=== PATIENT | female | born 1950 | race Caucasian/White ===

== ENCOUNTER 2022-07-15 12:49 | Outpatient (CLI) | payer MEDICARE, OTHER, SELFPAY ==
--- NOTE | 2022-07-15 13:00 | CRLHL7_ITS ---
For Patients: As a result of the Century Cures Act, medical imaging exams and procedure reports are released immediately into your electronic medical record. You may view this report before your referring provider. If you have questions, please contact your health care provider. INDICATION: Multiple sclerosis TECHNIQUE: Noncontrast Sagittal T1, FLAIR, axial FSE T2, FLAIR, DWI images submitted. Compared to prior study from June 09, 2020. FINDINGS: Stable mild diffuse cerebral atrophy. The ventricles, sulci and gyri are of normal size, shape and contour for age and degree of atrophy. Midline structures are centrally located. No convincing evidence of suspicious intra- or extra-axial fluid collections. Stable [id number] scattered foci of increased T2 signal within the periventricular and subcortical white matter of both cerebral hemispheres. Stable mild infratentorial white matter change no regions of restricted diffusion. IMPRESSION: 1. Stable mild to moderate supratentorial and mild infratentorial white matter change compatible with chronic demyelinating plaques. There are greater than 20 lesions overall. 2. Stable mild diffuse cerebral atrophy and T1 hypointense lesion load. Dictated by Waylon Barbosa MD @ 07/16/2022 12:22:12 PM (Electronically Signed)
--- NOTE | 2022-07-15 13:45 | CRLHL7_ITS ---
For Patients: As a result of the Century Cures Act, medical imaging exams and procedure reports are released immediately into your electronic medical record. You may view this report before your referring provider. If you have questions, please contact your health care provider. INDICATION: Multiple sclerosis. TECHNIQUE: Noncontrast sagittal T1, T2, STIR and axial GRE sequences are provided. Compared to prior study from June 09, 2020 FINDINGS: The overall stature, alignment and intrinsic marrow signal of the cervical spine is within normal limits. There is better visualized tiny lesion within the ventral cervical cord at the C1-2 level and within the right lateral cervical cord at the C2-3 level. Stable region of signal abnormality within the thoracic cord at the T1-2 level. C2-3: Unremarkable. C3-4: Central canal and neural foramina patent. C4-5: Stable mild right foraminal narrowing with no central canal or left foraminal narrowing due to asymmetric uncovertebral joint and facet arthropathy. C5-6: Mild disc osteophyte complex results in no central canal narrowing. Stable moderate to severe bilateral foraminal narrowing due to uncovertebral joint and facet arthropathy. C6-7: Mild disc osteophyte complex results in stable no central canal narrowing. Mild bilateral foraminal narrowing due to uncovertebral joint and facet arthropathy. C7-T1: Unremarkable. IMPRESSION: 1. Essentially stable multi focal signal abnormality within the upper visualized cervical and thoracic cord compatible with multiple chronic demyelinating plaques. 2. Stable moderate to severe bilateral C5-6 foraminal narrowing. 3. Milder degenerative changes within the remainder of the cervical spine as outlined above. Dictated by Waylon Barbosa MD @ 07/16/2022 12:29:27 PM (Electronically Signed)
--- NOTE | 2022-07-15 14:30 | CRLHL7_ITS ---
For Patients: As a result of the Century Cures Act, medical imaging exams and procedure reports are released immediately into your electronic medical record. You may view this report before your referring provider. If you have questions, please contact your health care provider. INDICATION: Multiple sclerosis. TECHNIQUE: Noncontrast sagittal T1, T2, STIR and axial GRE sequences are provided. Compared to prior study from June 09, 2020. FINDINGS: Mild thoracic scoliosis. The overall stature, alignment and intrinsic marrow signal of the thoracic spine is within normal limits. Stable signal abnormality within the thoracic cord at the T1-2 level with subtle atrophic changes that are better characterized on the MRI of the thoracic spine than on the MRI of the cervical spine performed the same day. There are subtle lesions within the thoracic cord again seen at the T5,T7 and T12 levels. Multiple Schmorl`s nodes seen scattered throughout the thoracic spine. Stable mild scattered degenerative changes throughout thoracic spine. Better visualized 16 millimeter irregularity of the right lobe of the thyroid gland is of indeterminate etiology. IMPRESSION: 1. Stable multi focal signal abnormality within the thoracic cord compatible multiple chronic demyelinating plaques. Stable subtle cord atrophy at the T1-2 level. 2. Essentially stable scattered multilevel degenerative changes of the thoracic spine. 3. Irregularity within the right lobe of thyroid gland that is of indeterminate etiology. Further characterization with ultrasound may be beneficial if clinically warranted. Dictated by Waylon Barbosa MD @ 07/16/2022 12:48:48 PM (Electronically Signed)
== END 2022-07-15 12:50 | disposition home or self-care (01) ==
PROVIDERS: PCP Family Medicine
DX: G35 Multiple sclerosis (principal); G31.9 Degenerative disease of nervous system, unspecified; M50.222 Other cervical disc displacement at C5-C6 level
CPT/HCPCS: 70551; 72141; 72146

== ENCOUNTER 2023-07-17 12:40 | Outpatient (CLI) | payer MEDICARE, OTHER, SELFPAY ==
--- NOTE | 2023-07-17 13:00 | MR_ITS ---
Patient: ERIK MCKAY Facility:?[facility] RIS Patient ID:?[id number] Site Patient ID:?[id number]. Site :?[id number] Study:?MRI-Head WO MS-07/17/2023 2:11:50 PM Ordering Physician:PANCHITO Final Report: Indication: Follow up MS Technique: Noncontrast sagittal T1 weighted, axial FLAIR, axial T2 weighted, and axial diffusion weighted sequences are provided. Comparison: 07/15/2022 MRI Findings: Mild cerebral and cerebellar parenchymal volume loss. The midline structures are centrally located with no evidence of shift. Stable scattered foci of T2 prolongation in the periventricular, subcortical, and juxtacortical white matter of both cerebral hemispheres. There are no suspicious intra or extra-axial fluid collections. No region of restricted diffusion. Expected flow voids in the cavernous carotids and basilar artery. Partially empty sella. The optic chiasm and cerebellar tonsils are unremarkable. Impression: 1. Stable supratentorial white matter lesions compatible with chronic demyelinating plaques. No new lesions identified. No significant changes compared to the prior exam. 2. Mild T1 hypointense lesion burden, unchanged. 3. Similar mild cerebral and cerebellar parenchymal volume loss. Dictated by Dev Smith MD @ 07/18/2023 12:03:31 PM Signed by:?Dev Smith MD @07/18/2023 12:03:31 PM (Electronic Signature)
--- NOTE | 2023-07-17 13:45 | MR_ITS ---
Final Report Patient: ERIK MCKAY Facility:?[facility] Patient ID:?[id number] Site Patient ID:?[id number]. Site :?[id number] Study:?MRI Spine Cervical WO MS-07/17/2023 2:13:31 PM Ordering Physician:PANCHITO Final Report: Indication: Follow-up multiple sclerosis. Technique: Noncontrast sagittal T1, T2, STIR, proton density, and axial T2 spin echo and GRE sequences are provided. Comparison: MRI 07/15/2022 Findings: Stable cervical spine alignment. Degenerative grade 1 anterolisthesis at C3-4, C4-5, and C7-T1. The craniocervical junction is unremarkable. No prevertebral or paraspinal edema. No aggressive osseous lesions. Small T2 hyperintense lesion in the right hemicord at C2-3 level, and the ventral cord at C1 level and at the T1-2 level in the right hemicord. No new lesions identified. C1-2: No spinal canal stenosis C2-3: No significant spinal canal stenosis or neural foramen narrowing. C3-4: Grade 1 anterolisthesis. Small central disc protrusion. Mild uncovertebral joint hypertrophy and moderate facet arthrosis. Mild neural foramina narrowing bilaterally. No significant spinal canal stenosis. C4-5: Grade 1 anterolisthesis. Moderate facet arthropathy. Mild neural foramen narrowing bilaterally. Mild spinal canal narrowing. C5-6: Moderate interspace narrowing. Shallow disc osteophyte complex and ligamentum flavum buckling. Mild spinal canal stenosis. Uncovertebral joint hypertrophy and facet arthrosis results in moderate neural foramina narrowing bilaterally. C6-7: Disc osteophyte complex indents the thecal sac without significant spinal canal stenosis. No neural foramen narrowing. C7-T1: Grade 1 anterolisthesis. No significant spinal canal stenosis or neural foramen narrowing. Impression : 1. No acute osseous or ligamentous abnormality. Stable alignment. 2. Stable scattered foci of T2 prolongation in the spinal cord suggestive of chronic demyelinating plaques. No new lesions identified. No cord expansion or atrophy. 3. Stable cervical spondylosis, outlined above. Dictated by Dev Smith MD @ 07/18/2023 12:10:53 PM (Electronic Signature)
--- NOTE | 2023-07-17 14:30 | MR_ITS ---
Patient: ERIK MCKAY Facility:?[facility] RIS Patient ID:?[id number] Site Patient ID:?[id number]. Site :?1950 Study:?MRI-Spine Thoracic WO MS-07/17/2023 2:42:38 PM Ordering Physician:PANCHITO Final Report: Indication: Multiple sclerosis, follow-up imaging Technique: Noncontrast sagittal T1, T2, STIR, proton density and axial T2 sequences are provided. Comparison: 07/15/2022 MRI Findings: Similar mild exaggeration of thoracic kyphosis. Bone marrow edema and mild loss of T11 vertebral body height with linear T2 hyperintense signal compatible with recent/subacute superior endplate compression fracture. No retropulsed fragment. Chronic T12 superior endplate Schmorl`s node. Chronic L1 superior endplate Schmorl`s node and compression fracture. Stable mild disc degeneration at multiple levels. At T10-11, stable central disc protrusion that indents the ventral thecal sac and minimally flattens the ventral cord surface. No significant neural foramen narrowing. Facet arthropathy is most prominent at T9- 10. Stable subtle scattered T2 hyperintense lesions in the thoracic spinal cord, most prominent at the T1-2 level there is minimal cord atrophy. Additional lesions noted at T5 and T6 level, T7 level and T11-12 level best seen on sagittal proton density sequence. Impression: 1. Subacute mild T11 superior endplate compression fracture. No retropulsed fragments. 2. At T10-11, stable central disc herniation that minimally flattens the ventral cord surface and results in mild spinal canal stenosis. 3. Stable subtle scattered T2 hyperintense lesions in the thoracic spinal cord, most prominent at the T1-2 level where there is minimal cord atrophy, as well as at the T5-T7 levels and T11-12 level without cord atrophy. Findings are most consistent with chronic demyelinating plaques. Dictated by Dev Smith MD @ 07/18/2023 12:21:34 PM ----- ADDENDUM ----- Addendum: Results Communication by Fax: The results were conveyed by fax to Dr. Mayuri Cote on 07/18/23 at 1234 hours, with confirmation of fax receipt. Dictated by Dev Smith MD @ Jul 18 2023 12:47PM Signed by:?Dev Smith MD @07/18/2023 12:21:34 PM (Electronic Signature)
== END 2023-07-17 12:41 | disposition home or self-care (01) ==
LOC: MRI 12:42
PROVIDERS: PCP Family Medicine; Visit Provider Psychiatry & Neurology Neurology
DX: G35 Multiple sclerosis (principal); M47.892 Other spondylosis, cervical region; S22.089A Unspecified fracture of T11-T12 vertebra, initial encounter for closed fracture; M51.24 Other intervertebral disc displacement, thoracic region; Z87.39 Personal history of other diseases of the musculoskeletal system and connective tissue
CPT/HCPCS: 70551; 72141; 72146

== ENCOUNTER 2023-10-26 14:45 | Outpatient (RCR) | payer MEDICARE, OTHER, SELFPAY | END 2024-02-23 23:59 | disposition home or self-care (01) | PROVIDERS: PCP Family Medicine; Visit Provider Family Medicine | DX: M80.08XA Age-related osteoporosis with current pathological fracture, vertebra(e), initial encounter for fracture (principal); M54.50 Low back pain, unspecified; G89.29 Other chronic pain; Z51.89 Encounter for other specified aftercare | CPT/HCPCS: 97110; 97162 ==

== ENCOUNTER 2024-02-09 02:25 | Emergency (ER) | payer MEDICARE, OTHER, SELFPAY ==
[2024-02-09 02:31] VITALS: BP 157/99; PULSE 99; RESP 20; TEMP 36.7; O2SAT 99; BMI 31.2
--- NOTE | 2024-02-09 02:34 | ED.GENADULT ---
HPI - General Adult General Chief complaint: Arrhythmia/Palpitations Stated complaint: Elevated heartrate Time Seen by Provider: 02/09/24 02:34 History of Present Illness HPI narrative: Patient is a 73-year-old woman who is doing a double colonoscopy prep and tonight she started feeling flushed and like her blood pressure was high. Her blood pressure is in fact slightly high. She feels like her face is flushed but she has no chest pain no palpitations no nausea no vomiting no fevers no chills. Patient was unable to complete the full double prep for her colonoscopy which is in 3-1/2 hours. Patient is feeling better now that she is here. EKG upon arrival shows normal sinus rhythm no acute ST or T-wave changes. Related Data Allergies Allergy/AdvReac Type Severity Reaction Status Date / Time sulfamethoxazole Allergy Intermediate Hives Verified 02/09/24 02:39 [From ] trimethoprim [From ] Allergy Intermediate Hives Verified 02/09/24 02:39 amoxicillin Allergy Mild Erythema Verified 02/09/24 02:39 Sulfa (Sulfonamide Allergy Mild Hives Verified 02/09/24 02:39 Antibiotics) trazodone Allergy Mild Hives Verified 02/09/24 02:39 Review of Systems Status of ROS: Reports: 10 or more systems reviewed and unremarkable except as noted in History and below [facility] Medical History (Updated 02/09/24 @ 03:14 by Abdulaziz Trinidad MD) Vitamin D deficiency ?E55.9 - Vitamin D deficiency, unspecified (ICD-10) Menopause ?Z78.0 - Asymptomatic menopausal state (ICD-10) Anemia ?D64.9 - Anemia, unspecified (ICD-10) Multiple sclerosis ?G35 - Multiple sclerosis (ICD-10) Lumbar foraminal stenosis ?M48.061 - Spinal stenosis, lumbar region without neurogenic claudication (ICD-10) DDD (degenerative disc disease) Osteoporosis ?M81.0 - Age-related osteoporosis without current pathological fracture (ICD-10) History of inguinal hernia ?Z87.19 - Personal history of other diseases of the digestive system (ICD-10) Nephrolithiasis ?N20.0 - Calculus of kidney (ICD-10) Low back pain ?M54.50 - Low back pain, unspecified (ICD-10) Dyshidrosis ?L30.1 - Dyshidrosis [pompholyx] (ICD-10) Depressive disorder ?F32.A - Depression, unspecified (ICD-10) Surgical History (Updated 02/09/24 @ 02:46 by Juan Luna RN) History of hysterectomy ?Z90.710 - Acquired absence of both cervix and uterus (ICD-10) History of cholecystectomy ?Z90.49 - Acquired absence of other specified parts of digestive tract (ICD-10) History of colonoscopy ?Z98.890 - Other specified postprocedural states (ICD-10) Social History Smoking Status: Former smoker Second hand tobacco smoke exposure: No How often do you have a drink containing alcohol: never AUDIT-C Alcohol total score: 0 Non-prescribed substance use: denies use Exam Narrative: Exam Narrative: EXAM GENERAL: Patient appears comfortable and well. EYES: No scleral icterus. LYMPH: No supraclavicular or cervical lymphadenopathy. SKIN: Visible skin seen during exam normal or with benign process only. EXT: No dependent lower extremity pedal edema. HEART: Regular rate and rhythm with no murmurs, rubs, or gallops. LUNGS: Clear to auscultation bilaterally with no crackles or wheezes. ABD: Soft, non tender, non distended. PSYCH: Good eye contact, speech is not pressured. Const: Vital Signs, click to edit/add: Vital Signs - 24 hr 02/09/24 02:31 Temperature 98.0 F Pulse Rate [Right Pulse Oximeter] 99 Respiratory Rate 20 Blood Pressure [Ri ght Upper Arm] 157/99 H Pulse Oximetry 99 Oxygen Delivery Me thod Room Air Course Course ED Course: Patient is a 73-year-old woman who presents with flushing during her colonoscopy prep. She has resolution of symptoms. This time will send off CBC basic metabolic panel. She declines IV fluids. She is still going to try to finish her prep and have her colonoscopy. Vital Signs Vital signs: Initial Vital Signs Temperature 98.0 F 02/09/24 02:31 Temperature Source Temporal Artery Scan 02/09/24 02:31 Pulse Rate 99 02/09/24 02:31 Pulse Rhythm Regular 02/09/24 02:31 Pulse Strength 3+ Normal 02/09/24 02:31 Respiratory Rate 20 02/09/24 02:31 Respiratory Effort Normal, Spontaneous, Non-Labored 02/09/24 02:31 Respiratory Depth Normal 02/09/24 02:31 Respiratory Pattern Normal 02/09/24 02:31 Blood Pressure 157/99 H 02/09/24 02:31 Blood Pressure Mean 118 H 02/09/24 02:31 Blood Pressure Position Sitting 02/09/24 02:31 Pulse Oximetry 99 02/09/24 02:31 Oxygen Delivery Method Room Air 02/09/24 02:31 Vital Signs Temperature 98.0 F 02/09/24 02:31 Pulse Rate 99 02/09/24 02:31 Respiratory Rate 20 02/09/24 02:31 Blood Pressure 157/99 H 02/09/24 02:31 Pulse Oximetry 99 02/09/24 02:31 Oxygen Delivery Method Room Air 02/09/24 02:31 Temperature 98.0 F 02/09/24 02:31 Pulse Rate 99 02/09/24 02:31 Respiratory Rate 20 02/09/24 02:31 Blood Pressure 157/99 H 02/09/24 02:31 Pulse Oximetry 99 02/09/24 02:31 Oxygen Delivery Method Room Air 02/09/24 02:31 Medical Decision Making MDM Narrative Medical decision making narrative: Patient is a 73-year-old woman who is completing a double colon prep and just does not feel like herself. I did do a basic metabolic panel and CBC which were both reasonable. I offered reassurance. I do think she can complete her prep is our colonoscopy in the next few hours. Would not recommend any further changes again she has reasonable vital signs and normal exam. Lab Data Labs: Lab Results 02/09/24 Range/Units 02:45 WBC 5.00 (4.50-11.00) K/uL RBC 4.04 (4.00-5.20) m/uL Hgb 13.0 (12.0-16.0) gm/dL Hct 37.5 (33.0-51.0) % MCV 93 (80-100) fL MCH 32 (26-34) pg MCHC 35 (32-36) gm/dL RDW Coeff of Jennifer 12.1 (11.5-15.5) % Plt Count 312 (140-440) K/uL Neut % (Auto) 48.2 (42.0-72.0) % Lymph % (Auto) 32.4 (20-44) % Vermilion % (Auto) 16.6 H (0.0-11.0) % Eos % (Auto) 1.8 (0.0-7.0) % Baso % (Auto) 0.8 (0.0-3.0) % Neut # (Auto) 2.41 (1.7-7.0) K/uL Lymph # (Auto) 1.62 (0.90-2.90) K/uL Vermilion # (Auto) 0.80 (0.00-0.90) K/UL Eos # (Auto) 0.09 (0.00-0.50) K/uL Baso # (Auto) 0.04 (0.00-0.30) K/uL Abs Immat Gran (auto) 0.01 (0.00-0.30) K/uL Imm/Tot Granulo (auto) 0.2 % Sodium 134 L (135-149) mmol/L Potassium 3.8 (3.6-5.1) mmol/L Chloride 97 (96-114) mmol/L Carbon Dioxide 27 (20-32) mmol/L Anion Gap 10 (7-15) mEq/L BUN 9 (7-30) mg/dL Creatinine 0.5 (0.5-1.5) mg/dL Estimated Creat Clear 40.21 Estimated GFR 98 ml/min Glucose 108 (60-115) mg/dL Calcium 9.0 (8.4-10.6) mg/dL Discharge Plan Discharge Clinical Impression: Facial flushing Patient Disposition: Home, Self-Care Condition: Stable Additional Instructions: Continue current medication Follow-up with your doctor as needed. Activity Level: No Restrictions Discharge Diet: Regular Follow Up/Referrals: Jeannette Bernabe MD [Primary Care Provider] - Stand Alone Forms: [employer] Info Instructions
[2024-02-09 02:51] LABS: Basophils Absolute Auto 0.04 K/uL (0.00-0.30); Basophils Percent Auto 0.8 % (0.0-3.0); Eosinophils Absolute Auto 0.09 K/uL (0.00-0.50); Eosinophils Percent Auto 1.8 % (0.0-7.0); Hematocrit 37.5 % (33.0-51.0); Immature Granulocytes Abs Auto 0.01 K/uL (0.00-0.30); Immature Granulocytes Pct Auto 0.2 %; Lymphocytes Absolute Auto 1.62 K/uL (0.90-2.90); Lymphocytes Percent Auto 32.4 % (20-44); Mean Corpuscular HGB Conc 35 gm/dL (32-36); Mean Corpuscular Hemoglobin 32 pg (26-34); Mean Corpuscular Volume 93 fL (80-100); Monocytes Percent Auto 16.6 % (0.0-11.0); Neutrophils Absolute Auto 2.41 K/uL (1.7-7.0); Neutrophils Percent Auto 48.2 % (42.0-72.0); Platelet Count* 312 K/uL (140-440); RDW Coefficient of Variation % 12.1 % (11.5-15.5); Red Blood Count 4.04 m/uL (4.00-5.20)
--- OUTSIDE RECORDS SUMMARY | 2024-02-09 03:02 | XMS_ITS | Clinical Summary ---
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 One side of her face turned very red. She went to the ED. It was undetermined if it was caused by the amoxicillin. Gabapentin Sedation 05/11/2012 Sulfamethoxazole-Trimethop rim Hives High 01/06/2016 Sulfa (Sulfonamide Antibiotics) Hives 05/26/2023 Trazodone Hives 03/05/2007 Medications Medication Sig Dispensed Refills Start Date End Date Status omega-3 fatty acids-vitamin E (FISH OIL) 1,000 mg cap Take by mouth. 0 03/27/2013 Active multivitamin (MVI) tablet Take 1 tablet by mouth once daily. 0 03/27/2013 Active Cranberry Extract 250 mg cap Take 500 mg by mouth two times daily. 0 05/31/2016 Active Coenzyme Q10 (CO Q-10) 10 mg cap Take 1 capsule by mouth once daily. 0 05/31/2016 Active Ca carb-Ca gluc-Mg ox-Mg gluco (CALCIUM MAGNESIUM) 500 mg calcium -250 mg tab Take by mouth once daily. 0 05/31/2016 Active b complex vitamins (VITAMIN B COMPLEX) capsule Take 1 capsule by mouth once daily. 0 10/13/2016 Active collagen, bovine, 100 % powd Apply topically to affected area(s). Put's in beverage -1 scoop daily 0 11/21/2016 Active medication order composer Takes Probiotic 12 billion capsule 1 AM and 1 PM 0 11/21/2016 Active polyethylene glycoL (MIRALAX) 17 gram/dose powder Take 17 g by mouth at bedtime. 0 11/24/2017 Active miscellaneous medical supply miscIndications:E ssential hypertension As directed 1 Each. Large blood pressure arm cuff, automatic. Diagnosis hypertension 1 Each 06/07/2018 Active nortriptyline (PAMELOR) 10 mg capsuleIndication s:MS (multiple sclerosis) (HC) Takes 50 mg a day-- 5 tabs at bedtime 360 capsule 3 09/11/2018 Active ascorbic acid, vitamin C, (VITAMIN C) 1,000 mg tablet Take 1 tablet by mouth once daily. 0 03/05/2020 Active medication order composer Just Healthy Blood Pressure Support - Magnesium 170 mg, L-Arginine 400 mg, [place] leaf extract 150 mg, Garlic 50 mg, Grapeseed Extract 50 mg- Take 2 tabs daily 0 06/18/2021 Active vitamin K2 100 mcg cap Take 1 Capsule by mouth once daily. 0 08/26/2021 Active cholecalciferol (VITAMIN D3) 1,000 unit capsule Take 5 Capsules (5,000 units) by mouth once daily. 03/31/2022 Active vitamin e 200 unit capsule Take 1 Capsule (200 units) by mouth once daily. 30 Capsule 08/23/2022 Active tretinoin 0.05 % 0.05 % creamIndications: Facial rash Apply topically to affected area(s) at bedtime. 45 g 3 06/27/2023 Active ketoconazole 2% topical (NIZORAL) creamIndications: Tinea versicolor Apply topically to affected area(s) two times daily. 60 g 1 08/03/2023 Active nystatin powder (MYCOSTATIN) powderIndications :Tinea pedis, unspecified laterality Apply 1 Strip topically to affected area(s) three times daily. 60 g 1 09/05/2023 Active polyethylene glycol-electrolyt e (GOLYTELY) 236-22.74-6.74 -5.86 gram suspensionIndicat ions:History of colonic polyps Drink 6 liters the day before colonoscopy and 2 liters 6 hours before colonoscopy appointment 8000 mL 01/29/2024 Active losartan (COZAAR) 50 mg tabletIndications :HTN (hypertension) Take 50 mg (1 tablet) in the AM, and 25 mg (1/2 tablet) in evening. 01/30/2024 Active estradioL (Estrace) 0.01% (0.1 mg/g) vaginal creamIndications: Recurrent UTI Insert 1 g into the vagina every Monday, Monday and Monday. 42.5 g 5 01/31/2024 Active estradioL (Estrace) 0.01% (0.1 mg/g) vaginal cream Insert 1 g into the vagina every Monday, Monday and Monday. 42.5 g 1 07/24/2023 4 Discontinu ed(Reorder (E-cancel not sent)) losartan (COZAAR) 50 mg tabletIndications :HTN (hypertension) Take 25 mg (1/2 tablet) in morning, 50 mg (1 tablet) in evening. 135 Tablet 3 12/01/2023 4 Discontinu ed(Reorder (E-cancel not sent)) estradioL (Estrace) 0.01% (0.1 mg/g) vaginal creamIndications: Recurrent UTI Insert 1 g into the vagina every Monday, Monday and Monday. 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 Radha Johnson RN, [facility] MS (multiple sclerosis) 02/02/2013 History of anemia 05/10/2012 Elevated BP 05/05/2011 Personal history of colonic polyps 07/08/2010 Overview (12/25/2013): Colonoscopy 06/2010 polyp repeat in 5 years Colonoscopy 12/2013 int hemorrhoids repeat in 5 years Menopause 05/03/2010 Vitamin D deficiency 11/10/2008 Other specified urticaria 03/05/2007 Dyshidrosis 03/05/2007 Obesity, unspecified 03/05/2007 Resolved Problems Problem Noted Date Diagnosed Date Resolved Date Major depressive disorder, s lupe episode, mild 09/11/2018 06/18/2021 SI (sacroiliac) joint inflammation 06/07/2018 06/26/2022 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 09/04/2007 Encounters Date Type Department Care Team Description 02/09/2024 Nurse Triage [facility] [place] [address] [place] [address] Jeannette Bernabe MD High Blood Pressure 02/09/2024 Nurse Triage [facility] [address] [place] [address] Jeannette Bernabe MD Concerns 01/30/2024 1:00 PM CDT Preop Visit [facility] [place] [address] [place] [address] [address] Jeannette Bernabe MD Lab; Preoperative Exam (02/09/24) 01/30/2024 Travel 12/15/2023 11:30 AM CDT Orders Only [facility] [address] [place] [address] Lab, [place] Lab 12/15/2023 10:40 AM CDT Nurse/Clinic Staff Only [facility] [address] [place] [address] Blood Pressure (128/76-manual reading, HR 78) 12/15/2023 Travel 12/01/2023 3:20 PM CDT Nurse/Clinic Staff Only [facility] [place] [address] [place] [address] Blood Pressure 12/01/2023 Telephone [facility] [address] [place] [address] [address] Daxa Zaragoza PA Blood Pressure (178/90) 12/01/2023 Travel 11/24/2023 8:00 AM CDT Orders Only [facility] [address] [place] [address] Lab, [place] [facility] 11/24/2023 Telephone [facility] [address] [place] [address] Jeannette Bernabe MD Lab 11/23/2023 Telephone [facility] [address] [place] [address] Jayson Mazariegos MD Screening 11/23/2023 Telephone [facility] [address] [place] [address] Jeannette Bernabe MD Procedure (Colonoscopy) from Last 3 Months Immunizations Name Administration Dates Next Due COVID-19 vaccine (Druidly NTHuixiaoer 30mcg/0.3mL) MD ORBERTV 03/31/2021,08/20/2020,07/30/2020 Influenza Virus, Unspecified 04/15/1996 Influenza, IIV3 (Age >=3 years) 04/16/2004 Pneumococcal Poly,23-Valent (Pneumovax) 05/14/20 13 Td (Age >=7 Years) 09/16/2002 Tdap 08/26/2021,09/14/2011 Family History Medical History Relation Name Comments Diabetes Brother 1 Diabetes Brother 2 Hypertension Brother 3 Cancer Brother 4 pancreatic- dec eased Other Brother 5 alzheimer's Cancer Father prostate, skin Heart Disease Father CHF Cancer Mother lung Diabetes Mother Cancer-breast Other cousins Cancer-breast Paternal Aunt x2 Relation Name Status Comments Brother 1 Brother 2 Brother 3 Brother 4 Brother 5 Father Mother Other cousins Alive Paternal Aunt Social History Tobacco Use Types Packs/Day Years Used Date Smoking Tobacco: Former Cigarettes 0.5 30 0 05/15/1966 - 05/15/1996 Smokeless Tobacco: Never Tobacco Cessation:Counseling Given: Yes Alcohol Use Standard Drinks/Week Comments Yes 0 (1 standard drink = 0.6 oz pur e alcohol) rarely ever PHQ-2 Answer Date Recorded PHQ-2 TOTAL SCORE 0 06/27/2023 Social Connections Answer Date Recorded Frequency of Communication with Friends and Fami ly 0 01/30/2024 Financial Resource Strain Answer Date R ecorded Difficulty of Paying Living Expenses 3 01/30/2024 Difficulty of Paying Living Expenses Not on file 01/30/2024 Food Insecurity Answer Date Recorded Worried About Running Out of Food in the Last Ye ar 1 01/30/2024 Transportation Needs Answer Date Record ed Lack of Transportation (Medical) 1 01/30/2024 Housing Stability Answer Date Recorded Unable to Pay for Housing in the Last Year 1 01/30/2024 Sex and Gender Information Value Date Recorded Sex Assigned at Not on file Gender Identity Not on file Sexual Orientation Not on file Obstetrics History Para Term AB IAB SAB Ectopic Multiple Livin g Live Births 4 3 3 1 1 3 Date Outcome GA Total Labor Labor/2nd/3rd Weight Sex Type Anes PTL Carrie A1 A5 Name Clin IAB Term Term Term Last Filed Vital Signs Vital Sign Reading Time Taken Comments Blood Pressure 135/80 01/30/2024 12:57 PM CDT Pulse 82 01/30/2024 12:57 PM CDT Temperature 36.7 ??C (98.1 ??F) 10/05/2021 9:43 AM CD T Respiratory Rate 16 12/01/2023 4:08 PM CDT Oxygen Saturation 100% 01/30/2024 12:57 PM CDT Inhaled Oxygen Concentration - - Weight 79.7 kg (175 lb 9.6 oz) 01/30/2024 12:57 PM CDT Height 159.4 cm (5' 2.75) 06/27/2023 9:51 AM CS T Body Mass Index 31.35 06/27/2023 9:51 AM [employer]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 Plan of Treatment Upcoming Encounters Date Type Department Care Team (Late st Contact Info) Description 02/09/2024 6:30 AM CDT Office Visit [facility] [address] [place] [address] Jayson Mazariegos MD [address] [place] [address] Health Maintenance Due Date Last Done Comments Zoster (shingles) series for age 50+ (1 of 2) 1998 Pneumococcal series for age 65+ (2 of 2 - PCV) 05/14/2014 05/14/2013 RSV vaccine for adults or (1 - 1-dose 75+ series) 2023 COVID-19 vaccine series ( season) 2024 03/31/2021, 08/20/2020, 07/30/2020 Influenza for age 65+ 01/14/2024 04/16/2004, 996 Colonoscopy through age 75 02/08/202402/07, 02/07/2019, 12/25/2013, Additional history exists BMI (ht and wt on same day) for age 18+ 06/27/2024 06/27/2023, 06/24/2022, 03/25/2022, Additional history exists Medicare Wellness for age 65+ 06/27/2024, 06/24/2022, 06/18/2021, Additional history exists Depression screening for age 12+ 06/29/2024 06/29/2023, 06/27/2023, 06/24/2022, Additional history exists Lipids for age 45-75 06/27/2028 06/27/2023, 06/24/2022, 06/18/2021, Additional history exists Tetanus booster 08/27/2031 08/26/2021, 05/06/2011, 09/16/2002 Hepatitis C screening for ag e 18-79 Completed 05/31/2016 Tdap Completed 08/26/2021, 09/14/2011 DEXA/DXA scan for age 65+ Completed 08/11/2022, 03/2017 Goals Goal Patient Goal Type Associated Problems Recent Progress Patient-Stated? Author BLOOD PRESSURE - Maintains BP less than 140/90 Blood Pressure No Bhavani Bradley, ROSIE Medical Devices Implanted Type Area Family Medicine Chair Device Identifier Shelf Expiration Date Model / Serial / Lot Stent Uret [id number] Silhouette Xtraflo - [id number] Implanted:Qty: 1 on 09/12/2010 at [facility] Right: [employer] 05/24/2013 [id number] / / [id number] Stent Uret [id number] Silhouette Xtraflo - [id number] Implanted:Qty: 1 on 09/20/2010 at [facility] Right: [employer] [id number] / / [id number] Procedures Procedure Name Priority Date/Time Associated Diagnosis Comments URINALYSIS MACROSCOPIC - [facility] ONLY POC DIP (QUEST) Routine 01/30/2024 2:38 PM CDT Recurrent UTI URINE CULTURE Routine 12/15/2023 10:15 AM CDT Recurrent UTI UA W/ SEDIMENT EXAM REFLEXED PER CRITERIA Routine 12/15/2023 10:15 AM CDT Recurrent UTI BASIC METABOLIC PANEL Routine 12/15/2023 1:19 AM CDT HTN (hypertension) URINALYSIS MICROSCOPIC Routine 11/24/2023 8:00 AM CDT Recurrent UTI URINE CULTURE Routine 11/24/2023 8:00 AM CDT Recurrent UTI UA W/ SEDIMENT EXAM REFLEXED PER CRITERIA Routine 11/24/2023 8:00 AM CDT Recurrent UTI LIPID PANEL W REFLEX MEASURED LDL Routine 06/27/2023 8:45 AM 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 Lipid screening XR DXA BONE DENSITY 2 SITES AXIAL Routine 08/11/2022 11:24 AM CDT Osteopenia, unspecified location Other specified disorders of bone density and structure, multiple sites COLONOSCOPY 02/07/2019 1:03 PM CDT ANTI HCV Routine 05/31/2016 10:01 AM 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 Need for hepatitis C screening test from Last 3 Months or Most Recently Relevant to Health Maintenance Results * (ABNORMAL) POCT Urinalysis Dipstick Only (01/30/2024 2:38 PM CDT) PH 7.0 5.0 - 8.0 [facility] SPECIFIC GRAVITY 1.010 1.001 - 1.035 [facility] GLUCOSE NEGATIVE NEGATIVE [facility] BILIRUBIN NEGATIVE NEGATIVE [facility] KETONES NEGATIVE NEGATIVE [facility] OCCULT BLOOD NEGATIVE NEGATIVE [facility] PROTEIN NEGATIVE NEGATIVE [facility] NITRITE NEGATIVE NEGATIVE [facility] LEUKOCYTE ESTERASE TRACE(A) NEGATIVE [facility] Urine URINE SPECIMEN / Unknown 01/30/2024 2:38 PM CDT 01/30/2024 2:39 PM CDT Jeannette Bernabe MD URINE Performing Organization Address City/[facility] [address]/ZIP Co de Phone Number [facility] [address] [place] [address], [facility] [address] [place] [address] * URINE CULTURE (12/15/2023 10:15 AM CDT) Only the most recent of2 resultswithin the time period is included. CULTURE <10,000 CFU/mL multiple organisms 12/16/2023 4:08 PM CDT [facility] Urine URINE SPECIMEN / Unknown Non-Blood / Unknown 12/15/2023 10:15 AM CDT 12/15/2023 10:39 AM CDT Jeannette Bernabe MD MICROBIOLOGY Performing Organization Address City/[facility] [address]/ZIP Co de Phone Number [facility] [address] [place] [phone], * UA W/ SEDIMENT EXAM REFLEXED PER CRITERIA (12/15/2023 10:15 AM CDT) Only the most recent of2 resultswithin the time period is included. COLOR Yellow Yellow Color 12/15/2023 10:46 AM CDT [facility] CLARITY Clear Clear Clarity 12/15/2023 10:46 AM CDT [facility] SPECIFIC GRAVITY,URINE 1.010 1.010, 1.015, 1.020, 1.025 12/15/2023 10:46 AM CDT [facility] PH,URINE 7.0 6.0, 7.0, 8.0, 5.5, 6.5, 7.5, 8.5 12/15/2023 10:46 AM CDT [facility] UROBILINOGEN, QUALITATIVE Normal Normal EU/dl 12/15/2023 10:46 AM CDT [facility] PROTEIN, URINE Negative Negative mg/dL 12/15/2023 10:46 AM CDT [facility] GLUCOSE, URINE Negative Negative mg/dL 12/15/2023 10:46 AM CDT [facility] KETONES,URINE Negative Negative mg/dL 12/15/2023 10:46 AM CDT [facility] BILIRUBIN,URI NE Negative Negative 12/15/2023 10:46 AM CDT [facility] OCCULT BLOOD,URINE Negative Negative 12/15/2023 10:46 AM CDT [facility] NITRITE Negative Negative 12/15/2023 10:46 AM CDT [facility] LEUKOCYTE ESTERASE Negative Negative 12/15/2023 10:46 AM CDT [facility] Urine URINE SPECIMEN / Unknown Non-Blood / Unknown 12/15/2023 10:15 AM CDT 12/15/2023 10:39 AM CDT Jeannette Bernabe MD URINE [facility] [address] [place] [address], * (ABNORMAL) BASIC METABOLIC PANEL (12/15/2023 1:19 AM CDT) SODIUM 132(L) 136 - 145 mmol/L 12/15/2023 6:24 PM CDT [facility] POTASSIUM 4.9 3.5 - 5.1 mmol/L 12/15/2023 6:24 PM CDT [facility] CHLORIDE 96(L) 98 - 107 mmol/L 12/15/2023 6:24 PM CDT [facility] CO2,TOTAL 26 22 - 29 mmol/L 12/15/2023 6:24 PM CDT [facility] ANION GAP 10 5 - 18 12/15/2023 6:24 PM CDT [facility] GLUCOSE 99 70 - 99 mg/dL 12/15/2023 6:24 PM CDT [facility] CALCIUM 9.9 8.8 - 10.2 mg/dL 12/15/2023 6:24 PM CDT [facility] BUN 15 8 - 23 mg/dL 12/15/2023 6:24 PM CDT [facility] CREATININE 0.66 0.50 - 0.90 mg/dL 12/15/2023 6:24 PM CDT [facility] BUN/CREAT RATIO 23(H) 10 - 20 6:24 PM CDT [facility] eGFR >90 >90 mL/min/1.7 3m2 12/15/2023 6:24 PM CDT [facility] Comment:As of 2021, eG FR is calculated by the CKD-EPI creatinine equation without race adjustment. ??eGFR can be influenced by muscle mass, exercise, and diet. ??The reported eGFR is an estimation only and is only applicable if the renal function is stable. Blood BLOOD SPECIMEN / Unknown Butterfly / Unknown 12/15/2023 1:19 AM CDT 12/15/2023 11:20 AM CDT Daxa BARR CHEMISTRY [facility] [address] [place] [address], * (ABNORMAL) URINALYSIS MICROSCOPIC (11/24/2023 8:00 AM CDT) RBC 0-2 0-2, None Seen /HPF 11/24/2023 8:40 AM CDT [facility] WBC >100(A) 0-2, 3-5, None Seen /HPF 11/24/2023 8:40 AM CDT [facility] BACTERIA Few None Seen, Rare, Few Bacteria/H PF 11/24/2023 8:40 AM CDT [facility] EPITHELIAL CELLS Few None Seen, Few Epi/HPF 11/24/2023 8:40 AM CDT [facility] Urine URINE SPECIMEN / Unknown Non-Blood / Unknown 11/24/2023 8:00 AM CDT 11/24/2023 8:34 AM CDT Jeannette Bernabe MD URINE [facility] [address] [place] [address], * (ABNORMAL) LIPID PANEL W REFLEX MEASURED LDL (06/27/2023 8:45 AM 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) CHOLESTEROL,TOTAL 217(H) 100 - 199 mg/dL 06/27/2023 8:46 PM 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 [facility] Comment: Cholesterol, Total Reference Ranges Desirable <200 mg/dL Borderline 200-239 mg/dL High >=240 mg/dL TRIGLYCERIDES 37 <150 mg/dL 06/27/2023 8:46 PM 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 [facility] HDL CHOLESTEROL 90 >40 mg/dL 8:46 PM 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 [facility] NON-HDL CHOLESTEROL 127 <145 mg/dl 06/27/2023 8:46 PM 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 [facility] CHOL/HDL RATIO 2.41 <4.50 06/27/2023 8:46 PM 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 [facility] LDL CHOLESTEROL 120 <=130 mg/dL 06/27/2023 8:46 PM 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 [facility] VLDL CHOLESTEROL 7 <=30 mg/dL 06/27/2023 8:46 PM 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 [facility] PROVIDER ORDERED STATUS RANDOM 06/27/2023 8:46 PM 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 [facility] Blood BLOOD SPECIMEN / Unknown Butterfly / Unknown 06/27/2023 8:45 AM 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 06/27/2023 8:47 AM 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 Jeannette Bernabe MD CHEMISTRY [facility] [address] [place] [id number], * (ABNORMAL) XR DXA BONE DENSITY 2 SITES AXIAL (08/11/2022 11:24 AM CDT) Anatomical Region Laterality Modality Spine, HIPS, HIPL, HIPR Other Impressions 08/15/2022 1:45 PM CDT Osteoporosis. RECOMMENDATIONS: The National Osteoporosis Foundation recommends pharmacologic treatment for patients with T-scores of -2.5 or less, patients with prior history of fragility fractures, or patients with 10-year probability of greater than 3% at hips or greater than 20% of suffering major osteoporotic fractures. Recommend continued optimization of calcium and vitamin D intake through dietary means and/or supplementation and regular exercise. Consider pharmacologic therapy for osteoporosis. Follow-up bone density reading in 2 years if therapy initiated to assess therapeutic efficacy. Chitra Cruz PA-C [facility] 08/15/2022 Narrative 08/15/2022 1:45 PM CDT For Patients: Results are automatically released to your [facility] ([facility]) account once available, in compliance with federal regulations. This means that you may see your results before your provider has had a chance to review them. Please allow 2-3 business days for your provider to comment on the results. XR DXA Bone Mineral Density (BMD) EXAM LOCATION: [address] [address] PATIENT NAME: Lelia Vizcarra DATE OF : 1950 EXAM DATE: 08/11/2022 REQUESTING PROVIDER: Lillie Zavala MD GENDER AT : female HEIGHT: 5' 3 (06/24/2022) WEIGHT: ??165 lb 6.4 oz (08/11/2022) MENOPAUSAL STATUS: Postmenopausal RACE/ETHNICITY: White RISK FACTORS: Family History of Hip Fracture (parental), Smoking (prior), Steroid Medication (non-topical) and White Race CURRENT MEDICATION FOR BONE LOSS: NONE INDICATION: Osteopenia, unspecified location; Other specified disorders of the bone density and structure, multiple sites COMPARISON DATE(S): 2016 (only for the hips) DXA scans are compared to prior studies for a patient only when the two (or more) studies were performed on the same scanner. It is not possible to compare data generated on one scanner to data from another because there are not standards in DXA equipment. This applies even if the two scanners are made by the same cloth cutting machine operator. PROCEDURE: Dual-energy x-ray absorptiometry performed with routine technique. Reporting is completed in the form of a T-score. The T-score represents the standard deviation from peak bone mass based on young healthy adult. A Z-score is used for diagnosis in premenopausal women, and for men under the age of 50. FINDINGS: RESULT LUMBAR SPINE L1 - L4 BMD: 1.124 g/cm2 T-Score: - 0.6 Z-Score: + 0.8 Change from prior: ??None RESULTS FEMUR Left femoral neck BMD: 0.653 g/cm2 T-Score: - 2.8 Z-Score: - 1.1 Change from prior in 2017: ??Decrease 10.2%. Right femoral neck BMD: 0.694 g/cm2 T-Score: - 2.5 Z-Score: - 0.8 Change from prior in 2017: ??Decrease 11.3%. Left hip BMD: 0.623 g/cm2 T-Score: - 3.0 Z-Score: - 1.6 Change from prior in 2017: ??Decrease 16.0%. Right hip BMD: 0.642 g/cm2 T-Score: - 2.9 Z-Score: - 1.4 Change from prior in 2017: ??Decrease 18.6%. WHO criteria: Normal: T-score at or above -1 SD Osteopenia: T-score between -1.1 and -2.4 SD Osteoporosis: T-score at or below -2.5 SD Lillie Zavala MD DEXA * COLONOSCOPY (02/07/2019 1:03 PM CDT) 02/07/2019 1:03 PM CDT Narrative Transcriptions Jayson Mazariegos MD - 02/07/2019 2:56 PM CDT Patient Name: Lelia Vizcarra Procedure Date: 02/07/2019 Gender: Female Date of : 1950 Admit Type: Outpatient Procedure: Colonoscopy Proceduralist: Jayson Mazariegos MD , Mabel Sheth (Nurse) Indications/Pre-Op Diagnosis: Surveillance: Personal history ofadenomatous polyps on last colonoscopy 5 years ago, Last colonoscopy: December 2013 Medications: Fentanyl 100 micrograms IV, Midazolam 3 mgIV, The level of sedation administered wasmoderate Procedure Description: The patient had risks, benefits and alternatives explained to andgave informed consent. The patient had a stable cardiopulmonary status and judged an adequate candidate for conscious sedation. The Colon [id number] was passed through the anus and advancedto the cecum, identified by appendiceal orifice and ileocecal valve. The colonoscopy was performed without difficulty. The patient toleratedthe procedure well. The quality of the bowel preparation was excellent.The ileocecal valve, appendiceal orifice, and rectum were photographed. Complications: No immediate complications. Estimated Blood Loss & Specimen: Estimated blood loss: none. Specimen collected - None Findings: The perianal and digital rectal examinations were normal. The colon (entire examined portion) was moderately redundant. The exam was otherwise without abnormality on direct and retroflexion views. Impressions/Post-Op Diagnosis: - Redundant colon. - The examination was otherwise normal on direct and retroflexionviews. - No specimens collected. Recommendation: - Patient has a contact number available for emergencies. The signsand symptoms of potential delayed complications were discussed with the patient. Return to normal activities tomorrow. Written discharge instructions were provided to the patient. - Resume previous diet. - Continue present medications. - Repeat colonoscopy in 5 years for surveillance with an adultscope. - For future colonoscopy the patient will require an extended preparation, Peg 8L. If there are any questions, please contact the dice person. Moderate Sedation: Moderate (conscious) sedation was administered by the endoscopy nurse and supervised by the endoscopist. The following parameters were monitored: oxygen saturation, heart rate, respiratory rate, blood pressure, adequacy of pulmonary ventilation and reponse to care. Please refer to the patien'ts medical record flowsheets and nursing notes for moderate sedation details. Total physician intraservice time was 24 minutes. Jayson Mazariegos MD 02/07/2019 2:56:26 PM This report has been signed electronically. Note Initiated On: 02/07/2019 1:03 PM Procedure Code(s): --- Professional --- 13260, Colonoscopy, flexible; diagnostic, including collection of specimen(s) bybrushing or washing, when performed (separateprocedure) Diagnosis Code(s): --- Professional --- Z86.010, Personal history of colonicpolyps Q43.8, Other specified congenitalmalformations of intestine CPT copyright 2018 [employer]. All rights reserved. The codes documented in this report are preliminary and upon hand spring repairer reviewmay be revised to meet current compliance requirements. 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 Jeannette Bernabe MD [facility] [address] [place] [address], from Last 3 Months or Most Recently Relevant to Health Maintenance Care Teams Bunk House Worker Relationship Specialty Start Date End Date Jeannette Bernabe MD [address] [place] [address] PCP - General Family Practice 03/28/11
--- OUTSIDE RECORDS SUMMARY | 2024-02-09 03:02 | XMS_ITS | Clinical Summary ---
Author Organization [facility] Address [address] [place] [address] Care Team Providers Care Aviation Maintenance Technician Name Role Phone Mayuri Cote MD Unavailable Lilly Harris PA-C Unavailable Jeannette Bernabe MD Primary Care Provider [phone] Allergies Active Allergy Reactions Criticality Noted Date Comments Amoxicillin 05/24/2019 Gabapentin 07/16/2014 Sulfa (Sulfonamide Antibiotics) Hives 05/17 Trazodone 07/16/2014 Medications Medication Sig Dispensed Refills Start Date End Date Status ubidecarenone (COQ-10 ORAL) Take by mouth. Active cranberry fruit extract (CRANBERRY ORAL) Take by mouth. Active Fish Oil 340-1,000 mg oral capsule Take 1 capsule (1,000 mg) by mouth once daily. Active losartan (COZAAR) 25 mg oral tablet Take 1 tablet (25 mg) by mouth once daily. Active multivitamin (CERTAVITE) 18-400 mg-mcg oral tablet Take 1 tablet by mouth once daily. Active Lactobac no.41/Bifidobact no.7 (PROBIOTIC-10 ORAL) Take by mouth. Active ascorbic acid, vitamin C, 250 mg oral tablet Take 1 tablet (250 mg) by mouth once daily. Active cholecalciferol, vitamin D3, 25 mcg, 1000 unit, 25 mcg (1,000 unit) oral tablet Take 4 tablets (100 mcg) by mouth once daily. Active nortriptyline (PAMELOR) 10 mg oral capsule TAKE SEVEN CAPSULES BY MOUTH EVERY DAY AT BEDTIME ### 630 capsule 3 02/10/2023 Active Active Problems Problem Noted Date Diagnosed Date Vitamin D deficiency, unspecified 07/16/2014 Immunizations Name Administration Dates Next Due Pfizer 12+ Yrs Monovalent CO VID Vaccine (purple cap) 03/31/2021,08/20/2020,07/30/2020 Pneumococcal PPSV23 05/14/2013 Td 09/16/2002 Tdap 08/26/2021,09/14/2011 Family History Medical History Relation Comments Alzheimer's Disease Other Diabetes Other Heart Disease Other High Blood Pressure Other Relation Status Comments Other Social History Tobacco Use Types Packs/Day Years Used Date Smoking Tobacco: Former Smokeless Tobacco: Never Alcohol Use Standard Drinks/Week Comments Yes 0 (1 standard drink = 0.6 oz pur e alcohol) Sex and Gender Information Value Date Recorded Sex Assigned at Not on file Gender Identity Not on file Sexual Orientation Not on file Last Filed Vital Signs Vital Sign Reading Time Taken Comments Blood Pressure 160/96 08/18/2023 10:27 AM CDT Pulse 78 08/18/2023 10:27 AM CDT Temperature - - Respiratory Rate - - Oxygen Saturation - - Inhaled Oxygen Concentration - - Weight 78 kg (172 lb) 08/18/2023 10:27 AM CDT Height 160 cm (5' 3) 08/18/2023 10:27 AM CDT Body Mass Index 30.47 08/18/2023 10:27 AM CDT Plan of Treatment Health Maintenance Due Date Last Done Comments Colonoscopy 1948 Lipid Screening 1948 Depression Assessment (PHQ-2) 1949 Yearly Review of HCD 1998 Zoster Vaccine (1 of 2) 1998 Pneumococcal 65+ (2 of 2 - PCV) 05/14/2014 3 RSV Vaccines (1 - 1-dose 75+ series) 2023 COVID-19 Vaccine ( - 2023-2 5 season) 2024 03/31/2021, 08/20/2020, 07/30/2020 Influenza Vaccine (#1) 2024 Medicare Wellness Visit 06/27/2024 06/27/19 24, 06/24/2022, 06/18/2021, Additional history exists Osteoporosis Screening 08/11/2024 3, 08/11/2022, 11/22/2016 Mammogram Screening 06/27/2025 06/27/2023, 06/27/2023, 06/24/2022, Additional history exists Adult Tetanus Booster 08/27/2031 08/26/2021 , 09/14/2011, 09/16/2002 Hepatitis C Screening Completed 05/31/2016 Care Teams Aviation Maintenance Technician Relationship Specialty Start Date End Date Jeannette Bernabe MD [address] [place] [address] PCP - General 06/24/21 Mayuri Cote MD Physician Neurology 06/23/21 Lilly Harris PA-C Physician Income Tax Administrator Neurology 06/23/21
--- OUTSIDE RECORDS SUMMARY | 2024-02-09 03:02 | XMS_ITS | Referral Summary ---
Author Organization [facility] Address [address] [place] [address] Care Team Providers Care Maintenance Trainer Name Role Phone Mayuri Cote MD Unavailable Lilly Harris PA-C Unavailable Jeannette Bernabe MD Primary Care Provider [phone] Allergies Active Allergy Reactions Criticality Noted Date [...] Pneumococcal PPSV23 05/14/2013 Td 09/16/2002 Tdap 08/26/2021,09/14/2011 Social History Tobacco Use Types Packs/Day Years [...] 08/18/2023 10:27 AM CDT Plan of Treatment Not on file Care Teams Maintenance Trainer Relationship Specialty Start Date End Date Jeannette Bernabe MD [address] [place] [address] PCP - General 06/24/21 Mayuri Cote MD Physician Neurology 06/23/21 Lilly Harris PA-C Physician Weigh Machine Operator Neurology 06/23/21
--- OUTSIDE RECORDS SUMMARY | 2024-02-09 03:02 | XMS_ITS | Data Portability ---
Author Organization [facility], [facility] Address [address] [place] [address] Care Team Providers Care Plastic Straightening Roll Operator Name Role Phone SHAAN ORTIZ Primary Care Provider Assessment No assessment recorded. Plan of Treatment Reminders Order Date Submit Date Provider Last Modified By Organization Details Last Modified Time Details Appointments None recorded. Lab urinalysis , dipstick 2022 023 [facility], [address], [place], [address], 3 14:29:47 culture, urine - needs UCx in 1-2 weeks (at [facility]) 2022 023 [facility], [address], [place], [address], 3 16:20:39 urinalysis , dipstick 2022 023 [id number] [facility], [address], [place], [address], 3 17:45:15 culture, urine 2022 023 [facility], [address], [place], [address], 3 11:26:42 Referral None recorded. Procedures None recorded. Surgeries None recorded. Imaging None recorded. Medication Orders fosfomycin tromethami ne 3 gram oral packet 2022 023 [id number], [address] [address], [place], [address], 15:02:40 Patient TargetsNo targets recorded. Patient InstructionsNo instructions recorded. Reason for Referral None Reported. Results Created Date Observation Date Name Description Value Unit Range Abnormal Flag Note LastModifiedBy Organization Detail LastModifiedTime 12/13/1912/12/2022 urina lysis , dipst ick Color-Status Yellow Not Available [facility] [address], [place], [address], 12/12/2022 14:28:29 12/13/1912/12/2022 urina lysis , dipst ick Clarity-Stat us Clear Not Available [facility] [address], [place], [address], 12/12/2022 14:28:29 12/13/19 23 12/12/2022 urina lysis , dipst ick pH-Status 7.0 Not Available [facility] [address], [place], [address], 12/12/2022 14:28:29 12/13/19 23 12/12/2022 urina lysis , dipst ick Nitrates-Sta tus negati ve Not Available [facility] [address], [place], [address], 12/12/2022 14:28:29 12/13/19 23 12/12/2022 urina lysis , dipst ick Blood-Status Negati ve Not Available [facility] [address], [place], [address], 12/12/2022 14:28:29 12/13/19 23 12/12/2022 urina lysis , dipst ick Leuko-Status Negati ve Not Available [facility] [address], [place], [address], 12/12/2022 14:28:29 01/05/2001/04/2023 URINE CULTU RE final report MICROB IOLOGY RESULT S SOURC E Void KNOWN ALLER ELISEO see list TREAT MENT none MEDIA PLATE D AT: Media plate d on 2022 @ 5:22 PM COLON Y COUNT < 10,00 0 cfu/m l RESUL T No Furth er Shaina p This lab resul t is being provi ded to you and your provi viry at the same time in compl iance with the Cent ry Cures Act. Your provi viry may not have had time to revie w and make recom menda tions based on the resul t. Plekhai e allow up to one week for provi viry revie w. Not Available [facility] [address], [place], [address], 01/07/2023 11:26:42 01/05/2001/04/2023 urina lysis , dipst ick Color-Status Yellow Not Available [facility] [address], [place], [address], 01/04/2023 17:44:34 01/05/2001/04/2023 urina lysis , dipst ick Clarity-Stat us Clear Not Available [facility] [address], [place], [address], 01/04/2023 17:44:34 01/05/2001/04/2023 urina lysis , dipst ick pH-Status 6.5 Not Available [facility] [address], [place], [address], 01/04/2023 17:44:34 01/05/2001/04/2023 urina lysis , dipst ick Nitrates-Sta tus negati ve Not Available [facility] [address], [place], [address], 01/04/2023 17:44:34 01/05/2001/04/2023 urina lysis , dipst ick Blood-Status Negati ve Not Available [facility] [address], [place], [address], 01/04/2023 17:44:34 01/05/2001/04/2023 urina lysis , dipst ick Leuko-Status Negati ve Not Available [facility] [address], [place], [address], 01/04/2023 17:44:34 Result Notes None recorded. Procedures Surgical History Date Name Laterality Status Provider Name and Address Organization Details Recorded Time 01/05/20 Bladder Scan completed Harshil Kilpatrick MD [address] [place] [address],[address] [place] [address], [address], [facility] 01/04/2023 16:59:08 12/13/19 Bladder Scan completed Harshil Kilpatrick MD [address] [place] [address],[address], [address], [facility] 12/12/2022 14:26:00 Cholecystectomy completed Harshil Kilpatrick MD [address] [place] [address],[address], [address] [place] [address], [facility] 12/12/2022 14:28:36 Total Hysterectomy completed Harshil Kilpatrick MD [address] [place] [address],[address], [address], [facility] 12/12/2022 14:28:47 Imaging Results None recorded. Procedure Notes None recorded. Medical Equipment None Reported. Allergies Allergen ID Allergen Name Allergen Category Reaction Reaction Severity Criticality Documentation Date Start Date Code Code System Note Provider Name and Address Organization Details Recorded Time [id number] trazodone medicatio n Not available Not available Not available 12/12/2022 21077 RxNorm Harshil Kilpatrick MD [address] [place] [address],[address] [place] [address], [address] , [facility] 14:26:05 767124 gabapenti n medicatio n Not available Not available Not available 12/12/2022 36896 RxNorm Harshil Kilpatrick MD [address] [place] [address],[address], [place], [address], [facility] 3 14:26:09 [id number] Substance with sulfonami de structure and antibacte rial mechanism of action (substanc e) medicatio n Not available Not available Not available 12/12/2022 33883 8003 SNOMED Harshil Kilpatrick MD [address] [facility],[address] [place] [address], [address], [facility] 3 14:26:16 730776 amoxicill in medicatio n Not available Not available Not available 12/12/2022 723 RxNorm Harshil Kilpatrick MD [address] [place] [address],[facility] [address] [place] [address], [address], [facility] 3 14:26:21 Medications Name Sig Start Date Stop Date Status Note LastModified by Organization Details LastModified Time losartan 50 mg tablet Take 1 Tablet (50 mg) by mouth once daily.* active Not Available Not Available No t Available prednisone 10 mg tablet take 3 tablets by mouth once daily with a meal for 2 days, then 2 tablets daily for 2 days, then 1 tablet daily for 2 days.* active Not Available Not Available No t Available cefuroxime axetil 250 mg tablet Take 1 Tablet (250 mg) by mouth two times daily for 7 days* 12/12 completed Not Available Not Available Not Available azithromyci n 250 mg tablet TAKE BY MOUTH DIRECTED UNTIL GONE 12/12 completed Not Available Not Available Not Available fosfomycin tromethamin e 3 gram oral packet recommend Fosfomyci n 3 gm every other day for 7 doses (14 days) 2022 active Not Available Not Available Not Avai lable terbinafine HCl 250 mg tablet TAKE ONE TABLET BY MOUTH ONE TIME DAILY 12/12 completed Not Available Not Available Not Available cephalexin 500 mg capsule TAKE ONE CAPSULE BY MOUTH THREE TIMES DAILY* active Not Available Not Available No t Available Cipro 500 mg tablet Take 1 tablet every 12 hours by oral route for 10 days. 02/10 completed Not Available Not Available Not Available losartan 25 mg tablet TAKE ONE TABLET BY MOUTH ONE TIME DAILY 07/31 /2023 completed Not Available Not Available Not Available hydrocortis one 2.5 % topical cream Apply topically to affected area(s) 2 times daily. 12/12 completed Not Available Not Available Not Available furosemide 20 mg tablet Take 1 Tablet (20 mg) by mouth once daily if needed for leg swelling. * active Not Available Not Available No t Available methylpredn isolone 4 mg tablets in a dose pack TAKE BY MOUTH INSTRUCTE D PER PACKAGING (ON BACK OF FOIL POUCH). TAKE DAY'S DOSE WITH BREAKFAST 12/12 completed Not Available Not Available Not Available Estrace 0.01% (0.1 mg/gram) vaginal cream Insert 1 g 3 times a week by vaginal route. 2023 active Not Available Not Available Not Avai lable cyclobenzap rine 5 mg tablet TAKE ONE TABLET BY MOUTH ONE TIME DAILY AT BEDTIME NEEDED FOR MUSCLE SPASM* active Not Available Not Available No t Available nitrofurant oin monohydrate /macrocryst als 100 mg capsule TAKE ONE CAPSULE BY MOUTH TWICE DAILY* 01/04 completed Not Available Not Available Not Available nortriptyli ne active Not Available Not Available Not Available olopatadine 0.2 % eye drops INSTILL ONE DROP INTO EACH EYE ONCE DAILY 12/12 completed Not Available Not Available Not Available Vitals Date Recorded Body height Body mass index (BMI) Body weight Provider Name and Address Organization Details Last Updated DateTime 12/12/2022 160.02 cm 29.2 kg/m2 85042.74 g Harshil Kilpatrick MD [address] [place] [address], [address], [facility] 12/12/2022 14:25:41 Date Recorded Body height Body mass index (BMI) Body weight Provider Name and Address Organization Details Last Updated DateTime 01/04/2023 160.02 cm 29.2 kg/m2 33299.74 g Harshil Kilpatrick MD [address] [place] [address], [address], [facility] 01/04/2023 16:58:06 Social History Question Answer Notes LastModified by Organizat ion Details LastModified Time Tobacco Smoking Status Former Smoker Harshil Kilpatrick MD [address] [place] [address],[address], [address], [facility] 12/12/2022 14:28:22 What Is Your Level Of Alcohol Consumption? Occasional Information not available 12/12/2022 How Many Times Per Week Do You Consume Alcohol? Less Than 1 Time Per Week Information not available 12/12/2022 What Is Your Level Of Caffeine Consumption? Moderate Information not available 12/12/2022 When Did You Quit Smoking? 14+yearssingloria dumont Information not available 12/12/2022 What Was The Date Of Your Most Recent Tobacco Screening? 01/04/2023 Information not available 01/04/2023 Sex: Unknown Functional Status None recorded. Mental Status None recorded. Family History Relationship Description Onset Age of this Age Resolved Age Notes LastModified by Organization Details LastModified Time Brother Family history of diabetes mellitus Not available 2022 14:27:36 Brother Family history of malignant neoplasm pancre as Not available 12/12/2022 14:28:02 Mother Family history of diabetes mellitus Not available 2022 14:27:36 Mother Family history of malignant neoplasm lung Not available 2022 14:28:02 Father Family history of cardiac disorder Not available 2022 14:27:40 Father Family history of malignant neoplasm prosta te Not available 12/12/2022 14:28:02 Medical History Condition Response GERD/Acid Reflux Y High Blood Pressure Y Depression Y Gynecological HistoryNo gynecological history recorded. Obstetrics History GPAL:G 0 P 0 0 0 0 Immunizations Vaccine Type Date Status Provider Name and Address Organization Details Recorded Time COVID-19, mRNA, LNP-S, PF, 30 mcg/0.3 mL dose 07/30/2020 completed Harshil Kilpatrick MD [address] [place] [address],[address], [address], [facility] 12/12/2022 14:25:49 COVID-19, mRNA, LNP-S, PF, 30 mcg/0.3 mL dose 08/20/2020 completed Harshil Kilpatrick MD [address] [place] [address],[address], [address], [facility] 12/12/2022 14:25:49 COVID-19, mRNA, LNP-S, PF, 30 mcg/0.3 mL dose 03/31/2021 completed Harshil Kilpatrick MD [address] [place] [address],[address], [place], [address], [facility] 12/12/2022 14:25:49 pneumococcal polysaccharide PPV23 05/14/2013 completed Harshil Kilpatrick MD [address] [place] [address],[address], [address], [facility] 12/12/2022 14:25:49 Tdap 08/26/2021 completed Harshil Kilpatrick MD [address] [place] [address],[address] [place] [address], [address], [facility] 12/12/2022 14:25:49 Tdap 09/14/2011 completed Harshil Kilpatrick MD [address] [place] [address],[address], [address], [facility] 12/12/2022 14:25:49 Td (adult), 2 Lf tetanus toxoid, preservative free, adsorbed 09/16/2002 completed Harshil Kilpatrick MD [address] [place] [address],[address], [address], [facility] 12/12/2022 14:25:49 Past Encounters Encounter ID Performer Location Encounter Start Date Encounter Closed Date Diagnosis/Indication Diagnosis SNOMED-CT Code Diagnosis ICD10 Code [id number] MD REGGIE [facility] [address] [place] [id number] 12/12/2022 14:08:07 12/16/2022 16:52:30 Recurrent urinary tract infection 659127969 N39.0 Incomplete emptying of urinary bladder 830397010 R39.14 [id number] MD REGGIE [facility] [address] [place] [id number] 01/04/2023 16:09:04 01/13/2023 09:36:18 Recurrent urinary tract infection 535087037 N39.0 Incomplete emptying of urinary bladder 264631619 R39.14 Health Concerns Section Related Observation LastModified by Organization Detai ls LastModified Time None Recorded Concern Status LastModified by Organization Details LastModified Time None Recorded Advance Directives Directive None Recorded Payers Encounter Date Sequence Insurance Name Policy Number Policy Poe Covered Member ID Poe Member ID Guarantor Name 12/12/2022 1 [place] [employer] Lelia Vizcarra [id number] Lelia Vizcarra 12/12/2022 2 [employer] - FOR LIFE (MEDICARE SUPPLEMENT) Lelia iVzcarra [id number] Lelia Vizcarra 01/04/2023 1 [place] [employer] Lelia Vizcarra [id number] Lelia Vizcarra 01/04/2023 2 [employer] - FOR LIFE (MEDICARE SUPPLEMENT) Lelia Vizcarra [id number] Lelia Vizcarra Notes Date Note Type Note Provider Name and Address Organization Details Recorded Time 12/12/2022 text/html HPI Notes: 72 yo female with history of MS and kidney stones (60% Calcium phosphate, 30% CaOx monohydrate, and 10% CaOx dihydrate) - reports trouble with urinary frequency for several months. She has had 2 UTIs (E.coli) over the past 3 months. She developed gross hematuria in May 2017. UCx was negative, but she was treated with abx. Cystoscopy (07/03/17) was normal. H/O recurrent UTIs - on Vitamin C and Cranberry extract 500 mg BID. 04/06/20 - She presents for follow-up on urination. She reports 3 UTIs over the past 3-4 months (E.coli and Group B Strep). She denies any hematuria. She voids every 2 hours during the day and 2-3x/night. She has urgency - rare episode of incontinence. She denies hesitancy or dysuria. UCx (09/09/22) - group B Strep UCx (09/23/22) - group B Strep UCx (12/06/22) - E.coli (R - Amp, Unasyn, Keflex, and Ceftriaxone) 12/12/22 - She presents for follow-up on UTIs and bladder emptying. She currently completing a 5 day course of Macrobid. She states her symptoms have resolved - denies dysuria or urgency. She voids every 2-3 hours during the day ad 2-3x/night. She notes slower stream and sensation of incomplete bladder emptying. - PVR = 359 mL - UA - no blood - no LE CT scan (06/09/17) - mild Bilateral dilation of renal pelvis - no stones or hydronephrosis. Renal U/S (02/19/20) - Right - mild chronic hydronephrosis - PVR = 176 mL Harshil Kilpatrick MD [address] [facility],[address], [place], [address], [facility] 12/12/2022 18:29:34 01/04/2023 text/html HPI Notes: 72 yo female with history of MS and kidney stones (60% Calcium phosphate, 30% CaOx monohydrate, and 10% CaOx dihydrate) - reports trouble with urinary frequency for several months. She has had 2 UTIs (E.coli) over the past 3 months. She developed gross hematuria in May 2017. UCx was negative, but she was treated with abx. Cystoscopy (07/03/17) was normal. H/O recurrent UTIs - on Vitamin C and Cranberry extract 500 mg BID. 04/06/20 - She presents for follow-up on urination. She reports 3 UTIs over the past 3-4 months (E.coli and Group B Strep). She denies any hematuria. She voids every 2 hours during the day and 2-3x/night. She has urgency - rare episode of incontinence. She denies hesitancy or dysuria. UCx (09/09/22) - group B Strep UCx (09/23/22) - group B Strep UCx (12/06/22) - E.coli (R - Amp, Unasyn, Keflex, and Ceftriaxone) 12/12/22 - She presents for follow-up on UTIs and bladder emptying. She currently completing a 5 day course of Macrobid. She states her symptoms have resolved - denies dysuria or urgency. She voids every 2-3 hours during the day ad 2-3x/night. She notes slower stream and sensation of incomplete bladder emptying. 01/04/23 - She presents for follow-up on UTIs and bladder emptying. She voids every 2-3 hours during the day and 2-3x/night. She reports occasional urgency with rare leakage - no dysuria. - PVR = 510mL (unable to void) - UA - no blood - no LE CT scan (06/09/17) - mild Bilateral dilation of renal pelvis - no stones or hydronephrosis. Renal U/S (02/19/20) - Right - mild chronic hydronephrosis - PVR = 176 mL Harshil Kilpatrick MD [address] [facility],[address] [address], [place], [address], [place] [facility] 01/08/2023 18:11:58 OBGyn Episode No OBEpisode recorded.
[2024-02-09 03:05] LABS: Chloride* 97 mmol/L (96-114); Potassium* 3.8 mmol/L (3.6-5.1); Sodium* 134 mmol/L (135-149)
[2024-02-09 03:06] LABS: Slide Review Reflex No
[2024-02-09 03:08] LABS: Anion Gap 10 mEq/L (7-15); Blood Urea Nitrogen* 9 mg/dL (7-30); Carbon Dioxide* 27 mmol/L (20-32); Creatinine* 0.5 mg/dL (0.5-1.5); Est. Creatinine Clearance* 40.21; Estimated Glomerular Filt Rate 98 ml/min
[2024-02-09 03:09] LABS: Glucose* 108 mg/dL (60-115)
[2024-02-09 03:20] VITALS: BP 135/74; PULSE 84; RESP 20; TEMP 36.7; O2SAT 99
[2024-02-09 03:26] VITALS: BP 135/74; PULSE 84; RESP 20; TEMP 36.7
== END 2024-02-09 03:26 | disposition home or self-care (01) ==
PROVIDERS: Emergency Provider Internal Medicine; PCP Family Medicine
DX: R23.2 Flushing (principal); R03.0 Elevated blood-pressure reading, without diagnosis of hypertension; Z12.11 Encounter for screening for malignant neoplasm of colon; Z86.010 Personal history of colon polyps; D12.5 Benign neoplasm of sigmoid colon; G35 Multiple sclerosis
CPT/HCPCS: 00811; 36415; 45385; 80048; 85025; 93005; 99100; 99283; 99284; J2704

== ENCOUNTER 2024-02-09 06:53 | Outpatient (CLI) | payer MEDICARE, OTHER, SELFPAY ==
--- OUTSIDE RECORDS SUMMARY | 2024-02-09 06:55 | XMS_ITS | Clinical Summary ---
Author Organization [employer] [facility] Address [place], [place] [address] Care Team Providers Care Psychology Technician Name Role Phone Jeannette Bernabe MD Primary [...] - Magnesium 170 mg, L-Arginine 400 mg, [place] leaf extract 150 mg, Garlic 50 mg, [...] document scanned on 03/27/13. Radha Johnson RN, [facility] MS (multiple sclerosis) 02/02/2013 [...] Department Care Team Description 02/09/2024 Nurse Triage [facility] [place] [address] [place] [address] [address] Jeannette Bernabe MD High Blood Pressure 02/09/2024 Nurse Triage [facility] [address] [place] [address] Jeannette Bernabe MD Concerns 01/30/2024 1:00 PM CDT Preop Visit [facility] [place] [address] [place] [address] [address] Jeannette Bernabe MD Lab; Preoperative Exam (02/09/24) 01/30/2024 Travel 12/15/2023 11:30 AM CDT Orders Only [facility] [address] [place] [address] Lab, [place] Lab 12/15/2023 10:40 AM CDT Nurse/Clinic Staff Only [facility] [address] [place] [address] Blood Pressure (128/76-manual reading, HR 78) 12/15/2023 Travel 12/01/2023 3:20 PM CDT Nurse/Clinic Staff Only [facility] [place] [address] [place] [address] Blood Pressure 12/01/2023 Telephone [facility] [address] [place] [address] Daxa Zaragoza PA Blood Pressure (178/90) 12/01/2023 Travel 11/24/2023 8:00 AM CDT Orders Only [facility] [address] [place] [address] Lab, [place] [facility] 11/24/2023 Telephone [facility] [address] [place] [address] Jenanette Bernabe MD Lab 11/23/2023 Telephone [facility] [address] [place] [address] Jayson Mazariegos MD Screening 11/23/2023 Telephone [facility] [address] [place] [address] Jeannette Bernabe MD Procedure (Colonoscopy) from Last 3 Months Immunizations Name Administration Dates Next Due COVID-19 vaccine ([employer] 30mcg/0.3mL) MD ROBERTV 03/31/2021,08/20/2020,07/30/2020 Influenza Virus, Unspecified 04/15/1996 Influenza, IIV3 [...] Body Mass Index 31.35 06/27/2023 9:51 AM AUTOMATED TELLER MANAGER Plan of Treatment Health Maintenance Due Date [...] Additional history exists Tetanus booster 08/27/2031 08/26/2021, 05/0 06/2011, 09/16/2002 Hepatitis C screening for ag e 18-79 Completed 05/31/2016 Tdap Completed 08/26/2021, 09/14/2011 DEXA/DXA scan for age 65+ Completed 08/11/2022, 03/2017 Goals Goal Patient Goal Type Associated Problems Recent Progress Patient-Stated? Author BLOOD PRESSURE - Maintains BP less than 140/90 Blood Pressure No Bhavani Bradley LPN Medical Devices Implanted Type Area Centrifugal Station Operator Device Identifier Shelf Expiration Date Model / Serial / Lot Stent Uret [id number] Silhouette Xtraflo - [id number] Implanted:Qty: 1 on 09/12/2010 at [facility] Right: [employer] 05/24/2013 [id number] / / [id number] Stent Uret [id number] Silhouette Xtraflo - [id number] Implanted:Qty: 1 on 09/20/2010 at [facility] Right: [employer] [id number] / / [id number] Procedures Procedure Name Priority Date/Time Associated Diagnosis [...] REFLEX MEASURED LDL Routine 06/27/2023 8:45 AM AUTOMATED TELLER MANAGER Lipid screening XR DXA BONE DENSITY 2 SITES AXIAL Routine 08/11/2022 11:24 AM CDT Osteopenia, unspecified location Other specified disorders of bone density and structure, multiple sites COLONOSCOPY 02/07/2019 1:03 PM CDT ANTI HCV Routine 05/31/2016 10:01 AM AUTOMATED TELLER MANAGER Need for hepatitis C screening test from Last 3 Months or Most Recently Relevant to Health Maintenance Results * (ABNORMAL) POCT Urinalysis Dipstick Only (01/30/2024 2:38 PM CDT) PH 7.0 5.0 - 8.0 [facility] SPECIFIC GRAVITY 1.010 1.001 - 1.035 [facility] GLUCOSE NEGATIVE NEGATIVE [facility] BILIRUBIN NEGATIVE NEGATIVE [facility] KETONES NEGATIVE NEGATIVE [facility] OCCULT BLOOD NEGATIVE NEGATIVE [facility] PROTEIN NEGATIVE NEGATIVE [facility] NITRITE NEGATIVE NEGATIVE [facility] LEUKOCYTE ESTERASE TRACE(A) NEGATIVE [facility] Urine URINE SPECIMEN / Unknown 01/30/2024 2:38 PM CDT 01/30/2024 2:39 PM CDT Jeannette Bernabe MD URINE [facility] [address] [place] [address], [facility] [address] [place] [address] * URINE CULTURE (12/15/2023 10:15 AM CDT) Only the most recent of2 resultswithin the time period is included. CULTURE <10,000 CFU/mL multiple organisms 12/16/2023 4:08 PM CDT [facility] Urine URINE SPECIMEN / Unknown Non-Blood / Unknown 12/15/2023 10:15 AM CDT 12/15/2023 10:39 AM CDT Jeannette Bernabe MD MICROBIOLOGY Performing Organization Address [facility] Co de Phone Number [facility] [address] [place] [address], [place] * UA W/ SEDIMENT EXAM REFLEXED PER CRITERIA (12/15/2023 10:15 AM CDT) Only the most recent of2 resultswithin the time period is included. COLOR Yellow Yellow Color 12/15/2023 10:46 AM CDT [facility] CLARITY Clear Clear Clarity 12/15/2023 10:46 AM CDT [facility] SPECIFIC GRAVITY,URINE 1.010 1.010, 1.015, 1.020, 1.025 12/15/2023 10:46 AM CDT [facility] PH,URINE 7.0 6.0, 7.0, 8.0, 5.5, 6.5, 7.5, 8.5 12/15/2023 10:46 AM CDT [facility] UROBILINOGEN, QUALITATIVE Normal Normal EU/dl 12/15/2023 10:46 AM CDT [facility] PROTEIN, URINE Negative Negative mg/dL 12/15/2023 10:46 AM CDT [facility] GLUCOSE, URINE Negative Negative mg/dL 12/15/2023 10:46 AM CDT [facility] KETONES,URINE Negative Negative mg/dL 12/15/2023 10:46 AM CDT [facility] BILIRUBIN,URI NE Negative Negative 12/15/2023 10:46 AM CDT [facility] OCCULT BLOOD,URINE Negative Negative 12/15/2023 10:46 AM CDT [facility] NITRITE Negative Negative 12/15/2023 10:46 AM CDT [facility] LEUKOCYTE ESTERASE Negative Negative 12/15/2023 10:46 AM CDT [facility] Urine URINE SPECIMEN / Unknown Non-Blood / Unknown 12/15/2023 10:15 AM CDT 12/15/2023 10:39 AM CDT Jeannette Bernabe MD URINE [facility] [address] [place] [address], * (ABNORMAL) BASIC METABOLIC PANEL (12/15/2023 1:19 AM CDT) SODIUM 132(L) 136 - 145 mmol/L 12/15/2023 6:24 PM CDT [facility] POTASSIUM 4.9 3.5 - 5.1 mmol/L 12/15/2023 6:24 PM CDT [facility] CHLORIDE 96(L) 98 - 107 mmol/L 12/15/2023 6:24 PM CDT [facility] CO2,TOTAL 26 22 - 29 mmol/L 12/15/2023 6:24 PM CDT [facility] ANION GAP 10 5 - 18 12/15/2023 6:24 PM CDT [facility] GLUCOSE 99 70 - 99 mg/dL 12/15/2023 6:24 PM T [facility] CALCIUM 9.9 8.8 - 10.2 mg/dL 12/15/2023 6:24 PM CDT [facility] BUN 15 8 - 23 mg/dL 12/15/2023 6:24 PM T [facility] CREATININE 0.66 0.50 - 0.90 mg/dL 12/15/2023 6:24 PM CDT [facility] BUN/CREAT RATIO 23(H) 10 - 20 6:24 PM CDT [facility] eGFR >90 >90 mL/min/1.7 3m2 12/15/2023 6:24 PM CDT [facility] Comment:As of 2021, eG FR is calculated by the CKD-EPI creatinine equation without race adjustment. ??eGFR can be influenced by muscle mass, exercise, and diet. ??The reported eGFR is an estimation only and is only applicable if the renal function is stable. Blood BLOOD SPECIMEN / Unknown Butterfly / Unknown 12/15/2023 1:19 AM CDT 12/15/2023 11:20 AM CDT Daxa BARR CHEMISTRY Performing Organization Address [facility]/ZIP Co de Phone Number [facility] [address] [place] [id number], * (ABNORMAL) URINALYSIS MICROSCOPIC (11/24/2023 8:00 AM CDT) RBC 0-2 0-2, None Seen /HPF 11/24/2023 8:40 AM CDT [facility] WBC >100(A) 0-2, 3-5, None Seen /HPF 11/24/2023 8:40 AM CDT [facility] BACTERIA Few None Seen, Rare, Few Bacteria/H PF 11/24/2023 8:40 AM CDT [facility] EPITHELIAL CELLS Few None Seen, Few Epi/HPF 11/24/2023 8:40 AM CDT [facility] Urine URINE SPECIMEN / Unknown Non-Blood / Unknown 11/24/2023 8:00 AM CDT 11/24/2023 8:34 AM CDT Jeannette Bernabe MD URINE [facility] [address] [place] [address], [place] [phone] * (ABNORMAL) LIPID PANEL W REFLEX MEASURED LDL (06/27/2023 8:45 AM AUTOMATED TELLER MANAGER) CHOLESTEROL,TOTAL 217(H) 100 - 199 mg/dL 06/27/2023 8:46 PM AUTOMATED TELLER MANAGER [facility] Comment: Cholesterol, Total Reference Ranges Desirable <200 mg/dL Borderline 200-239 mg/dL High >=240 mg/dL TRIGLYCERIDES 37 <150 mg/dL 06/27/2023 8:46 PM AUTOMATED TELLER MANAGER [facility] HDL CHOLESTEROL 90 >40 mg/dL 8:46 PM AUTOMATED TELLER MANAGER [facility] NON-HDL CHOLESTEROL 127 <145 mg/dl 06/27/2023 8:46 PM AUTOMATED TELLER MANAGER [facility] CHOL/HDL RATIO 2.41 <4.50 06/27/2023 8:46 PM AUTOMATED TELLER MANAGER [facility] LDL CHOLESTEROL 120 <=130 mg/dL 06/27/2023 8:46 PM AUTOMATED TELLER MANAGER [facility] VLDL CHOLESTEROL 7 <=30 mg/dL 06/27/2023 8:46 PM AUTOMATED TELLER MANAGER [facility] PROVIDER ORDERED STATUS RANDOM 06/27/2023 8:46 PM AUTOMATED TELLER MANAGER [facility] Blood BLOOD SPECIMEN / Unknown Butterfly / Unknown 06/27/2023 8:45 AM AUTOMATED TELLER MANAGER 06/27/2023 8:47 AM AUTOMATED TELLER MANAGER Jeannette Bernabe MD CHEMISTRY [facility] [address] [place] [address], [place] * (ABNORMAL) XR DXA BONE DENSITY 2 [...] to assess therapeutic efficacy. Chitra Cruz PA-C [facility] 08/15/2022 Narrative 08/15/2022 1:45 PM CDT For Patients: Results are automatically released to your [facility] account once available, in compliance with federal regulations. This means that you may see your results before your provider has had a chance to review them. Please allow 2-3 business days for your provider to comment on the results. XR DXA Bone Mineral Density (BMD) EXAM LOCATION: [address] [address] PATIENT NAME: Lelia Vizcarra DATE OF : [...] two scanners are made by the same public relations sales marketing. PROCEDURE: Dual-energy x-ray absorptiometry performed with routine [...] candidate for conscious sedation. The Colon CF-H180AL [id number] was passed through the anus and advancedto [...] there are any questions, please contact the electronic tester. Moderate Sedation: Moderate (conscious) sedation was administered by the endoscopy nurse and supervised by the endoscopist. The following parameters were monitored: oxygen saturation, heart rate, respiratory rate, blood pressure, adequacy of pulmonary ventilation and reponse to care. Please [facility] flow[facility]ets and nursing notes for moderate sedation details. Total physician intraservice time was 24 minutes. Jayson Mazariegos MD 02/07/2019 2:56:26 PM This report has been signed electronically. Note Initiated On: 02/07/2019 1:03 PM Procedure Code(s): --- Professional --- 69276, Colonoscopy, flexible; diagnostic, including collection of specimen(s) bybrushing or washing, when performed (separateprocedure) Diagnosis Code(s): --- Professional --- Z86.010, Personal history of colonicpolyps Q43.8, Other specified congenitalmalformations of intestine CPT copyright 2018 [employer]. All rights reserved. The codes documented in this report are preliminary and upon dot compliance specialist reviewmay be revised to meet current compliance requirements. Scope In: 2:29:13 PM Scope Withdrawal Time 0 hours 7 minutes 53 seconds Scope Out: 2:50:16 PM Jayson Mazariegos MD PROCEDURE ORD * ANTI HCV (05/31/2016 10:01 AM AUTOMATED TELLER MANAGER) HEPATITIS C ANTIBODY Non-Reacti ve Non-Reacti ve 05/31/2016 5:32 PM AUTOMATED TELLER MANAGER [facility] Blood BLOOD SPECIMEN / Unknown Venipuncture / Unknown 05/31/2016 10:01 AM AUTOMATED TELLER MANAGER 05/31/2016 10:01 AM AUTOMATED TELLER MANAGER Narrative [facility] - 05/31/2016 5:32 PM AUTOMATED TELLER MANAGER Antibodies to HCV not detected; does not exclude the possibility of exposure to HCV. Jeannette Bernabe MD SEND OUTS [facility] [address] [place] [address], from Last 3 Months or Most Recently Relevant to Health Maintenance Care Teams Psychology Technician Relationship Specialty Start Date End Date Jeannette Bernabe MD [address] [place] [address] PCP - General Family Practice 03/28/11
--- OUTSIDE RECORDS SUMMARY | 2024-02-09 06:55 | XMS_ITS | Clinical Summary ---
Author Organization [facility] Address [address] [place] [address] Care Team Providers Care Protection Engineer Name Role Phone Mayuri Cote MD Unavailable Lilly Harris PA-C Unavailable Jeannette Bernabe MD Primary Care Provider Allergies Active Allergy Reactions Criticality Noted Date [...] Hepatitis C Screening Completed 05/31/2016 Care Teams Protection Engineer Relationship Specialty Start Date End Date Jeannette Bernabe MD [address] [place] [address] [address] PCP - General 06/24/21 Mayuri Cote MD Physician Neurology 06/23/21 Lilly Harris PA-C Physician Global Project Manager Neurology 06/23/21
--- OUTSIDE RECORDS SUMMARY | 2024-02-09 06:55 | XMS_ITS | Referral Summary ---
Author Organization [facility] Address [address] [place] [address] Care Team Providers Care Mowing Machine Operator Name Role Phone Mayuri Cote MD Unavailable [...] of Treatment Not on file Care Teams Mowing Machine Operator Relationship Specialty Start Date End Date Jeannette Bernabe MD [address] [place] [address] PCP - General 06/24/21 Mayuri Cote MD Physician Neurology 06/23/21 Lilly Harris PA-C Physician Insurance Verify Rep Neurology 06/23/21
--- NOTE | 2024-02-09 08:12 | W.ANESCHARGE ---
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
--- NOTE | 2024-02-09 08:28 | W.ANESCHARGE ---
Anesthesia Charges Start Date/Time Anesthesia Start Date: 02/09/24 Anesthesia Start Time: 07:36 Stop Date/Time Anesthesia Stop Date: 02/09/24 Anesthesia Stop Time: 08:08 Summary Extremes of Age - Over 70 or under 1: MDA
== END 2024-02-09 06:54 | disposition home or self-care (01) ==
PROVIDERS: PCP Family Medicine; Visit Provider Internal Medicine Gastroenterology
DX: Z12.11 Encounter for screening for malignant neoplasm of colon (principal); Z86.010 Personal history of colon polyps; D12.5 Benign neoplasm of sigmoid colon
CPT/HCPCS: 00811; 45385; 99100; J2704

== ENCOUNTER 2024-06-17 12:34 | Outpatient (CLI) | payer MEDICARE, OTHER, SELFPAY ==
--- NOTE | 2024-06-17 13:00 | CRLHL7_ITS ---
For Patients: As a result of the Century Cures Act, medical imaging exams and procedure reports are released immediately into your electronic medical record. You may view this report before your referring provider. If you have questions, please contact your health care provider. INDICATION: Multiple sclerosis, surveillance. TECHNIQUE: Multisequence multiplanar MRI of the brain without the use of intravenous contrast. COMPARISON: MRI brain dated 06/09/2020. FINDINGS: No interval change in scattered foci T2 prolongation within the periventricular and subcortical matter. Unchanged additional juxtacortical signal abnormality within the right superior frontal gyrus and left perirolandic fissure. Stable small focus of encephalomalacia along the left lateral ventricle margin. No evidence of acute ischemia. Similar mild T1 hypointense lesion load and mild diffuse cerebral volume loss. The ventricles are unchanged in size. Flow voids of the larger intracranial arteries are preserved. Bone marrow signal intensity of the calvarium is within normal limits. The orbits are unremarkable. Mild scattered mucosal thickening is noted within the ethmoid and left maxillary sinuses. IMPRESSION: 1. No interval change since 06/09/2020. 2. Scattered signal abnormality within the supratentorial white matter consistent with chronic demyelinating plaques. 3. No new T2 hyperintense lesion. 4. Similar mild T1 hypointense lesion load and mild diffuse cerebral volume loss. 5. Stable small focus of encephalomalacia in the left frontal centrum semiovale. Dictated by Jose Banda MD @ 06/17/2024 3:57:47 PM (Electronically Signed)
--- NOTE | 2024-06-17 13:45 | CRLHL7_ITS ---
For Patients: As a result of the Century Cures Act, medical imaging exams and procedure reports are released immediately into your electronic medical record. You may view this report before your referring provider. If you have questions, please contact your health care provider. Indication: Multiple sclerosis, surveillance. Technique: Multisequence multiplanar MRI of the cervical spine without the use of intravenous contrast. Comparison: MRI cervical spine dated 07/17/2023. Findings: Stable multifocal short-segment intramedullary signal abnormality within the cervical spinal cord, for reference in the ventral cord at C1-C2 (series 5, image 8) and right hemicord at C2-C3 (series 8, image 8). No new intramedullary T2 hyperintense lesion. Similar grade 1 anterolisthesis at C3-C4, C4-C5, and C7-T1. Vertebral body heights are maintained. No T1 hypointense infiltrative lesion is identified. The prevertebral soft tissues are unremarkable. C2-C3: No significant spinal canal or neural foraminal stenosis. C3-C4: Symmetric disc bulge. Moderate facet joint arthrosis. No significant spinal canal or neural foraminal stenosis. C4-C5: Symmetric disc bulge. Moderate facet joint arthrosis. No significant spinal canal stenosis or left neural foraminal narrowing. Similar mild right neural foraminal narrowing. C5-C6: Small posterior disc osteophyte complex resulting in similar mild spinal canal stenosis. Similar moderate bilateral neural foraminal narrowing associated with uncovertebral and facet joint arthrosis. C6-C7: Small posterior disc osteophyte complex without significant spinal canal stenosis. Mild facet joint arthrosis. No significant neural foraminal narrowing. C7-T1: Symmetric disc bulge. Mild facet joint arthrosis. No significant spinal canal or neural foraminal stenosis. Impression: 1. No interval change in few scattered foci of short-segment intramedullary signal abnormality consistent with chronic demyelinating plaques. 2. No new intramedullary T2 hyperintense lesion. 3. Similar moderate degenerative changes most pronounced for mild spinal canal stenosis and moderate bilateral neural foraminal narrowing at C5-C6. Dictated by Jose Banda MD @ 06/17/2024 4:03:48 PM (Electronically Signed)
--- NOTE | 2024-06-17 14:30 | CRLHL7_ITS ---
For Patients: As a result of the Century Cures Act, medical imaging exams and procedure reports are released immediately into your electronic medical record. You may view this report before your referring provider. If you have questions, please contact your health care provider. Indication: Multiple sclerosis, surveillance. Technique: Multisequence multiplanar MRI of the thoracic spine without the use of intravenous contrast. Comparison: MRI thoracic spine dated 07/17/2023. Findings: No interval change in scattered foci of short-segment T2 prolongation within the thoracic spinal cord, for example in the right hemicord at T1-2 T2 (series 7, image 6), central cord at T3-T4 (series 7, image 18), and left hemicord at T9-10 (series 8, image 18). Minimal cord atrophy at T1-T2 is better appreciated on prior exam. Similar accentuation of the thoracic kyphosis. Chronic depression of the T11 superior endplate with resolution of the edema noted on prior exam. No T1 hypointense infiltrative lesion. Similar multilevel disc desiccation and height loss. A small central disc protrusion at T10-11 indents the ventral thecal sac there is no high-grade spinal canal or neural foraminal stenosis. Impression: 1. No interval change in multiple foci of short-segment intramedullary signal abnormality consistent with chronic demyelinating plaques. 2. No new intramedullary T2 hyperintense lesion. 3. Mild associated spinal cord atrophy at T1-T2 is better appreciated on prior CT. 4. Similar accentuation of the thoracic kyphosis with redemonstrated small central disc protrusion at T10-T11. 5. No significant spinal canal or neural foraminal stenosis. Dictated by Jose Banda MD @ 06/17/2024 4:10:50 PM (Electronically Signed)
== END 2024-06-17 12:35 | disposition home or self-care (01) ==
LOC: MRI 12:36
PROVIDERS: PCP Family Medicine; Visit Provider Psychiatry & Neurology Neurology
DX: G35 Multiple sclerosis (principal); G93.9 Disorder of brain, unspecified; M51.24 Other intervertebral disc displacement, thoracic region; M50.222 Other cervical disc displacement at C5-C6 level; Z82.0 Family history of epilepsy and other diseases of the nervous system; Z03.89 Encounter for observation for other suspected diseases and conditions ruled out
CPT/HCPCS: 70551; 72141; 72146

== ENCOUNTER 2024-07-29 13:59 | Emergency (ER) | payer MEDICARE, OTHER, SELFPAY ==
--- OUTSIDE RECORDS SUMMARY | 2024-07-29 14:01 | XMS_ITS | Continuity of Care Document ---
Author Organization [facility] AND[facility] melend[facility] Address [address] [place] [address] Assessment Encounter Date Assessment Date Assessment LastModified by Organization Details LastModified Time 07/24/2024 07/24/2024 ASSESSMENT: Patient is a good candidate for conservative care and the prognosis is for a favorable outcome that achieves the patients' goals. We discussed etiology, activity modifications, home care, and other treatment options. Initially, it is recommended that the patient receive in-office treatment 1 times per week for 8 weeks at which time a re-evaluation will be performed to determine an appropriate change in plan. Initially, treatment will focus on joint manipulation to restore range of motion and reduce pain. We will slowly progress to therapeutic exercises and activities to improve function, strength, and stability may also be used as warranted. If the patient is not responding as expected, more invasive procedures will be discussed along with a referral. All considerations above were discussed with the patient and questions answered to satisfaction. If the patient should have any additional questions, or should the condition evolve or worsen, the patient should not hesitate to contact our office. [email or web address] Not available 07/24/2024 17:24:59 Plan of Treatment Reminders Order Date Submit Date Provider Last Modified By Organization Details Last Modified Time Details Appointments None record ed. Lab None record ed. Referral None record ed. Procedures None record ed. Surgeries None record ed. Imaging None record ed. Medication Orders None record ed. Patient TargetsNo targets recorded. Patient InstructionsNo instructions recorded. Reason for Referral None Reported. Problems Name Problem SNOMED Code Status Onset Date Resolution Date Notes Provider Name and Address Organization Details Recorded Time Neck pain 27722807 Active 2024 Arsalan Dc, TANGELA [address], [place], [address] , [facility] 5 10:41:22 Cervical segmental dysfunction 929111487 Active 2024 Arsalan Dc, TANGELA [address], [place], [address], [facility] 5 10:41:27 Thoracic segmental dysfunction 063171673 Active 2023 Arsalan Dc DC [address], [place], [address], [facility] 4 17:53:01 Low back pain 159512086 Active 2023 Arsalan Dc DC [address], [place], [address], [facility] 4 17:53:01 Lumbar segmental dysfunction 533461755 Active 2023 Arsalan Dc DC [address], [place] [place], [address], [facility] 4 17:53:01 Somatic dysfunction of sacral spine 170707972 Active 2023 Arsalan Dc, TANGELA [address], [place], [address], [facility] 4 17:53:01 Somatic dysfunction of pelvic region 614264797 Active 2023 Arsalan Dc DC [address], [place], [address], [facility] 4 16:00:35 Problem Notes None recorded. Procedures Surgical History Date Name Laterality Status Provider Name and Address Organization Details Recorded Time 5 66703: Spinal manipulation , 3 to 4 regions completed Chintan Kohler DC [address], [place], [address], [facility] 07/24/2024 17:24:59 5 24104: Spinal manipulation , 3 to 4 regions completed Chintan Kohler DC [address], [place], [address], [facility] 07/22/2024 18:24:19 5 28108: Spinal manipulation , 3 to 4 regions completed Roni Anderson DC [address], [place], [address], [facility] 07/19/2024 13:59:35 5 69677: Spinal manipulation , 3 to 4 regions completed Chintan Kohler DC [address], [place], [address], [facility] 07/12/2024 19:11:44 5 41237: Spinal manipulation , 3 to 4 regions completed Arsalan Dc DC [address], [place], [address], [facility] 07/16/2024 10:41:16 5 82482: Spinal manipulation , 3 to 4 regions completed Arsalan Dc DC [address], [place], [address], [facility] 06/13/2024 16:09:29 5 41996: Spinal manipulation , 3 to 4 regions completed Arsalan Dc DC [address], [place], [address], [facility] 05/30/2024 15:48:40 5 16973: Spinal manipulation , 3 to 4 regions completed Arsalan Dc DC [address], [place], [address], [facility] 05/16/2024 16:14:08 4 41404: Spinal manipulation , 3 to 4 regions completed Arsalan Dc DC [address], [place], [address], [facility] 05/14/2024 11:46:50 4 12652: Spinal manipulation , 3 to 4 regions completed Arsalan Dc DC [address], [place], [address], [facility] 04/25/2024 16:00:07 59366: Spinal manipulation , 3 to 4 regions completed Arsalan Dc DC [address], [place], [address], [facility] 04/18/2024 17:53:33 Imaging Results None recorded. Procedure Notes None recorded. Medical Equipment None Reported. Medications Name Sig Start Date Stop Date Status Note LastModified by Organization Details LastModified Time prednisone 10 mg tablet take 3 tablets by mouth once daily with a meal for 2 days, then 2 tablets daily for 2 days, then 1 tablet daily for 2 days.* active Not Available Not Available No t Available cephalexin 500 mg capsule TAKE ONE CAPSULE BY MOUTH TWICE DAILY FOR 7 DAYS* active Not Available Not Available No t Available nystatin 100,000 unit/gram topical powder Apply 1 Strip topically to affected area(s) three times daily.* active Not Available Not Available No t Available estradiol 0.01% (0.1 mg/gram) vaginal cream Insert 1 gram into the vagina every Monday, Monday and Monday.* active Not Available Not Available No t Available cyclobenzapr ine 5 mg tablet TAKE ONE TABLET BY MOUTH ONE TIME DAILY AT BEDTIME NEEDED FOR MUSCLE SPASM* active Not Available Not Available No t Available GaviLyte-G 236 gram-22.74 gram-6.74 gram-5.86 gram oral solution Drink 6 liters the day before colonoscopy and 2 liters 6 hours before colonoscopy appointment * active Not Available Not Available No t Available Vitals None Recorded Social History None recorded. Functional Status None recorded. Mental Status None recorded. Family History Nothing Reported. Medical History No medical history recorded. Gynecological HistoryNo gynecological history recorded. Obstetrics History GPAL:G 0 P 0 0 0 0 Past Encounters Encounter ID Performer Location Encounter Start Date Encounter Closed Date Diagnosis/Indication Diagnosis SNOMED-CT Code Diagnosis ICD10 Code Diagnosis Note [id number] Arsalan Dc DC [facility] [address] [place] [address] 07/11/2024 11:19:31 07/17/2024 13:30:34 Thoracic segmental dysfunction 501238637 M99.02 Neck pain 69864648 M54.2 Cervical s egmental dysfunction 769037131 M99.01 Lumbar seg mental dysfunction 959600742 M99.03 [id number] Chintan Kohler DC [facility] [address] [place] [address] 07/12/2024 12:30:51 07/16/2024 09:51:49 Somatic dysfunction of sacral spine 123446649 M99.04 Thoracic s egmental dysfunction 638325845 M99.02 Somatic dy sfunction of pelvic region 279565067 M99.05 Low back pain 260025729 M54.50 [id number] Roni Anderson DC [facility] [address] [place] [address] 07/19/2024 12:23:03 07/19/2024 15:12:15 Somatic dysfunction of sacral spine 651740018 M99.04 Thoracic s egmental dysfunction 489114008 M99.02 Somatic dy sfunction of pelvic region 844558300 M99.05 Low back pain 367008131 M54.50 [id number] Chintan Kohler DC [facility] [address] [place] [address] 07/22/2024 11:54:25 07/23/2024 18:33:07 Somatic dysfunction of sacral spine 352796658 M99.04 Thoracic s egmental dysfunction 218434043 M99.02 Somatic dy sfunction of pelvic region 259962274 M99.05 Low back pain 222222217 M54.50 [id number] Chintan Kohler DC [facility] [address] [place] [address] 07/24/2024 12:24:44 07/24/2024 17:36:13 Somatic dysfunction of sacral spine 301893368 M99.04 Thoracic s egmental dysfunction 496834758 M99.02 Somatic dy sfunction of pelvic region 755530743 M99.05 Low back pain 273299835 M54.50 Health Concerns Section Related Observation LastModified by Organization Detai ls LastModified Time None Recorded Concern Status LastModified by Organization Details LastModified Time None Recorded Payers Encounter Date Sequence Insurance Name Policy Number Policy Poe Covered Member ID Poe Member ID Guarantor Name 07/24/2024 1 [place] [employer] [facility] Lelia Motley Zackery [id number] Lelia Zackery Notes Date Note Type Note Provider Name and Address Organization Details Recorded Time 07/24/2024 text/html HPI - Lumbar SpineReported bypatient.Location: left; With radiation to knee Quality:aching Severity:not changing Timing:morning Aggravating Factors:standing Alleviating Factors:ice Scot Sherif Kohler DC [address] [facility] [address], [place], [address], [facility] 07/24/2024 17:25:42 OBGyn Episode No OBEpisode recorded.
--- OUTSIDE RECORDS SUMMARY | 2024-07-29 14:01 | XMS_ITS | Continuity of Care Document ---
Author Organization [facility] Address [address] [place] [address] Phone Care Team Providers Care Speedometer Inspector Name Role Phone Jennifer PERAZA, PhD, Dwayne Unavailable Unavai lable Allergies, Adverse Reactions, Alerts Substance Reaction Status Criticality No Known Allergies Active No Inform ation Medications Medication Instructions Dosage Effective Dates (start - stop) Status Comments NORTRIPTYLINE HCL (unknown strength) Not Available - Active Procedures Procedure Date Office/Outpatient Visit,Est, Mod 2016 Office/Outpatient Visit,New, [facility] 2016 Advance Directives Directive Yes / No Effective Date File Name No Information Encounters Encounter Description Practice Location Reason(s) For Visit Diagnoses Date Provider Providers Copied on Encounter Office/Outpat ient Visit,Est, Mod [facility], [address], [place], [place], [id number], [place] tel:[phone] [facility] Back pain Jennifer Rice. [facility], [address], [place], [address], [place]. tel:[phone] Referring Provider: Jeannette Bernabe , [address], [place], [address]. tel:[phone] Office/Outpat ient Visit,New, [facility], [address], [place], [place], [id number], [place] tel:[phone] [facility] Spondylolisthes is, lumbar regionSpinal stenosis, lumbar regionWeakness 7 Jennifer Rice. [facility], [address], [place], [address], [place]. [phone] Referring Provider: Jeannette Bernabe , [facility] [address], [place], [address]. tel:[phone] [facility], [address], [place], [id number], [place] tel:[phone] [facility] Low back pain Mar-0 7-201 7 Jennifer Rice. [facility], [address], [place], [address], [place]. [phone] Family History Family Member Type Diagnosis Age At Onset No Information Payers Payer name Insurance type Covered libertarian ID Jose Luis awad(s) Medicare [id number] [facility] [id number] Social History Type Description Quantity Date Captured Comments Sex Female Smoking Status No Information Vital Signs Date / Time: Height Weight BMI Pulse Rate Blood Pressure Temperature Respiratory Rate Body Surface Area Head Circumference Head Circ. Percentile Wt./Brian. Percentile BMI percentile Pulse Ox Inhaled Ox 1:26 PM 63.75 in 83.370 kg (183.80 lbs) 31.7 9 kg/m eter (2) 72 /min 128/68 mm[Hg] Chief Complaint And Reason For Visit No Information Reason For Referral Reason For Referral No Information History Of Present Illness Encounter Date Complaint History Of Prese nt Illness No Information Functional Status Date Functional Assessmen t No Information Instructions Date Instruction Additional Infor abimael Weight Management Education Rela josee to Overweight Weight management: I nstructed to return to General Practitioner timeframe: 1 Month. Related to Overweight Assessments Type Assessment Date assessment Back pain Patient Care Teams Name Effective Dates (start - stop) Status Members No Information
--- OUTSIDE RECORDS SUMMARY | 2024-07-29 14:01 | XMS_ITS | Clinical Summary ---
Author Organization [facility] Address [address] [place] [address] Care Team Providers Care Business Development Coordinator Name Role Phone Mayuri Cote MD Unavailable Lilly Harris PA-C Unavailable Jeannette Bernabe MD Primary Care Provide r Allergies Active Allergy Reactions Criticality Noted Date Comments Amoxicillin 05/24/2019 Gabapentin 07/16/2014 Sulfa (Sulfonamide Antibiotics) Hives 05/17 Trazodone 07/16/2014 Medications ubidecarenone (COQ-10 ORAL) Take by mouth. Active cranberry fruit extract (CRANBERRY ORAL) Take by mouth. Active Fish Oil 340-1,000 mg oral capsule Take 1 capsule (1,000 mg) by mouth once daily. Active losartan (COZAAR) 25 mg oral tablet Take 1 tablet (25 mg) by mouth once daily. Active multivitamin (CERTAVITE) 18-400 mg-mcg oral tablet Take 1 tablet by mouth once daily. Active Lactobac no.41/Bifidobac t no.7 (PROBIOTIC-10 ORAL) Take by mouth. Active ascorbic acid, vitamin C, 250 mg oral tablet Take 1 tablet (250 mg) by mouth once daily. Active cholecalciferol , vitamin D3, 25 mcg, 1000 unit, 25 mcg (1,000 unit) oral tablet Take 4 tablets (100 mcg) by mouth once daily. Active nortriptyline (PAMELOR) 10 mg oral capsule TAKE SEVEN CAPSULES BY MOUTH EVERY DAY AT BEDTIME 630 capsule 1 03/26/2024 Active Active Problems Problem Noted Date Diagnosed Date Vitamin D deficiency, unspecified 07/16/2014 Encounters Date Type Department Care Team Description 06/18/2024 Order-Scan [facility] Neurology [address] [address] Mayuri Cote MD from Last 3 Months Immunizations Name Administration Dates Next Due Pfizer 12+ Yrs Monovalent CO VID Vaccine (purple cap) 03/31/2021,08/20/2020,07/30/2020 Pneumococcal PPSV23 05/14/2013 Td adult absorbed PF (2 Lf) 09/16/2002 Tdap 08/26/2021,09/14/2011 Family History Medical History Relation Comments Alzheimer's Disease Other Diabetes Other Heart Disease Other High Blood Pressure Other Relation Status Comments Other Social History Tobacco Use Types Packs/Day Years Used Date Smoking Tobacco: Former Smokeless Tobacco: Never Alcohol Use Standard Drinks/Week Comments Yes 0 (1 standard drink = 0.6 oz pur e alcohol) Comments Unknown Sex and Gender Information Value Date Recorded Sex Assigned at Not on file Legal Sex Female 7:13 PM CDT Gender Identity Not on file Sexual Orientation [...] Zoster Vaccine (1 of 2) 1998 Pneumococcal 50+ Years (2 of 2 - PCV) 05/14/2014 05/14/2013 RSV Vaccines (1 - 1-dose 75+ series) 2023 COVID-19 Vaccine (4 - 2023-2 5 season) 2024 03/31/2021, 08/20/2020, 07/30/2020 Influenza Vaccine (#1) 2024 Medicare Wellness Visit 06/27/2024 06/27/19 24, 06/24/2022, 06/18/2021, Additional history exists Osteoporosis Screening 08/11/2024 08/11/2022, 2016 Adult Tetanus Booster 08/27/2031 08/26/2021 , 09/14/2011, 09/16/2002 Hepatitis C Screening Completed 05/31/2016 Procedures Procedure Name Priority Date/Time Associated Diagnosis Comments MRI SPINE THORACIC W/O&W CON Routine 06/17/2024 8:33 AM ORACLE DRM CONSULTANT MRI SPINE CERVICAL W/O&W CON Routine 06/17/2024 8:32 AM ORACLE DRM CONSULTANT MRI BRAIN W/O&W CON Routine 06/17/2024 8:31 AM ORACLE DRM CONSULTANT from Last 3 Months Results * MRI SPINE THORACIC W/O&W CON (06/17/2024 8:33 AM ORACLE DRM CONSULTANT) Anatomical Region Laterality Modality Spine Other us Mayuri Cote MD MRI ORDERABLE Final Result * MRI SPINE CERVICAL W/O&W CON (06/17/2024 8:32 AM ORACLE DRM CONSULTANT) Anatomical Region Laterality Modality Spine Other us Mayuri Cote MD MRI ORDERABLE Final Result * MRI BRAIN W/O&W CON (06/17/2024 8:31 AM ORACLE DRM CONSULTANT) Anatomical Region Laterality Modality Head Other us Mayuri Cote MD MRI ORDERABLE Final Result from Last 3 Months Insurance MEDICARE PART A & B [facility] [place] [id number] [place] [address] Care Teams Business Development Coordinator Relationship Specialty Start Date End Date Jeannette Bernabe MD [address] [place] [address] PCP - General 06/24/21 Mayuri Cote MD Physician Neurology 06/23/21 Lilly Harris PA-C Physician Ream Cutter Neurology 06/23/21
--- OUTSIDE RECORDS SUMMARY | 2024-07-29 14:01 | XMS_ITS | Referral Summary ---
Author Organization [facility] Address [address] [place] [address] Care Team Providers Care Gang Vibrator Operator Name Role Phone Mayuri Cote MD Unavailable Lilly Harris PA-C Unavailable Jeannette Bernabe MD Primary Care Provide r Encounters Date Type Department Care Team Description 06/18/2024 Order-Scan [facility] [address] [id number] Mayuri oCte MD from Last 3 Months Allergies Active Allergy Reactions Criticality Noted Date [...] absorbed PF (2 Lf) 09/16/2002 Tdap 08/26/2021,09/14/2011 Social History Tobacco Use [...] CDT Plan of Treatment Not on file Procedures Procedure Name Priority Date/Time Associated Diagnosis Comments MRI SPINE THORACIC W/O&W CON Routine 06/17/2024 8:33 AM PATIENT FINANCIAL SPECIALIST MRI SPINE CERVICAL W/O&W CON Routine 06/17/2024 8:32 AM PATIENT FINANCIAL SPECIALIST MRI BRAIN W/O&W CON Routine 06/17/2024 8:31 AM PATIENT FINANCIAL SPECIALIST from Last 3 Months Results * MRI SPINE THORACIC W/O&W CON (06/17/2024 8:33 AM PATIENT FINANCIAL SPECIALIST) Anatomical Region Laterality Modality Spine Other us Mayuri Cote MD MRI ORDERABLE Final Result * MRI SPINE CERVICAL W/O&W CON (06/17/2024 8:32 AM PATIENT FINANCIAL SPECIALIST) Anatomical Region Laterality Modality Spine Other us Mayuri Cote MD MRI ORDERABLE Final Result * MRI BRAIN W/O&W CON (06/17/2024 8:31 AM PATIENT FINANCIAL SPECIALIST) Anatomical Region Laterality Modality Head Other Mayuri Cote MD MRI ORDERABLE Final Result from Last 3 Months Insurance MEDICARE PART A & B [facility] [address] Care Teams Gang Vibrator Operator Relationship Specialty Start Date End Date Je[place] [address] PCP - General 06/24/21 Mayuri Cote MD Physician Neurology 06/23/21 Lilly Hraris PA-C Physician Caustic Preparer Neurology 06/23/21
--- OUTSIDE RECORDS SUMMARY | 2024-07-29 14:02 | XMS_ITS | Continuity of Care Document ---
Author Organization [facility] CenterANDRE valencia [facility] Address [address] [place] [address] Assessment Encounter Date Assessment Date Assessment LastModified by Organization Details LastModified Time 07/22/2024 07/22/2024 ASSESSMENT: Patient is a good candidate for [...] to contact our office. [email or web address] Not available 07/22/2024 18:24:19 Plan of Treatment Reminders Order Date Submit [...] Address Organization Details Recorded Time Neck pain 40708558 Active 2024 Arsalan Dc, TANGELA [address] [facility], [place], [address] , [facility] 5 10:41:22 Cervical segmental dysfunction 013498830 Active 2024 Arsalan Dc, TANGELA [address] [facility], [place], [address], [facility] 5 10:41:27 Thoracic segmental dysfunction 005312085 Active 2023 Arsalan Dc DC [address] [facility], [place], [address], [facility] 4 17:53:01 Low back pain 902028302 Active 2023 Arsalan Dc DC [address] [facility], [place], [address], [facility] 4 17:53:01 Lumbar segmental dysfunction 260788045 Active 2023 Arsalan Dc DC [address] [facility], [facility] [facility] [place], [address], [facility] 4 17:53:01 Somatic dysfunction of sacral spine 564746649 Active 2023 Arsalan Dc, TANGELA [address] [facility], [place], [address], [facility] 4 17:53:01 Somatic dysfunction of pelvic region 133171524 Active 2023 Arsalan Dc DC [address] [facility], [place], [address], [facility] 4 16:00:35 Problem Notes None recorded. Procedures Surgical History Date Name Laterality Status Provider Name and Address Organization Details Recorded Time 5 22346: Spinal manipulation , 3 to 4 regions completed Chintan Kohler DC [address] [facility], [place], [address], [facility] 07/24/2024 17:24:59 5 [address]4555: Spinal manipulation , 3 to 4 regions completed Chintan Kohler DC [address] [facility], [place], [address], [facility] - [facility] 07/22/2024 18:24:19 5 02312: Spinal manipulation , 3 to 4 regions completed Roni Anderson DC [address] [facility], [place], [address], [facility] - [facility] 07/19/2024 13:59:35 5 58703: Spinal manipulation , 3 to 4 regions completed Chintan Kohler DC [address] [facility], [place], [address], [facility] - [facility] 07/12/2024 19:11:44 5 93322: Spinal manipulation , 3 to 4 regions completed Arsalan Dc DC [address] [facility], [place], [address], [facility] - [facility] 07/16/2024 10:41:16 5 78487: Spinal manipulation , 3 to 4 regions completed Arsalan Dc DC [address] [facility], [place], [address], [facility] - [facility] 06/13/2024 16:09:29 5 20265: Spinal manipulation , 3 to 4 regions completed Arsalan Dc DC [address] [facility], [place], [address], [facility] 05/30/2024 15:48:40 5 99835: Spinal manipulation , 3 to 4 regions completed Arsalan Dc DC [address] [facility], [place], [address], [facility] 05/16/2024 16:14:08 4 05776: Spinal manipulation , 3 to 4 regions completed Arsalan Dc DC [address] [facility], [place], [address], [facility] 05/14/2024 11:46:50 4 06527: Spinal manipulation , 3 to 4 regions completed Arsalan Dc DC [address] [facility], [place], [address], [facility] 04/25/2024 16:00:07 92186: Spinal manipulation , 3 to 4 regions completed Arsalan Dc DC [address] [facility], [place], [address], [facility] 04/18/2024 17:53:33 Imaging Results None recorded. Procedure [...] SNOMED-CT Code Diagnosis ICD10 Code Diagnosis Note [id number] Arsalan Dc DC [facility] [address] [facility] [place] [address] 07/11/2024 11:19:31 07/17/2024 13:30:34 Thoracic segmental dysfunction 599576248 M99.02 Neck pain 10447336 M54.2 Cervical s egmental dysfunction 272733871 M99.01 Lumbar seg mental dysfunction 554884467 M99.03 [id number] Chintan Kohler DC [facility] [address] [place] [address] 07/12/2024 12:30:51 07/16/2024 09:51:49 Somatic dysfunction of sacral spine 440761608 M99.04 Thoracic s egmental dysfunction 139238946 M99.02 Somatic dy sfunction of pelvic region 958356693 M99.05 Low back pain 425640496 M54.50 332140 Roni Anderson DC [facility] [address] [place] [address] 07/19/2024 12:23:03 07/19/2024 15:12:15 Somatic dysfunction of sacral spine 086048637 M99.04 Thoracic s egmental dysfunction 902153630 M99.02 Somatic dy sfunction of pelvic region 997853130 M99.05 Low back pain 660396328 M54.50 [id number] Chintan Kohler DC [facility] & [address] [place] [address] 07/22/2024 11:54:25 07/23/2024 18:33:07 Somatic dysfunction of sacral spine 829355164 M99.04 Thoracic s egmental dysfunction 329451449 M99.02 Somatic dy sfunction of pelvic region 238673273 M99.05 Low back pain 672406028 M54.50 Health Concerns Section Related Observation LastModified by Organization Detai ls LastModified Time None Recorded Concern Status LastModified by Organization Details LastModified Time None Recorded Payers Encounter Date Sequence Insurance Name Policy Number Policy Poe Covered Member ID Poe Member ID Guarantor Name 07/22/2024 1 [place] [email or web address] Lelia Vizcarra [id number] 5 Lelia Vizcarra Notes Date Note Type Note Provider Name and Address Organization Details Recorded Time 07/22/2024 text/html HPI - Lumbar SpineReported bypatient.Location: left; With radiation to knee Quality:aching Severity:not changing Timing:morning Aggravating Factors:standing Alleviating Factors:ice Scot Sherif Kohler DC [address] [facility], [place], [address], [facility] 07/22/2024 18:25:09 OBGyn Episode No OBEpisode recorded.
--- OUTSIDE RECORDS SUMMARY | 2024-07-29 14:02 | XMS_ITS | Continuity of Care Document ---
Author Organization [facility] Address [address] [facility] [address] [place] [address] Assessment No assessment recorded. Plan of Treatment [...] Address Organization Details Recorded Time Neck pain 85068523 Active 2024 Arsalan Dc DC [address] [facility], [place], [address], [place] [facility] 5 10:41:22 Cervical segmental dysfunction 388718519 Active 2024 Arsalan Dc DC [address] [facility], [place], [address], [place] [facility] 5 10:41:27 Thoracic segmental dysfunction 085248844 Active 2023 Arsalan Dc DC [address] [facility], [place], [address], [place] [facility] 4 17:53:01 Low back pain 477576991 Active 2023 Arsalan Dc DC [address] [facility], [place], [address], [place] [facility] 4 17:53:01 Lumbar segmental dysfunction 762749558 Active 2023 Arsalan Dc DC [address] [facility], [place], [address], [place] [facility] 4 17:53:01 Somatic dysfunction of sacral spine 478988821 Active 2023 Arsalan Dc DC [address] [facility], [place], [address], [place] [facility] 4 17:53:01 Somatic dysfunction of pelvic region 780093084 Active 2023 Arsalan Dc, TANGELA [address] [facility], [place], [address], [facility] 4 16:00:35 Problem Notes None recorded. Procedures Surgical History Date Name Laterality Status Provider Name and Address Organization Details Recorded Time 5 54434: Spinal manipulation , 3 to 4 regions completed Chintan Kohler DC [address] [facility], [place], [address], [facility] 07/24/2024 17:24:59 5 61932: Spinal manipulation , 3 to 4 regions completed Chintan Kohler DC [address] [facility], [place], [address], [facility] 07/22/2024 18:24:19 5 19753: Spinal manipulation , 3 to 4 regions completed Roni Anderson DC [address] [facility], [place], [address], [facility] 07/19/2024 13:59:35 5 95733: Spinal manipulation , 3 to 4 regions completed Chintan Kohler DC [address] [facility], [place], [address], [facility] 07/12/2024 19:11:44 5 02409: Spinal manipulation , 3 to 4 regions completed Arsalan Dc DC [address] [facility], [place], [address], [facility] 07/16/2024 10:41:16 5 85803: Spinal manipulation , 3 to 4 regions completed Arsalan Dc DC [address] [facility], [place], [address], [facility], [facility] 06/13/2024 16:09:29 5 91470: Spinal manipulation , 3 to 4 regions completed Arsalan Dc DC [address] [facility], [place], [address], [facility], [facility] 05/30/2024 15:48:40 5 30760: Spinal manipulation , 3 to 4 regions completed Arsalan Dc DC [address] [facility], [place], [address], [facility], [facility] 05/16/2024 16:14:08 4 88440: Spinal manipulation , 3 to 4 regions completed Arsalan Dc DC [address] [facility], [place], [address], [facility], [facility] 05/14/2024 11:46:50 4 37032: Spinal manipulation , 3 to 4 regions completed Arsalan Dc DC [address] [facility], [place], [address], [facility], [facility] 04/25/2024 16:00:07 4 30688: Spinal manipulation , 3 to 4 regions completed Arsalan Dc DC [address] [facility], [place], [address], [facility], [facility] 04/18/2024 17:53:33 Imaging Results None recorded. Procedure [...] SNOMED-CT Code Diagnosis ICD10 Code Diagnosis Note [id number] Arsalan Dc DC [facility] & [address] [place] [address] 06/12/2024 11:45:13 06/12/2024 16:06:22 Somatic dysfunction of sacral spine 328821516 M99.04 Thoracic s egmental dysfunction 025381536 M99.02 Somatic dy sfunction of pelvic region 297362452 M99.05 Low back pain 675298040 M54.50 [id number] Arsalan Dc DC [facility] & [address] [place] [address] 07/11/2024 11:19:31 07/17/2024 13:30:34 Thoracic segmental dysfunction 964907187 M99.02 Neck pain 34753578 M54.2 Cervical s egmental dysfunction 864680450 M99.01 Lumbar seg mental dysfunction 557365938 M99.03 Health Concerns Section Related Observation LastModified by Organization Detai ls LastModified Time None Recorded Concern Status LastModified by Organization Details LastModified Time None Recorded Payers Encounter Date Sequence Insurance Name Policy Number Policy Poe Covered Member ID Poe Member ID Guarantor Name 07/11/2024 1 [place] [employer] Vizcarra [id number] 5 Lelia Vizcarra Notes Date Note Type Note Provider Name and Address Organization Details Recorded Time 07/11/2024 text/html HPI - Cervical SpineReported bypatient.Location: left Quality:aching Severity:moderate Duration:2 weeks Timing:gradual Alleviating Factors:ice Aggravating Factors:sitting Associated Symptoms:no numbness/tingling Araslan Dc DC [address] [facility], [place], [address], [facility], [facility] 07/16/2024 10:42:38 07/12/2024 text/html HPI - Lumbar SpineReported bypatient.Location: left; With radiation to knee Quality:aching Severity:not changing Timing:morning Aggravating Factors:standing Alleviating Factors:ice Chintan Kohler DC [address] [facility], [place], [address], [facility], [facility] 07/12/2024 19:12:07 OBGyn Episode No OBEpisode recorded.
--- OUTSIDE RECORDS SUMMARY | 2024-07-29 14:02 | XMS_ITS | Encounter Summary ---
Author Organization [facility] Address [address] [place] [address] Care Team Providers Care Paving Rammer Name Role Phone Mayuri Cote MD Unavailable [phone] Lilly Harris PA-C Unavailable Jaennette Bernabe MD Primary Care Provide r Reason for Referral * (Routine) - Open Specialty Diagnoses / Procedures Referred By Contac t Referred To Contact Procedures MRI SPINE THORACIC W/O&W CON Mayuri Cote MD [address] [place] [address] Phone: tel: fax: Referral ID Status Reason Start Date Expiration Date Visits Re quested Visits Authorized [id number] Open 06/18/2024 1 1 TECHNICIAN * (Routine) - Open Specialty Diagnoses / Procedures Referred By Contac t Referred To Contact Procedures MRI SPINE CERVICAL W/O&W CON Mayuri Cote MD [address] [place] [address] Phone: tel: fax: Referral ID Status Reason Start Date Expiration Date Visits Re quested Visits Authorized [id number] Open 06/18/2024 1 1 TECHNICIAN * (Routine) - Open Specialty Diagnoses / Procedures Referred By Contac t Referred To Contact Procedures MRI BRAIN W/O&W CON Mayuri Cote MD [address] [place] [address] Phone: tel: fax: Referral ID Status Reason Start Date Expiration Date Visits Re quested Visits Authorized [id number] Open 06/18/2024 1 1 TECHNICIAN Encounter Details Date Type Department Care Team (Late st Contact Info) Description 06/18/2024 Order-Scan [facility] [address] [address] Mayuri Cote MD [address] [place] [address] Social History Tobacco Use Types Packs/Day Years Used Date Smoking Tobacco: Former Smokeless Tobacco: Never Alcohol Use Standard Drinks/Week Comments Yes 0 (1 standard drink = 0.6 oz pur e alcohol) Comments Unknown Sex and Gender Information Value Date Recorded Sex Assigned at Not on file Legal Sex Female 7:13 PM CDT Gender Identity Not on file Sexual Orientation Not on file documented as of this encounter Plan of Treatment Not on file documented as of this encounter Procedures Procedure Name Priority Date/Time Associated Diagnosis Comments MRI SPINE THORACIC W/O&W CON Routine 06/17/2024 8:33 AM FILL TECHNICIAN MRI SPINE CERVICAL W/O&W CON Routine 06/17/2024 8:32 AM FILL TECHNICIAN MRI BRAIN W/O&W CON Routine 06/17/2024 8:31 AM FILL TECHNICIAN documented in this encounter Results * MRI SPINE THORACIC W/O&W CON (06/17/2024 8:33 AM FILL TECHNICIAN) Anatomical Region Laterality Modality Spine Other us Mayuri Cote MD MRI ORDERABLE Final Result * MRI SPINE CERVICAL W/O&W CON (06/17/2024 8:32 AM FILL TECHNICIAN) Anatomical Region Laterality Modality Spine Other us Mayuri Cote MD MRI ORDERABLE Final Result * MRI BRAIN W/O&W CON (06/17/2024 8:31 AM FILL TECHNICIAN) Anatomical Region Laterality Modality Head Other us Mayuri Cote MD MRI ORDERABLE Final Result documented in this encounter Visit Diagnoses Not on filedocumented in this encounter Care Teams Paving Rammer Relationship Specialty Start Date End Date Jeannette Bernabe MD [address] [place] [address] PCP - General 06/24/21 Mayuri Cote MD Physician Neurology 06/23/21 Lilly Harris PA-C Physician Awning [employer]anger Helper Neurology 06/23/21 documented as of this encounter
--- OUTSIDE RECORDS SUMMARY | 2024-07-29 14:02 | XMS_ITS | Data Portability ---
Author Organization [facility], [facility] Address [address] [place] [address] Care Team Providers Care Prototype Model Maker Name Role Phone SHAAN ORTIZ Primary Care Provider Assessment No assessment recorded. Plan of Treatment Reminders Order Date Submit Date Provider Last Modified By Organization Details Last Modified Time Details Appointments None recorded. Lab culture, urine - needs UCx in 1-2 weeks (at [facility]) [facility] [address] [facility], [place], [address], 3 16:20:39 urinalysis , dipstick 2022 023 [email or web address] 0 [facility], [address], [place], [address], 3 17:45:15 culture, urine 2022 023 [facility], [address] [facility], [place], [address], 3 11:26:42 urinalysis , dipstick 2022 023 [facility], [address], [place], [address], 3 14:29:47 Referral None recorded. Procedures None recorded. Surgeries None recorded. Imaging None recorded. Medication Orders fosfomycin tromethami ne 3 gram oral packet 2022 023 [id number], [address] [address], [place], [address], 15:02:40 Patient TargetsNo targets recorded. Patient InstructionsNo instructions recorded. Reason for Referral None Reported. Results Created Date Observation Date Name Description Value Unit Range Abnormal Flag Note LastModifiedBy Organization Detail LastModifiedTime 12/13/1912/12/2022 urina lysis , dipst ick Color-Status Yellow Not Available [facility] [address], [place], [address], 12/12/2022 14:28:29 12/13/1912/12/2022 urina lysis , dipst ick Clarity-Stat us Clear Not Available [facility] [address], [place], [address], 12/12/2022 14:28:29 12/13/19 23 12/12/2022 urina lysis , dipst ick pH-Status 7.0 Not Available [facility] [address], [place], [address], 12/12/2022 14:28:29 12/13/19 23 12/12/2022 urina lysis , dipst ick Nitrates-Sta tus negati ve Not Available [facility] [address], [place], [address], 12/12/2022 14:28:29 12/13/19 23 12/12/2022 urina lysis , dipst ick Blood-Status Negati ve Not Available [facility] [address], [place], [address], 12/12/2022 14:28:29 12/13/19 23 12/12/2022 urina lysis , dipst ick Leuko-Status Negati ve Not Available [facility] [address], [place], [address], 12/12/2022 14:28:29 01/05/2001/04/2023 URINE CULTU RE final [...] for provi viry revie w. Not Available [facility] [address], [place], [address], 01/07/2023 11:26:42 01/05/2001/04/2023 urina lysis , dipst ick Color-Status Yellow Not Available [facility] [address], [place], [address], 01/04/2023 17:44:34 01/05/2001/04/2023 urina lysis , dipst ick Clarity-Stat us Clear Not Available [facility] [address], [place], [address], 01/04/2023 17:44:34 01/05/2001/04/2023 urina lysis , dipst ick pH-Status 6.5 Not Available [facility] [address], [place], [address], 01/04/2023 17:44:34 01/05/2001/04/2023 urina lysis , dipst ick Nitrates-Sta tus negati ve Not Available [facility] [address], [place], [address], 01/04/2023 17:44:34 01/05/2001/04/2023 urina lysis , dipst ick Blood-Status Negati ve Not Available [facility] [address], [place], [address], 01/04/2023 17:44:34 01/05/2001/04/2023 urina lysis , dipst ick Leuko-Status Negati ve Not Available [facility] [address], [place], [address], 01/04/2023 17:44:34 Result Notes None recorded. Procedures Surgical History Date Name Laterality Status Provider Name and Address Organization Details Recorded Time 01/05/20 Bladder Scan completed Harshil Kilpatrick MD [address] [place] [address],[address], [address] [place] [address], [facility] 01/04/2023 16:59:08 12/13/19 Bladder Scan completed Harshil Kilpatrick MD [address] [place] [address],[address], [address] [place] [address], [facility] 12/12/2022 14:26:00 Cholecystectomy completed Harshil Kilpatrick MD [address] [place] [address],[address], [address] [place] [address], [facility] 12/12/2022 14:28:36 Total Hysterectomy completed Harshil Kilpatrick MD [address] [place] [address],[address], [address] [place] [address], [facility] 12/12/2022 14:28:47 Imaging Results None recorded. Procedure Notes None recorded. Medical Equipment None Reported. Allergies Allergen ID Allergen Name Allergen Category Reaction Reaction Severity Criticality Documentation Date Start Date Code Code System Note Provider Name and Address Organization Details Recorded Time 813981 trazodone medicatio n Not available Not available Not available 12/12/2022 71365 RxNorm Not Available Not Available Not Available 176138 gabapenti n medicatio n Not available Not available Not available 12/12/2022 10038 RxNorm Not Available Not Available Not Available 039103 Substance with sulfonami de structure and antibacte rial mechanism of action (substanc e) medicatio n Not available Not available Not available 12/12/2022 53630 8003 SNOMED Not Available Not Available Not Available 717507 amoxicill in medicatio n Not available Not available Not available 12/12/2022 723 RxNorm Not Available Not Available Not Available Medications Name Sig Start Date Stop Date [...] Updated DateTime 12/12/2022 160.02 cm 29.2 kg/m2 01627.74 g Harshil Kilpatrick MD [address] [place] [address] 12/12/2022 14:25:41 Date Recorded Body height Body mass index (BMI) Body weight Provider Name and Address Organization Details Last Updated DateTime 01/04/2023 160.02 cm 29.2 kg/m2 48254.74 g Harshil Kilpatrick MD [address] [place] [address] 01/04/2023 16:58:06 Social History Question Answer Notes LastModified by Organizat ion Details LastModified Time Tobacco Smoking Status Former Smoker Harshil Kilpatrick MD [address] [place] [address], [address], [facility] 12/12/2022 14:28:22 What Is Your Level Of Alcohol Consumption? Occasional Information not available 12/12/2022 How Many Times Per Week Do You Consume Alcohol? Less Than 1 Time Per Week Information not available 12/12/2022 What Is Your Level Of Caffeine Consumption? Moderate Information not available 12/12/2022 When Did You Quit Smoking? 16+yearscaty dumont Information not available 12/12/2022 What Was [...] 0 0 Immunizations Vaccine Type Date Status Note Provider Nam e and Address Organization Details Recorded Time COVID-19, mRNA, LNP-S, PF, 30 mcg/0.3 mL dose 1 completed Harshil Kilpatrick MD [address] [place] [address],[address], [address], [facility] 12/12/2022 14:25:49 COVID-19, mRNA, LNP-S, PF, 30 mcg/0.3 mL dose 1 completed Harshil Kilpatrick MD [address] [place] [address],[address], [address], [facility] 12/12/2022 14:25:49 COVID-19, mRNA, LNP-S, PF, 30 mcg/0.3 mL dose 1 completed Harshil Kilpatrick MD [address] [place] [address],[address], [address], [facility] 12/12/2022 14:25:49 pneumococcal polysaccharide PPV23 3 completed Harshil Kilpatrick MD [address] [place] [address],[address], [address], [facility] 12/12/2022 14:25:49 Tdap 2 completed Harshil Kilpatrick MD [address] [facility],[address], [place], [address], [facility] 12/12/2022 14:25:49 Tdap 2 completed Harshil Kilpatrick MD [address] [facility],[address], [place], [address], [facility] 12/12/2022 14:25:49 Td (adult), 2 Lf tetanus toxoid, preservative free, adsorbed 3 completed Harshil Kilpatrick MD [address] [facility],[address], [place], [address], [facility] 12/12/2022 14:25:49 Past Encounters Encounter ID Performer Location Encounter Start Date Encounter Closed Date Diagnosis/Indication Diagnosis SNOMED-CT Code Diagnosis ICD10 Code Diagnosis Note [id number] Harshil Kilpatrick MD [facility] [facility] [place] [address] 12/12/2022 14:08:07 12/16/2022 16:52:30 Recurrent urinary tract infection 981924107 N39.0 1. Recurrent UTIs- continue Vitamin C- continue Cranberry extract 500 mg daily- complete course of Macrobid- if symptoms return - treat with Fosfomycin 3 gm PO every other day (5 doses)(alt ernative - Cipro 500 mg BID x 7-10 days)- Follow-up in 1 month with UA and Bladder scan Incomplete emptying of urinary bladder 240572665 R39.14 2. Incomplete bladder emptying- due to MS (infection may also contribute )- recommend - double-voi ben- check Bladder scan at Follow-up [id number] MD REGGIE [facility] [address] [place] [address] 01/04/2023 16:09:04 01/13/2023 09:36:18 Recurrent urinary tract infection 246231982 N39.0 1. Recurrent UTIs- check UCx- continue Vitamin C- continue Cranberry extract 500 mg daily- Follow-up in 6 months with UA and Bladder scan Incomplete emptying of urinary bladder 005512321 R39.14 2. Incomplete bladder emptying- due to MS (infection may also contribute )- recommend - double-voi ding- check Bladder scan at Follow-up Health Concerns Section Related Observation LastModified by Organization Detai ls LastModified Time None Recorded Concern Status LastModified by Organization Details LastModified Time None Recorded Advance Directives Directive None Recorded Payers Encounter Date Sequence Insurance Name Policy Number Policy Poe Covered Member ID Poe Member ID Guarantor Name 12/12/2022 1 [place] [employer] Lelia Vizcarra [id number] Lelia Vizcarra 12/12/2022 2 [employer] - FOR LIFE (MEDICARE SUPPLEMENT) Lelia Vizcarra [id number] Lelia Vizcarra 01/04/2023 1 [place] [employer] Lelia Vizcarra [id number] Lelia Vizcarra 01/04/2023 2 [employer] - FOR LIFE (MEDICARE SUPPLEMENT) Lelia Vizcarra [id number] Lelia Vizcarra Notes Date Note Type Note Provider Name and Address Organization Details Recorded Time 12/12/2022 text/html 72 yo female wit h history of MS and kidney stones (60% [...] or dysuria. UCx (09/09/22) - group B StrepUCx (09/23/22) - group B StrepUCx (12/06/22) - E.coli (R - Amp, Unasyn, Keflex, and Ceftriaxone) 12/12/22 - She presents for follow-up on UTIs and bladder emptying. She currently completing a 5 day course of Macrobid. She states her symptoms have resolved - denies dysuria or urgency. She voids every 2-3 hours during the day ad 2-3x/night. She notes slower stream and sensation of incomplete bladder emptying.- PVR = 359 mL- UA - no blood - no LE CT scan (06/09/17) - mild Bilateral dilation of renal pelvis - no stones or hydronephrosis. Renal U/S (02/19/20) - Right - mild chronic hydronephrosis - PVR = 176 mL Harshil Kilpatrick MD [address] [facility],[address], [place], [address], [facility] 12/12/2022 18:29:34 01/04/2023 text/html 72 yo female wit h history of MS and kidney stones (60% [...] or dysuria. UCx (09/09/22) - group B StrepUCx (09/23/22) - group B StrepUCx (12/06/22) - E.coli (R - Amp, Unasyn, [...] occasional urgency with rare leakage - no dysuria.- PVR = 510mL (unable to void)- UA - no blood - no LE CT scan (06/09/17) - mild Bilateral dilation of renal pelvis - no stones or hydronephrosis. Renal U/S (02/19/20) - Right - mild chronic hydronephrosis - PVR = 176 mL Harshil Kilpatrick MD [address] [facility],[address], [place], [address], [facility] - [facility] 01/08/2023 18:11:58 OBGyn Episode No OBEpisode recorded.
--- OUTSIDE RECORDS SUMMARY | 2024-07-29 14:02 | XMS_ITS | Data Portability ---
Author Organization [place] [facility], [facility] - [facility] Address [address] [facility] [address] [place] [address] Assessment Encounter Date Assessment Date Assessment LastModified by Organization Details LastModified Time 07/12/2024 07/12/2024 ASSESSMENT: Patient is a good candidate for [...] should not hesitate to contact our office. Not available 07/12/2024 19:11:58 07/19/2024 07/19/2024 ASSESSMENT: Patient is a good candidate for [...] should not hesitate to contact our office. ecram Not available 07/19/2024 13:59:35 07/22/2024 07/22/2024 ASSESSMENT: Patient is a good [...] should not hesitate to contact our office. Not available 07/22/2024 18:24:19 07/24/2024 07/24/2024 ASSESSMENT: Patient is a good [...] should not hesitate to contact our office. Not available 07/24/2024 17:24:59 Plan of Treatment [...] Address Organization Details Recorded Time Neck pain 07955995 Active 2024 Arsalan Dc DC [address] [facility], [place], [address], [facility] 5 10:41:22 Cervical segmental dysfunction 588739054 Active 2024 Arsalan Dc DC [address] [facility], [place], [address], [facility] 5 10:41:27 Thoracic segmental dysfunction 321004206 Active 2023 Arsalan Dc DC [address] [facility], [place], [address], [facility] 4 17:53:01 Low back pain 153292313 Active 2023 Arsalan Dc DC [address] [facility], [place], [address], [facility] 4 17:53:01 Lumbar segmental dysfunction 404104059 Active 2023 Arsalan Dc DC [address] [facility], [place], [address], [facility] 4 17:53:01 Somatic dysfunction of sacral spine 675530585 Active 2023 Arsalan Dc DC [address] [facility], [place], [address], [facility] 4 17:53:01 Somatic dysfunction of pelvic region 468943010 Active 2023 Arsalan Dc DC [address] [facility], [place], [address], [facility] 4 16:00:35 Problem Notes None recorded. Procedures Surgical History Date Name Laterality Status Provider Name and Address Organization Details Recorded Time 5 40184: Spinal manipulation , 3 to 4 regions completed Chintan Kohler DC [address] [facility], [place], [address], [facility] 07/24/2024 17:24:59 5 43201: Spinal manipulation , 3 to 4 regions completed Chintan Kohler DC [address] [facility], [place], [address], [facility] 07/22/2024 18:24:19 5 52851: Spinal manipulation , 3 to 4 regions completed Roni Anderson DC [address] [facility] [facility], [place], [address], [facility] 07/19/2024 13:59:35 5 37632: Spinal manipulation , 3 to 4 regions completed Chintan Kohler DC [address] [facility], [place], [address], [facility] 07/12/2024 19:11:44 5 45733: Spinal manipulation , 3 to 4 regions completed Arsalan Dc DC [address] [facility] [facility], [place], [address], [facility] 07/16/2024 10:41:16 5 27406: Spinal manipulation , 3 to 4 regions completed Arsalan Dc DC [address] [place] [address], [place], [address], [facility] 06/13/2024 16:09:29 5 44804: Spinal manipulation , 3 to 4 regions completed Arsalan Dc DC [address] [facility] [facility], [place], [address], [facility] 05/30/2024 15:48:40 5 05476: Spinal manipulation , 3 to 4 regions completed Arsalan Dc DC [address] [facility], [place], [address], [facility] 05/16/2024 16:14:08 4 87873: Spinal manipulation , 3 to 4 regions completed Arsalan Dc DC [address] [facility] [facility], [place], [address], [facility] 05/14/2024 11:46:50 4 11096: Spinal manipulation , 3 to 4 regions completed Arsalan Dc DC [address] [facility], [place], [address], [facility] 04/25/2024 16:00:07 4 32949: Spinal manipulation , 3 to 4 regions completed Arsalan Dc DC [address] [facility] [facility], [place], [address], [facility] 04/18/2024 17:53:33 Imaging Results None recorded. Procedure [...] SNOMED-CT Code Diagnosis ICD10 Code Diagnosis Note [id number] Arsalan Dc DC [facility] & [address] [place] [address] 04/18/2024 15:15:57 04/18/2024 17:59:55 Lumbar segmental dysfunction 403309995 M99.03 Low back pain 057967059 M54.50 Somatic dy sfunction of sacral spine 313073490 M99.04 Thoracic s egmental dysfunction 159534778 M99.02 [id number] Arsalan Dc DC [facility] & [address] [place] [address] 04/25/2024 15:00:43 04/25/2024 16:13:59 Low back pain 039725385 M54.50 Thoracic s egmental dysfunction 091842052 M99.02 Somatic dy sfunction of sacral spine 591055179 M99.04 Somatic dy sfunction of pelvic region 994852958 M99.05 [id number] Arsalan Dc DC [facility] & [address] [place] [address] 05/09/2024 16:06:43 05/16/2024 18:12:30 Lumbar segmental dysfunction 155295510 M99.03 Low back pain 412611317 M54.50 Somatic dy sfunction of sacral spine 813879226 M99.04 Thoracic s egmental dysfunction 342802596 M99.02 [id number] Arsalan Dc DC [facility] & [address] [place] [address] 05/16/2024 15:03:18 05/16/2024 18:16:16 Low back pain 626615989 M54.50 Somatic dy sfunction of sacral spine 314109963 M99.04 Somatic dy sfunction of pelvic region 854131195 M99.05 Thoracic s egmental dysfunction 091897442 M99.02 [id number] Arsalan Dc DC [facility] [address] [place] [address] 05/30/2024 12:27:55 05/30/2024 15:51:48 Lumbar segmental dysfunction 555053049 M99.03 Thoracic s egmental dysfunction 210970264 M99.02 Low back pain 165649076 M54.50 Somatic dy sfunction of pelvic region 368714119 M99.05 [id number] Arsalan Dc DC [facility] [address] [place] [address] 06/12/2024 11:45:13 06/12/2024 16:06:22 Somatic dysfunction of sacral spine 673553388 M99.04 Thoracic s egmental dysfunction 192195817 M99.02 Somatic dy sfunction of pelvic region 760549881 M99.05 Low back pain 885511930 M54.50 [id number] Arsalan Dc DC [facility] [address] [place] [address] 07/11/2024 11:19:31 07/17/2024 13:30:34 Thoracic segmental dysfunction 492226318 M99.02 Neck pain 20470311 M54.2 Cervical s egmental dysfunction 913020744 M99.01 Lumbar seg mental dysfunction 934889584 M99.03 [id number] Chintan Kohler DC [facility] [address] [place] [address] 07/12/2024 12:30:51 07/16/2024 09:51:49 Somatic dysfunction of sacral spine 357022339 M99.04 Thoracic s egmental dysfunction 610586888 M99.02 Somatic dy sfunction of pelvic region 610778574 M99.05 Low back pain 893903955 M54.50 [id number] Roni Anderson DC [facility] [address] [place] [address] 07/19/2024 12:23:03 07/19/2024 15:12:15 Somatic dysfunction of sacral spine 550803210 M99.04 Thoracic s egmental dysfunction 955613818 M99.02 Somatic dy sfunction of pelvic region 475790142 M99.05 Low back pain 864506636 M54.50 [id number] Chintan Kohler DC [facility] [address] [place] [address] 07/22/2024 11:54:25 07/23/2024 18:33:07 Somatic dysfunction of sacral spine 869444231 M99.04 Thoracic s egmental dysfunction 986117361 M99.02 Somatic dy sfunction of pelvic region 863868375 M99.05 Low back pain 079758965 M54.50 [id number] Chintan Kohler DC [facility] [address] [facility] [place] [address] 07/24/2024 12:24:44 07/24/2024 17:36:13 Somatic dysfunction of sacral spine 340611473 M99.04 Thoracic s egmental dysfunction 600524143 M99.02 Somatic dy sfunction of pelvic region 046543160 M99.05 Low back pain 616936660 M54.50 Health Concerns Section Related Observation LastModified by Organization Detai ls LastModified Time None Recorded Concern Status LastModified by Organization Details LastModified Time None Recorded Advance Directives Directive None Recorded Payers Encounter Date Sequence Insurance Name Policy Number Policy Poe Covered Member ID Poe Member ID Guarantor Name 07/11/2024 1 [place] [employer] Lelia Vizcarra [id number] 5 Lelia Zackery 07/12/2024 1 [place] [employer] Lelia Motley Zackery [id number] 5 [place] 07/19/2024 1 [place] [employer] Lelia Motley [place] [id number] 5 Lelia [place] 07/22/2024 1 [place] [employer] Lelia Motley Zackery [id number] 5 Lelia [place] 07/24/2024 1 [place] [employer] Lelia Vizcarra [id number] 5 Lelia [place] Notes Date Note Type Note Provider Name and Address Organization Details Recorded Time 07/11/2024 text/html HPI - Cervical SpineReported bypatient.Location: left Quality:aching Severity:moderate Duration:2 weeks Timing:gradual Alleviating Factors:ice Aggravating Factors:sitting Associated Symptoms:no numbness/tingling Arsalan Dc, DC [address] [facility], [place], [address], [facility] 07/16/2024 10:42:38 07/12/2024 text/html HPI - Lumbar SpineReported bypatient.Location: left; With radiation to knee Quality:aching Severity:not changing Timing:morning Aggravating Factors:standing Alleviating Factors:jennifer Kohler, DC [address] [facility], [place], [address], [facility] 07/12/2024 19:12:07 07/19/2024 text/html HPI - Lumbar SpineReported bypatient.Location: left; With radiation to knee Quality:aching Severity:not changing Timing:morning Aggravating Factors:standing Alleviating Factors:ice Roni Anderson, DC [address] [facility], [place], [address], [facility] 07/19/2024 14:00:47 07/22/2024 text/html HPI - Lumbar SpineReported bypatient.Location: left; With radiation to knee Quality:aching Severity:not changing Timing:morning Aggravating Factors:standing Alleviating Factors:jennifer Kohler, DC [address] [facility] [facility], [place], [address], [facility] 07/22/2024 18:25:09 07/24/2024 text/html HPI - Lumbar SpineReported bypatient.Location: left; With radiation to knee Quality:aching Severity:not changing Timing:morning Aggravating Factors:standing Alleviating Factors:jennifer Kohler, DC [address] [facility], [place], [address], [facility] 07/24/2024 17:25:42 OBGyn Episode No OBEpisode recorded.
[2024-07-29 15:02] VITALS: BP 179/84; PULSE 91; RESP 16; TEMP 36.6; O2SAT 96; BMI 30.1
--- NOTE | 2024-07-29 15:12 | CRLHL7_ITS ---
For Patients: As a result of the Century Cures Act, medical imaging exams and procedure reports are released immediately into your electronic medical record. You may view this report before your referring provider. If you have questions, please contact your health care provider. INDICATION: Trauma. TECHNIQUE: Chest and right rib radiographs, 3 views. COMPARISON: None. FINDINGS: Cardiovascular/Mediastinum: Normal heart size. Unremarkable. Lungs: No focal consolidation. Linear bandlike opacification of the lungs bilaterally, likely subsegmental atelectasis and/or scarring. Airways: Trachea remains midline. Pleura: No pleural effusions or pneumothorax. Bones: Cortical discontinuity involving the lateral aspect of the right 9th rib. Upper abdomen: Unremarkable. IMPRESSION: Suspected nondisplaced fracture of the lateral aspect of the right 9th rib. No pleural effusions or pneumothorax. Dictated by Nikhil Wilson MD @ 07/29/2024 4:22:15 PM (Electronically Signed)
--- NOTE | 2024-07-29 18:05 | ED_ITS ---
HPI - General Adult General Date Seen: 07/29/24 Chief complaint: Rib Pain Stated complaint: Fell, hurt rt side, possible ribs Time Seen by Provider: 07/29/24 18:05 History of Present Illness HPI narrative: Lelia gandara is a 74-year-old female with history of osteoporosis, vitamin-D deficiency, lumbar foraminal stenosis, low back pain, I hear history of depression, history of inguinal hernia, history of for evaluation of rib pain after she fell. She does not take any blood thinners. She fell today around noon. She was cleaning and walking in her house and then turned too quickly and lost her balance. She just turned too fast and lost her balance and fell with her right lateral rib cage hitting the top corner of a wooden chest. She fell and landed with the right side of her ribs hitting the corner of would chest. She has pain in her right lateral ribs that hurts with movement but does not hurt with deep breathing. She does not have much pain as long as she holds still. She does not have any trouble breathing. She did not hit her head. No loss of consciousness. No headache. No neck pain. No upper extremity injury. No shoulder pain. No low back pain or midline thoracic pain. She did not injure her pelvis or hips. No injury to her lower extremities. Related Data Home Medications ?Medication ?Instructions ?Recorded ?Confirmed losartan 25 mg tablet (Cozaar) 25 mg PO BID 07/29/24 07/29/24 nortriptyline 10 mg capsule 60 mg PO QHS 07/29/24 07/29/24 Previous Rx's ?Medication ?Instructions ?Recorded hydrocodone 5 mg-acetaminophen 325 1 tab PO Q6H PRN pain #10 tabs 07/29/24 mg tablet Allergies Allergy/AdvReac Type Severity Reaction Status Date / Time sulfamethoxazole (From Allergy Intermediate Hives Verified 02/09/24 02:39 ) trimethoprim (From ) Allergy Intermediate Hives Verified 02/09/24 02:39 amoxicillin Allergy Mild Erythema Verified 02/09/24 02:39 Sulfa (Sulfonamide Allergy Mild Hives Verified 02/09/24 02:39 Antibiotics) trazodone Allergy Mild Hives Verified 02/09/24 02:39 [facility] Medical History (Updated 07/29/24 @ 18:26 by Javy Cotto MD) Vitamin D deficiency ?E55.9 - Vitamin D deficiency, unspecified (ICD-10) Menopause ?Z78.0 - Asymptomatic menopausal state (ICD-10) Anemia ?D64.9 - Anemia, unspecified (ICD-10) Multiple sclerosis ?G35 - Multiple sclerosis (ICD-10) Lumbar foraminal stenosis ?M48.061 - Spinal stenosis, lumbar region without neurogenic claudication (ICD-10) DDD (degenerative disc disease) Osteoporosis ?M81.0 - Age-related osteoporosis without current pathological fracture (ICD- 10) History of inguinal hernia ?Z87.19 - Personal history of other diseases of the digestive system (ICD-10) Nephrolithiasis ?N20.0 - Calculus of kidney (ICD-10) Low back pain ?M54.50 - Low back pain, unspecified (ICD-10) Dyshidrosis ?L30.1 - Dyshidrosis [pompholyx] (ICD-10) Depressive disorder ?F32.A - Depression, unspecified (ICD-10) Surgical History (Updated 02/09/24 @ 02:46 by Juan Luna RN) History of hysterectomy ?Z90.710 - Acquired absence of both cervix and uterus (ICD-10) History of cholecystectomy ?Z90.49 - Acquired absence of other specified parts of digestive tract (ICD- 10) History of colonoscopy ?Z98.890 - Other specified postprocedural states (ICD-10) Social History Smoking Status: Former smoker Second hand tobacco smoke exposure: No How often do you have a drink containing alcohol: never AUDIT-C Alcohol total score: 0 Non-prescribed substance use: denies use Exam Narrative: Exam Narrative: Constitutional: Appears well-developed and well-nourished. Alert. Conversant. Non toxic. HENT: Head: Atraumatic. Nose: Nose normal. Mouth/Throat: Oral mucosa is clear and moist. no trismus. Eyes: Conjunctivae normal. EOM normal. Pupils equal, round, and reactive to light. No scleral icterus. Neck: Normal range of motion. Neck supple. No tracheal deviation present. Cardiovascular: Normal rate, regular rhythm. No gallop. No friction rub. No murmur heard. Symmetric radial artery pulses Pulmonary/Chest: Effort normal. No stridor. No respiratory distress. No wheezes. No rales. No rhonchi . Right posterolateral rib cage tenderness. No crepitus. No bruising Abdominal: Soft. Bowel sounds normal. No distension. No mass. No tenderness. No rebound. No guarding. No CVA tenderness. No right upper quadrant tenderness Musculoskeletal: No midline C, T, L-spine tenderness Pelvis and right hip were nontender RUE: Normal range of motion. No tenderness. No deformity LUE: Normal range of motion. No tenderness. No deformity RLE: Normal range of motion. No edema. No tenderness. No deformity LLE: Normal range of motion. No edema. No tenderness. No deformity Lymph: No cervical adenopathy. Neurological: Alert and oriented to person, place, and time. Normal strength. CN II-VII intact. No sensory deficit. GCS eye subscore is 4. GCS verbal subscore is 5. GCS motor subscore is 6. Normal coordination Skin: Skin is warm and dry. No rash noted. No pallor. Normal capillary refill. Psychiatric: Normal mood. Normal affect. Const: Vital Signs, click to edit/add: Vital Signs - 24 hr 07/29/24 15:02 Temperature 97.8 F Pulse Rate [Pulse Oximeter] 91 Respiratory Rate 16 Blood Pressure [Ri ght Upper Arm] 179/84 H Pulse Oximetry 96 Oxygen Delivery Me thod Room Air Course Vital Signs Vital signs: Initial Vital Signs Temperature 97.8 F 07/29/24 15:02 Temperature Source Temporal Artery Scan 07/29/24 15:02 Pulse Rate 91 07/29/24 15:02 Pulse Rhythm Regular 07/29/24 15:02 Respiratory Rate 16 07/29/24 15:02 Blood Pressure 179/84 H 07/29/24 15:02 Blood Pressure Mean 115 H 07/29/24 15:02 Blood Pressure Position Sitting 07/29/24 15:02 Pulse Oximetry 96 07/29/24 15:02 Oxygen Delivery Method Room Air 07/29/24 15:02 Vital Signs Temperature 97.8 F 07/29/24 15:02 Pulse Rate 91 07/29/24 15:02 Respiratory Rate 16 07/29/24 15:02 Blood Pressure 179/84 H 07/29/24 15:02 Pulse Oximetry 96 07/29/24 15:02 Oxygen Delivery Method Room Air 07/29/24 15:02 Temperature 97.8 F 07/29/24 15:02 Pulse Rate 91 07/29/24 15:02 Respiratory Rate 16 07/29/24 15:02 Blood Pressure 179/84 H 07/29/24 15:02 Pulse Oximetry 96 07/29/24 15:02 Oxygen Delivery Method Room Air 07/29/24 15:02 Medical Decision Making MDM Narrative Medical decision making narrative: This patient presents for evaluation after a injury to the chest. He she has a fall leading to right posterolateral rib pain. The patient has good breath sounds in all graves and no hypoxia or tachycardia. There is no no large hematoma or contusion or chest wall crepitus or flail segment.. No deformity. Chest x-ray shows a subtle nondisplaced right posterolateral 9 rib fracture. No pneumothorax, hemothorax, or pulmonary contusion. Discussed sensitivity of plain films for fracture. She does not have any abdominal pain or tenderness, flank pain, hematuria or other symptoms to suggest intra-abdominal or retroperitoneal injury such as hepatic laceration, renal injury. At this point I do not think she needs CT imaging. She did not hit her head or injure her neck or into her low back in the fall. With reasonable clinical certainty, I believe the patient is safe for discharge and can be safely managed as an outpatient. The patient was given return precautions and follow up instructions, they state understanding of these and ability to comply. Pain control with Tylenol 1st and Slater as needed. Discussed opiate precautions with the patient. She indicates that s she plans to try to minimize medication use because she just does not like taking pills.. Consul deep breathing to avoid atelectasis and subsequent pneumonia instructed to follow up as an outpatient. Discharge Plan Discharge Clinical Impression: Fracture of rib Patient Disposition: Home, Self-Care Condition: Stable Instructions: Rib Fracture (ED) Additional Instructions: As we discussed, your x-ray shows that you have a broken rib on the right side. Fortunately, we do not see any sign of punctured lung or internal bleeding from your broken rib It will take several weeks for your broken rib to he will be while it is healing, be careful to avoid dangerous activities or activities that worsen your pain. Light activity is okay be sure to take deep breath 40 5 times per day to help keep your lungs inflated and prevent developing pneumonia To manage her pain start with Tylenol, take 2 extra-strength Tylenol every 6 hours as needed. If you have pain not controlled by Tylenol, use the prescription pain killer-Slater. Be careful because Slater can cause dizziness, drowsiness, constipation, and can be addictive. If you have worsening pain, trouble breathing, more pain in the he in your back, bloody urine, abdominal pain, or any problems, please come back to the emergency room right away Prescriptions: New hydrocodone-acetaminophen 5-325 mg tablet 1 tab PO Q6H PRN (Reason: pain) Qty: 10 0RF No Action nortriptyline 10 mg capsule 60 mg PO QHS losartan [Cozaar] 25 mg tablet 25 mg PO BID Rx Instructions: Takes 50mg in AM and 25mg in PM Follow Up/Referrals: Jeannette Bernabe MD [Primary Care Provider] - Stand Alone Forms: [employer] Info Instructions
--- OUTSIDE RECORDS SUMMARY | 2024-07-29 18:39 | XMS_ITS | Referral Summary ---
Author Organization [facility] Address [address] [place] [address] Care Team Providers Care Insurance Adjustor Name Role Phone Mayuri Cote MD Unavailable Lilly Harris PA-C Unavailable Jeannette Bernabe MD Primary Care Provide r Encounters Date Type Department Care Team Description 06/18/2024 Order-Scan [facility] of Neurology [address] [phone] Mayuri Cote MD from Last 3 Months Allergies Active [...] THORACIC W/O&W CON Routine 06/17/2024 8:33 AM LEAD MINER BLASTING MRI SPINE CERVICAL W/O&W CON Routine 06/17/2024 8:32 AM LEAD MINER BLASTING MRI BRAIN W/O&W CON Routine 06/17/2024 8:31 AM LEAD MINER BLASTING from Last 3 Months Results * MRI SPINE THORACIC W/O&W CON (06/17/2024 8:33 AM LEAD MINER BLASTING) Anatomical Region Laterality Modality Spine Other us Mayuri Cote MD MRI ORDERABLE Final Result * MRI SPINE CERVICAL W/O&W CON (06/17/2024 8:32 AM LEAD MINER BLASTING) Anatomical Region Laterality Modality Spine Other us Mayuri Cote MD MRI ORDERABLE Final Result * MRI BRAIN W/O&W CON (06/17/2024 8:31 AM LEAD MINER BLASTING) Anatomical Region Laterality Modality Head Other Mayuri Cote MD MRI ORDERABLE Final Result from Last 3 Months Insurance MEDICARE PART A & B [facility] [place] [address] Care Teams Insurance Adjustor Relationship Specialty Start Date End Date [place] [address] PCP - General 06/24/21 Mayuri Cote MD Physician Neurology 06/23/21 Lilly Harris PA-C Physician Team Leader/Research Psychologist Neurology 06/23/21
--- OUTSIDE RECORDS SUMMARY | 2024-07-29 18:40 | XMS_ITS | Continuity of Care Document ---
Author Organization [facility] ANDRE melendrez [facility] Address [address] [place] [address] Assessment Encounter Date Assessment Date Assessment LastModified by Organization Details LastModified Time 07/19/2024 07/19/2024 ASSESSMENT: Patient is a good [...] our office. ecram Not available 07/19/2024 13:59:35 Plan of Treatment Reminders Order Date Submit [...] Address Organization Details Recorded Time Neck pain 62623375 Active 2024 Arsalan Dc, TANGELA [address], [place], [address] , [facility] 5 10:41:22 Cervical segmental dysfunction 085432762 Active 2024 Arsalan Dc, TANGELA [address], [facility] [place], [address], [facility] - [facility] 5 10:41:27 Thoracic segmental dysfunction 895248497 Active 2023 Arsalan Dc DC [address], [facility] [place], [address], [facility] - [facility] 4 17:53:01 Low back pain 064644772 Active 2023 Arsalan Dc DC [address], [facility] [place], [address], [facility] 4 17:53:01 Lumbar segmental dysfunction 584613530 Active 2023 Arsalan Dc DC [address], [facility] [place], [address], [facility] 4 17:53:01 Somatic dysfunction of sacral spine 630914154 Active 2023 Arsalan Dc, TANGELA [address], [facility] [place], [address], [facility] 4 17:53:01 Somatic dysfunction of pelvic region 589966746 Active 2023 Arsalan Dc DC [address], [facility] [place], [address], [facility] 4 16:00:35 Problem Notes None recorded. Procedures Surgical History Date Name Laterality Status Provider Name and Address Organization Details Recorded Time 5 37584: Spinal manipulation , 3 to 4 regions completed Chintan Kohler DC [address], [place], [address], [facility] 07/24/2024 17:24:59 5 [address]: Spinal manipulation , 3 to 4 regions completed Chintan Kohler DC [address], [place], [address], [facility] - [facility] 07/22/2024 18:24:19 5 59979: Spinal manipulation , 3 to 4 regions completed Roni Anderson DC [address], [place], [address], [facility] - [facility] 07/19/2024 13:59:35 5 20247: Spinal manipulation , 3 to 4 regions completed Chintan Kohler DC [address], [place], [address], [facility] 07/12/2024 19:11:44 5 29276: Spinal manipulation , 3 to 4 regions completed Arsalan Dc DC [address], [place], [address], [facility] 07/16/2024 10:41:16 5 41184: Spinal manipulation , 3 to 4 regions completed Arsalan Dc DC [address], [place], [address], [facility] 06/13/2024 16:09:29 5 79834: Spinal manipulation , 3 to 4 regions completed Arsalan Dc DC [address], [place], [address], [facility] 05/30/2024 15:48:40 5 43834: Spinal manipulation , 3 to 4 regions completed Arsalan Dc DC [address], [place], [address], [facility] 05/16/2024 16:14:08 4 37590: Spinal manipulation , 3 to 4 regions completed Arsalan Dc DC [address], [place], [address], [facility] 05/14/2024 11:46:50 4 94414: Spinal manipulation , 3 to 4 regions completed Arslaan Dc DC [address], [place], [address], [facility] 04/25/2024 16:00:07 71495: Spinal manipulation , 3 to 4 regions completed Arsalan Dc DC [address], [place], [address], [facility] 04/18/2024 17:53:33 Imaging Results None [...] SNOMED-CT Code Diagnosis ICD10 Code Diagnosis Note [id number] Arsalan Dc DC [facility] [address] [place] [address] 07/11/2024 11:19:31 07/17/2024 13:30:34 Thoracic segmental dysfunction 074380327 M99.02 Neck pain 82071806 M54.2 Cervical s egmental dysfunction 684265830 M99.01 Lumbar seg mental dysfunction 737571315 M99.03 [id number] Chintan Sherif Kohler DC [facility] [address] [place] [address] 07/12/2024 12:30:51 07/16/2024 09:51:49 Somatic dysfunction of sacral spine 848610556 M99.04 Thoracic s egmental dysfunction 992627757 M99.02 Somatic dy sfunction of pelvic region 839615118 M99.05 Low back pain 348013787 M54.50 [id number] Roni Anderson DC [facility] [address] [place] [address] 07/19/2024 12:23:03 07/19/2024 15:12:15 Somatic dysfunction of sacral spine 305224139 M99.04 Thoracic s egmental dysfunction 845956850 M99.02 Somatic dy sfunction of pelvic region 243022565 M99.05 Low back pain 731979763 M54.50 Health Concerns Section Related Observation LastModified by Organization Detai ls LastModified Time None Recorded Concern Status LastModified by Organization Details LastModified Time None Recorded Payers Encounter Date Sequence Insurance Name Policy Number Policy Poe Covered Member ID Poe Member ID Guarantor Name 07/19/2024 1 [place]ARE [place]: [employer] Lelia Vizcarra [id number] Lelia Vizcarra Notes Date Note Type Note Provider Name and Address Organization Details Recorded Time 07/19/2024 text/html HPI - Lumbar SpineReported bypatient.Location: left; With radiation to knee Quality:aching Severity:not changing Timing:morning Aggravating Factors:standing Alleviating Factors:ice Roni Anderson DC [address], [place], [address], [facility] 07/19/2024 14:00:47 OBGyn Episode No OBEpisode recorded.
--- OUTSIDE RECORDS SUMMARY | 2024-07-29 18:40 | XMS_ITS | Clinical Summary ---
Author Organization [facility] Address [address] [place] [address] Care Team Providers Care Records Management Specialist Name Role Phone Mayuri Cote MD Unavailable [...] Type Department Care Team Description 06/18/2024 Order-Scan [facility] of Neurology [address] [phone] Mayuri Cote MD from Last 3 Months [...] THORACIC W/O&W CON Routine 06/17/2024 8:33 AM SAFETY TEACHER MRI SPINE CERVICAL W/O&W CON Routine 06/17/2024 8:32 AM SAFETY TEACHER MRI BRAIN W/O&W CON Routine 06/17/2024 8:31 AM SAFETY TEACHER from Last 3 Months Results * MRI SPINE THORACIC W/O&W CON (06/17/2024 8:33 AM SAFETY TEACHER) Anatomical Region Laterality Modality Spine Other us Mayuri Cote MD MRI ORDERABLE Final Result * MRI SPINE CERVICAL W/O&W CON (06/17/2024 8:32 AM SAFETY TEACHER) Anatomical Region Laterality Modality Spine Other us Mayuri Cote MD MRI ORDERABLE Final Result * MRI BRAIN W/O&W CON (06/17/2024 8:31 AM SAFETY TEACHER) Anatomical Region Laterality Modality Head Other us Mayuri Cote MD MRI ORDERABLE Final Result from Last 3 Months Insurance MEDICARE PART A & B [employer] [facility] [place] [address] [facility] [place] [address] Care Teams Records Management Specialist Relationship Specialty Start Date End Date Jeannette Bernabe MD [address] [place] [address] PCP - General 06/24/21 Mayuri Cote MD Physician Neurology 06/23/21 Lilly Harris PA-C Physician Complaint Evaluation Officer Neurology 06/23/21
--- OUTSIDE RECORDS SUMMARY | 2024-07-29 18:41 | XMS_ITS | Continuity of Care Document ---
Author Organization [facility] Address [address] [place] [address] Phone Care Team Providers Care Pencil Inspector Name Role Phone Jennifer PERAZA, PhD, Dwayne Unavailable Unavai lable Allergies, Adverse Reactions, Alerts Substance Reaction Status Criticality No Known Allergies Active No Inform ation Medications Medication Instructions Dosage Effective Dates (start - stop) Status Comments NORTRIPTYLINE HCL (unknown strength) Not Available - Active Procedures Procedure Date Office/Outpatient Visit,Est, Mod 2016 Office/Outpatient Visit,[facility], [facility] 2016 Advance Directives Directive Yes / No Effective Date File Name No Information Encounters Encounter Description Practice Location Reason(s) For Visit Diagnoses Date Provider Providers Copied on Encounter Office/Outpat ient Visit,Est, Mod [facility], [address], [place], [place], [id number], [place] tel:[phone] [facility] Back pain Jennifer Rice. [facility] [place], [address], [place], [address], [place]. tel:[phone] Referring Provider: Jeannette Bernabe , [address], [place], [address]. tel:[phone] Office/Outpat ient Visit,[facility], [facility], [address], [place], [place], [id number], [place] tel:[phone] [facility] Spondylolisthes is, lumbar regionSpinal stenosis, lumbar regionWeakness 7 Jennifer Rice. [facility], [address], [place], [address], [place]. [phone] Referring Provider: Jeannette Bernabe , [facility] [address], [place], [address]. tel:[phone] [facility], [address], [place], [id number], [place] tel:[phone] [facility] Low back pain Mar-0 7-201 7 Jennifer Rice. [facility], [address], [place], [address], [place]. [phone] Family History Family Member Type Diagnosis Age At Onset No Information Payers Payer name Insurance type Covered republican ID Jose Luis awad(s) Medicare [id number] [facility] [id number] Social History Type Description Quantity Date Captured [...]
--- OUTSIDE RECORDS SUMMARY | 2024-07-29 18:41 | XMS_ITS | Encounter Summary ---
Author Organization [facility] Address [address] [place] [address] Care Team Providers Care Facilities Maintenance Assistant Name Role Phone Mayuri Cote MD Unavailable [phone] Lilyl Harris PA-C Unavailable Jeannette Bernabe MD Primary Care Provide r Reason for Referral * (Routine) - Open Specialty Diagnoses / Procedures Referred By Contac t Referred To Contact Procedures MRI SPINE THORACIC W/O&W CON Mayuri Cote MD [address] [place] [address] Phone: tel: fax: Referral ID Status Reason Start Date Expiration Date Visits Re quested Visits Authorized [id number] Open 06/18/2024 1 1 LER TIER * (Routine) - Open Specialty Diagnoses / Procedures Referred By Contac t Referred To Contact Procedures MRI SPINE CERVICAL W/O&W CON Mayuri Cote MD [address] [place] [address] Phone: tel: fax: Referral ID Status Reason Start Date Expiration Date Visits Re quested Visits Authorized [id number] Open 06/18/2024 1 1 LER TIER * (Routine) - Open Specialty Diagnoses / Procedures Referred By Contac t Referred To Contact Procedures MRI BRAIN W/O&W CON Mayuri Cote MD [address] [place] [address] Phone: tel: fax: Referral ID Status Reason Start Date Expiration Date Visits Re quested Visits Authorized [id number] Open 06/18/2024 1 1 LER TIER Encounter Details Date Type Department Care Team (Late st Contact Info) Description 06/18/2024 Order-Scan [facility] of Neurology [address] [phone] Mayuri Cote MD [address] [place] [address] Social History Tobacco Use Types Packs/Day [...] THORACIC W/O&W CON Routine 06/17/2024 8:33 AM HEDDLER TIER MRI SPINE CERVICAL W/O&W CON Routine 06/17/2024 8:32 AM HEDDLER TIER MRI BRAIN W/O&W CON Routine 06/17/2024 8:31 AM HEDDLER TIER documented in this encounter Results * MRI SPINE THORACIC W/O&W CON (06/17/2024 8:33 AM HEDDLER TIER) Anatomical Region Laterality Modality Spine Other us Mayuri Cote MD MRI ORDERABLE Final Result * MRI SPINE CERVICAL W/O&W CON (06/17/2024 8:32 AM HEDDLER TIER) Anatomical Region Laterality Modality Spine Other us Mayuri Cote MD MRI ORDERABLE Final Result * MRI BRAIN W/O&W CON (06/17/2024 8:31 AM HEDDLER TIER) Anatomical Region Laterality Modality Head Other us Mayuri Cote MD MRI ORDERABLE Final Result documented in this encounter Visit Diagnoses Not on filedocumented in this encounter Care Teams Facilities Maintenance Assistant Relationship Specialty Start Date End Date Jeannette Bernabe MD [address] [place] [address] PCP - General 06/24/21 Mayuri Cote MD Physician Neurology 06/23/21 Lilly Harris PA-C Physician Patient Portal Representative Neurology 06/23/21 documented as of this encounter
--- OUTSIDE RECORDS SUMMARY | 2024-07-29 18:41 | XMS_ITS | Continuity of Care Document ---
Author Organization [facility] Address [address] [facility] [address] [place] [address] Assessment Encounter Date Assessment Date Assessment LastModified [...] to contact our office. [email or web address] Not available 07/12/2024 19:11:58 Plan of Treatment Reminders Order Date Submit [...] Address Organization Details Recorded Time Neck pain 55565928 Active 2024 Arsalan Dc, TANGELA [address] [facility], [place], [address] , [facility] 5 10:41:22 Cervical segmental dysfunction 688928877 Active 2024 Arsalan Dc, TANGELA [address] [facility] [address], [place], [address], [facility] 5 10:41:27 Thoracic segmental dysfunction 838962230 Active 2023 Arsalan Dc DC [address] [facility] [address], [place], [address], [facility] 4 17:53:01 Low back pain 388763847 Active 2023 Arsalan Dc DC [address] [facility] [address], [place], [address], [facility] 4 17:53:01 Lumbar segmental dysfunction 004439879 Active 2023 Arsalan Dc DC [address] [facility] [address], [place], [address], [facility] 4 17:53:01 Somatic dysfunction of sacral spine 645827572 Active 2023 Arsalan Dc, TANGELA [address] [facility] [address], [place], [address], [facility] 4 17:53:01 Somatic dysfunction of pelvic region 696429579 Active 2023 Arsalan Dc DC [address] [facility] [address], [place], [address], [facility] 4 16:00:35 Problem Notes None recorded. Procedures Surgical History Date Name Laterality Status Provider Name and Address Organization Details Recorded Time 5 33077: Spinal manipulation , 3 to 4 regions completed Chintan Kohler DC [address] [facility] [address], [place], [address], [facility] 07/24/2024 17:24:59 5 [address]134: Spinal manipulation , 3 to 4 regions completed Chintan Kohler DC [address] [facility] [address], [place], [address], [facility] 07/22/2024 18:24:19 5 40564: Spinal manipulation , 3 to 4 regions completed Roni Anderson DC [address] [facility] [address], [place], [address], [facility] 07/19/2024 13:59:35 5 97500: Spinal manipulation , 3 to 4 regions completed Chintan Kohler DC [address] [facility] [address], [place], [address], [facility] 07/12/2024 19:11:44 5 39845: Spinal manipulation , 3 to 4 regions completed Arsalan Dc DC [address] [facility] [address], [place], [address], [facility] 07/16/2024 10:41:16 5 86822: Spinal manipulation , 3 to 4 regions completed Arsalan Dc DC [address] [facility] [address], [place], [address], [facility] 06/13/2024 16:09:29 5 62586: Spinal manipulation , 3 to 4 regions completed Arsalan Dc DC [address] [facility] [address], [place], [address], [facility] 05/30/2024 15:48:40 5 51704: Spinal manipulation , 3 to 4 regions completed Arsalan Dc DC [address] [facility] [address], [place], [address], [facility] 05/16/2024 16:14:08 4 43946: Spinal manipulation , 3 to 4 regions completed Arsalan Dc DC [address] [facility] [address], [place], [address], [facility] 05/14/2024 11:46:50 4 65844: Spinal manipulation , 3 to 4 regions completed Arsalan Dc DC [address] [facility] [address], [place], [address], [facility] 04/25/2024 16:00:07 32004: Spinal manipulation , 3 to 4 regions completed Arsalan Dc DC [address] [facility] [address], [place], [address], [facility] 04/18/2024 17:53:33 Imaging Results None recorded. Procedure [...] SNOMED-CT Code Diagnosis ICD10 Code Diagnosis Note [id number] Arsalan Dc DC [facility] [address] [facility] [address] [place] [address] 06/12/2024 11:45:13 06/12/2024 16:06:22 Somatic dysfunction of sacral spine 300744383 M99.04 Thoracic s egmental dysfunction 886848012 M99.02 Somatic dy sfunction of pelvic region 140307777 M99.05 Low back pain 762424466 M54.50 [id number] Arsalan Dc DC [facility] [address] [place] [address] 07/11/2024 11:19:31 07/17/2024 13:30:34 Thoracic segmental dysfunction 277029310 M99.02 Neck pain 51890570 M54.2 Cervical s egmental dysfunction 770223593 M99.01 Lumbar seg mental dysfunction 390377925 M99.[id number] [facility] [place] [address] [facility] [address] [place] [address] 07/12/2024 12:30:51 07/16/2024 09:51:49 Somatic dysfunction of sacral spine 678651742 M99.04 Thoracic s egmental dysfunction 634473428 M99.02 Somatic dy sfunction of pelvic region 214187747 M99.05 Low back pain 330372203 M54.50 Health Concerns Section Related Observation LastModified by Organization Detai ls LastModified Time None Recorded Concern Status LastModified by Organization Details LastModified Time None Recorded Payers Encounter Date Sequence Insurance Name Policy Number Policy Poe Covered Member ID Poe Member ID Guarantor Name 07/12/2024 1 [place] [employer] Lelia Vizcarra [id number] Lelia Vizcarra Notes Date Note Type Note Provider Name and Address Organization Details Recorded Time 07/12/2024 text/html HPI - Lumbar SpineReported bypatient.Location: left; With radiation to knee Quality:aching Severity:not changing Timing:morning Aggravating Factors:standing Alleviating Factors:ice Scot Sherif Kohler DC [address] [place] [address], [place], [address], [facility] 07/12/2024 19:12:07 OBGyn Episode No OBEpisode recorded.
== END 2024-07-29 18:40 | disposition home or self-care (01) ==
LOC: ED 18:37
PROVIDERS: Emergency Provider Emergency Medicine; PCP Family Medicine
DX: S22.31XA Fracture of one rib, right side, initial encounter for closed fracture (principal); W19.XXXA Unspecified fall, initial encounter
CPT/HCPCS: 71101; 99283

== ENCOUNTER 2024-08-25 10:00 | Outpatient (CLI) | payer MEDICARE, OTHER, SELFPAY | END 2024-08-25 10:01 | disposition home or self-care (01) | LOC: AMB 08-26 15:47 | PROVIDERS: PCP Family Medicine; Visit Provider Family Medicine | DX: R55 Syncope and collapse (principal) | CPT/HCPCS: A0425; A0427 ==

== ENCOUNTER 2024-08-25 10:41 | Observation (INO) | payer MEDICARE, OTHER, SELFPAY ==
[2024-08-25] VITALS (30 sets, daily range): BP systolic 126–174; BP diastolic 59–126; PULSE 70–111; RESP 5–38; TEMP 36.5–37; O2SAT 87–97; BMI 30.1; BMI 31.0
--- OUTSIDE RECORDS SUMMARY | 2024-08-25 10:44 | XMS_ITS | Referral Summary ---
Author Organization [facility] Address [address] [place] [address] Care Team Providers Care Turner And Former Automatic Name Role Phone Mayuri Cote MD Unavailable Lilly Harris PA-C Unavailable Jeannette Bernabe MD Primary Care Provide r Encounters Date Type Department Care Team Description 06/18/2024 Order-Scan [facility] [address] [phone] Mayuri Cote MD from Last 3 Months [...] THORACIC W/O&W CON Routine 06/17/2024 8:33 AM OFFICE SUPPORT SPECIALIST MRI SPINE CERVICAL W/O&W CON Routine 06/17/2024 8:32 AM OFFICE SUPPORT SPECIALIST MRI BRAIN W/O&W CON Routine 06/17/2024 8:31 AM OFFICE SUPPORT SPECIALIST from Last 3 Months Results * MRI SPINE THORACIC W/O&W CON (06/17/2024 8:33 AM OFFICE SUPPORT SPECIALIST) Anatomical Region Laterality Modality Spine Other us Mayuri Cote MD MRI ORDERABLE Final Result * MRI SPINE CERVICAL W/O&W CON (06/17/2024 8:32 AM OFFICE SUPPORT SPECIALIST) Anatomical Region Laterality Modality Spine Other us Mayuri Cote MD MRI ORDERABLE Final Result * MRI BRAIN W/O&W CON (06/17/2024 8:31 AM OFFICE SUPPORT SPECIALIST) Anatomical Region Laterality Modality Head Other Mayuri Cote MD MRI ORDERABLE Final Result from Last 3 Months Insurance MEDICARE PART A & B [facility] [place] [address] Care Teams Turner And Former Automatic Relationship Specialty Start Date End Date Je[place] [address] PCP - General 06/24/21 Mayuri Cote MD Physician Neurology 06/23/21 Lilly Harrsi PA-C Physician [employer] Phot[employer] Neurology 06/23/21
--- OUTSIDE RECORDS SUMMARY | 2024-08-25 10:44 | XMS_ITS | Data Portability ---
Author Organization [facility], [facility] Address [address] [place] [address] Care Team Providers Care Washateria Attendant Name Role Phone SHAAN ORTIZ Primary Care Provider [phone] Assessment No assessment recorded. Plan of Treatment Reminders Order Date Submit Date Provider Last Modified By Organization Details Last Modified Time Details Appointments None recorded. Lab culture, urine - needs UCx in 1-2 weeks (at [facility]) 2022 023 [facility] [address], [place], [address], 3 16:20:39 urinalysis , dipstick 2022 023 [email or web address] [id number] [facility], [address], [place], [address], 3 17:45:15 culture, urine 2022 023 [facility], [address], [place], [address], 3 11:26:42 urinalysis , dipstick 2022 023 [facility], [address], [place], [address], 3 14:29:47 Referral None recorded. Procedures None recorded. Surgeries None recorded. Imaging None recorded. Medication Orders fosfomycin tromethami ne 3 gram oral packet 2022 023 [id number], [address] [address], [place], [address], 15:02:40 Patient TargetsNo targets recorded. Patient InstructionsNo instructions recorded. Reason for Referral None Reported. Results Created Date Observation Date Name Description Value Unit Range Abnormal Flag Note LastModifiedBy Organization Detail LastModifiedTime 12/13/1912/12/2022 urina lysis , dipst ick Color-Status Yellow Not Available [facility] [address], [place], [address], 12/12/2022 14:28:29 12/13/1912/12/2022 urina lysis , dipst ick Clarity-Stat us Clear Not Available [facility] [address], [place], [address], 12/12/2022 14:28:29 12/13/19 23 12/12/2022 urina lysis , dipst ick pH-Status 7.0 Not Available [facility] [address], [place], [address], 12/12/2022 14:28:29 12/13/19 23 12/12/2022 urina lysis , dipst ick Nitrates-Sta tus negati ve Not Available [facility] [address], [place], [address], 12/12/2022 14:28:29 12/13/19 23 12/12/2022 urina lysis , dipst ick Blood-Status Negati ve Not Available [facility] [address], [place], [address], 12/12/2022 14:28:29 12/13/19 23 12/12/2022 urina lysis , dipst ick Leuko-Status Negati ve Not Available [facility] [address], [place], [address], 12/12/2022 14:28:29 01/05/2001/04/2023 URINE CULTU RE final [...] for provi viry revie w. Not Available [facility] [address], [place], [address], 01/07/2023 11:26:42 01/05/2001/04/2023 urina lysis , dipst ick Color-Status Yellow Not Available [facility] [address], [place], [address], 01/04/2023 17:44:34 01/05/2001/04/2023 urina lysis , dipst ick Clarity-Stat us Clear Not Available [facility] [address], [place], [address], 01/04/2023 17:44:34 01/05/2001/04/2023 urina lysis , dipst ick pH-Status 6.5 Not Available [facility] [address], [place], [address], 01/04/2023 17:44:34 01/05/2001/04/2023 urina lysis , dipst ick Nitrates-Sta tus negati ve Not Available [facility] [address], [place], [address], 01/04/2023 17:44:34 01/05/2001/04/2023 urina lysis , dipst ick Blood-Status Negati ve Not Available [facility] [address], [place], [address], 01/04/2023 17:44:34 01/05/2001/04/2023 urina lysis , dipst ick Leuko-Status Negati ve Not Available [facility] [address], [place], [address], 01/04/2023 17:44:34 Result Notes None recorded. Procedures Surgical History Date Name Laterality Status Provider Name and Address Organization Details Recorded Time 01/05/20 Bladder Scan completed Harshil Kilpatrick MD [address] [place] [address],[address], [address] [place] [address], [facility] 01/04/2023 16:59:08 12/13/19 Bladder Scan completed Harshil Kilpatrick MD [address] [place] [address],[address], [address] [place] [address], [facility] 12/12/2022 14:26:00 Cholecystectomy completed Harshil Kilpatrick MD [address] [place] [address],[address], [address] [place] [address], [facility] 12/12/2022 14:28:36 Total Hysterectomy completed Harhsil Kilpatrick MD [address] [place] [address],[address], [address] [place] [address], [facility] 12/12/2022 14:28:47 Imaging Results None recorded. Procedure Notes None recorded. Medical Equipment None Reported. Allergies Allergen ID Allergen Name Allergen Category Reaction Reaction Severity Criticality Documentation Date Start Date Code Code System Note Provider Name and Address Organization Details Recorded Time 935812 trazodone medicatio n Not available Not available Not available 12/12/2022 24360 RxNorm Not Available Not Available Not Available 370966 gabapenti n medicatio n Not available Not available Not available 12/12/2022 16783 RxNorm Not Available Not Available Not Available 512493 Substance with sulfonami de structure and antibacte rial mechanism of action (substanc e) medicatio n Not available Not available Not available 12/12/2022 28422 8003 SNOMED Not Available Not Available Not Available 558937 amoxicill in medicatio n Not available Not [...] Updated DateTime 12/12/2022 160.02 cm 29.2 kg/m2 62501.74 g Harshil Kilpatrick MD [address] [place] [address] 12/12/2022 14:25:41 Date Recorded Body height Body mass index (BMI) Body weight Provider Name and Address Organization Details Last Updated DateTime 01/04/2023 160.02 cm 29.2 kg/m2 68039.74 g Harshil Kilpatrick MD [address] [place] [address] 01/04/2023 16:58:06 Social History Question Answer Notes LastModified by Organizat ion Details LastModified Time Tobacco Smoking Status Former Smoker Harshil Kilpatrick MD [address] [place] [address], [address], [facility] 12/12/2022 14:28:22 What Is Your Level [...] mL dose 1 completed Harshil Kilpatrick MD [address] [place] [address],[address], [address], [facility] 12/12/2022 14:25:49 COVID-19, mRNA, LNP-S, PF, 30 mcg/0.3 mL dose 1 completed Harshil Kilpatrick MD [address] [place] [address],[address], [address], [facility] 12/12/2022 14:25:49 COVID-19, mRNA, LNP-S, PF, 30 mcg/0.3 mL dose 1 completed Harshil Kilpatrick MD [address] [place] [address],[address], [address], [facility] 12/12/2022 14:25:49 pneumococcal polysaccharide PPV23 3 completed Harshil Kilpatrick MD [address] [place] [address],[address], [address], [facility] 12/12/2022 14:25:49 Tdap 2 completed Harshil Kilpatrick MD [address] [facility] [address], [place], [address], [facility] 12/12/2022 14:25:49 Tdap 2 completed Harshil Kilpatrick MD [address] [facility] [address], [place], [address], [facility] 12/12/2022 14:25:49 Td (adult), 2 Lf tetanus toxoid, preservative free, adsorbed 3 completed Harshil Kilpatrick MD [address] [facility] [address], [place], [address], [facility] 12/12/2022 14:25:49 Past Encounters Encounter ID Performer Location Encounter Start Date Encounter Closed Date Diagnosis/Indication Diagnosis SNOMED-CT Code Diagnosis ICD10 Code Diagnosis Note [id number] Harshil Kilpatrick MD _[place] [facility] [place] [address] 12/12/2022 14:08:07 12/16/2022 16:52:30 Recurrent urinary tract infection 149884537 N39.0 1. Recurrent UTIs- continue Vitamin C- continue Cranberry extract 500 mg daily- complete course of Macrobid- if symptoms return - treat with Fosfomycin 3 gm PO every other day (5 doses)(alt ernative - Cipro 500 mg BID x 7-10 days)- Follow-up in 1 month with UA and Bladder scan Incomplete emptying of urinary bladder 791628675 R39.14 2. Incomplete bladder emptying- due to MS (infection may also contribute )- recommend - double-voi ben- check Bladder scan at Follow-up [id number] MD REGGIE Jordan_Linn [address] [place] [address] 01/04/2023 16:09:04 01/13/2023 09:36:18 Recurrent urinary tract infection 816909886 N39.0 1. Recurrent UTIs- check UCx- continue Vitamin C- continue Cranberry extract 500 mg daily- Follow-up in 6 months with UA and Bladder scan Incomplete emptying of urinary bladder 431646451 R39.14 2. Incomplete bladder emptying- due to [...] ID Guarantor Name 12/12/2022 1 [place]: [employer] Lelia Vizcarra [id number] Lelia Vizcarra 12/12/2022 2 WPS - FOR LIFE (MEDICARE SUPPLEMENT) Lelia Vizcarra [id number] Lelia Vizcarra 01/04/2023 1 [place]: [employer] Lelia Vizcarra [id number] Lelia Vizcarra 01/04/2023 2 WPS - FOR LIFE (MEDICARE SUPPLEMENT) Lelia Vizcarra [id number] Lelia Vizcarra Notes Date Note Type Note [...] = 176 mL Harshil Kilpatrick MD [address] [facility] [address], [place], [address], [facility] 12/12/2022 18:29:34 01/04/2023 text/html 72 yo [...] = 176 mL Harshil Kilpatrick MD [address] [facility] [address], [place], [address], [facility] 01/08/2023 18:11:58 OBGyn Episode No OBEpisode recorded.
--- OUTSIDE RECORDS SUMMARY | 2024-08-25 10:44 | XMS_ITS | Continuity of Care Document ---
Author Organization [place] - [facility] Address [address] [facility] [address] [place] [address] Assessment Encounter Date Assessment Date Assessment LastModified by Organization Details LastModified Time 08/14/2024 08/14/2024 ASSESSMENT: Patient is a good candidate for [...] should not hesitate to contact our office. ASSESSMENT: Patient is a good candidate for [...] to contact our office. [email or web address] Not available 08/15/2024 10:50:32 Plan of Treatment Reminders Order Date Submit [...] Address Organization Details Recorded Time Neck pain 36018340 Active 2024 Arsalan Dc DC [address] [facility], [place], [address], [facility] 5 10:41:22 Cervical segmental dysfunction 022019574 Active 2024 Arsalan Dc DC [address] [facility], [place], [address], [facility] 5 10:41:27 Lesion of lumbar spine 963888497 Active 2024 Chintan Kohler, [place] [address] [facility], [place], [address], [facility] 5 10:36:57 Thoracic segmental dysfunction 734292282 Active 2023 Arsalan Dc DC [address] [facility], [place], [address], [facility] 4 17:53:01 Low back pain 380596290 Active 2023 Arsalan Dc DC [address] [facility], [place], [address], [facility] 4 17:53:01 Lumbar segmental dysfunction 403866483 Active 2023 Arsalan Dc DC [address] [facility], [place], [address], [facility] 4 17:53:01 Somatic dysfunction of sacral spine 135742344 Active 2023 Arsalan Dc, TANGELA [address] [facility], [facility] [place], [address], [facility] 4 17:53:01 Somatic dysfunction of pelvic region 965680221 Active 2023 Arsalan Dc, TANGELA [address] [facility], [place], [address], [facility] 4 16:00:35 Problem Notes None recorded. Procedures Surgical History Date Name Laterality Status Provider Name and Address Organization Details Recorded Time 5 11281: Spinal manipulation , 3 to 4 regions completed Chintan Kohler DC [address] [facility], [place], [address], [facility] 08/15/2024 10:50:31 5 49996: Spinal manipulation , 3 to 4 regions completed Chintan Kohler DC [address] [facility], [place], [address], [facility] 08/08/2024 10:36:05 5 61939: Spinal manipulation , 3 to 4 regions completed Chintan Kohler DC [address] [facility], [place], [address], [facility] 07/24/2024 17:24:59 5 79855: Spinal manipulation , 3 to 4 regions completed Chintan Kohler DC [address] [facility], [place], [address], [facility] 07/22/2024 18:24:19 5 91289: Spinal manipulation , 3 to 4 regions completed Roni Anderson DC [address] [facility], [place], [address], [facility] 07/19/2024 13:59:35 5 89829: Spinal manipulation , 3 to 4 regions completed Chintan Kohler DC [address] [facility], [place], [address], [facility] 07/12/2024 19:11:44 5 71108: Spinal manipulation , 3 to 4 regions completed Arsalan Dc DC [address] [facility], [place], [address], [facility] 07/16/2024 10:41:16 5 56136: Spinal manipulation , 3 to 4 regions completed Arsalan Dc DC [address] [facility], [place], [address], [facility] 06/13/2024 16:09:29 5 59389: Spinal manipulation , 3 to 4 regions completed Arsalan Dc DC [address] [facility], [place], [address], [facility] 05/30/2024 15:48:40 5 87449: Spinal manipulation , 3 to 4 regions completed Arsalan Dc DC [address] [facility], [place], [address], [facility] 05/16/2024 16:14:08 4 43483: Spinal manipulation , 3 to 4 regions completed Arsalan Dc DC [address] [facility], [place], [address], [facility] 05/14/2024 11:46:50 4 61702: Spinal manipulation , 3 to 4 regions completed Arsalan Dc DC [address] [facility], [place], [address], [facility] 04/25/2024 16:00:07 4 78155: Spinal manipulation , 3 to 4 regions completed Arsalan Dc DC [address] [facility], [place], [address], [facility] 04/18/2024 17:53:33 Imaging Results None recorded. Procedure [...] SNOMED-CT Code Diagnosis ICD10 Code Diagnosis Note [id number] Roni Anderson DC [facility] [address] [place] [address] 07/19/2024 12:23:03 07/19/2024 15:12:15 Somatic dysfunction of sacral spine 474273964 M99.04 Thoracic s egmental dysfunction 667531898 M99.02 Somatic dy sfunction of pelvic region 039038345 M99.05 Low back pain 490017868 M54.50 [id number] Chintan Kohler DC [facility] & [address] [place] [address] 07/22/2024 11:54:25 07/23/2024 18:33:07 Somatic dysfunction of sacral spine 019490821 M99.04 Thoracic s egmental dysfunction 416616551 M99.02 Somatic dy sfunction of pelvic region 841509722 M99.05 Low back pain 252093336 M54.50 [id number] Chintan Gorman TANGELA Kohler [facility] [address] [facility] [place] [address] 07/24/2024 12:24:44 07/24/2024 17:36:13 Somatic dysfunction of sacral spine 270467860 M99.04 Thoracic s egmental dysfunction 844591366 M99.02 Somatic dy sfunction of pelvic region 870853753 M99.05 Low back pain 739205308 M54.50 [id number] Chintan BridgesTANGELA flores [facility] [place] [address] [facility] [place] [address] 08/07/2024 12:42:42 08/08/2024 10:53:14 Thoracic segmental dysfunction 730032921 M99.02 Somatic dy sfunction of pelvic region 362559283 M99.05 Low back pain 320405667 M54.50 Lesion of lumbar spine 114629898 M99.01 Neck pain 97622263 M54.2 Lumbar seg mental dysfunction 835879936 M99.03 Cervical s egmental dysfunction 072086823 M99.01 Health Concerns Section Related Observation LastModified by Organization Detai ls LastModified Time None Recorded Concern Status LastModified by Organization Details LastModified Time None Recorded Payers Encounter Date Sequence Insurance Name Policy Number Policy Poe Covered Member ID Poe Member ID Guarantor Name 08/14/2024 1 [place]: [id number] Lelia Vizcarra [id number] 5 Lelia Vizcarra Notes Date Note Type Note Provider Name and Address Organization Details Recorded Time 08/14/2024 text/html HPI - Cervical SpineReported bypatient.Location: left Quality:aching Severity:moderate Duration:2 weeks Timing:gradual Alleviating Factors:ice Aggravating Factors:sitting Associated Symptoms:no numbness/tinglingHP I - Lumbar SpineReported bypatient.Location: left; With radiation to knee Quality:aching Severity:not changing Timing:morning Aggravating Factors:standing Alleviating Factors:ice Chintan Kohler DC [address] [facility], [place], [address], [facility] 08/15/2024 10:50:58 OBGyn Episode No OBEpisode recorded.
--- OUTSIDE RECORDS SUMMARY | 2024-08-25 10:45 | XMS_ITS | Data Portability ---
Author Organization [place] - [facility], [facility] - [facility] Address [address] [facility] [address] [place] [address] Assessment Encounter Date Assessment Date Assessment LastModified [...] contact our office. Not available 07/24/2024 17:24:59 08/07/2024 08/07/2024 ASSESSMENT: Patient is a good candidate for [...] hesitate to contact our office. Not available 08/08/2024 10:36:55 08/14/2024 08/14/2024 ASSESSMENT: Patient is a good [...] hesitate to contact our office. Not available 08/15/2024 10:50:32 Plan of Treatment [...] Address Organization Details Recorded Time Neck pain 60749493 Active 2024 Arsalan cD DC [address] [facility], [facility] [place], [address], [facility] 10:41:22 Cervical segmental dysfunction 109166582 Active 2024 Arsalan Dc DC [address] [facility], [facility] [place], [address], [facility] - [facility] 5 10:41:27 Lesion of lumbar spine 277800127 Active 2024 Chintan Kohler, [place] [address] [facility], [facility] [place], [address], [place] [facility] 5 10:36:57 Thoracic segmental dysfunction 765893096 Active 2023 Arsalan Dc DC [address] [facility], [facility] [place], [address], [facility] - [facility], [facility] 4 17:53:01 Low back pain 024396534 Active 2023 Arsalan Dc DC [address] [facility], [facility] [place], [address], [facility] - [facility] 4 17:53:01 Lumbar segmental dysfunction 273438395 Active 2023 Arsalan Dc DC [address] [facility], [facility] [place], [address], [facility] 4 17:53:01 Somatic dysfunction of sacral spine 931341525 Active 2023 Arsalan Dc, TANGELA [address] [facility], [place], [address], [facility] 4 17:53:01 Somatic dysfunction of pelvic region 115398876 Active 2023 Arsalan Dc, TANGELA [address] [facility], [place], [address], [facility] 4 16:00:35 Problem Notes None recorded. Procedures Surgical History Date Name Laterality Status Provider Name and Address Organization Details Recorded Time 5 85819: Spinal manipulation , 3 to 4 regions completed Chintan Kohler [place] [address] [facility], [place], [address], [facility] 08/15/2024 10:50:31 5 23141: Spinal manipulation , 3 to 4 regions completed Chintan Kohler [place] [address] [facility], [place], [address], [facility] 08/08/2024 10:36:05 5 33187: Spinal manipulation , 3 to 4 regions completed Chintan Kohler [place] [address] [facility], [place], [address], [facility] 07/24/2024 17:24:59 5 31220: Spinal manipulation , 3 to 4 regions completed Chintan Kohler [place] [address] [facility], [place], [address], [facility] 07/22/2024 18:24:19 5 69382: Spinal manipulation , 3 to 4 regions completed Roni Anderson DC [address] [facility], [place], [address], [facility] 07/19/2024 13:59:35 5 38893: Spinal manipulation , 3 to 4 regions completed Chintan Kohler [place] [address] [facility], [place], [address], [facility] - [facility] 07/12/2024 19:11:44 5 46227: Spinal manipulation , 3 to 4 regions completed Arsalan Dc DC [address] [facility], [place], [address], [facility] - [facility] 07/16/2024 10:41:16 5 22539: Spinal manipulation , 3 to 4 regions completed Arsalan Dc DC [address] [facility], [place], [address], [facility] - [facility] 06/13/2024 16:09:29 5 25254: Spinal manipulation , 3 to 4 regions completed Arsalan Dc DC [address] [facility], [place], [address], [facility] 05/30/2024 15:48:40 5 78735: Spinal manipulation , 3 to 4 regions completed Arsalan Dc DC [address] [facility], [place], [address], [facility] - [facility] 05/16/2024 16:14:08 4 81907: Spinal manipulation , 3 to 4 regions completed Arsalan Dc DC [address] [facility], [place], [address], [facility] - [facility] 05/14/2024 11:46:50 4 50170: Spinal manipulation , 3 to 4 regions completed Arsalan Dc DC [address] [facility], [place], [address], [facility] - [facility] 04/25/2024 16:00:07 4 07371: Spinal manipulation , 3 to 4 regions completed Arsalan Dc DC [address] [facility], [place], [address], [facility] 04/18/2024 17:53:33 Imaging Results None recorded. [...] SNOMED-CT Code Diagnosis ICD10 Code Diagnosis Note [id number] Arsalan Dc DC [facility] & [address] [place] [address] 04/18/2024 15:15:57 04/18/2024 17:59:55 Lumbar segmental dysfunction 909389377 M99.03 Low back pain 725792419 M54.50 Somatic dy sfunction of sacral spine 903112079 M99.04 Thoracic s egmental dysfunction 629382619 M99.02 [id number] Arsalan Dc DC [facility] & [address] [place] [address] 04/25/2024 15:00:43 04/25/2024 16:13:59 Low back pain 558152142 M54.50 Thoracic s egmental dysfunction 959977193 M99.02 Somatic dy sfunction of sacral spine 688545153 M99.04 Somatic dy sfunction of pelvic region 023015364 M99.05 [id number] Arsalan Dc DC [facility] & [address] [place] [address] 05/09/2024 16:06:43 05/16/2024 18:12:30 Lumbar segmental dysfunction 997799699 M99.03 Low back pain 586868531 M54.50 Somatic dy sfunction of sacral spine 304237404 M99.04 Thoracic s egmental dysfunction 056296080 M99.02 [id number] Arsalan Dc DC [facility] & [address] [place] [address] 05/16/2024 15:03:18 05/16/2024 18:16:16 Low back pain 095940689 M54.50 Somatic dy sfunction of sacral spine 504943868 M99.04 Somatic dy sfunction of pelvic region 688779757 M99.05 Thoracic s egmental dysfunction 856779017 M99.02 [id number] Arsalan Dc DC [facility] & [address] [place] [address] 05/30/2024 12:27:55 05/30/2024 15:51:48 Lumbar segmental dysfunction 943734734 M99.03 Thoracic s egmental dysfunction 845494024 M99.02 Low back pain 413889971 M54.50 Somatic dy sfunction of pelvic region 215520792 M99.05 [id number] Arsalan Dc DC [facility] [address] [place] [address] 06/12/2024 11:45:13 06/12/2024 16:06:22 Somatic dysfunction of sacral spine 411216131 M99.04 Thoracic s egmental dysfunction 152790196 M99.02 Somatic dy sfunction of pelvic region 656268675 M99.05 Low back pain 701676206 M54.50 [id number] Arsalan Dc DC [facility] [address] [place] [address] 07/11/2024 11:19:31 07/17/2024 13:30:34 Thoracic segmental dysfunction 195230837 M99.02 Neck pain 90319684 M54.2 Cervical s egmental dysfunction 829205786 M99.01 Lumbar seg mental dysfunction 841947288 M99.03 [id number] Chintan Kohler DC [facility] & [address] [facility] [place] [address] 07/12/2024 12:30:51 07/16/2024 09:51:49 Somatic dysfunction of sacral spine 619912347 M99.04 Thoracic s egmental dysfunction 575313685 M99.02 Somatic dy sfunction of pelvic region 267659622 M99.05 Low back pain 558238677 M54.50 [id number] Roni Anderson DC [facility] & [address] [place] [address] 07/19/2024 12:23:03 07/19/2024 15:12:15 Somatic dysfunction of sacral spine 052261223 M99.04 Thoracic s egmental dysfunction 983498419 M99.02 Somatic dy sfunction of pelvic region 561979363 M99.05 Low back pain 029635844 M54.50 [id number] Chintan Kohler DC [facility] & [address] [facility] [place] [address] 07/22/2024 11:54:25 07/23/2024 18:33:07 Somatic dysfunction of sacral spine 046523717 M99.04 Thoracic s egmental dysfunction 932133481 M99.02 Somatic dy sfunction of pelvic region 144496561 M99.05 Low back pain 461937620 M54.50 [id number] Chintan Kohler DC [facility] & [address] [place] [address] 07/24/2024 12:24:44 07/24/2024 17:36:13 Somatic dysfunction of sacral spine 698973577 M99.04 Thoracic s egmental dysfunction 342850929 M99.02 Somatic dy sfunction of pelvic region 515068606 M99.05 Low back pain 574038016 M54.50 [id number] Chintan Sherif Kohler DC [facility] [place] [address] [facility] [place] [address] 08/07/2024 12:42:42 08/08/2024 10:53:14 Thoracic segmental dysfunction 211917535 M99.02 Somatic dy sfunction of pelvic region 408326990 M99.05 Low back pain 332756280 M54.50 Lesion of lumbar spine 132850345 M99.01 Neck pain 78515676 M54.2 Lumbar seg mental dysfunction 117377118 M99.03 Cervical s egmental dysfunction 547025538 M99.01 [id number] Chintan Sherif Kohler DC [facility] [address] [facility] [place] [address] 08/15/2024 10:21:59 08/15/2024 11:55:34 Thoracic segmental dysfunction 577851069 M99.02 Somatic dy sfunction of pelvic region 756964483 M99.05 Low back pain 642023412 M54.50 Lesion of lumbar spine 527009180 M99.01 Neck pain 00783122 M54.2 Lumbar seg mental dysfunction 547875340 M99.03 Cervical s egmental dysfunction 056611685 M99.01 Health Concerns Section Related Observation LastModified by Organization Detai ls LastModified Time None Recorded Concern Status LastModified by Organization Details LastModified Time None Recorded Advance Directives Directive None Recorded Payers Encounter Date Sequence Insurance Name Policy Number Policy Poe Covered Member ID Poe Member ID Guarantor Name 07/19/2024 1 [place]: [employer] Lelia Vizcarra [id number] 5 Leliadonna Vizcarra 07/22/2024 1 [place] [employer] Lelia Vizcarra [id number] 5 Lelia Zackery 07/24/2024 1 [place] [employer] Lelia Vizcarra [id number] 5 Lelia Zackery 08/07/2024 1 [place] [employer] Lelia Vizcarra [id number] 5 Lelia Vizcarra 08/14/2024 1 [place] [facility] Lelia Vizcarra [id number] 5 Lelia Vizcarra Notes Date Note Type Note Provider Name and Address Organization Details Recorded Time 07/19/2024 text/html HPI - Lumbar SpineReported bypatient.Location: left; With radiation to knee Quality:aching Severity:not changing Timing:morning Aggravating Factors:standing Alleviating Factors:ice Roni Anderson, [place] [address] [facility], [place], [address], [facility] 07/19/2024 14:00:47 07/22/2024 text/html HPI - Lumbar SpineReported bypatient.Location: left; With radiation to knee Quality:aching Severity:not changing Timing:morning Aggravating Factors:standing Alleviating Factors:jennifer Kohler, TANGELA [address] [facility], [place], [address], [facility] 07/22/2024 18:25:09 07/24/2024 text/html HPI - Lumbar SpineReported bypatient.Location: left; With radiation to knee Quality:aching Severity:not changing Timing:morning Aggravating Factors:standing Alleviating Factors:jennifer Kohler, TANGELA [address] [facility], [place], [address], [facility] 07/24/2024 17:25:42 08/07/2024 text/html HPI - Cervical SpineReported bypatient.Location: left Quality:aching Severity:moderate Duration:2 weeks Timing:gradual Alleviating Factors:ice Aggravating Factors:sitting Associated Symptoms:no numbness/tinglingHP I - Lumbar SpineReported bypatient.Location: left; With radiation to knee Quality:aching Severity:not changing Timing:morning Aggravating Factors:standing Alleviating Factors:jennifer Kohler, [place] [address] [facility], [place], [address], [facility] 08/08/2024 10:37:37 08/14/2024 text/html HPI - Cervical SpineReported bypatient.Location: left Quality:aching Severity:moderate Duration:2 weeks Timing:gradual Alleviating Factors:ice Aggravating Factors:sitting Associated Symptoms:no numbness/tinglingHP I - Lumbar SpineReported bypatient.Location: left; With radiation to knee Quality:aching Severity:not changing Timing:morning Aggravating Factors:standing Alleviating Factors:ice Chintan Kohler DC [address] [facility], [place], [address], [facility] 08/15/2024 10:50:58 OBGyn Episode No OBEpisode recorded.
--- OUTSIDE RECORDS SUMMARY | 2024-08-25 10:45 | XMS_ITS | Clinical Summary ---
Author Organization [facility] Address [address] [place] [address] Care Team Providers Care Senior Administrative Support Name Role Phone Mayuri Cote MD Unavailable [...] Type Department Care Team Description 06/18/2024 Order-Scan [facility] [address] [address] Mayuri Cote MD from Last 3 Months [...] 2023-2 5 season) 2024 03/31/2021, 08/20/2020, 07/30/2020 Medicare Wellness Visit 06/27/2024 06/27/19 24, 06/24/2022, 06/18/2021, Additional history exists Osteoporosis Screening 08/11/2024 08/11/2022, 2016 Influenza Vaccine (Season Ended) 2025 Adult Tetanus Booster 08/27/2031 08/26/2021 , 09/14/2011, 09/16/2002 Hepatitis C Screening Completed 05/31/2016 Procedures Procedure Name Priority Date/Time Associated Diagnosis Comments MRI SPINE THORACIC W/O&W CON Routine 06/17/2024 8:33 AM MANAGER AGRICULTURAL MRI SPINE CERVICAL W/O&W CON Routine 06/17/2024 8:32 AM MANAGER AGRICULTURAL MRI BRAIN W/O&W CON Routine 06/17/2024 8:31 AM MANAGER AGRICULTURAL from Last 3 Months Results * MRI SPINE THORACIC W/O&W CON (06/17/2024 8:33 AM MANAGER AGRICULTURAL) Anatomical Region Laterality Modality Spine Other us Mayuri Cote MD MRI ORDERABLE Final Result * MRI SPINE CERVICAL W/O&W CON (06/17/2024 8:32 AM MANAGER AGRICULTURAL) Anatomical Region Laterality Modality Spine Other us Mayuri Cote MD MRI ORDERABLE Final Result * MRI BRAIN W/O&W CON (06/17/2024 8:31 AM MANAGER AGRICULTURAL) Anatomical Region Laterality Modality Head Other us Mayuri Cote MD MRI ORDERABLE Final Result from Last 3 Months Insurance MEDICARE PART A & B ATT [place] [id number] [facility] [place] [address] Care Teams Senior Administrative Support Relationship Specialty Start Date End Date Jeannette Bernabe MD [address] [place] [address] PCP - General 06/24/21 Mayuri Cote MD Physician Neurology 06/23/21 Lilly Harris PA-C Physician Gaming Department Head Neurology 06/23/21
--- OUTSIDE RECORDS SUMMARY | 2024-08-25 10:45 | XMS_ITS | Clinical Summary ---
Author Organization [facility] Address [address] [place] [address] Care Team Providers Care Tire Changer Name Role Phone Jeannette Bernabe MD Primary [...] Antibiotics) Hives 05/26/2023 Trazodone Hives 03/05/2007 Medications omega-3 fatty acids-vitamin E (FISH OIL) 1,000 mg cap Take by mouth. 0 3 Active multivitamin (MVI) tablet Take 1 tablet by mouth once daily. 0 3 Active Cranberry Extract 250 mg cap Take 500 mg by mouth two times daily. 0 7 Active Coenzyme Q10 (CO Q-10) 10 mg cap Take 1 capsule by mouth once daily. 0 7 Active Ca carb-Ca gluc-Mg ox-Mg gluco (CALCIUM MAGNESIUM) 500 mg calcium -250 mg tab Take by mouth once daily. 0 7 Active b complex vitamins (VITAMIN B COMPLEX) capsule Take 1 capsule by mouth once daily. 0 7 Active collagen, bovine, 100 % powd Apply topically to affected area(s). Put's in beverage -1 scoop daily 0 7 Active medication order composer Takes Probiotic 12 billion capsule 1 AM and 1 PM 0 7 Active polyethylene glycoL (MIRALAX) 17 gram/dose powder Take 17 g by mouth at bedtime. 0 8 Active miscellaneous medical supply miscIndications: Essential hypertension As directed 1 Each. Large blood pressure arm cuff, automatic. Diagnosis hypertension 1 Each 9 Active ascorbic acid, vitamin C, (VITAMIN C) 1,000 mg tablet Take 1 tablet by mouth once daily. 0 0 Active medication order composer Just Healthy Blood Pressure Support - Magnesium 170 mg, L-Arginine 400 mg, Cameron leaf extract 150 mg, Garlic 50 mg, Grapeseed Extract 50 mg- Take 2 tabs daily 0 2 Active vitamin K2 100 mcg cap Take 1 Capsule by mouth once daily. 0 2 Active cholecalciferol (VITAMIN D3) 1,000 unit capsule Take 5 Capsules (5,000 units) by mouth once daily. 2 Active vitamin e 200 unit capsule Take 1 Capsule (200 units) by mouth once daily. 30 Capsule 3 Active tretinoin 0.05 % 0.05 % creamIndications :Facial rash Apply topically to affected area(s) at bedtime. 45 g 3 4 Active ketoconazole 2% topical (NIZORAL) creamIndications :Tinea versicolor Apply topically to affected area(s) two times daily. 60 g 1 4 Active nystatin powder (MYCOSTATIN) powderIndication s:Tinea pedis, unspecified laterality Apply 1 Strip topically to affected area(s) three times daily. 60 g 1 4 Active nortriptyline (PAMELOR) 10 mg capsuleIndicatio ns:MS (multiple sclerosis) (HC) Take 1 Capsule (10 mg) by mouth at bedtime. Takes 60 mg a day-- 6 tabs at bedtime 5 Active losartan (COZAAR) 25 mg tabletIndication s:HTN (hypertension) Take 2 tablets in the AM and 1 tablet in the PM 270 Tablet 3 5 Active estradioL (Estrace) 0.01% (0.1 mg/g) vaginal creamIndications :Recurrent UTI Insert 1 g into the vagina every Monday and Monday. 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 Radha Johnson RN, [facility] Refill Nurse MS (multiple sclerosis) 02/02/2013 [...] Encounters Date Type Department Care Team Description 08/22/2024 Telephone [facility] [address] [place] [address] Jeannette Bernabe MD Questions (result ) 08/15/2024 Telephone [facility] [address] [place] [facility] [place] [address] Jeannette Bernabe MD Questions (Lab results, thyroid ultrasound, and bone scan) 08/14/2024 11:30 AM CDT Ancillary Procedure [facility] [address] [place] [address] 08/14/2024 10:30 AM CDT Ancillary Procedure [facility] [address] 08/14/2024 10:15 AM CDT Orders Only [facility] [place] [address] [place] [address] [facility], [place] [facility] 08/14/2024 Travel 08/13/2024 Telephone [facility] [address] Jeannette Bernabe MD Questions (Lab order for Vitamin D 3 and check cholesterol. ) 07/29/2024 Orders Only [facility] Scanner 1 scan: (1-Ord) [place], XR RIBS RT MIN 3V W CXR1V, 07/29/2024 07/15/2024 12:15 PM MEDICAL FILE CLERK Ancillary Procedure [facility] [address] 07/15/2024 11:10 AM MEDICAL FILE CLERK Office Visit [facility] [address] [place] [address] Josh Cisneros MD Back Pain (No injury /Lower back pain that comes and goes /Mainly right side) 07/15/2024 Travel 06/28/2024 9:40 AM MEDICAL FILE CLERK Ancillary Procedure [facility] [address] 06/28/2024 8:25 AM MEDICAL FILE CLERK Office Visit [facility] [place] [address] Jeannette Bernabe MD Medicare ANNUAL (subsequent) Visit (74 yo Female/Labs/Bump on back of neck, getting smaller) 06/28/2024 Travel 06/19/2024 Orders Only [facility] [address] [place] [address] Mayuri Cote MD 1 scan: (1-Ord) [facility], HEAD/BRAIN WO CON, 06/17/2024 06/18/2024 Orders Only [facility] [address] [place] [address] Mayuri Cote MD 2 scans: (2-Ord) [facility], MR CERVICAL SPINE W/O CON, 06/17/2024 06/17/2024 Orders Only [facility] Scanner 1 scan: (1-Ord) [facility], MR HEAD/BRAIN WO CON, 06/17/2024 05/28/2024 2:50 PM MEDICAL FILE CLERK Office Visit [facility] [address] [place] [address] Linn Salas MD Cough (2-3 weeks); Urinary Problem (Urgency, cloudy urine) 05/28/2024 Telephone [facility] [address] [place] [address] Linn Salas MD Results 05/28/2024 Travel from Last 3 Months Immunizations Immunization Administration Dates Next Due COVID-19 vaccine ([employer] 30mcg/0.3mL) PFMDV 03/31/2021,08/20/2020,07/30/2020 Influenza Virus, Unspecified 04/15/1996 Influenza, IIV3 [...] Answer Date Recorded PHQ-2 TOTAL SCORE 0 06/28/2024 Social Connections Answer Date Recorded Do you often feel lonely or isolated from those around you? 0 01/30/2024 Financial Resource Strain Answer Date R ecorded Difficulty of Paying Living Expenses 3 01/30/2024 Difficulty of Paying Living Expenses Not on file 01/30/2024 Food Insecurity Answer Date Recorded Do you worry your food will run out before you are able to buy more? 1 01/30/2024 Transportation Needs Answer Date Record ed Does lack of transportation keep you from medica l appointments? 1 01/30/2024 Does lack of transportation keep you from work, meetings or getting things that you need? 1 01/30/2024 Housing Stability Answer Date Recorded What is your housing situation today? 1 01/30/2024 Utilities Answer Date Recorded Do you have trouble paying f or utilities (for example, heat, electricity, water, phone)? 1 01/30/2024 Comments No Sex and Gender Information Value Date Recorded Sex Assigned at Not on file Legal Sex Female 5:23 AM MEDICAL FILE CLERK Gender Identity Not on file Sexual Orientation Not on file Obstetrics History Para Term AB IAB SAB Ectopic Multiple Livin g Live Births 4 3 3 1 1 3 Date Outcome GA Total Labor Labor/2nd/3rd Weight Sex Type Anes PTL Carrie A1 A5 Name Clin IAB Term Term Term Last Filed Vital Signs Vital Sign Reading Time Taken Comments Blood Pressure 150/89 07/15/2024 11:15 AM MEDICAL FILE CLERK Pulse 104 07/15/2024 11:15 AM MEDICAL FILE CLERK Temperature 36.7 C (98.1 F) 10/05/2021 9:43 AM CDT Respiratory Rate 16 12/01/2023 4:08 PM CDT Oxygen Saturation 99% 07/15/2024 11:14 AM MEDICAL FILE CLERK Inhaled Oxygen Concentration - - Weight 78 kg (172 lb) 06/28/2024 7:58 AM MEDICAL FILE CLERK Height 160 cm (5' 3) 06/28/2024 7:58 AM MEDICAL FILE CLERK Body Mass Index 30.47 06/28/2024 7:58 AM MEDICAL FILE CLERK Plan of Treatment Upcoming Encounters Date Type Department Care Team (Late st Contact Info) Description 09/13/2024 8:15 AM CDT Orders Only [facility] [address] [facility] [address] [facility] [place] [facility] Maintenance Due Date Last Done Comments Zoster (shingles) series for age 50+ (1 of 2) 1998 Pneumococcal series for age 50+ (2 of 2 - PCV) 05/14/2014 05/14/2013 RSV vaccine for adults or (1 - 1-dose 75+ series) 2023 COVID-19 vaccine series ( - season) 2024 03/31/2021, 08/20/2020, 07/30/2020 Influenza Vaccine (Season Ended) 2025 04/16/20, 04/15/1996 BMI (ht and wt on same day) for age 18+ 06/28/2025 06/28/2024, 06/27/2023, 06/24/2022, Additional history exists Depression screening for age 12+ 06/28/2025 06/28/2024, 06/29/2023, 06/27/2023, Additional history exists Medicare Wellness for age 65+ 06/29/2025, 06/27/2023, 06/24/2022, Additional history exists Tetanus booster 08/27/2031 08/26/2021, 0506/2011, 09/16/2002 Hepatitis C screening for ag e 18-79 Completed 05/31/2016 Tdap Completed 08/26/2021, 09/14/2011 DEXA/DXA scan for age 65+ Completed 2024, 08/11/2022, 11/22/2016 Goals Goal Patient Goal Type Associated Problems Recent Progress Patient-Stated? Author BLOOD PRESSURE - Maintains BP less than 140/90 Blood Pressure No Bhavani Bradley LPN Medical Devices Implanted Type Area Screen Printing Machine Operator Helper Device Identifier Shelf Expiration Date Model / Serial / Lot Stent Uret [id number] Silhouette Xtraflo - [id number] Implanted:Qty: 1 on 09/12/2010 at [facility] Right: [employer] 05/24/2013 [id number] / / [id number] Stent Uret [id number] Silhouette Xtraflo - [id number] Implanted:Qty: 1 on 09/20/2010 at [facility] Right: [employer] [id number]# / / [id number] Procedures Procedure Name Priority Date/Time Associated Diagnosis Comments XR DXA BONE DENSITY 2 SITES AXIAL Routine 08/14/2024 10:52 AM CDT Osteoporosis, unspecified osteoporosis type, unspecified pathological fracture presence US THYROID/PARATHYROID Routine 10:35 AM CDT Thyroid nodule URINALYSIS MICROSCOPIC Add On 10:24 AM CDT Recurrent UTI IODINE, UR RANDOM Routine 08/14/2024 10: 24 AM CDT Thyroid nodule SCAN-RADIOLOGY REPORT 07/29/2024 12:00 AM CDT XR SPINE LUMBAR 3 VIEWS Routine 07/15/2024 12:18 PM MEDICAL FILE CLERK Acute midline low back pain without sciatica XR MAMMO ANIRUDH BILAT SCREEN Routine 06/28/2024 9:54 AM MEDICAL FILE CLERK Visit for screening mammogram CBC WITH AUTO DIFFERENTIAL Routine 06/28/2024 8:56 AM MEDICAL FILE CLERK HTN (hypertension) TSH WITH REFLEX Routine 06/28/2024 8:56 AM MEDICAL FILE CLERK Thyroid nodule COMP METABOLIC PANEL Routine 06/28/2024 8:56 AM MEDICAL FILE CLERK HTN (hypertension) URINE CULTURE Routine 06/28/2024 7:00 AM MEDICAL FILE CLERK Recurrent UTI UA W/ SEDIMENT EXAM REFLEXED PER CRITERIA Routine 06/28/2024 7:00 AM MEDICAL FILE CLERK Recurrent UTI SCAN-MRI INTERPRETATION 06/17/2024 12:00 AM MEDICAL FILE CLERK MR HEAD BRAIN WO Routine 06/17/2024 12:0 0 AM MEDICAL FILE CLERK Multiple sclerosis (HC) MR SPINE THORACIC WO Routine 06/17/2024 12:00 AM MEDICAL FILE CLERK Multiple sclerosis (HC) MR SPINE CERVICAL WO Routine 06/17/2024 12:00 AM MEDICAL FILE CLERK Multiple sclerosis (HC) URINALYSIS MICROSCOPIC Routine 3:41 PM MEDICAL FILE CLERK Cloudy urine Bladder irritation URINE CULTURE Routine 05/28/2024 3:41 PM MEDICAL FILE CLERK Cloudy urine Bladder irritation URINALYSIS [facility] ONLY POC DIP ([facility]) Routine 05/28/2024 3:41 PM MEDICAL FILE CLERK Cloudy urine Bladder irritation ANTI HCV Routine 05/31/2016 10:01 AM MEDICAL FILE CLERK Need for hepatitis C screening test from Last 3 Months or Most Recently Relevant to Health Maintenance Results * (ABNORMAL) XR DXA BONE DENSITY 2 SITES AXIAL (08/14/2024 10:52 AM CDT) Anatomical Region Laterality Modality Spine, HIPS, HIPL, HIPR Other Impressions 08/16/2024 4:23 PM CDT Osteoporosis. RECOMMENDATIONS: The National Osteoporosis [...] to assess therapeutic efficacy. Chitra Cruz PA-C [facility] 08/16/2024 Narrative 08/16/2024 4:23 PM CDT For Patients: Results are automatically released to your [facility] ([employer]) account once available, in compliance with federal regulations. This means that you may see your results before your provider has had a chance to review them. Please allow 2-3 business days for your provider to comment on the results. XR DXA Bone Mineral Density (BMD) EXAM LOCATION: [facility] [address] [facility] [address] PATIENT NAME: Lelia Vizcarra DATE OF : 1950 EXAM DATE: 08/14/2024 REQUESTING PROVIDER: Jeannette Bernabe MD GENDER AT : female HEIGHT: 5' 3 (06/28/2024) WEIGHT: 172 lb (06/28/2024) MENOPAUSAL STATUS: Postmenopausal RACE/ETHNICITY: White RISK FACTORS: Family History of Hip Fracture (parental), Smoking (prior), Steroid Medication (non-topical), and White Race CURRENT MEDICATION FOR BONE LOSS: NONE INDICATION: Follow-up of existing osteoporosis COMPARISON DATE(S): 2022 DXA scans are compared to prior studies for a patient only when the two (or more) studies were performed on the same scanner. It is not possible to compare data generated on one scanner to data from another because there are not standards in DXA equipment. This applies even if the two scanners are made by the same aviation all source intelligence. PROCEDURE: Dual-energy x-ray absorptiometry performed with routine technique. Reporting is completed in the form of a T-score. The T-score represents the standard deviation from peak bone mass based on young healthy adult. A Z-score is used for diagnosis in premenopausal women, and for men under the age of 50. FINDINGS: RESULT LUMBAR SPINE L1 - L4 BMD: 1.103 g/cm2 T-Score: - 0.7 Z-Score: + 0.6 Change from prior in 2022: Decrease 1.9%. RESULTS FEMUR Left femoral neck BMD: 0.668 g/cm2 T-Score: - 2.7 Z-Score: - 1.0 Change from prior in 2022: Increase 2.3%. Right femoral neck BMD: 0.671 g/cm2 T-Score: - 2.6 Z-Score: - 0.9 Change from prior in 2022: Decrease 3.3%. Left hip BMD: 0.631 g/cm2 T-Score: - 3.0 Z-Score: - 1.5 Change from prior in 2022: Increase 1.3%. Right hip BMD: 0.643 g/cm2 T-Score: - 2.9 Z-Score: - 1.4 Change from prior in 2022: Increase 0.2%. WHO criteria: Normal: T-score at or above -1 SD Osteopenia: T-score between -1.1 and -2.4 SD Osteoporosis: T-score at or below -2.5 SD us Jeannette Bernabe MD DEXA Final Result * US THYROID/PARATHYROID (08/14/2024 10:35 AM CDT) Anatomical Region Laterality Modality THYROID Ultrasound 08/14/2024 3:22 PM CDT Impressions 08/14/2024 3:22 PM CDT Stable bilateral thyroid nodules. Dictated by Dev Thomas MD @ 08/14/2024 3:22:04 PM (Electronically Signed) Narrative 08/14/2024 3:22 PM CDT For Patients: As a result of the Cures Act, medical imaging exams and procedure reports are released immediately into your electronic medical record. You may view this report before your referring provider. If you have questions, please contact your health care provider. INDICATION: Thyroid nodules COMPARISON: none TECHNIQUE: Morrison scale and color Doppler images were acquired of the thyroid gland. FINDINGS: Isthmus measures 1.8 millimeters. Stable spongiform nodule left thyroid lobe measures 2.3 x 1.9 x 0.9 cm, previously measuring 2.4 x 0.9 x 0.8 cm. Mostly solid nodule right thyroid lobe is unchanged and measures 1.6 x 1.3 x 1.2 cm, previously measuring 1.7 x 1.7 x 1.5 cm. Solid and cystic nodule right thyroid lobe measures 1.4 x 1.3 x 1.1 cm, previously measuring 1.5 x 1.5 x 1.2 cm. The right lobe measures 4.2 x 1.7 x 1.6 cm and the left lobe measures 3.9 x 1.4 x 1.3 cm in size. The color Doppler images demonstrate normal vascularity. There is no evidence of cervical lymphadenopathy or parathyroid mass. Procedure Note Dev Thomas MD - 08/14/2024 For Patients: As a result of the Cures Act, medical imagingexams and procedure reports are released immediately into your electronicmedical record. You may view this report before your referring provider.If you have questions, please contact your health care provider. INDICATION: Thyroid nodules COMPARISON: none TECHNIQUE: Morrison scale and color Doppler images were acquired of the thyroid gland. FINDINGS: Isthmus measures 1.8 millimeters. Stable spongiform nodule left thyroidlobe measures 2.3 x 1.9 x 0.9 cm, previously measuring 2.4 x 0.9 x 0.8 cm.Mostly solid nodule right thyroid lobe is unchanged and measures 1.6 x 1.3x 1.2 cm, previously measuring 1.7 x 1.7 x 1.5 cm. Solid and cystic noduleright thyroid lobe measures 1.4 x 1.3 x 1.1 cm, previously measuring 1.5 x1.5 x 1.2 cm. The right lobe measures 4.2 x 1.7 x 1.6 cm and the left lobemeasures 3.9 x 1.4 x 1.3 cm in size. The color Doppler images demonstratenormal vascularity. There is no evidence of cervical lymphadenopathy orparathyroid mass. IMPRESSION: Stable bilateral thyroid nodules. Dictated by Dev Thomas MD @ 08/14/2024 3:22:04 PM (Electronically Signed) us Jeannette Bernabe MD US Final Result * IODINE, UR RANDOM (08/14/2024 10:24 AM CDT) [facility] Iodine, Urine 384.1 28.0 - 544.0 ug/L 08/21/2024 1:09 PM CDT [facility] ([facility]) Comment:Limit of quantitatio n = 20 Urine URINE SPECIMEN / Unknown Non-Blood / Unknown 08/14/2024 10:24 AM CDT 08/14/2024 10:24 AM CDT Narrative [facility] ([facility]) - 08/21/2024 1:09 PM CDT Test(s) [id number], Urine was developed and its performance characteristics determined by [facility]. It has not been cleared or approved by the Food and Drug Administration. Performed at: [address] [id number] Manager Water: Hailey Perdomo MD, Phone: [phone] us Jeannette Bernabe MD URINE Final Result [facility] ([facility]) [address] [place] [address], * URINALYSIS MICROSCOPIC (08/14/2024 10:24 AM CDT) Only the most recent of2 resultswithin the time period is included. [facility] RBC 0-2 0-2, None Seen /HPF 08/14/2024 3:36 PM CDT [facility] WBC 0-2 0-2, 3-5, None Seen /HPF 08/14/2024 3:36 PM CDT [facility] BACTERIA None Seen None Seen, Rare, Few Bacteria/ HPF 08/14/2024 3:36 PM CDT [facility] EPITHELIAL CELLS None Seen None Seen, Few Epi/HPF 08/14/2024 3:36 PM CDT [facility] HYALINE CASTS 0-2 0-2, 3-5 /LPF 08/14/2024 3:36 PM CDT [facility] Urine URINE SPECIMEN / Unknown Non-Blood / Unknown 08/14/2024 10:24 AM CDT 08/14/2024 10:24 AM CDT us Jeannette Bernabe MD URINE Final Result [facility] [address] [place] [address], [place] * SCAN-RADIOLOGY REPORT (07/29/2024 12:00 AM CDT) Anatomical Region Laterality Modality Other us Scanner OTHER Final Result * XR SPINE LUMBAR 3 VIEWS (07/15/2024 12:18 PM MEDICAL FILE CLERK) Anatomical Region Laterality Modality LUMBAR SPINE Computed Radiogr aphy 07/15/2024 2:35 PM MEDICAL FILE CLERK Impressions 07/15/2024 2:35 PM MEDICAL FILE CLERK Levo scoliotic deformity with severe degenerative disc disease on the right at L2-3 and L3-4. Less prominent degenerative disc disease on the left at L4-5. Chronic wedging L3. L1 appears similar to more recent MRI dated 10/13/2022. No acute fracture. Degenerative facet arthropathy lower lumbar spine with grade 1 degenerative spondylolisthesis of L4 on L5. Dictated by Dev Thomas MD @ 07/15/2024 2:35:40 PM (Electronically Signed) Narrative 07/15/2024 2:35 PM MEDICAL FILE CLERK For Patients: As a result of the Cures Act, medical imaging exams and procedure reports are released immediately into your electronic medical record. You may view this report before your referring provider. If you have questions, please contact your health care provider. INDICATION: Acute midline low back pain without sciatica TECHNIQUE: 3-view lumbar spine. COMPARISON: 04/23/2009, 10/13/2022 FINDINGS: Leftward curvature lumbar spine with disc space narrowing and spurring on the right at L2-3 and L3-4. Grade 1 degenerative spondylolisthesis of L4 on L5. Vascular calcifications. Chronic deformity of the L3 superior endplate. Mild loss of the vertebral body height at L1 noted. Procedure Note Dev Thomas MD - 07/15/2024 For Patients: As a result of the Cures Act, medical imagingexams and procedure reports are released immediately into your electronicmedical record. You may view this report before your referring provider.If you have questions, please contact your health care provider. INDICATION: Acute midline low back pain without sciatica TECHNIQUE: 3-view lumbar spine. COMPARISON: 04/23/2009, 10/13/2022 FINDINGS: Leftward curvature lumbar spine with disc space narrowing and spurring onthe right at L2-3 and L3-4. Grade 1 degenerative spondylolisthesis of L4on L5. Vascular calcifications. Chronic deformity of the L3 superiorendplate. Mild loss of the vertebral body height at L1 noted. IMPRESSION: Levo scoliotic deformity with severe degenerative disc disease on theright at L2-3 and L3-4. Less prominent degenerative disc disease on theleft at L4-5. Chronic wedging L3. L1 appears similar to more recent MRI dated10/13/2022. No acute fracture. Degenerative facet arthropathy lower lumbar spine with grade 1degenerative spondylolisthesis of L4 on L5. Dictated by Dev Thomas MD @ 07/15/2024 2:35:40 PM (Electronically Signed) us Josh Cisneros MD GENERAL IMAGING Final Resu lt * XR MAMMO ANIRUDH BILAT SCREEN (06/28/2024 9:54 AM MEDICAL FILE CLERK) Anatomical Region Laterality Modality BREASTS, Breast Left, Breast Right Bilateral Mammography Impressions 06/28/2024 1:43 PM MEDICAL FILE CLERK There is no radiographic evidence for malignancy. Recommend annual mammograms. MAMMOGRAM ASSESSMENT: ACR 1 Negative PATIENTS: You will also receive a letter with your examination results in an easy to read format. If you have questions about your results, please contact your referring provider. Narrative 06/28/2024 1:43 PM MEDICAL FILE CLERK For Patients: As a result of the Century Cures Act, medical imaging exams and procedure reports are released immediately into your electronic medical record. You may view this report before your referring provider. If you have questions, please contact your health care provider. XR MAMMO ANIRUDH BILAT SCREEN [[id number]] CLINICAL HISTORY: This is an asymptomatic 74 y.o. patient. INDICATION FOR EXAM: Mammogram Screening. TECHNIQUE: CC & MLO views were obtained. This study was evaluated with the assistance of Computer-Aided Detection. Breast Tomosynthesis was used in interpretation. COMPARISON FILM: Yes 06/27/23 [facility] 06/24/22 [facility] FINDINGS: There are scattered areas of fibroglandular density. There are no dominant masses, suspicious micro calcifications or areas of architectural distortion. Jeannette Bernabe MD MAMMO Final Result * TSH WITH REFLEX (06/28/2024 8:56 AM MEDICAL FILE CLERK) TSH W/REFLEX TO FT4 2.08 0.40 - 4.50 mIU/L [facility] Blood BLOOD SPECIMEN / Unknown 06/28/2024 8:56 AM MEDICAL FILE CLERK 06/28/2024 8:57 AM MEDICAL FILE CLERK Jeannette Bernabe MD CHEMISTRY Final Result [facility] [address] [place] [address], [place] [phone] [facility] [address] [place] [address] * (ABNORMAL) CBC AND DIFFERENTIAL (06/28/2024 8:56 AM MEDICAL FILE CLERK) [facility] WHITE BLOOD CELL COUNT 6.3 3.8 - 10.8 Thousand/u L [facility] RED BLOOD CELL COUNT 4.39 3.80 - 5.10 Million/uL [facility] HEMOGLOBIN 14.2 11.7 - 15.5 g/dL [facility] HEMATOCRIT 41.9 35.0 - 45.0 % [facility] MCV 95.4 80.0 - 100.0 fL [facility] [facility] MCH 32.3 27.0 - 33.0 pg [facility] MCHC 33.9 32.0 - 36.0 g/dL [facility] Comment: For adults, a slight decrease in the calculated MCHC value (in the range of 30 to 32 g/dL) is most likely not clinically significant; however, it should be interpreted with caution in correlation with other red cell parameters and the patient's clinical condition. RDW 11.7 11.0 - 15.0 % [facility] PLATELET COUNT 401(H) 140 - 400 Thousand/u L [facility] MPV 10.5 7.5 - 12.5 fL [facility] ABSOLUTE NEUTROPHILS 3,919 1,500 - 7,800 cells/uL [facility] ABSOLUTE LYMPHOCYTES 1,449 850 - 3,900 cells/uL [facility] ABSOLUTE MONOCYTES 687 200 - 950 cells/uL [facility] ABSOLUTE EOSINOPHILS 164 15 - 500 cells/uL [facility] ABSOLUTE BASOPHILS 82 0 - 200 cells/uL [facility] NEUTROPHILS 62.2 % [facility] LYMPHOCYTES 23.0 % [facility] MONOCYTES 10.9 % [facility] EOSINOPHILS 2.6 % [facility] BASOPHILS 1.3 % [facility] Blood BLOOD SPECIMEN / Unknown 06/28/2024 8:56 AM MEDICAL FILE CLERK 06/28/2024 8:57 AM MEDICAL FILE CLERK us Jeannette Bernabe MD HEMATOLOGY Final Result [facility] [address] [place] [address], [facility] [address] [place] [address] * (ABNORMAL) COMP METABOLIC PANEL (06/28/2024 8:56 AM MEDICAL FILE CLERK) Pathologist [facility] GLUCOSE 99 65 - 99 mg/dL [facility] Comment: Fasting reference interval UREA NITROGEN (BUN) 15 7 - 25 mg/dL [facility] CREATININE 0.66 0.60 - 1.00 mg/dL [facility] EGFR 91 > OR = 60 mL/min/1. 73m2 [facility] BUN/CREATININE RATIO SEE NOTE: 6 - 22 (calc) [facility] Comment: Not Reported: BUN and Creatinine are within reference range. SODIUM 133(L) 135 - 146 mmol/L [facility] POTASSIUM 4.6 3.5 - 5.3 mmol/L [facility] CHLORIDE 96(L) 98 - 110 mmol/L [facility] CARBON DIOXIDE 29 20 - 32 mmol/L [facility] CALCIUM 9.8 8.6 - 10.4 mg/dL [facility] PROTEIN, TOTAL 7.5 6.1 - 8.1 g/dL [facility] ALBUMIN 4.5 3.6 - 5.1 g/dL [facility] GLOBULIN 3.0 1.9 - 3.7 g/dL (calc) [facility] ALBUMIN/GLOBULIN RATIO 1.5 1.0 - 2.5 (calc) [facility] BILIRUBIN, TOTAL 0.5 0.2 - 1.2 mg/dL [facility] ALKALINE PHOSPHATASE 105 37 - 153 U/L [facility] AST 20 10 - 35 U/L [facility] ALT 15 6 - 29 U/L [facility] Blood BLOOD SPECIMEN / Unknown 06/28/2024 8:56 AM MEDICAL FILE CLERK 06/28/2024 8:57 AM MEDICAL FILE CLERK Jeannette Bernabe MD CHEMISTRY Final Result Performing Organization Address [facility]/ZIP Co de Phone Number [facility] [address] [place] [address], [facility] [address] [place] [address] * URINE CULTURE (06/28/2024 7:00 AM MEDICAL FILE CLERK) Only the most recent of2 resultswithin the time period is included. CULTURE <10,000 CFU/mL multiple organisms 06/29/2024 3:05 PM MEDICAL FILE CLERK [facility] Urine URINE SPECIMEN / Unknown Non-Blood / Unknown 06/28/2024 7:00 AM MEDICAL FILE CLERK 06/28/2024 7:50 AM MEDICAL FILE CLERK Jeannette Bernabe MD MICROBIOLOGY Final Result Performing Organization Address [facility]/ZIP Co de Phone Number [facility] [address] [address], [place] * UA W/ SEDIMENT EXAM REFLEXED PER CRITERIA (06/28/2024 7:00 AM MEDICAL FILE CLERK) COLOR Yellow Yellow Color 06/28/2024 1:12 PM MEDICAL FILE CLERK [facility]AL [facility] CLARITY Clear Clear Clarity 06/28/2024 1:12 PM MEDICAL FILE CLERK [facility] SPECIFIC GRAVITY,URINE 1.010 1.010, 1.015, 1.020, 1.025 06/28/2024 1:12 PM MEDICAL FILE CLERK [facility] PH,URINE 6.5 6.0, 7.0, 8.0, 5.5, 6.5, 7.5, 8.5 06/28/2024 1:12 PM MEDICAL FILE CLERK [facility] TRA LABORATORY UROBILINOGEN, QUALITATIVE Normal Normal EU/dl 06/28/2024 1:12 PM MEDICAL FILE CLERK [facility] PROTEIN, URINE Negative Negative mg/dL 06/28/2024 1:12 PM MEDICAL FILE CLERK [facility] GLUCOSE, URINE Negative Negative mg/dL 06/28/2024 1:12 PM MEDICAL FILE CLERK [facility] KETONES,URINE Negative Negative mg/dL 06/28/2024 1:12 PM MEDICAL FILE CLERK [facility] BILIRUBIN,URI NE Negative Negative 06/28/2024 1:12 PM MEDICAL FILE CLERK [facility] OCCULT BLOOD,URINE Negative Negative 06/28/2024 1:12 PM MEDICAL FILE CLERK [facility] NITRITE Negative Negative 06/28/2024 1:12 PM MEDICAL FILE CLERK [facility] LEUKOCYTE ESTERASE Negative Negative 06/28/2024 1:12 PM MEDICAL FILE CLERK [facility] Urine URINE SPECIMEN / Unknown Non-Blood / Unknown 06/28/2024 7:00 AM MEDICAL FILE CLERK 06/28/2024 7:50 AM MEDICAL FILE CLERK us Jeannette Bernabe MD URINE Final Result [facility] [address] [place] [address], * SCAN-MRI INTERPRETATION (06/17/2024 12:00 AM MEDICAL FILE CLERK) Anatomical Region Laterality Modality Other us Scanner OTHER Final Result * MR SPINE THORACIC WO (06/17/2024 12:00 AM MEDICAL FILE CLERK) Anatomical Region Laterality Modality Spine, THORACIC SPINE Magnetic R esonance us Mayuri Cote MD MR Final Result * MR SPINE CERVICAL WO (06/17/2024 12:00 AM MEDICAL FILE CLERK) Anatomical Region Laterality Modality Spine, CERVICAL SPINE Magnetic R esonance us Mayuri Cote MD MR Final Result * MR HEAD BRAIN WO (06/17/2024 12:00 AM MEDICAL FILE CLERK) Anatomical Region Laterality Modality BRAIN, HEAD Magnetic Resonan ce Mayuri Cote MD MR Final Result * POCT Urinalysis Dipstick Only (05/28/2024 3:41 PM MEDICAL FILE CLERK) Pathologist [facility] PH 7.0 5.0 - 8.0 [facility] SPECIFIC GRAVITY 1.010 1.001 - 1.035 [facility] GLUCOSE NEGATIVE NEGATIVE [facility] BILIRUBIN NEGATIVE NEGATIVE [facility] KETONES NEGATIVE NEGATIVE [facility] OCCULT BLOOD NEGATIVE NEGATIVE [facility] PROTEIN NEGATIVE NEGATIVE [facility] NITRITE NEGATIVE NEGATIVE [facility] LEUKOCYTE ESTERASE NEGATIVE NEGATIVE [facility] Urine URINE SPECIMEN / Unknown 05/28/2024 3:41 PM MEDICAL FILE CLERK 05/28/2024 3:42 PM MEDICAL FILE CLERK us Linn Salas MD URINE Final Resul t [facility] [address] [place] [address], [place] [phone] [facility] [address] [place] [address] * ANTI HCV (05/31/2016 10:01 AM MEDICAL FILE CLERK) Pathologist [facility] HEPATITIS C ANTIBODY Non-Reacti ve Non-Reacti ve 05/31/2016 5:32 PM MEDICAL FILE CLERK [facility] Blood BLOOD SPECIMEN / Unknown Venipuncture / Unknown 05/31/2016 10:01 AM MEDICAL FILE CLERK 05/31/2016 10:01 AM MEDICAL FILE CLERK Narrative [facility] - 05/31/2016 5:32 PM MEDICAL FILE CLERK Antibodies to HCV not detected; does not exclude the possibility of exposure to HCV. us Jeannette Bernabe MD SEND OUTS Final Result [facility] [address] [place] [address], from Last 3 Months or Most Recently Relevant to Health Maintenance Insurance MEDICARE PB ONLY [facility] [address] MEDICARE PART B HB ONLY Care Teams T[employer] Ch[employer] Relationship Specialty Start Date End Date Jeannette Bernabe MD [address] [place] [address] PCP - General Family Practice 03/28/11
--- OUTSIDE RECORDS SUMMARY | 2024-08-25 10:45 | XMS_ITS | Continuity of Care Document ---
Author Organization [facility] ANDRE melendrez [facility] Address [address] [place] [address] Assessment Encounter Date Assessment Date Assessment LastModified [...] Address Organization Details Recorded Time Neck pain 70346957 Active 2024 Arsalan Dc, TANGELA [address], [place], [address] , [place] [facility] 5 10:41:22 Cervical segmental dysfunction 936319634 Active 2024 Arsalan Dc, TANGELA [address], [place], [address], [place] [facility] 5 10:41:27 Lesion of lumbar spine 756033624 Active 2024 Chintan Gorman TANGELA Kohler [address], [place], [address], [place] [facility] 5 10:36:57 Thoracic segmental dysfunction 274378943 Active 2023 Arsalan Dc DC [address], [place], [address], [facility] 4 17:53:01 Low back pain 270458965 Active 2023 Arsalan Dc DC [address], [place], [address], [facility] - [facility] 4 17:53:01 Lumbar segmental dysfunction 367918411 Active 2023 Arsalan Dc DC [address], [place], [address], [place] [facility] 4 17:53:01 Somatic dysfunction of sacral spine 922500647 Active 2023 Arsalan Dc DC [address], [place], [address], [facility] - [facility] 4 17:53:01 Somatic dysfunction of pelvic region 833625669 Active 2023 Arsalan Dc DC [address], [place], [address], [facility] - [facility] 4 16:00:35 Problem Notes None recorded. Procedures Surgical History Date Name Laterality Status Provider Name and Address Organization Details Recorded Time 5 10667: Spinal manipulation , 3 to 4 regions completed Chintan Gorman Jose F, TANGELA [address], [place], [address], [facility] - [facility] 08/15/2024 10:50:31 5 22502: Spinal manipulation , 3 to 4 regions completed Chintan Kohler DC [address], [place], [address], [facility] - [facility] 08/08/2024 10:36:05 5 83211: Spinal manipulation , 3 to 4 regions completed Chintan Kohler DC [address], [place], [address], [facility] 07/24/2024 17:24:59 5 05905: Spinal manipulation , 3 to 4 regions completed Chintan Kohler DC [address], [place], [address], [facility] 07/22/2024 18:24:19 5 81674: Spinal manipulation , 3 to 4 regions completed Roni Anderson DC [address], [place], [address], [facility] 07/19/2024 13:59:35 5 69553: Spinal manipulation , 3 to 4 regions completed Chintan Kohler DC [address], [place], [address], [facility] 07/12/2024 19:11:44 5 74489: Spinal manipulation , 3 to 4 regions completed Arsalan Dc DC [address], [place], [address], [facility] 07/16/2024 10:41:16 5 75603: Spinal manipulation , 3 to 4 regions completed Arsaaln Dc DC [address], [place], [address], [facility] 06/13/2024 16:09:29 5 09612: Spinal manipulation , 3 to 4 regions completed Arsalan Dc DC [address], [place], [address], [facility] 05/30/2024 15:48:40 5 86398: Spinal manipulation , 3 to 4 regions completed Arsalan Dc DC [address], [place], [address], [facility] 05/16/2024 16:14:08 4 98734: Spinal manipulation , 3 to 4 regions completed Arsalan Dc DC [address], [place], [address], [facility] 05/14/2024 11:46:50 4 86410: Spinal manipulation , 3 to 4 regions completed Arsalan Dc DC [address], [place], [address], [facility] 04/25/2024 16:00:07 4 74099: Spinal manipulation , 3 to 4 regions completed Arsalan Dc DC [address], [place], [address], [facility] 04/18/2024 17:53:33 Imaging Results None recorded. [...] SNOMED-CT Code Diagnosis ICD10 Code Diagnosis Note [id number] Arsalan Dc DC [facility] [address] [place] [address] 07/11/2024 11:19:31 07/17/2024 13:30:34 Thoracic segmental dysfunction 085245069 M99.02 Neck pain 52586928 M54.2 Cervical s egmental dysfunction 768451447 M99.01 Lumbar seg mental dysfunction 261790591 M99.03 [id number] Chintan Kohler DC [facility] [address] [place] [address] 07/12/2024 12:30:51 07/16/2024 09:51:49 Somatic dysfunction of sacral spine 214529812 M99.04 Thoracic s egmental dysfunction 107640826 M99.02 Somatic dy sfunction of pelvic region 698765137 M99.05 Low back pain 222176259 M54.50 [id number] Roni Anderson DC [facility] [address] [place] [address] 07/19/2024 12:23:03 07/19/2024 15:12:15 Somatic dysfunction of sacral spine 561968890 M99.04 Thoracic s egmental dysfunction 506700061 M99.02 Somatic dy sfunction of pelvic region 719064011 M99.05 Low back pain 088019240 M54.50 Health Concerns Section Related Observation LastModified by Organization Detai ls LastModified Time None Recorded Concern Status LastModified by Organization Details LastModified Time None Recorded Payers Encounter Date Sequence Insurance Name Policy Number Policy Poe Covered Member ID Poe Member ID Guarantor Name 07/19/2024 1 [place] [employer] Lelia Motley Zackery [id number] 5 Lelia Vizcarra Notes Date Note Type Note Provider Name and Address Organization Details Recorded Time 07/19/2024 text/html HPI - Lumbar SpineReported bypatient.Location: left; With radiation to knee Quality:aching Severity:not changing Timing:morning Aggravating Factors:standing Alleviating Factors:ice Roni Anderson DC [address], [place], [address], [facility] 07/19/2024 14:00:47 OBGyn Episode No OBEpisode recorded.
--- OUTSIDE RECORDS SUMMARY | 2024-08-25 10:45 | XMS_ITS | Continuity of Care Document ---
Author Organization [email or web address] CenterANDRE valencia [facility] Address [address] [place] [address] Assessment Encounter Date Assessment Date Assessment LastModified [...] Address Organization Details Recorded Time Neck pain 18620098 Active 2024 Arsalan Dc, TANGELA [address], [place], [address] , [facility] 5 10:41:22 Cervical segmental dysfunction 044509433 Active 2024 Arsalan Dc DC [address] [facility] [address], [place], [address], [facility] 5 10:41:27 Lesion of lumbar spine 149437436 Active 2024 Chintan Gorman TANGELA Kohler [address] [facility] [address], [facility] [place] [place], [address], [facility] 5 10:36:57 Thoracic segmental dysfunction 030507177 Active 2023 Arsalan Dc DC [address] [facility], [place], [address], [facility] 4 17:53:01 Low back pain 347491368 Active 2023 Arsalan Dc DC [address] [place] [address], [place], [address], [facility] 4 17:53:01 Lumbar segmental dysfunction 040326311 Active 2023 Arsalan Dc DC [address] [facility], [facility], [address], [facility] 4 17:53:01 Somatic dysfunction of sacral spine 182423149 Active 2023 Arsalan Dc DC [address] [place] [address], [place], [address], [facility] 4 17:53:01 Somatic dysfunction of pelvic region 619542640 Active 2023 Arsalan Dc DC [address] [facility] [address], [place], [address], [facility] 4 16:00:35 Problem Notes None recorded. Procedures Surgical History Date Name Laterality Status Provider Name and Address Organization Details Recorded Time 5 45166: Spinal manipulation , 3 to 4 regions completed Chintan BridgesTANGELA flores [address] [facility], [place], [address], [place] [facility] 08/15/2024 10:50:31 5 88325: Spinal manipulation , 3 to 4 regions completed Chintan Kohler DC [address], [place], [address], [facility] 08/08/2024 10:36:05 5 99056: Spinal manipulation , 3 to 4 regions completed Chintan Kohler DC [address] [facility], [place], [address], [facility] 07/24/2024 17:24:59 5 56099: Spinal manipulation , 3 to 4 regions completed Chintan Kohler DC [address] [facility], [place], [address], [facility] 07/22/2024 18:24:19 5 86631: Spinal manipulation , 3 to 4 regions completed Roni Anderson DC [address] [facility] [address], [place], [address], [facility] 07/19/2024 13:59:35 5 79894: Spinal manipulation , 3 to 4 regions completed Chintan Kohler DC [address] [facility] [address], [place], [address], [facility] 07/12/2024 19:11:44 5 35229: Spinal manipulation , 3 to 4 regions completed Arsalan Dc DC [address] [facility] [address], [place], [address], [facility] 07/16/2024 10:41:16 5 91849: Spinal manipulation , 3 to 4 regions completed Arsalan Dc DC [address] [facility], [place], [address], [facility] 06/13/2024 16:09:29 5 38972: Spinal manipulation , 3 to 4 regions completed Arsalan Dc DC [address] [facility], [place], [address], [facility] 05/30/2024 15:48:40 5 34796: Spinal manipulation , 3 to 4 regions completed Arsalan Dc DC [address] [facility], [place], [address], [facility] 05/16/2024 16:14:08 4 92541: Spinal manipulation , 3 to 4 regions completed Arsalan Dc DC [address] [facility], [place], [address], [facility] 05/14/2024 11:46:50 4 17726: Spinal manipulation , 3 to 4 regions completed Arsalan Dc DC [address] [facility], [place], [address], [facility] 04/25/2024 16:00:07 4 48505: Spinal manipulation , 3 to 4 regions completed Arsalan Dc DC [address] [facility], [place], [address], [facility] 04/18/2024 17:53:33 Imaging Results None recorded. Procedure [...] SNOMED-CT Code Diagnosis ICD10 Code Diagnosis Note [id number] Arsalan Dc DC [facility] [address] [place] [address] 07/11/2024 11:19:31 07/17/2024 13:30:34 Thoracic segmental dysfunction 619060215 M99.02 Neck pain 79392951 M54.2 Cervical s egmental dysfunction 471832494 M99.01 Lumbar seg mental dysfunction 098913180 M99.03 [id number] Chintan Kohler DC [facility] [address] [place] [address] 07/12/2024 12:30:51 07/16/2024 09:51:49 Somatic dysfunction of sacral spine 072289359 M99.04 Thoracic s egmental dysfunction 091447194 M99.02 Somatic dy sfunction of pelvic region 905799924 M99.05 Low back pain 321329627 M54.50 [id number] Roni Anderson DC [facility] [address] [place] [address] 07/19/2024 12:23:03 07/19/2024 15:12:15 Somatic dysfunction of sacral spine 079109966 M99.04 Thoracic s egmental dysfunction 256121641 M99.02 Somatic dy sfunction of pelvic region 988762467 M99.05 Low back pain 586010699 M54.50 [id number] Chintan Kohler DC [facility] [address] [place] [address] 07/22/2024 11:54:25 07/23/2024 18:33:07 Somatic dysfunction of sacral spine 672503988 M99.04 Thoracic s egmental dysfunction 421982760 M99.02 Somatic dy sfunction of pelvic region 383829179 M99.05 Low back pain 658975955 M54.50 Health Concerns Section Related Observation LastModified by Organization Detai ls LastModified Time None Recorded Concern Status LastModified by Organization Details LastModified Time None Recorded Payers Encounter Date Sequence Insurance Name Policy Number Policy Poe Covered Member ID Poe Member ID Guarantor Name 07/22/2024 1 [place] [employer] Lelia Vizcarra [id number] 5 Lelia Vizcarra Notes Date Note Type Note Provider Name and Address Organization Details Recorded Time 07/22/2024 text/html HPI - Lumbar SpineReported bypatient.Location: left; With radiation to knee Quality:aching Severity:not changing Timing:morning Aggravating Factors:standing Alleviating Factors:ice Scot Sherif Kohler DC [address] [facility], [place], [address], [facility] 07/22/2024 18:25:09 OBGyn Episode No OBEpisode recorded.
--- OUTSIDE RECORDS SUMMARY | 2024-08-25 10:45 | XMS_ITS | Continuity of Care Document ---
Author Organization [facility] ANDRE melendrez [facility] Address [address] [place] [address] Assessment Encounter Date Assessment Date Assessment LastModified [...] Address Organization Details Recorded Time Neck pain 65886175 Active 2024 Arsalan Dc, TANGELA [address], [place], [address] , [facility] Formerly [facility], [facility] 5 10:41:22 Cervical segmental dysfunction 003808732 Active 2024 Arsalan Dc DC [address], [place], [address], [facility] [place] [facility], [facility] 5 10:41:27 Lesion of lumbar spine 673499034 Active 2024 Chintan Gorman TANGELA Kohler [address], [facility] [place] [place], [address], [facility] [place] [facility], [facility] 5 10:36:57 Thoracic segmental dysfunction 558434627 Active 2023 Arsalan Dc DC [address], [place], [address], [facility] [place] [facility], [facility] 4 17:53:01 Low back pain 641935073 Active 2023 Arsalan Dc DC [address] [place] [address], [place], [address], [facility] [place] [facility], [facility] 4 17:53:01 Lumbar segmental dysfunction 674786989 Active 2023 Arsalan Dc DC [address], [facility] [place], [address], [facility] [place] [facility], [facility] 4 17:53:01 Somatic dysfunction of sacral spine 401345018 Active 2023 Arsalan Dc DC [address] [place] [address], [place], [address], [facility] 4 17:53:01 Somatic dysfunction of pelvic region 183645247 Active 2023 Arsalan Dc DC [address], [place], [address], [facility] 4 16:00:35 Problem Notes None recorded. Procedures Surgical History Date Name Laterality Status Provider Name and Address Organization Details Recorded Time 5 73275: Spinal manipulation , 3 to 4 regions completed Chintan BridgesTANGELA flores [address], [place], [address], [place] [facility], [facility] 08/15/2024 10:50:31 5 83303: Spinal manipulation , 3 to 4 regions completed Chintan Kohler DC [address], [place], [address], [facility] [place] [facility], [facility] 08/08/2024 10:36:05 5 23588: Spinal manipulation , 3 to 4 regions completed Chintan Kohler DC [address], [place], [address], [facility] [place] [facility], [facility] 07/24/2024 17:24:59 5 99672: Spinal manipulation , 3 to 4 regions completed Chintan Kohler DC [address], [place], [address], [facility] [place] [facility], [facility] 07/22/2024 18:24:19 5 94153: Spinal manipulation , 3 to 4 regions completed Roni Anderson DC [address], [place], [address], [facility] [place] [facility], [facility] 07/19/2024 13:59:35 5 63107: Spinal manipulation , 3 to 4 regions completed Chintan Kohler DC [address], [place], [address], [facility] 07/12/2024 19:11:44 5 29289: Spinal manipulation , 3 to 4 regions completed Arsalan Dc DC [address], [place], [address], [facility] 07/16/2024 10:41:16 5 96232: Spinal manipulation , 3 to 4 regions completed Arsalan Dc DC [address], [place], [address], [facility] 06/13/2024 16:09:29 5 89099: Spinal manipulation , 3 to 4 regions completed Arsalan Dc DC [address], [place], [address], [facility] 05/30/2024 15:48:40 5 33425: Spinal manipulation , 3 to 4 regions completed Arsalan Dc DC [address], [place], [address], [facility] 05/16/2024 16:14:08 4 93224: Spinal manipulation , 3 to 4 regions completed Arsalan Dc DC [address], [place], [address], [facility] 05/14/2024 11:46:50 4 80529: Spinal manipulation , 3 to 4 regions completed Arsalan Dc DC [address], [place], [address], [facility] 04/25/2024 16:00:07 4 58164: Spinal manipulation , 3 to 4 regions completed Arsalan Dc DC [address], [place], [address], [facility] 04/18/2024 17:53:33 Imaging Results None recorded. Procedure [...] SNOMED-CT Code Diagnosis ICD10 Code Diagnosis Note [id number] Arsalan Dc DC [facility] & [address] [place] [address] 07/11/2024 11:19:31 07/17/2024 13:30:34 Thoracic segmental dysfunction 086892470 M99.02 Neck pain 74851034 M54.2 Cervical s egmental dysfunction 204209037 M99.01 Lumbar seg mental dysfunction 108124364 M99.03 [id number] Chintan Kohler DC [facility] & [address] [place] [address] 07/12/2024 12:30:51 07/16/2024 09:51:49 Somatic dysfunction of sacral spine 697652707 M99.04 Thoracic s egmental dysfunction 976971979 M99.02 Somatic dy sfunction of pelvic region 794295769 M99.05 Low back pain 804219936 M54.50 [id number] Roni Anderson DC [facility] & [address] [place] [address] 07/19/2024 12:23:03 07/19/2024 15:12:15 Somatic dysfunction of sacral spine 507065991 M99.04 Thoracic s egmental dysfunction 047044542 M99.02 Somatic dy sfunction of pelvic region 816513122 M99.05 Low back pain 633419437 M54.50 [id number] Chintan Kohler DC [facility] & [address] [place] [address] 07/22/2024 11:54:25 07/23/2024 18:33:07 Somatic dysfunction of sacral spine 705803338 M99.04 Thoracic s egmental dysfunction 956158722 M99.02 Somatic dy sfunction of pelvic region 657191700 M99.05 Low back pain 301410137 M54.50 [id number] Chintan Kohler DC [facility] [address] [place] [address] 07/24/2024 12:24:44 07/24/2024 17:36:13 Somatic dysfunction of sacral spine 888223191 M99.04 Thoracic s egmental dysfunction 191149050 M99.02 Somatic dy sfunction of pelvic region 565040689 M99.05 Low back pain 396042347 M54.50 Health Concerns Section Related Observation LastModified by Organization Detai ls LastModified Time None Recorded Concern Status LastModified by Organization Details LastModified Time None Recorded Payers Encounter Date Sequence Insurance Name Policy Number Policy Poe Covered Member ID Poe Member ID Guarantor Name 07/24/2024 1 [place] [employer] Lelia Vizcarra [id number] 5 Lelia Vizcarra Notes Date Note Type Note Provider Name and Address Organization Details Recorded Time 07/24/2024 text/html HPI - Lumbar SpineReported bypatient.Location: left; With radiation to knee Quality:aching Severity:not changing Timing:morning Aggravating Factors:standing Alleviating Factors:ice Chintan Kohler DC [address], [place], [address], [place] [facility] [facility], [facility] 07/24/2024 17:25:42 OBGyn Episode No OBEpisode recorded.
--- OUTSIDE RECORDS SUMMARY | 2024-08-25 10:46 | XMS_ITS | Continuity of Care Document ---
Author Organization [place] ANDRE Moise [facility] Address [address] [facility] [address] [place] [address] Assessment Encounter Date Assessment Date Assessment LastModified by Organization Details LastModified Time 08/07/2024 08/07/2024 ASSESSMENT: Patient is a good [...] to contact our office. [email or web address] Not available 08/08/2024 10:36:55 Plan of Treatment Reminders Order Date Submit [...] Address Organization Details Recorded Time Neck pain 17987198 Active 2024 Arsalan Dc DC [address] [facility], [place], [address], [facility] 5 10:41:22 Cervical segmental dysfunction 169514351 Active 2024 Arsalan Dc DC [address] [facility], [place], [address], [facility] 5 10:41:27 Lesion of lumbar spine 629111855 Active 2024 Chintan Kohler, [place] [address] [facility], [place], [address], [facility] 5 10:36:57 Thoracic segmental dysfunction 056668150 Active 2023 Arsalan Dc DC [address] [facility], [place], [address], [facility] 4 17:53:01 Low back pain 586159046 Active 2023 Arsalan Dc DC [address] [facility], [place], [address], [facility] 4 17:53:01 Lumbar segmental dysfunction 930425673 Active 2023 Arsalan Dc DC [address] [facility], [place], [address], [facility] 4 17:53:01 Somatic dysfunction of sacral spine 098344134 Active 2023 Arsalan Dc, TANGELA [address] [facility], [place], [address], [facility] 4 17:53:01 Somatic dysfunction of pelvic region 544878197 Active 2023 Arsalan Dc, TANGELA [address] [facility], [place], [address], [facility] 4 16:00:35 Problem Notes None recorded. Procedures Surgical History Date Name Laterality Status Provider Name and Address Organization Details Recorded Time 5 61496: Spinal manipulation , 3 to 4 regions completed Chintan Kohler DC [address] [facility], [place], [address], [facility] 08/15/2024 10:50:31 5 38101: Spinal manipulation , 3 to 4 regions completed Chintan Kholer DC [address] [facility], [place], [address], [facility] 08/08/2024 10:36:05 5 84649: Spinal manipulation , 3 to 4 regions completed Chintan Kohler DC [address] [facility], [place], [address], [facility] 07/24/2024 17:24:59 5 05015: Spinal manipulation , 3 to 4 regions completed Chintan Kohler DC [address] [facility], [place], [address], [facility] 07/22/2024 18:24:19 5 29498: Spinal manipulation , 3 to 4 regions completed Roni Anderson DC [address] [facility], [place], [address], [facility] 07/19/2024 13:59:35 5 35413: Spinal manipulation , 3 to 4 regions completed Chintan Kohler DC [address] [facility], [place], [address], [facility] 07/12/2024 19:11:44 5 92634: Spinal manipulation , 3 to 4 regions completed Arsalan Dc DC [address] [facility], [place], [address], [facility] 07/16/2024 10:41:16 5 80853: Spinal manipulation , 3 to 4 regions completed Arsalan Dc DC [address] [facility], [place], [address], [facility] 06/13/2024 16:09:29 5 15122: Spinal manipulation , 3 to 4 regions completed Arsalan Dc DC [address] [facility], [place], [address], [facility] 05/30/2024 15:48:40 5 72183: Spinal manipulation , 3 to 4 regions completed Arsalan Dc DC [address] [facility], [place], [address], [facility] 05/16/2024 16:14:08 4 52719: Spinal manipulation , 3 to 4 regions completed Arsalan Dc DC [address] [facility], [place], [address], [facility] 05/14/2024 11:46:50 4 30818: Spinal manipulation , 3 to 4 regions completed Arsalan Dc DC [address] [facility], [place], [address], [facility] 04/25/2024 16:00:07 4 07443: Spinal manipulation , 3 to 4 regions completed Arsalan Dc DC [address] [facility], [place], [address], [facility] 04/18/2024 17:53:33 Imaging Results None [...] SNOMED-CT Code Diagnosis ICD10 Code Diagnosis Note [id number] Arsalan Dc DC [facility] [address] [place] [address] 07/11/2024 11:19:31 07/17/2024 13:30:34 Thoracic segmental dysfunction 182825887 M99.02 Neck pain 92353570 M54.2 Cervical s egmental dysfunction 279575641 M99.01 Lumbar seg mental dysfunction 486126846 M99.03 [id number] Chintan Kohler DC [facility] & [address] [place] [address] 07/12/2024 12:30:51 07/16/2024 09:51:49 Somatic dysfunction of sacral spine 186587071 M99.04 Thoracic s egmental dysfunction 394204185 M99.02 Somatic dy sfunction of pelvic region 726308719 M99.05 Low back pain 893881586 M54.50 [id number] Roni Anderson DC [facility] [address] [facility] [place] [address] 07/19/2024 12:23:03 07/19/2024 15:12:15 Somatic dysfunction of sacral spine 175821496 M99.04 Thoracic s egmental dysfunction 807653204 M99.02 Somatic dy sfunction of pelvic region 801702414 M99.05 Low back pain 583818103 M54.50 [id number] Chintan Kohler DC [facility] & [address] [place] [address] 07/22/2024 11:54:25 07/23/2024 18:33:07 Somatic dysfunction of sacral spine 064750672 M99.04 Thoracic s egmental dysfunction 762663665 M99.02 Somatic dy sfunction of pelvic region 302283115 M99.05 Low back pain 829705558 M54.50 [id number] Chintan Kohler DC [facility] & [address] [facility] [place] [address] 07/24/2024 12:24:44 07/24/2024 17:36:13 Somatic dysfunction of sacral spine 907629937 M99.04 Thoracic s egmental dysfunction 389163074 M99.02 Somatic dy sfunction of pelvic region 024475406 M99.05 Low back pain 997167193 M54.50 [id number] Chintan Kohler DC [facility] & [address] [place] [address] 08/07/2024 12:42:42 08/08/2024 10:53:14 Thoracic segmental dysfunction 515489195 M99.02 Somatic dy sfunction of pelvic region 186508472 M99.05 Low back pain 580940803 M54.50 Lesion of lumbar spine 703275369 M99.01 Neck pain 26865896 M54.2 Lumbar seg mental dysfunction 257347540 M99.03 Cervical s egmental dysfunction 484524391 M99.01 Health Concerns Section Related Observation LastModified by Organization Detai ls LastModified Time None Recorded Concern Status LastModified by Organization Details LastModified Time None Recorded Payers Encounter Date Sequence Insurance Name Policy Number Policy Poe Covered Member ID Poe Member ID Guarantor Name 08/07/2024 1 [place]: [employer] Lelia Vizcarra [id number] 5 Lelia Vizcarra Notes Date Note Type Note Provider Name and Address Organization Details Recorded Time 08/07/2024 text/html HPI - Cervical SpineReported bypatient.Location: left Quality:aching Severity:moderate Duration:2 weeks Timing:gradual Alleviating Factors:ice Aggravating Factors:sitting Associated Symptoms:no numbness/tinglingHP I - Lumbar SpineReported bypatient.Location: left; With radiation to knee Quality:aching Severity:not changing Timing:morning Aggravating Factors:standing Alleviating Factors:ice Chintan Kohler DC [address] [facility], [place], [address], [facility] - [facility] 08/08/2024 10:37:37 OBGyn Episode No OBEpisode recorded.
--- OUTSIDE RECORDS SUMMARY | 2024-08-25 10:46 | XMS_ITS | Continuity of Care Document ---
Author Organization [facility] Address [address] [facility] [address] [place] [address] Assessment No assessment recorded. Plan of Treatment [...] Address Organization Details Recorded Time Neck pain 92563396 Active 2024 Arsalan Dc DC [address] [facility], [place], [address], [place] [facility] 5 10:41:22 Cervical segmental dysfunction 348745034 Active 2024 Arsalan Dc DC [address] [facility], [place], [address], [place] [facility] 5 10:41:27 Lesion of lumbar spine 782248146 Active 2024 Chintan Smithbert [place], [place] [address] [facility], [place], [address], [place] [facility] 5 10:36:57 Thoracic segmental dysfunction 658606292 Active 2023 Arsalan Dc DC [address] [facility], [place], [address], [place] [facility] 4 17:53:01 Low back pain 149851020 Active 2023 Arsalan Dc DC [address] [facility], [place], [address], [place] [facility] 4 17:53:01 Lumbar segmental dysfunction 388688634 Active 2023 Arsalan Dc, TANGELA [address] [facility], [place], [address], [place] [facility] 4 17:53:01 Somatic dysfunction of sacral spine 850102854 Active 2023 Arsalan Dc, TANGELA [address] [facility], [place], [address], [place] [facility] 4 17:53:01 Somatic dysfunction of pelvic region 652877253 Active 2023 Arsalan Dc, TANGELA [address] [facility], [place], [address], [place] [facility] 4 16:00:35 Problem Notes None recorded. Procedures Surgical History Date Name Laterality Status Provider Name and Address Organization Details Recorded Time 5 46227: Spinal manipulation , 3 to 4 regions completed Chintan Kohler DC [address] [facility], [place], [address], [facility] 08/15/2024 10:50:31 5 25498: Spinal manipulation , 3 to 4 regions completed Chintan Kohler [place] [address] [facility], [place], [address], [place] [facility] 08/08/2024 10:36:05 5 14624: Spinal manipulation , 3 to 4 regions completed Chintan Kohler [place] [address] [facility], [place], [address], [place] [facility] 07/24/2024 17:24:59 5 98317: Spinal manipulation , 3 to 4 regions completed Chintan Kohler [place] [address] [facility], [place], [address], [place] [facility] 07/22/2024 18:24:19 5 66754: Spinal manipulation , 3 to 4 regions completed Roni Anderson, TANGELA [address] [facility], [place], [address], [facility] 07/19/2024 13:59:35 5 87951: Spinal manipulation , 3 to 4 regions completed Chintan Kohler, TANGELA [address] [facility], [place], [address], [facility] 07/12/2024 19:11:44 5 35560: Spinal manipulation , 3 to 4 regions completed Arsalan Dc, TANGELA [address] [facility], [place], [address], [facility] 07/16/2024 10:41:16 5 19211: Spinal manipulation , 3 to 4 regions completed Arsalan Dc DC [address] [facility], [place], [address], [facility] 06/13/2024 16:09:29 5 19305: Spinal manipulation , 3 to 4 regions completed Arsalan Dc DC [address] [facility], [place], [address], [facility] 05/30/2024 15:48:40 5 34812: Spinal manipulation , 3 to 4 regions completed Arsalan Dc DC [address] [facility], [place], [address], [facility] 05/16/2024 16:14:08 4 79288: Spinal manipulation , 3 to 4 regions completed Arsalan Dc DC [address] [facility], [place], [address], [facility] 05/14/2024 11:46:50 4 69088: Spinal manipulation , 3 to 4 regions completed Arsalan Dc DC [address] [facility], [place], [address], [facility] 04/25/2024 16:00:07 4 17230: Spinal manipulation , 3 to 4 regions completed Arsalan Dc DC [address] [facility], [place], [address], [facility] 04/18/2024 17:53:33 Imaging Results None recorded. Procedure [...] SNOMED-CT Code Diagnosis ICD10 Code Diagnosis Note [id number] Arsalan Dc DC [facility] [address] [place] [address],#[address] [facility] [place] [address] 06/12/2024 11:45:13 06/12/2024 16:06:22 Somatic dysfunction of sacral spine 430214369 M99.04 Thoracic s egmental dysfunction 923048543 M99.02 Somatic dy sfunction of pelvic region 182905800 M99.05 Low back pain 573777268 M54.50 [id number] Arsalan Dc DC [facility] [address] [facility]2 [place] [address] 07/11/2024 11:19:31 07/17/2024 13:30:34 Thoracic segmental dysfunction 745045178 M99.02 Neck pain 98245949 M54.2 Cervical s egmental dysfunction 223854202 M99.01 Lumbar seg mental dysfunction 178877312 M99.03 Health Concerns Section Related Observation LastModified by Organization Detai ls LastModified Time None Recorded Concern Status LastModified by Organization Details LastModified Time None Recorded Payers Encounter Date Sequence Insurance Name Policy Number Policy Poe Covered Member ID Poe Member ID Guarantor Name 07/11/2024 1 [place] [employer] Lelia Vizcarra [id number] 5 Lelia Vizcarra Notes Date Note Type Note Provider Name and Address Organization Details Recorded Time 07/11/2024 text/html HPI - Cervical SpineReported bypatient.Location: left Quality:aching Severity:moderate Duration:2 weeks Timing:gradual Alleviating Factors:ice Aggravating Factors:sitting Associated Symptoms:no numbness/tingling Arsalan Dc DC [address] [facility], [place], [address], [facility] 07/16/2024 10:42:38 07/12/2024 text/html HPI - Lumbar SpineReported bypatient.Location: left; With radiation to knee Quality:aching Severity:not changing Timing:morning Aggravating Factors:standing Alleviating Factors:ice Chintan Kohler DC [address] [facility], [place], [address], [facility] 07/12/2024 19:12:07 OBGyn Episode No OBEpisode recorded.
--- OUTSIDE RECORDS SUMMARY | 2024-08-25 10:46 | XMS_ITS | Continuity of Care Document ---
Author Organization [facility] [employer] Address [address] [place] [address] Assessment Encounter Date Assessment Date Assessment LastModified [...] Address Organization Details Recorded Time Neck pain 63584148 Active 2024 Arsalan Dc, TANGELA [address], [place], [address] , [facility] 5 10:41:22 Cervical segmental dysfunction 137996619 Active 2024 Arsalan Dc DC [address], [place], [address], [facility] [place] [facility] 5 10:41:27 Lesion of lumbar spine 428252227 Active 2024 Chintan Gorman TANGELA Kohler [address], [place], [address], [facility] [place] [facility] 5 10:36:57 Thoracic segmental dysfunction 785200715 Active 2023 Arsalan Dc DC [address], [place], [address], [facility] [place] - [facility] 4 17:53:01 Low back pain 162018812 Active 2023 Arsalan Dc DC [address] [place] [address], [place], [address], [facility] [place] [facility] 4 17:53:01 Lumbar segmental dysfunction 869315526 Active 2023 Arsalan Dc DC [address], [place], [address], [facility] [place] - [facility] 4 17:53:01 Somatic dysfunction of sacral spine 707003712 Active 2023 Arsalan Dc DC [address] [place] [address], [place], [address], [facility] 4 17:53:01 Somatic dysfunction of pelvic region 911094290 Active 2023 Arsalan Dc DC [address], [place], [address], [facility] 4 16:00:35 Problem Notes None recorded. Procedures Surgical History Date Name Laterality Status Provider Name and Address Organization Details Recorded Time 5 48714: Spinal manipulation , 3 to 4 regions completed Chintan BridgesTANGELA flores [address], [place], [address], [place] - [facility] 08/15/2024 10:50:31 5 87833: Spinal manipulation , 3 to 4 regions completed Chintan Kohler DC [address], [place], [address], [facility] [place] - [facility] 08/08/2024 10:36:05 5 80620: Spinal manipulation , 3 to 4 regions completed Chintan Kohler DC [address], [place], [address], [facility] [place] - [facility] 07/24/2024 17:24:59 5 90334: Spinal manipulation , 3 to 4 regions completed Chintan Kohler DC [address], [place], [address], [facility] [place] - [facility] 07/22/2024 18:24:19 5 88369: Spinal manipulation , 3 to 4 regions completed Roni Anderson DC [address], [place], [address], [facility] [place] - [facility] 07/19/2024 13:59:35 5 86317: Spinal manipulation , 3 to 4 regions completed Chintan Kohler DC [address], [place], [address], [facility] 07/12/2024 19:11:44 5 83547: Spinal manipulation , 3 to 4 regions completed Arsalan Dc DC [address], [place], [address], [facility] 07/16/2024 10:41:16 5 60295: Spinal manipulation , 3 to 4 regions completed Arsalan Dc DC [address], [place], [address], [facility] 06/13/2024 16:09:29 5 20764: Spinal manipulation , 3 to 4 regions completed Arsalan Dc DC [address], [place], [address], [facility] 05/30/2024 15:48:40 5 22348: Spinal manipulation , 3 to 4 regions completed Arsalan Dc DC [address], [place], [address], [facility] 05/16/2024 16:14:08 4 82046: Spinal manipulation , 3 to 4 regions completed Arsalan Dc DC [address], [place], [address], [facility] 05/14/2024 11:46:50 4 36403: Spinal manipulation , 3 to 4 regions completed Arsalan Dc DC [address], [place], [address], [facility] 04/25/2024 16:00:07 4 00879: Spinal manipulation , 3 to 4 regions completed Arsalan Dc DC [address], [place], [address], [facility] 04/18/2024 17:53:33 Imaging Results None recorded. Procedure [...] SNOMED-CT Code Diagnosis ICD10 Code Diagnosis Note [id number] Arsalan Dc DC [facility] & [address] [place] [address] 06/12/2024 11:45:13 06/12/2024 16:06:22 Somatic dysfunction of sacral spine 857577024 M99.04 Thoracic s egmental dysfunction 888159193 M99.02 Somatic dy sfunction of pelvic region 139618973 M99.05 Low back pain 649197103 M54.50 [id number] Arsalan Dc DC [facility] & [address] [place] [address] 07/11/2024 11:19:31 07/17/2024 13:30:34 Thoracic segmental dysfunction 893468964 M99.02 Neck pain 39671649 M54.2 Cervical s egmental dysfunction 806921472 M99.01 Lumbar seg mental dysfunction 678874027 M99.03 [id number] Chintan Kohler DC [facility] & [address] [place] [address] 07/12/2024 12:30:51 07/16/2024 09:51:49 Somatic dysfunction of sacral spine 640330970 M99.04 Thoracic s egmental dysfunction 027135600 M99.02 Somatic dy sfunction of pelvic region 723154092 M99.05 Low back pain 407971636 M54.50 Health Concerns Section Related Observation LastModified by Organization Detai ls LastModified Time None Recorded Concern Status LastModified by Organization Details LastModified Time None Recorded Payers Encounter Date Sequence Insurance Name Policy Number Policy Poe Covered Member ID Poe Member ID Guarantor Name 07/12/2024 1 [place]ARE [place]: [employer] Lelia Motley Zackery [id number] Lelia Vizcarra Notes Date Note Type Note Provider Name and Address Organization Details Recorded Time 07/12/2024 text/html HPI - Lumbar SpineReported bypatient.Location: left; With radiation to knee Quality:aching Severity:not changing Timing:morning Aggravating Factors:standing Alleviating Factors:ice Scot Sherif Kohler DC [address], [place], [address], [facility] 07/12/2024 19:12:07 OBGyn Episode No OBEpisode recorded.
--- NOTE | 2024-08-25 11:01 | ED_ITS ---
HPI - Syncope General Time Seen by Provider: 11:01 Date Seen: 08/25/24 Chief Complaint: Syncope/Fainted Stated Complaint: Syncope Time Seen by Provider: 08/25/24 11:00 Source: patient, EMS and RN notes reviewed Mode of arrival: EMS Limitations: no limitations History of Present Illness HPI narrative: This 74-year-old female was brought in by EMS [facility] where she had a syncopal episode. She was standing in seen when she started to feel extremely lightheaded, nausea with this. She felt like she needed to sit down or she might fall over, symptoms continued. The next thing she knows is that people were standing over her, telling her they had called 911. She had a witnessed syncopal event for about 20 seconds. She was seated, she did not fall, there were no injuries. She is not having pain anywhere, notice no chest pain, no palpitations, no sense of any irregular heart rhythm before this happen. She has not been sick with anything, no cough cold symptoms, no fevers or chills, no GI symptoms. She did lose her balance and break a rib about 3 weeks ago, this is improving, she is not had worsening symptoms, pain has been improving. O2 sats in triage were 88-93%. EMS did place an IV, give her 4 mg of Zofran for her nausea. She notes no sense of any incoordination of her arms or legs, no numbness tingling anywhere. No headache, no visual changes. She notes she just feels tired now. Related Data Home Medications ?Medication ?Instructions ?Recorded ?Confirmed losartan 25 mg tablet (Cozaar) 25 mg PO BID 07/29/24 08/25/24 nortriptyline 10 mg capsule 60 mg PO QHS 07/29/24 08/25/24 Previous Rx's ?Medication ?Instructions ?Recorded hydrocodone 5 mg-acetaminophen 325 1 tab PO Q6H PRN pain #10 tabs 07/29/24 mg tablet Allergies Allergy/AdvReac Type Severity Reaction Status Date / Time sulfamethoxazole (From Allergy Intermediate Hives Verified 08/25/24 10:52 ) trimethoprim (From ) Allergy Intermediate Hives Verified 08/25/24 10:52 amoxicillin Allergy Mild Erythema Verified 08/25/24 10:52 Sulfa (Sulfonamide Allergy Mild Hives Verified 08/25/24 10:52 Antibiotics) trazodone Allergy Mild Hives Verified 08/25/24 10:52 Review of Systems Status of ROS: Reports: 6 or more systems reviewed and unremarkable except as noted in History and below [facility] Medical History Vitamin D deficiency ?E55.9 - Vitamin D deficiency, unspecified (ICD-10) Menopause ?Z78.0 - Asymptomatic menopausal state (ICD-10) Anemia ?D64.9 - Anemia, unspecified (ICD-10) Multiple sclerosis ?G35 - Multiple sclerosis (ICD-10) Lumbar foraminal stenosis ?M48.061 - Spinal stenosis, lumbar region without neurogenic claudication (ICD-10) DDD (degenerative disc disease) Osteoporosis ?M81.0 - Age-related osteoporosis without current pathological fracture (ICD- 10) History of inguinal hernia ?Z87.19 - Personal history of other diseases of the digestive system (ICD-10) Nephrolithiasis ?N20.0 - Calculus of kidney (ICD-10) Low back pain ?M54.50 - Low back pain, unspecified (ICD-10) Dyshidrosis ?L30.1 - Dyshidrosis [pompholyx] (ICD-10) Depressive disorder ?F32.A - Depression, unspecified (ICD-10) Surgical History History of hysterectomy ?Z90.710 - Acquired absence of both cervix and uterus (ICD-10) History of cholecystectomy ?Z90.49 - Acquired absence of other specified parts of digestive tract (ICD- 10) History of colonoscopy ?Z98.890 - Other specified postprocedural states (ICD-10) Social History Smoking Status: Former smoker Do you use any of these nicotine containing products: None Second hand tobacco smoke exposure: No How often do you have a drink containing alcohol: monthly or less How many standard drinks containing alcohol do you have on a typical day: 1 or 2 How often do you have six or more drinks on one occasion: Never AUDIT-C Alcohol total score: 1 Non-prescribed substance use: denies use service: No Exam Const: Vital Signs, click to edit/add: Vital Signs - 24 hr 08/25/24 10:51 08/25/24 10:52 08/25/24 10:57 Temperature 98.6 F Pulse Rate 84 78 Pulse Rate [Pulse Oximeter] 82 Pulse Rate [orthos tatic lying] Pulse Rate [orthos tatic sitting] Pulse Rate [orthos tatic standing] Respiratory Rate 12 16 14 Blood Pressure 141/72 H Blood Pressure [Ri ght Upper Arm] 141/72 H Blood Pressure [or thostatic lying] Blood Pressure [or thostatic sitting] Blood Pressure [or thostatic standing ] Pulse Oximetry 87 L 91 95 Oxygen Delivery Me thod Room Air Room Air Room Air 08/25/24 11:00 08/25/24 11:00 08/25/24 11:02 Temperature Pulse Rate 82 75 Pulse Rate [Pulse Oximeter] Pulse Rate [orthos tatic lying] Pulse Rate [orthos tatic sitting] Pulse Rate [orthos tatic standing] Respiratory Rate 12 Blood Pressure 150/75 H Blood Pressure [Ri ght Upper Arm] Blood Pressure [or thostatic lying] Blood Pressure [or thostatic sitting] Blood Pressure [or thostatic standing ] Pulse Oximetry 91 90 90 Oxygen Delivery Me thod Room Air Room Air 08/25/24 11:03 08/25/24 11:30 08/25/24 11:32 Temperature Pulse Rate 84 83 88 Pulse Rate [Pulse Oximeter] Pulse Rate [orthos tatic lying] Pulse Rate [orthos tatic sitting] Pulse Rate [orthos tatic standing] Respiratory Rate 12 14 Blood Pressure 136/59 L Blood Pressure [Ri ght Upper Arm] Blood Pressure [or thostatic lying] Blood Pressure [or thostatic sitting] Blood Pressure [or thostatic standing ] Pulse Oximetry 92 93 93 Oxygen Delivery Me thod Room Air Room Air Room Air 08/25/24 11:45 08/25/24 11:45 08/25/24 11:45 Temperature Pulse Rate Pulse Rate [Pulse Oximeter] Pulse Rate [orthos tatic lying] Pulse Rate [orthos tatic sitting] Pulse Rate [orthos tatic standing] Respiratory Rate Blood Pressure 142/66 H 142/66 H 142/66 H Blood Pressure [Ri ght Upper Arm] Blood Pressure [or thostatic lying] Blood Pressure [or thostatic sitting] Blood Pressure [or thostatic standing ] Pulse Oximetry Oxygen Delivery Me thod Room Air Room Air Room Air 08/25/24 11:47 08/25/24 11:48 08/25/24 11:50 Temperature Pulse Rate Pulse Rate [Pulse Oximeter] Pulse Rate [orthos tatic lying] 88 Pulse Rate [orthos tatic sitting] 97 Pulse Rate [orthos tatic standing] 95 Respiratory Rate 9 L 14 Blood Pressure 160/82 H 153/82 H Blood Pressure [Ri ght Upper Arm] Blood Pressure [or thostatic lying] 142/66 H Blood Pressure [or thostatic sitting] 160/82 H Blood Pressure [or thostatic standing ] 153/82 H Pulse Oximetry Oxygen Delivery Me thod 08/25/24 12:00 08/25/24 12:02 08/25/24 12:30 Temperature Pulse Rate 89 91 96 Pulse Rate [Pulse Oximeter] Pulse Rate [orthos tatic lying] Pulse Rate [orthos tatic sitting] Pulse Rate [orthos tatic standing] Respiratory Rate 5 L 7 L 14 Blood Pressure 126/85 Blood Pressure [Ri ght Upper Arm] Blood Pressure [or thostatic lying] Blood Pressure [or thostatic sitting] Blood Pressure [or thostatic standing ] Pulse Oximetry 93 93 91 Oxygen Delivery Me thod 08/25/24 12:32 08/25/24 13:00 08/25/24 13:02 Temperature Pulse Rate 97 105 H 104 H Pulse Rate [Pulse Oximeter] Pulse Rate [orthos tatic lying] Pulse Rate [orthos tatic sitting] Pulse Rate [orthos tatic standing] Respiratory Rate 9 L 38 H 11 L Blood Pressure 145/73 H 150/78 H Blood Pressure [Ri ght Upper Arm] Blood Pressure [or thostatic lying] Blood Pressure [or thostatic sitting] Blood Pressure [or thostatic standing ] Pulse Oximetry 93 89 89 Oxygen Delivery Me thod This 74-year-old female is alert, interactive, no apparent distress. Pupils equal round reactive, sclera clear, extraocular muscles intact. Symmetrical facial function, speech is normal. Neck supple, no adenopathy, no jugular venous distension, no thyromegaly masses or nodules. Lungs are clear, good air entry, no wheezing crackles, no tachypnea, no accessory muscle use. CV regular rate and rhythm, no murmur, normal S1-S2, no S3-S4. Abdomen is soft, nontender, nondistended, no organomegaly, rebound or guarding. She has no lower extremity edema. Strength and sensation is normal and symmetrical throughout upper and lower extremities, no gross neuro deficit noted. Documenting provider has reviewed patient's vital signs: yes Course Course ED Course: Patient had a syncopal episode in [facility]. Will obtain lactate, D-dimer and full complement of labs. Does not seem like she is had any prodromal infectious etiology, nursing staff did collect triple viral swab on arrival. Will get portable chest x-ray, consider CT imaging if D-dimer is elevated. She will be on cardiac monitoring looking for arrhythmia, baseline EKG is reassuring. Doubtful that this is any ischemic cardiac disease as she has no symptoms but women can present atypically. Will look at a troponin. This certainly could have been vasovagal. Reevaluation(s) Time of Reevaluation #1: 12:45 Reevaluation #1: Patient is feeling fine at this time, states she feels better. We have seen no evidence of any arrhythmias. Initial labs are reassuring minus a pending CBC. We will be obtaining a follow-up troponin. This spell happened around 10:00 a.m. in [facility] per her report. Will get a follow-up troponin at 1:00 p.m.. She states her children reminded her that she will get spells where she will feel lightheaded, she thought it was just her blood pressure. She checked her blood pressure prior to [facility], systolic was 120s. She does note that she did eat and drink before [facility]. Patient was not noted to have any significant orthostatic changes with her blood pressure. Pulse did mildly go up 95 but she had good compensation of her blood pressure. Time of Reevaluation #2: 14:06 Reevaluation #2: Have reviewed with patient that her follow-up troponin is normal, she has not had a heart attack. We have seen no arrhythmia here but we cannot effectively completely rule that out. We did discuss thromboembolic disease, her D-dimer is well within age limit normal, we discussed strokes. With syncope and waking up to normal neurologic exam, this really effectively does not support any diagnosis of stroke. If she had LEGAL TECHNICIAN disease that affected her level of consciousness, would expect to see significant stroke. We discussed strokes that affect the reticular activating system are most definitely not missed as they are large in territory. Discussed discharge to home with ZIO patch versus observation. Patient does not feel comfortable discharging to home, states she lives alone and would be worrying at home. I did review that we may still not have a definite etiology or cause for symptoms even if she is observed overnight. It would be likely that she may still go home with a ZIO patch even if observed overnight. Have discussed with her that from my knowledge, she would be observation and not a full admission but ultimately this is at the h ospitalist's discretion. She would like to be observed overnight, reviewed with her that I will talk to the hospitalist. Consultations Consultation #1: Have called Dr. Farris the night hospitalist. She will call back as she is in the process of getting sign-out for the service. 2:22 p.m.: Dr. Farris kindly called back, have reviewed patient's symptoms, her request to be kept in the hospital overnight. Dr. Farris will assume care. Time: 14:08 Vital Signs Vital signs: Initial Vital Signs Pulse Rate 84 08/25/24 10:51 Respiratory Rate 12 08/25/24 10:51 Pulse Oximetry 87 L 08/25/24 10:51 Oxygen Delivery Method Room Air 08/25/24 10:51 Vital Signs Pulse Rate 84 08/25/24 10:51 Respiratory Rate 12 08/25/24 10:51 Pulse Oximetry 87 L 08/25/24 10:51 Oxygen Delivery Method Room Air 08/25/24 10:51 Temperature 98.6 F 08/25/24 10:52 Pulse Rate 104 H 08/25/24 13:02 Respiratory Rate 11 L 08/25/24 13:02 Blood Pressure 150/78 H 08/25/24 13:02 Pulse Oximetry 89 08/25/24 13:02 Oxygen Delivery Method Room Air 08/25/24 11:45 MDM - Syncope Lab Data Attestation: I reviewed the patient's lab results. Labs: Lab Results 08/25/24 08/25/24 08/25/24 Range/Units 10:55 11:25 12:56 WBC 6.13 (4.50-11.00) K/uL RBC 3.79 L (4.00-5.20) m/uL Hgb 12.3 (12.0-16.0) gm/dL Hct 36.9 (33.0-51.0) % MCV 97 (80-100) fL MCH 33 (26-34) pg MCHC 33 (32-36) gm/dL RDW Coeff of Jennifer 13.0 (11.5-15.5) % Plt Count 323 (140-440) K/uL Neut % (Auto) 71.5 (42.0-72.0) % Lymph % (Auto) 17.1 L (20-44) % [place] % (Auto) 9.6 (0.0-11.0) % Eos % (Auto) 1.0 (0.0-7.0) % Baso % (Auto) 0.8 (0.0-3.0) % Neut # (Auto) 4.38 (1.7-7.0) K/uL Lymph # (Auto) 1.00 (0.90-2.90) K/uL [place] # (Auto) 0.60 (0.00-0.90) K/UL Eos # (Auto) 0.06 (0.00-0.50) K/uL Baso # (Auto) 0.05 (0.00-0.30) K/uL Abs Immat Gran (auto) 0.00 (0.00-0.30) K/uL Imm/Tot Granulo (auto) 0.0 % D-Dimer Quant (PE/DVT) 0.73 H (0.00-0.50) ug/ml Sodium 133 L (135-149) mmol/L Potassium 3.9 (3.6-5.1) mmol/L Chloride 101 (96-114) mmol/L Carbon Dioxide 24 (20-32) mmol/L Anion Gap 8 (7-15) mEq/L BUN 17 (7-30) mg/dL Creatinine 0.6 (0.5-1.5) mg/dL Estimated Creat Clear 39.59 Estimated GFR 93 ml/min Glucose 151 H (60-115) mg/dL Lactate 1.2 (0.5-1.9) mmol/L Calcium 9.1 (8.4-10.6) mg/dL Magnesium 2.0 (1.5-2.6) mg/dL Total Bilirubin 0.5 (0.1-1.5) mg/dL AST 31 (12-35) U/L ALT 29 (4-35) U/L Alkaline Phosphatase 98 (40-150) U/L Troponin I < 0.01 < 0.01 (0.01-0.04) ng/mL C-Reactive Protein < 0.5 L (0.5-1.0) mg/dL NT-Pro-B Natriuret Pep 58 pg/mL Total Protein 7.3 (6.0-8.3) g/dL Albumin 4.2 (3.3-5.0) g/dL SARS-CoV-2 (PCR) Negative SARS-CoV-2 (Negative) Influenza Type A (PCR) Negative PCR FLU A (Negative) Influenza Type B (PCR) Negative PCR FLU B (Negative) RSV (PCR) Negative PCR RSV (Negative) POC Troponin I Cancelled Imaging Data Chest x-ray: Attestation: I have reviewed the pertinent imaging results. My impression: No acute cardiopulmonary change on my preliminary review of this portable chest x-ray. Radiologist's impression: Patient: ERIK MCKAY Facility:?[facility] Patient ID:?[id number] Site Patient ID:?[id number]. Site :?[id number] Study:?XRay-Chest Portable one view-08/25/2024 11:29:53 AM Ordering Physician:Camryn Freeman Final Report: INDICATION: Syncope TECHNIQUE: Chest radiograph 1 view COMPARISON: 07/29/2024 FINDINGS: The sensitivity and specificity of the exam are moderately limited by the patient`s body habitus. Mediastinum: The mediastinum is normal in appearance. The heart silhouette is normal in size and morphology. Lung: Small lung volumes are noted with mild bibasilar atelectasis. No sign of pleural effusion seen. No pneumothorax is identified. Bone and Soft tissue: Mild dextroscoliosis is noted without change. IMPRESSION: 1. Small lung volumes are noted with mild bibasilar atelectasis. Dictated by Yfn Smyth MD @ 08/25/2024 11:42:54 AM Dictated by: Yfn Smtyh MD @ 08/25/2024 11:42:55 (Electronic Signature) ECG Data Attestation: I personally reviewed and interpreted this ECG as follows: (Normal sinus rhythm, 81 beats per minute. Poor R-wave progression anterior precordial leads. No acute ST segment or T-wave changes noted.) ECG interpretation date: 08/25/24 ECG interpretation time: 11:15 Prior ECG tracings: available for review Discharge Plan Discharge Clinical Impression: Syncope Qualifiers: Syncope type: unspecified Qualified Code(s): R55 - Syncope and collapse Patient Disposition: Admitted As Observation Condition: Stable
--- NOTE | 2024-08-25 11:14 | CRLHL7_ITS ---
For Patients: As a result of the Cures Act, medical imaging exams and procedure reports are released immediately into your electronic medical record. You may view this report before your referring provider. If you have questions, please contact your health care provider. INDICATION: Syncope TECHNIQUE: Chest radiograph 1 view COMPARISON: 07/29/2024 FINDINGS: The sensitivity and specificity of the exam are moderately limited by the patient`s body habitus. Mediastinum: The mediastinum is normal in appearance. The heart silhouette is normal in size and morphology. Lung: Small lung volumes are noted with mild bibasilar atelectasis. No sign of pleural effusion seen. No pneumothorax is identified. Bone and Soft tissue: Mild dextroscoliosis is noted without change. IMPRESSION: 1. Small lung volumes are noted with mild bibasilar atelectasis. Dictated by Yfn Smyth MD @ 08/25/2024 11:42:54 AM Dictated by: Yfn Smyth MD @ 08/25/2024 11:42:55 (Electronically Signed)
--- OUTSIDE RECORDS SUMMARY | 2024-08-25 11:23 | XMS_ITS | Clinical Summary ---
Author Organization [facility] Address [address] [place] [address] Care Team Providers Care Director Physical Therapy Name Role Phone Mayuri Cote MD Unavailable [phone] Lilly Harris PA-C Unavailable Jeannette Bernabe MD [...] Department Care Team Description 06/18/2024 Order-Scan [facility] [address] [phone] Mayuri Cote MD from Last 3 Months [...] THORACIC W/O&W CON Routine 06/17/2024 8:33 AM PULP PLANT SUPERVISOR MRI SPINE CERVICAL W/O&W CON Routine 06/17/2024 8:32 AM PULP PLANT SUPERVISOR MRI BRAIN W/O&W CON Routine 06/17/2024 8:31 AM PULP PLANT SUPERVISOR from Last 3 Months Results * MRI SPINE THORACIC W/O&W CON (06/17/2024 8:33 AM PULP PLANT SUPERVISOR) Anatomical Region Laterality Modality Spine Other us Mayuri Cote MD MRI ORDERABLE Final Result * MRI SPINE CERVICAL W/O&W CON (06/17/2024 8:32 AM PULP PLANT SUPERVISOR) Anatomical Region Laterality Modality Spine Other us Mayuri Cote MD MRI ORDERABLE Final Result * MRI BRAIN W/O&W CON (06/17/2024 8:31 AM PULP PLANT SUPERVISOR) Anatomical Region Laterality Modality Head Other us Mayuri Cote MD MRI ORDERABLE Final Result from Last 3 Months Insurance MEDICARE PART A & B ATT CLAIMS [facility] [id number] [facility] [place] [address] Care Teams Director Physical Therapy Relationship Specialty Start Date End Date Jeannette Bernabe MD [address] [place] [address] PCP - General 06/24/21 Mayuri Cote MD Physician Neurology 06/23/21 Lilly Harris PA-C Physician Cement [employer]ber Neurology 06/23/21
--- OUTSIDE RECORDS SUMMARY | 2024-08-25 11:23 | XMS_ITS | Referral Summary ---
Author Organization [facility] Address [address] [place] [address] Care Team Providers Care Store Facility Technician Name Role Phone Mayuri Cote MD Unavailable [phone] Lilly Harris PA-C Unavailable Jeannette Bernabe MD Primary Care Provide r Encounters Date Type Department Care Team Description 06/18/2024 Order-Scan [facility] [address] [phone] Mayuri Cote MD from Last 3 Months [...] THORACIC W/O&W CON Routine 06/17/2024 8:33 AM LEATHER REPAIRER MRI SPINE CERVICAL W/O&W CON Routine 06/17/2024 8:32 AM LEATHER REPAIRER MRI BRAIN W/O&W CON Routine 06/17/2024 8:31 AM LEATHER REPAIRER from Last 3 Months Results * MRI SPINE THORACIC W/O&W CON (06/17/2024 8:33 AM LEATHER REPAIRER) Anatomical Region Laterality Modality Spine Other us Mayuri Cote MD MRI ORDERABLE Final Result * MRI SPINE CERVICAL W/O&W CON (06/17/2024 8:32 AM LEATHER REPAIRER) Anatomical Region Laterality Modality Spine Other us Mayuri Cote MD MRI ORDERABLE Final Result * MRI BRAIN W/O&W CON (06/17/2024 8:31 AM LEATHER REPAIRER) Anatomical Region Laterality Modality Head Other Mayuri Cote MD MRI ORDERABLE Final Result from Last 3 Months Insurance MEDICARE PART A & B [facility] [place] [address] Care Teams Store Facility Technician Relationship Specialty Start Date End Date [place] [address] PCP - General 06/24/21 Mayuri Cote MD Physician Neurology 06/23/21 Lilly Harris PA-C Physician Test Center Administrator Neurology 06/23/21
--- OUTSIDE RECORDS SUMMARY | 2024-08-25 11:24 | XMS_ITS | Clinical Summary ---
Author Organization [facility] Address [address] [place] [address] Care Team Providers Care Data Warehousing Specialist Name Role Phone Jeannette Bernabe MD Primary [...] - Magnesium 170 mg, L-Arginine 400 mg, [place] leaf extract 150 mg, Garlic 50 mg, [...] document scanned on 03/27/13. Radha Johnson RN, [facility] Refill Nurse MS (multiple sclerosis) 02/02/2013 History [...] Type Department Care Team Description 08/22/2024 Telephone [facility] [address] [place] [address] Jeannette Bernabe MD Questions (result ) 08/15/2024 Telephone [facility] [address] [place] [address] Jeannette Bernabe MD Questions (Lab results, thyroid ultrasound, and bone scan) 08/14/2024 11:30 AM CDT Ancillary Procedure [facility] [address] [place] [address] 08/14/2024 10:30 AM CDT Ancillary Procedure [facility] [address] 08/14/2024 10:15 AM CDT Orders Only [facility] [place] [address] [place], [place] [facility] 08/14/2024 Travel 08/13/2024 Telephone [facility] [address] Jeannette Bernabe MD Questions (Lab order for Vitamin D 3 and check cholesterol. ) 07/29/2024 Orders Only [facility] Scanner 1 scan: (1-Ord) [place], XR RIBS RT MIN 3V W CXR1V, 07/29/2024 07/15/2024 12:15 PM MICROFILM MOUNTER Ancillary Procedure [facility] [address] 07/15/2024 11:10 AM MICROFILM MOUNTER Office Visit [facility] [address] [place] [address] Josh Cisneros MD Back Pain (No injury /Lower back pain that comes and goes /Mainly right side) 07/15/2024 Travel 06/28/2024 9:40 AM MICROFILM MOUNTER Ancillary Procedure [facility] [address] 06/28/2024 8:25 AM MICROFILM MOUNTER Office Visit [facility] [place] [address] Jeannette Bernabe MD Medicare ANNUAL (subsequent) Visit (74 yo Female/Labs/Bump on back of neck, getting smaller) 06/28/2024 Travel 06/19/2024 Orders Only [facility] [address] [place] [address] Mayuri Cote MD 1 scan: (1-Ord) [facility], HEAD/BRAIN WO CON, 06/17/2024 06/18/2024 Orders Only [facility] [address] [place] [address] Mayuri Cote MD 2 scans: (2-Ord) [facility], MR CERVICAL SPINE W/O CON, 06/17/2024 06/17/2024 Orders Only [facility] Scanner 1 scan: (1-Ord) [facility], MR HEAD/BRAIN WO CON, 06/17/2024 05/28/2024 2:50 PM MICROFILM MOUNTER Office Visit [facility] [address] [place] [address] Linn Salas MD Cough (2-3 weeks); Urinary Problem (Urgency, cloudy urine) 05/28/2024 Telephone [facility] [address] [place] [address] Linn Salas MD Results 05/28/2024 Travel from Last 3 Months Immunizations Immunization Administration Dates Next Due COVID-19 vaccine ([employer] NTPSafe 30mcg/0.3mL) PFMDV 03/31/2021,08/20/2020,07/30/2020 Influenza Virus, Unspecified 04/15/1996 [...] on file Legal Sex Female 5:23 AM MICROFILM MOUNTER Gender Identity Not on file Sexual Orientation [...] Comments Blood Pressure 150/89 07/15/2024 11:15 AM MICROFILM MOUNTER Pulse 104 07/15/2024 11:15 AM MICROFILM MOUNTER Temperature 36.7 C (98.1 F) 10/05/2021 9:43 AM CDT Respiratory Rate 16 12/01/2023 4:08 PM CDT Oxygen Saturation 99% 07/15/2024 11:14 AM MICROFILM MOUNTER Inhaled Oxygen Concentration - - Weight 78 kg (172 lb) 06/28/2024 7:58 AM MICROFILM MOUNTER Height 160 cm (5' 3) 06/28/2024 7:58 AM MICROFILM MOUNTER Body Mass Index 30.47 06/28/2024 7:58 AM MICROFILM MOUNTER Plan of Treatment Upcoming Encounters Date Type Department Care Team (Late st Contact Info) Description 09/13/2024 8:15 AM CDT Orders Only [facility] [address] [facility] [address] [facility] [place] [facility] Maintenance Due Date Last [...] Bradley LPN Medical Devices Implanted Type Area Biofuels Technology Manager Device Identifier Shelf Expiration Date Model / Serial / Lot Stent Uret [id number] Silhouette Xtraflo - [id number] Implanted:Qty: 1 on 09/12/2010 at [facility] Right: [employer] 05/24/2013 [id number]# / / [id number] Stent Uret [id number] Silhouette Xtraflo - [id number] Implanted:Qty: 1 on 09/20/2010 at [facility] Right: [employer] [id number]# / / [id number] Procedures Procedure Name Priority Date/Time Associated Diagnosis [...] LUMBAR 3 VIEWS Routine 07/15/2024 12:18 PM MICROFILM MOUNTER Acute midline low back pain without sciatica XR MAMMO ANIRUDH BILAT SCREEN Routine 06/28/2024 9:54 AM MICROFILM MOUNTER Visit for screening mammogram CBC WITH AUTO DIFFERENTIAL Routine 06/28/2024 8:56 AM MICROFILM MOUNTER HTN (hypertension) TSH WITH REFLEX Routine 06/28/2024 8:56 AM MICROFILM MOUNTER Thyroid nodule COMP METABOLIC PANEL Routine 06/28/2024 8:56 AM MICROFILM MOUNTER HTN (hypertension) URINE CULTURE Routine 06/28/2024 7:00 AM MICROFILM MOUNTER Recurrent UTI UA W/ SEDIMENT EXAM REFLEXED PER CRITERIA Routine 06/28/2024 7:00 AM MICROFILM MOUNTER Recurrent UTI SCAN-MRI INTERPRETATION 06/17/2024 12:00 AM MICROFILM MOUNTER MR HEAD BRAIN WO Routine 06/17/2024 12:0 0 AM MICROFILM MOUNTER Multiple sclerosis (HC) MR SPINE THORACIC WO Routine 06/17/2024 12:00 AM MICROFILM MOUNTER Multiple sclerosis (HC) MR SPINE CERVICAL WO Routine 06/17/2024 12:00 AM MICROFILM MOUNTER Multiple sclerosis (HC) URINALYSIS MICROSCOPIC Routine 3:41 PM MICROFILM MOUNTER Cloudy urine Bladder irritation URINE CULTURE Routine 05/28/2024 3:41 PM MICROFILM MOUNTER Cloudy urine Bladder irritation URINALYSIS [facility] ONLY POC DIP ([facility]) Routine 05/28/2024 3:41 PM MICROFILM MOUNTER Cloudy urine Bladder irritation ANTI HCV Routine 05/31/2016 10:01 AM MICROFILM MOUNTER Need for hepatitis C screening test from [...] to assess therapeutic efficacy. Chitra Cruz PA-C [facility] 08/16/2024 Narrative 08/16/2024 4:23 PM CDT For Patients: Results are automatically released to your [facility] ([email or web address]) account once available, in compliance with federal regulations. This means that you may see your results before your provider has had a chance to review them. Please allow 2-3 business days for your provider to comment on the results. XR DXA Bone Mineral Density (BMD) EXAM LOCATION: [facility] [address] [facility] [address] PATIENT NAME: Lelia Vizcarra DATE OF : 1950 EXAM DATE: 08/14/2024 REQUESTING PROVIDER: Jeannette Bernbae MD GENDER AT : female HEIGHT: 5' [...] two scanners are made by the same furniture mover helper. PROCEDURE: Dual-energy x-ray absorptiometry performed with routine [...] IODINE, UR RANDOM (08/14/2024 10:24 AM CDT) [facility] Iodine, Urine 384.1 28.0 - 544.0 ug/L 08/21/2024 1:09 PM CDT [facility] ([facility]) Comment:Limit of quantitatio n = 20 Urine URINE SPECIMEN / Unknown Non-Blood / Unknown 08/14/2024 10:24 AM CDT 08/14/2024 10:24 AM CDT Narrative [facility] ([facility]) - 08/21/2024 1:09 PM CDT Test(s) [id number], Urine was developed and its performance characteristics determined by [facility]. It has not been cleared or approved by the Food and Drug Administration. Performed at: 01 - [address] [id number] Physician In Private Practice: Hailey Perdomo MD, Phone: [phone] us Jeannette Bernabe MD URINE Final Result [facility] ([facility]) [address] [place] [address], * URINALYSIS MICROSCOPIC (08/14/2024 10:24 AM CDT) Only the most recent of2 resultswithin the time period is included. [facility] RBC 0-2 0-2, None Seen /HPF 08/14/2024 3:36 PM CDT [facility] WBC 0-2 0-2, 3-5, None Seen /HPF 08/14/2024 3:36 PM CDT [facility] BACTERIA None Seen None Seen, Rare, Few Bacteria/ HPF 08/14/2024 3:36 PM CDT [facility] EPITHELIAL CELLS None Seen None Seen, Few Epi/HPF 08/14/2024 3:36 PM CDT [facility] HYALINE CASTS 0-2 0-2, 3-5 /LPF 08/14/2024 3:36 PM CDT [facility] Urine URINE SPECIMEN / Unknown Non-Blood / Unknown 08/14/2024 10:24 AM CDT 08/14/2024 10:24 AM CDT us Jeannette Bernabe MD URINE Final Result [facility] [address] [place] [address], [place] * SCAN-RADIOLOGY REPORT (07/29/2024 12:00 AM CDT) Anatomical Region Laterality Modality Other us Scanner OTHER Final Result * XR SPINE LUMBAR 3 VIEWS (07/15/2024 12:18 PM MICROFILM MOUNTER) Anatomical Region Laterality Modality LUMBAR SPINE Computed Radiogr aphy 07/15/2024 2:35 PM MICROFILM MOUNTER Impressions 07/15/2024 2:35 PM MICROFILM MOUNTER Levo scoliotic deformity with severe degenerative disc [...] PM (Electronically Signed) Narrative 07/15/2024 2:35 PM MICROFILM MOUNTER For Patients: As a result of the [...] MAMMO ANIRUDH BILAT SCREEN (06/28/2024 9:54 AM MICROFILM MOUNTER) Anatomical Region Laterality Modality BREASTS, Breast Left, Breast Right Bilateral Mammography Impressions 06/28/2024 1:43 PM MICROFILM MOUNTER There is no radiographic evidence for malignancy. Recommend annual mammograms. MAMMOGRAM ASSESSMENT: ACR 1 Negative PATIENTS: You will also receive a letter with your examination results in an easy to read format. If you have questions about your results, please contact your referring provider. Narrative 06/28/2024 1:43 PM MICROFILM MOUNTER For Patients: As a result of the Century Cures Act, medical imaging exams and procedure reports are released immediately into your electronic medical record. You may view this report before your referring provider. If you have questions, please contact your health care provider. XR MAMMO ANIRUDH BILAT SCREEN [[id number]] CLINICAL HISTORY: This is an asymptomatic 74 y.o. patient. INDICATION FOR EXAM: Mammogram Screening. TECHNIQUE: CC & MLO views were obtained. This study was evaluated with the assistance of Computer-Aided Detection. Breast Tomosynthesis was used in interpretation. COMPARISON FILM: Yes 06/27/23 [facility] 06/24/22 [email or web address] FINDINGS: There are scattered areas of fibroglandular density. There are no dominant masses, suspicious micro calcifications or areas of architectural distortion. Jeannette Bernabe MD MAMMO Final Result * TSH WITH REFLEX (06/28/2024 8:56 AM MICROFILM MOUNTER) TSH W/REFLEX TO FT4 2.08 0.40 - 4.50 mIU/L [facility] Blood BLOOD SPECIMEN / Unknown 06/28/2024 8:56 AM MICROFILM MOUNTER 06/28/2024 8:57 AM MICROFILM MOUNTER Jeannette Bernabe MD CHEMISTRY Final Result [facility] [address] [place] [address], [place] [phone] [facility] [address] [place] [address] * (ABNORMAL) CBC AND DIFFERENTIAL (06/28/2024 8:56 AM MICROFILM MOUNTER) [facility] WHITE BLOOD CELL COUNT 6.3 3.8 [...] BLOOD SPECIMEN / Unknown 06/28/2024 8:56 AM MICROFILM MOUNTER 06/28/2024 8:57 AM MICROFILM MOUNTER us Jeannette Bernabe MD HEMATOLOGY Final Result [employer] [facility] [address] [place] [address], [facility] [address] [place] [address] * (ABNORMAL) COMP METABOLIC PANEL (06/28/2024 8:56 AM MICROFILM MOUNTER) Pathologist [facility] GLUCOSE 99 65 - 99 mg/dL [facility] Comment: Fasting reference interval UREA [...] BLOOD SPECIMEN / Unknown 06/28/2024 8:56 AM MICROFILM MOUNTER 06/28/2024 8:57 AM MICROFILM MOUNTER Jeannette Bernabe MD CHEMISTRY Final Result Performing Organization Address [facility]/ZIP Co de Phone Number [facility] [address] [place] [address], [facility] [address] [place] [address] * URINE CULTURE (06/28/2024 7:00 AM MICROFILM MOUNTER) Only the most recent of2 resultswithin the time period is included. CULTURE <10,000 CFU/mL multiple organisms 06/29/2024 3:05 PM MICROFILM MOUNTER [facility] Urine URINE SPECIMEN / Unknown Non-Blood / Unknown 06/28/2024 7:00 AM MICROFILM MOUNTER 06/28/2024 7:50 AM MICROFILM MOUNTER Jeannette Bernabe MD MICROBIOLOGY Final Result Performing Organization Address [facility]/ZIP Co de Phone Number [facility] [address] [address], [place] * UA W/ SEDIMENT EXAM REFLEXED PER CRITERIA (06/28/2024 7:00 AM MICROFILM MOUNTER) COLOR Yellow Yellow Color 06/28/2024 1:12 PM MICROFILM MOUNTER [facility] CLARITY Clear Clear Clarity 06/28/2024 1:12 PM MICROFILM MOUNTER [facility] SPECIFIC GRAVITY,URINE 1.010 1.010, 1.015, 1.020, 1.025 06/28/2024 1:12 PM MICROFILM MOUNTER [facility] PH,URINE 6.5 6.0, 7.0, 8.0, 5.5, 6.5, 7.5, 8.5 06/28/2024 1:12 PM MICROFILM MOUNTER [facility] UROBILINOGEN, QUALITATIVE Normal Normal EU/dl 06/28/2024 1:12 PM MICROFILM MOUNTER [facility] PROTEIN, URINE Negative Negative mg/dL 06/28/2024 1:12 PM MICROFILM MOUNTER [facility] GLUCOSE, URINE Negative Negative mg/dL 06/28/2024 1:12 PM MICROFILM MOUNTER [facility] KETONES,URINE Negative Negative mg/dL 06/28/2024 1:12 PM MICROFILM MOUNTER [facility] BILIRUBIN,URI NE Negative Negative 06/28/2024 1:12 PM MICROFILM MOUNTER [facility] OCCULT BLOOD,URINE Negative Negative 06/28/2024 1:12 PM MICROFILM MOUNTER [facility] NITRITE Negative Negative 06/28/2024 1:12 PM MICROFILM MOUNTER [facility] LEUKOCYTE ESTERASE Negative Negative 06/28/2024 1:12 PM MICROFILM MOUNTER [facility] Urine URINE SPECIMEN / Unknown Non-Blood / Unknown 06/28/2024 7:00 AM MICROFILM MOUNTER 06/28/2024 7:50 AM MICROFILM MOUNTER us Jeannette Bernabe MD URINE Final Result [facility] [address] [place] [address], * SCAN-MRI INTERPRETATION (06/17/2024 12:00 AM MICROFILM MOUNTER) Anatomical Region Laterality Modality Other us Scanner OTHER Final Result * MR SPINE THORACIC WO (06/17/2024 12:00 AM MICROFILM MOUNTER) Anatomical Region Laterality Modality Spine, THORACIC SPINE Magnetic R esonance us Mayuri Cote MD MR Final Result * MR SPINE CERVICAL WO (06/17/2024 12:00 AM MICROFILM MOUNTER) Anatomical Region Laterality Modality Spine, CERVICAL SPINE Magnetic R esonance us Mayuri Cote MD MR Final Result * MR HEAD BRAIN WO (06/17/2024 12:00 AM MICROFILM MOUNTER) Anatomical Region Laterality Modality BRAIN, HEAD Magnetic Resonan ce Mayuri Cote MD MR Final Result * POCT Urinalysis Dipstick Only (05/28/2024 3:41 PM MICROFILM MOUNTER) Pathologist [facility] PH 7.0 5.0 - 8.0 [facility] SPECIFIC GRAVITY 1.010 1.001 - 1.035 [facility] GLUCOSE NEGATIVE NEGATIVE [facility] BILIRUBIN NEGATIVE NEGATIVE [facility] KETONES NEGATIVE NEGATIVE [facility] OCCULT BLOOD NEGATIVE NEGATIVE [facility] PROTEIN NEGATIVE NEGATIVE [facility] NITRITE NEGATIVE NEGATIVE [facility] LEUKOCYTE ESTERASE NEGATIVE NEGATIVE [facility] Urine URINE SPECIMEN / Unknown 05/28/2024 3:41 PM MICROFILM MOUNTER 05/28/2024 3:42 PM MICROFILM MOUNTER us Linn Salas MD URINE Final Resul t [facility] [address] [place] [address], [place] [phone] [facility] [address] [place] [address] * ANTI HCV (05/31/2016 10:01 AM MICROFILM MOUNTER) Pathologist [facility] HEPATITIS C ANTIBODY Non-Reacti ve Non-Reacti ve 05/31/2016 5:32 PM MICROFILM MOUNTER [facility] Blood BLOOD SPECIMEN / Unknown Venipuncture / Unknown 05/31/2016 10:01 AM MICROFILM MOUNTER 05/31/2016 10:01 AM MICROFILM MOUNTER Narrative [facility] - 05/31/2016 5:32 PM MICROFILM MOUNTER Antibodies to HCV not detected; does not exclude the possibility of exposure to HCV. us Jeannette Bernabe MD SEND OUTS Final Result [facility] [address] [place] [address], from Last 3 Months or Most Recently Relevant to Health Maintenance Insurance MEDICARE PB ONLY [facility] [address] MEDICARE PART B HB ONLY Care Teams Data Warehousing Specialist Relationship Specialty Start Date End Date Jeannette Bernabe MD [address] [place] [address] PCP - General Family Practice 03/28/11
[2024-08-25 11:37] LABS: Lactate* 1.2 mmol/L (0.5-1.9)
[2024-08-25 11:44] LABS: PCR FLU A Negative PCR FLU A (Negative); PCR FLU B Negative PCR FLU B (Negative); PCR RSV Negative PCR RSV (Negative); SARS PCR* Negative SARS-CoV-2 (Negative)
[2024-08-25 12:02] LABS: D Dimer Quantitative* 0.73 ug/ml (0.00-0.50)
[2024-08-25 12:09] LABS: Albumin* 4.2 g/dL (3.3-5.0); Chloride* 101 mmol/L (96-114); Sodium* 133 mmol/L (135-149)
[2024-08-25 12:10] LABS: Potassium* 3.9 mmol/L (3.6-5.1)
[2024-08-25 12:12] LABS: Alanine Aminotransferase* 29 U/L (4-35); Alkaline Phosphatase* 98 U/L (40-150); Anion Gap 8 mEq/L (7-15); Aspartate Amino Transferase* 31 U/L (12-35); Bilirubin Total* 0.5 mg/dL (0.1-1.5); Blood Urea Nitrogen* 17 mg/dL (7-30); Carbon Dioxide* 24 mmol/L (20-32); Creatinine* 0.6 mg/dL (0.5-1.5); Est. Creatinine Clearance* 39.59; Estimated Glomerular Filt Rate 93 ml/min; Total Protein* 7.3 g/dL (6.0-8.3)
[2024-08-25 12:13] LABS: Calcium* 9.1 mg/dL (8.4-10.6); Glucose* 151 mg/dL (60-115)
[2024-08-25 12:22] LABS: C Reactive Protein* < 0.5 mg/dL (0.5-1.0)
[2024-08-25 12:32] LABS: NT Pro B Type NatriureticPept* 58 pg/mL; Troponin I* < 0.01 ng/mL (0.01-0.04)
[2024-08-25 13:37] LABS: Basophils Absolute Auto 0.05 K/uL (0.00-0.30); Basophils Percent Auto 0.8 % (0.0-3.0); Eosinophils Absolute Auto 0.06 K/uL (0.00-0.50); Hematocrit* 36.9 % (33.0-51.0); Hemoglobin* 12.3 gm/dL (12.0-16.0); Lymphocytes Percent Auto 17.1 % (20-44); Mean Corpuscular HGB Conc 33 gm/dL (32-36); Mean Corpuscular Hemoglobin 33 pg (26-34); Mean Corpuscular Volume 97 fL (80-100); Monocytes Percent Auto 9.6 % (0.0-11.0); Neutrophils Absolute Auto 4.38 K/uL (1.7-7.0); Neutrophils Percent Auto 71.5 % (42.0-72.0); Platelet Count* 323 K/uL (140-440); Red Blood Count* 3.79 m/uL (4.00-5.20); White Blood Count* 6.13 K/uL (4.50-11.00)
[2024-08-25 13:38] LABS: Slide Review Reflex No
[2024-08-25 13:39] LABS: Troponin I* < 0.01 ng/mL (0.01-0.04)
--- NOTE | 2024-08-25 17:45 | P.IMHP_ITS ---
Assessment and Plan Assessment and plan (1) Syncope: Problem comment: - witnessed syncopal episode during pentecostalism while she was singing. She had not been to pentecostalism in in several weeks. She has had a history of presyncopal episodes in similar situations over the past 4 years. Blood glucose upon arrival of EMS was 190. Dry cough noted since arrival to the emergency department and persists even now on the floor, COVID/influenza/RSV swab is negative. I think this is likely vasovagal. She is not having any neurologic symptoms or findings. No seizure activity reported. No postictal symptoms after the event. I think seizure is unlikely. She has not had any cardiac symptoms and EKG is reassuring. D-dimer is age-appropriate, not elevated. Will admit for observation on telemetry overnight to help further rule out arrhythmia. She may benefit from Zio patch at discharge. Status: Acute Hospitalist- H&P: HPI History of Present Illness Time Seen by Provider: 17:45 Date Seen: 08/25/24 Chief complaint: Syncope Narrative: Lelia Vizcarra is a 74 year old female with a history of multiple sclerosis, lumbar foraminal stenosis, and osteoporosis had a syncopal episode at pentecostalism today. She was feeling very well this morning which is why she went to pentecostalism for the 1st time in several weeks. About 3 weeks ago she had a fall caused by being off balance at home and had a probable right 9th rib fracture. She says that it hurt for about 2 weeks, but then the pain got much better and so she felt well enough to go to pentecostalism today. During pentecostalism she was singing when she suddenly felt lightheaded so she sat down. Despite sitting down she continued to feel lightheaded and then the next thing she knew people were standing around her telling that the paramedics were on their way. She feels fine now. She denies any palpitations, confusion, abdominal pain or cramping, diarrhea, s hortness of breath or chest pain. The fall was witnessed by her friends at pentecostalism, and there was no report of seizure activity. Apparently she was unconscious for about 20 seconds. About 4 years ago she had symptoms of presyncope while standing in pentecostalism. She was sit down in the symptoms would resolve completely. She has never fainted before. She has had these episodes periodically since then, the last 1 before today was last summer. She has a dry cough which just started since she arrived at the emergency department. She has noticed a lot of improvement pain in her right low chest from where she had a rib fracture. She notices when she is laying in bed on her left side, however, a feeling of the rib flopping around while she is breathing as though the rib is not attached. She is also concerned that when the film producer took her blood glucose it was 190. She tells me that diabetes runs in her family and she was supposed to have a hemoglobin A1c drawn by her primary care provider in September, but is now worried that maybe that is an issue that needs to be looked at. She did have breakfast this morning which included toast, a banana, eggs and an avocado. We discussed that this was not a fasting glucose. I note from her [facility] records that her hemoglobin A1c was 5.5% on 06/27/2023. ER doc reported to me that Orthostatic vital signs done in the emergency department were unremarkable. Review of Systems Status of ROS: Reports: 10 or more systems reviewed and unremarkable except as noted in History and below [facility] Medical History (Updated 08/25/24 @ 21:31 by Carin Farris MD) Colon polyps ?K63.5 - Polyp of colon (ICD-10) Obesity ?E66.9 - Obesity, unspecified (ICD-10) Urticaria, unspecified ?L50.9 - Urticaria, unspecified (ICD-10) Vitamin D deficiency ?E55.9 - Vitamin D deficiency, unspecified (ICD-10) Menopause ?Z78.0 - Asymptomatic menopausal state (ICD-10) Anemia ?D64.9 - Anemia, unspecified (ICD-10) Multiple sclerosis ?G35 - Multiple sclerosis (ICD-10) Lumbar foraminal stenosis ?M48.061 - Spinal stenosis, lumbar region without neurogenic claudication (ICD-10) DDD (degenerative disc disease) Osteoporosis ?M81.0 - Age-related osteoporosis without current pathological fracture (ICD- 10) History of inguinal hernia ?Z87.19 - Personal history of other diseases of the digestive system (ICD-10) Nephrolithiasis ?N20.0 - Calculus of kidney (ICD-10) Low back pain ?M54.50 - Low back pain, unspecified (ICD-10) Dyshidrosis ?L30.1 - Dyshidrosis [pompholyx] (ICD-10) Depressive disorder ?F32.A - Depression, unspecified (ICD-10) Surgical History (Updated 08/25/24 @ 21:18 by Carin Farris MD) H/O right inguinal hernia repair (11/09/15) ?Z98.890 - Other specified postprocedural states (ICD-10) ?Z87.19 - Personal history of other diseases of the digestive system (ICD-10) H/O lymph node biopsy ?Z98.890 - Other specified postprocedural states (ICD-10) History of hysterectomy ?Z90.710 - Acquired absence of both cervix and uterus (ICD-10) History of cholecystectomy ?Z90.49 - Acquired absence of other specified parts of digestive tract (ICD- 10) History of colonoscopy ?Z98.890 - Other specified postprocedural states (ICD-10) Family History (Updated 08/25/24 @ 18:06 by Carin Farris MD) Father Osteoporosis Prostate cancer Mother Lung cancer Brother Alzheimers disease Brother Pancreatic cancer Social History (Updated 08/25/24 @ 18:10 by Carin Farris MD) Narrative: [facility], lives alone, , daughter lives in the area. Retired from [employer]. Quit smoking more than 30 years ago. EtOH glass of wine twice a month or less. No recreational drugs. FULL CODE. What is your current living situation?: I presently have a place to live Problems where you live: no known problems Problems where you live details: N/A In the past 12 months, utilities in danger of being shut off: no In past 12 months, lack of transportation kept you from medical appts, meetings, work, or getting things needed for daily living: no In the past 12 mos, have been you worried that your food would run out before you had money to buy more?: never true In the past 12 mos, the food you bought just didn't last and you didn't have money to buy more?: never true Highest level of school completed/degree received: GED or equivalent Smoking Status: Former smoker Do you use any of these nicotine containing products: None Second hand tobacco smoke exposure: No How often do you have a drink containing alcohol: 2-4 times a month Alcohol type: wine How many standard drinks containing alcohol do you have on a typical day: 1 or 2 How often do you have six or more drinks on one occasion: Less than monthly AUDIT-C Alcohol total score: 3 Non-prescribed substance use: denies use Caffeine: Yes How often does anyone, including family, friends and others, physically hurt you : never How often does anyone, including family, friends and others, insult or talk down to you: never How often does anyone, including family, friends and others, threaten you with harm: never How often does anyone, including family, friends and others, scream or curse at you: never service: No Meds Home Medications and Allergies Home Medications ?Medication ?Instructions ?Recorded ?Confirmed ?Type losartan 25 mg tablet (Cozaar) See Rx Instructions .Route .COMPLEX 07/29/24 08/25/24 History nortriptyline 10 mg capsule 60 mg PO QHS 07/29/24 08/25/24 History Allergies Allergy/AdvReac Type Severity Reaction Status Date / Time sulfamethoxazole (From Allergy Intermediate Hives Verified 08/25/24 10:52 ) trimethoprim (From ) Allergy Intermediate Hives Verified 08/25/24 10:52 amoxicillin Allergy Mild Erythema Verified 08/25/24 10:52 Sulfa (Sulfonamide Allergy Mild Hives Verified 08/25/24 10:52 Antibiotics) trazodone Allergy Mild Hives Verified 08/25/24 10:52 Exam Narrative: Exam Narrative: General: No acute distress. Awake alert oriented x3. Dry cough noted. HEENT: Normocephalic atraumatic, pupils equally round and reactive to light and accommodation. Oropharynx clear. Mucous membranes are moist. No cervical lymphadenopathy, thyromegaly or carotid bruits. No JVD. Cardiovascular: Regular rate and rhythm. No murmurs, gallops, or rubs. Chest: No increased work of breathing. Clear to auscultation bilaterally. No crackles or wheezes. No bruising noted over right chest. Nontender to palpation. No floating rib or bones per palpation. Abdomen: Bowel sounds present. Soft, nondistended, nontender. No hepatosplenomegaly or masses. Extremities: No edema, no cyanosis or clubbing. Skin: No jaundice, no pallor, no rashes. Neuro: There are no focal deficits. Cranial nerves 2-12 are intact. Extraocular movements are full. No nystagmus. No facial asymmetry. Tongue is midline. Peripheral vision and vision are grossly intact. Strength is 5/5 in all 4 extremities. Light touch sensation is intact in face body and extremities. Coordination is intact in upper and lower extremities. Const: Vital Signs, click to edit/add: Vital Signs - 24 hr 08/25/24 10:51 08/25/24 10:52 08/25/24 10:57 Temperature 98.6 F Pulse Rate 84 78 Pulse Rate [Pulse Oximeter] 82 Pulse Rate [orthos tatic lying] Pulse Rate [orthos tatic sitting] Pulse Rate [orthos tatic standing] Respiratory Rate 12 16 14 Blood Pressure 141/72 H Blood Pressure [Le ft Arm] Blood Pressure [Ri ght Upper Arm] 141/72 H Blood Pressure [or thostatic lying] Blood Pressure [or thostatic sitting] Blood Pressure [or thostatic standing ] Pulse Oximetry 87 L 91 95 Oxygen Delivery Wy thod Room Air Room Air Room Air 08/25/24 11:00 08/25/24 11:00 08/25/24 11:02 Temperature Pulse Rate 82 75 Pulse Rate [Pulse Oximeter] Pulse Rate [orthos tatic lying] Pulse Rate [orthos tatic sitting] Pulse Rate [orthos tatic standing] Respiratory Rate 12 Blood Pressure 150/75 H Blood Pressure [Le ft Arm] Blood Pressure [Ri ght Upper Arm] Blood Pressure [or thostatic lying] Blood Pressure [or thostatic sitting] Blood Pressure [or thostatic standing ] Pulse Oximetry 91 90 90 Oxygen Delivery Wy thod Room Air Room Air 08/25/24 11:03 08/25/24 11:30 08/25/24 11:32 Temperature Pulse Rate 84 83 88 Pulse Rate [Pulse Oximeter] Pulse Rate [orthos tatic lying] Pulse Rate [orthos tatic sitting] Pulse Rate [orthos tatic standing] Respiratory Rate 12 14 Blood Pressure 136/59 L Blood Pressure [Le ft Arm] Blood Pressure [Ri ght Upper Arm] Blood Pressure [or thostatic lying] Blood Pressure [or thostatic sitting] Blood Pressure [or thostatic standing ] Pulse Oximetry 92 93 93 Oxygen Delivery Wy thod Room Air Room Air Room Air 08/25/24 11:45 08/25/24 11:45 08/25/24 11:45 Temperature Pulse Rate Pulse Rate [Pulse Oximeter] Pulse Rate [orthos tatic lying] Pulse Rate [orthos tatic sitting] Pulse Rate [orthos tatic standing] Respiratory Rate Blood Pressure 142/66 H 142/66 H 142/66 H Blood Pressure [Le ft Arm] Blood Pressure [Ri ght Upper Arm] Blood Pressure [or thostatic lying] Blood Pressure [or thostatic sitting] Blood Pressure [or thostatic standing ] Pulse Oximetry Oxygen Delivery Wy thod Room Air Room Air Room Air 08/25/24 11:47 08/25/24 11:48 08/25/24 11:50 Temperature Pulse Rate Pulse Rate [Pulse Oximeter] Pulse Rate [orthos tatic lying] 88 Pulse Rate [orthos tatic sitting] 97 Pulse Rate [orthos tatic standing] 95 Respiratory Rate 9 L 14 Blood Pressure 160/82 H 153/82 H Blood Pressure [Le ft Arm] Blood Pressure [Ri ght Upper Arm] Blood Pressure [or thostatic lying] 142/66 H Blood Pressure [or thostatic sitting] 160/82 H Blood Pressure [or thostatic standing ] 153/82 H Pulse Oximetry Oxygen Delivery Wy thod 08/25/24 12:00 08/25/24 12:02 08/25/24 12:30 Temperature Pulse Rate 89 91 96 Pulse Rate [Pulse Oximeter] Pulse Rate [orthos tatic lying] Pulse Rate [orthos tatic sitting] Pulse Rate [orthos tatic standing] Respiratory Rate 5 L 7 L 14 Blood Pressure 126/85 Blood Pressure [Le ft Arm] Blood Pressure [Ri ght Upper Arm] Blood Pressure [or thostatic lying] Blood Pressure [or thostatic sitting] Blood Pressure [or thostatic standing ] Pulse Oximetry 93 93 91 Oxygen Delivery Me thod 08/25/24 12:32 08/25/24 13:00 08/25/24 13:02 Temperature Pulse Rate 97 105 H 104 H Pulse Rate [Pulse Oximeter] Pulse Rate [orthos tatic lying] Pulse Rate [orthos tatic sitting] Pulse Rate [orthos tatic standing] Respiratory Rate 9 L 38 H 11 L Blood Pressure 145/73 H 150/78 H Blood Pressure [Le ft Arm] Blood Pressure [Ri ght Upper Arm] Blood Pressure [or thostatic lying] Blood Pressure [or thostatic sitting] Blood Pressure [or thostatic standing ] Pulse Oximetry 93 89 89 Oxygen Delivery Me thod 08/25/24 13:03 08/25/24 13:30 08/25/24 13:32 Temperature Pulse Rate 106 H 111 H 109 H Pulse Rate [Pulse Oximeter] Pulse Rate [orthos tatic lying] Pulse Rate [orthos tatic sitting] Pulse Rate [orthos tatic standing] Respiratory Rate 13 16 Blood Pressure 156/126 H Blood Pressure [Le ft Arm] Blood Pressure [Ri ght Upper Arm] Blood Pressure [or thostatic lying] Blood Pressure [or thostatic sitting] Blood Pressure [or thostatic standing ] Pulse Oximetry 91 95 94 Oxygen Delivery Me thod Room Air Room Air Room Air 08/25/24 14:00 08/25/24 14:01 08/25/24 14:30 Temperature Pulse Rate 110 H 111 H 102 H Pulse Rate [Pulse Oximeter] Pulse Rate [orthos tatic lying] Pulse Rate [orthos tatic sitting] Pulse Rate [orthos tatic standing] Respiratory Rate 14 Blood Pressure 146/87 H Blood Pressure [Le ft Arm] Blood Pressure [Ri ght Upper Arm] Blood Pressure [or thostatic lying] Blood Pressure [or thostatic sitting] Blood Pressure [or thostatic standing ] Pulse Oximetry 95 95 95 Oxygen Delivery Me thod Room Air Room Air Room Air 08/25/24 14:32 08/25/24 15:16 08/25/24 17:10 Temperature 97.8 F Pulse Rate 103 H 91 Pulse Rate [Pulse Oximeter] 98 Pulse Rate [orthos tatic lying] Pulse Rate [orthos tatic sitting] Pulse Rate [orthos tatic standing] Respiratory Rate 18 Blood Pressure 138/78 Blood Pressure [Le ft Arm] 148/81 H Blood Pressure [Ri ght Upper Arm] Blood Pressure [or thostatic lying] Blood Pressure [or thostatic sitting] Blood Pressure [or thostatic standing ] Pulse Oximetry 94 94 Oxygen Delivery Me thod Room Air Room Air Hospitalist - H&P: Result Labs Labs: Short CBC 08/25/24 Range/Units 11:25 WBC 6.13 (4.50-11.00) K/uL Hgb 12.3 (12.0-16.0) gm/dL Hct 36.9 (33.0-51.0) % Plt Count 323 (140-440) K/uL BMP 08/25/24 11:25 Sodium 133 L Potassium 3.9 Chloride 101 Carbon Dioxide 24 BUN 17 Creatinine 0.6 Glucose 151 H Calcium 9.1 Cardiac Enzymes 08/25/24 08/25/24 Range/Units 11:25 12:56 Troponin I < 0.01 < 0.01 (0.01-0.04) ng/mL Liver Function 08/25/24 Range/Units 11:25 Total Bilirubin 0.5 (0.1-1.5) mg/dL AST 31 (12-35) U/L ALT 29 (4-35) U/L Alkaline Phosphatase 98 (40-150) U/L Albumin 4.2 (3.3-5.0) g/dL 08/25/2024 EKG: Normal sinus rhythm, 81 beats per minute, cannot rule out anterior infarct, age undetermined. Ordering Physician: Lydia Woodson M.D. Date of Service: 08/25/24 Procedure(s): XR chest 1V portable Accession Number(s): [id number] cc: Jeannette Bernabe M.D.; Lydia Woodson M.D.~ For Patients: As a result of the Cures Act, medical imaging exams and procedure reports are released immediately into your electronic medical record. You may view this report before your referring provider. If you have questions, please contact your health care provider. INDICATION: Syncope TECHNIQUE: Chest radiograph 1 view COMPARISON: 07/29/2024 FINDINGS: The sensitivity and specificity of the exam are moderately limited by the patient`s body habitus. Mediastinum: The mediastinum is normal in appearance. The heart silhouette is normal in size and morphology. Lung: Small lung volumes are noted with mild bibasilar atelectasis. No sign of pleural effusion seen. No pneumothorax is identified. Bone and Soft tissue: Mild dextroscoliosis is noted without change. IMPRESSION: 1. Small lung volumes are noted with mild bibasilar atelectasis. Dictated by Yfn Smyth MD @ 08/25/2024 11:42:54 AM Dictated by: Yfn Smyth MD @ 08/25/2024 11:42:55 (Electronically Signed) Ordering Physician: Carin Farris M.D. Date of Service: 08/25/24 Procedure(s): XR ribs RT 2V Accession Number(s): [id number] cc: Carin Farris M.D.; Jeannette Bernabe M.D.~ For Patients: As a result of the Cures Act, medical imaging exams and procedure reports are released immediately into your electronic medical record. You may view this report before your referring provider. If you have questions, please contact your health care provider. INDICATION: Right chest pain for 3 weeks ago, syncope today, rib feels floppy to patient, injury 3 weeks ago TECHNIQUE: Rib radiograph 3 views right COMPARISON: 08/25/2024 FINDINGS: The sensitivity and specificity of the exam are moderately limited by the patient`s body habitus. Bone: No definite acute rib fractures are identified in the visualized ribs. The remaining osseous structures are unremarkable for age. Lung: Both lungs are unremarkable in appearance. No sign of pleural effusion seen. No pneumothorax is identified. Soft tissue: Unremarkable. The visualized hemithorax is unremarkable in appearance. No radiopaque foreign bodies are seen. IMPRESSION: 1. No acute osseous injuries or abnormalities seen. Dictated by: Yfn Smyth MD @ 08/25/2024 19:20:51 (Electronically Signed)
--- NOTE | 2024-08-25 18:20 | CRLHL7_ITS ---
For Patients: As a result of the Cures Act, medical imaging exams and procedure reports are released immediately into your electronic medical record. You may view this report before your referring provider. If you have questions, please contact your health care provider. INDICATION: Right chest pain for 3 weeks ago, syncope today, rib feels floppy to patient, injury 3 weeks ago TECHNIQUE: Rib radiograph 3 views right COMPARISON: 08/25/2024 FINDINGS: The sensitivity and specificity of the exam are moderately limited by the patient`s body habitus. Bone: No definite acute rib fractures are identified in the visualized ribs. The remaining osseous structures are unremarkable for age. Lung: Both lungs are unremarkable in appearance. No sign of pleural effusion seen. No pneumothorax is identified. Soft tissue: Unremarkable. The visualized hemithorax is unremarkable in appearance. No radiopaque foreign bodies are seen. IMPRESSION: 1. No acute osseous injuries or abnormalities seen. Dictated by: Yfn Smyth MD @ 08/25/2024 19:20:51 (Electronically Signed)
[2024-08-25] MEDS: LOSARTAN POTASSIUM 50 MG TABLET 25 MG PO (21:27)
[2024-08-25] MEDS: SODIUM CHLORIDE 0.9 % (FLUSH) 10 ML SYRINGE 5 ML IVF (21:29)
[2024-08-25] MEDS: NORTRIPTYLINE 10 MG CAPSULE 60 MG PO (22:16)
[2024-08-26 02:47] VITALS: BP 145/74; PULSE 83; RESP 18; TEMP 36.3; O2SAT 92
--- NOTE | 2024-08-26 06:40 | PC.NURSE ---
Shift note ([id number]: Patient pleasant, alert and oriented. Ambulated independently in hallways. BPs ?131/77, 151/79, 145/74. Given Ice Pack for low back pain; declined PRN pain medications at that time. ?
[2024-08-26 06:48] LABS: Hemoglobin A1C* 5.3 % (0-5.6)
[2024-08-26 07:00] VITALS: BP 124/65; PULSE 74; PULSE 89; RESP 18; TEMP 36.7; O2SAT 93
[2024-08-26] MEDS: LOSARTAN POTASSIUM 50 MG TABLET PO (08:27)
--- NOTE | 2024-08-26 10:56 | PC.SOCIAL ---
Discharge planning: Met with pt and provided her with resources on Life Alert, as the pt stated that she is interested in getting Life Alert. Pt was thankful for the information. Social work to follow-up as needed.
[2024-08-26 11:00] VITALS: BP 138/83; PULSE 79; RESP 18; TEMP 36.8; O2SAT 92
[2024-08-26 11:05] VITALS: BP 138/83; BP 143/98; BP 153/79; PULSE 79; PULSE 80; PULSE 91
--- NOTE | 2024-08-26 16:20 | PC.NURSE ---
Discharge: Patient pleasant and cooperative, A&O. VSS, afebrile. Zio patch applied this shift and instructions provided. Discharge instructions provided, all questions answered. Discharged to home.
--- NOTE | 2024-08-26 16:39 | PM.DS1 ---
DS: Providers Provider Date Seen: 08/26/24 Date of admission: 08/25/24 14:57 Primary care physician: Jeannette Bernabe MD Admitting Clinician: Ember Thibodeaux MD Consults: 08/26/24 07:52 Consult to Percussion Tuner [CONS] Routine Comment: Reason for Consult:: Discharge Planning Needs Social Service Consult Attending Physician on discharge: Jacqui Stein MD [facility] Date of Discharge: 08/26/24 DS: Diagnosis Discharge Diagnosis (1) Syncope: Status: Acute Problem details: -neg findings during overnight hospitalization -d/c with Zio patch and PCP f/u -likely vasovagal event. DS: Summary Hospital Course Hospital Course: FINAL DIAGNOSIS/FOLLOW UP ISSUES: BRIEF HOSPITAL COURSE: Patient was admitted for overnight. Synopsis of acute inpatient issues are outlined above. Chronic medical conditions with notable findings outlined above. Melania felt fine after admission. She had an uneventful stay. She denied specifically, chest pain, reoccurrence of that presyncope or syncopal feeling, headache, visual changes. DISCHARGE MEDICATIONS: See Reconciled list - SIGNIFICANT CHANGES: No changes Specific instructions to the patient and follow-up are outlined below. REVIEW OF SYSTEMS No new chest pain or dyspnea Pain controlled No voiding difficulties Tolerating diet challenge PHYSICAL EXAM: CONSTITUTIONAL: Conversive, good historian. A/O. Knows setting and context. GENERAL: Well-developed and above ideal body weight, in no respiratory distress. VITAL SIGNS: see record. HEENT: Sclerae are anicteric. No petechiae. CARDIAC: rhythm is regular. There is no S3 or rub. No harsh murmurs. Extremities show trace edema with symmetrical pulses. PULM: good air entry with no wheeze. NEURO: Speech is fluent. A brief neurologic exam is negative. SKIN: No rashes, petechiae, concerning changes PSYCHIATRIC: Euthymic. DISPOSITION: home with friend Time spent on discharge 37 minutes. Status at Discharge Functional status at discharge: independent ambulation Overall status at discharge: patient is not back to baseline Time Spent with Patient Time attestation: Total time spent providing and/or coordinating discharge services: Time spent: Greater than 30 minutes Exam Const: Vital Signs, click to edit/add: Vital Signs - 24 hr 08/25/24 17:10 08/25/24 19:00 08/25/24 22:19 Temperature 97.9 F Pulse Rate 91 Pulse Rate [Pulse Oximeter] 89 Pulse Rate [orthos tatic lying] 71 Pulse Rate [orthos tatic sitting] 70 Pulse Rate [orthos tatic standing] 83 Respiratory Rate 18 Blood Pressure [Le ft Arm] 131/77 Blood Pressure [or thostatic lying] 151/79 H Blood Pressure [or thostatic sitting] 174/92 H Blood Pressure [or thostatic standing ] 171/95 H Pulse Oximetry 92 Oxygen Delivery Oh thod Room Air 08/25/24 22:19 08/25/24 22:19 08/25/24 23:00 Temperature 97.7 F Pulse Rate 79 Pulse Rate [Pulse Oximeter] 71 Pulse Rate [orthos tatic lying] Pulse Rate [orthos tatic sitting] Pulse Rate [orthos tatic standing] Respiratory Rate 16 16 Blood Pressure [Le ft Arm] 151/79 H Blood Pressure [or thostatic lying] Blood Pressure [or thostatic sitting] Blood Pressure [or thostatic standing ] Pulse Oximetry 97 97 [facility] 08/26/24 02:47 08/26/24 07:00 08/26/24 07:00 Temperature 97.4 F L 98.0 F Pulse Rate Pulse Rate [Pulse Oximeter] 83 89 Pulse Rate [orthos tatic lying] Pulse Rate [orthos tatic sitting] Pulse Rate [orthos tatic standing] Respiratory Rate 18 18 18 Blood Pressure [Le ft Arm] 145/74 H 124/65 Blood Pressure [or thostatic lying] Blood Pressure [or thostatic sitting] Blood Pressure [or thostatic standing ] Pulse Oximetry 92 93 93 Oxygen Delivery Oh thod Room Air Room Air Room Air 08/26/24 07:00 08/26/24 07:00 08/26/24 11:00 Temperature 98.3 F Pulse Rate 74 Pulse Rate [Pulse Oximeter] 89 79 Pulse Rate [orthos tatic lying] Pulse Rate [orthos tatic sitting] Pulse Rate [orthos tatic standing] Respiratory Rate 18 18 Blood Pressure [Le ft Arm] 138/83 Blood Pressure [or thostatic lying] Blood Pressure [or thostatic sitting] Blood Pressure [or thostatic standing ] Pulse Oximetry 92 Oxygen Delivery Oh thod Room Air 08/26/24 11:05 Temperature Pulse Rate Pulse Rate [Pulse Oximeter] Pulse Rate [orthos tatic lying] 79 Pulse Rate [orthos tatic sitting] 80 Pulse Rate [orthos tatic standing] 91 Respiratory Rate Blood Pressure [Le ft Arm] Blood Pressure [or thostatic lying] 138/83 Blood Pressure [or thostatic sitting] 153/79 H Blood Pressure [or thostatic standing ] 143/98 H Pulse Oximetry Oxygen Delivery Me thod DS: Data Data Completed and Pending Labs on day of discharge: Labs from last 24 hours 08/26/24 06:06 Hemoglobin A1c 5.3 Discharge Plan Discharge Disposition: Home, Self-Care Date of Admission: 08/25/24 14:57 Attending Provider on Discharge: Jacqui Stein Primary Care Provider: Jeannette Bernabe Condition: Stable Anticipated Discharge Date/Time: 08/26/24 13:57 Discharge Medications: Continued nortriptyline 10 mg capsule 60 mg PO HS losartan [Cozaar] 25 mg tablet See Rx Instructions .ROUTE .COMPLEX Rx Instructions: Takes 50mg in AM and 25mg in PM Discharge Orders: Discharge Order (Routine); Ordered 08/26/24 Ordered By: Jacqui Stein Patient Education: Syncope (DC), Zio (Home Heart Monitor) Activity Level: Activity as Tolerated Discharge Diet: Regular Follow Up Appointments: Jeannette Bernabe MD [Primary Care Provider] - 09/17/24 2:40 pm ( ) Forms: MyHealth Info Instructions
== END 2024-08-26 14:46 | disposition home or self-care (01) ==
LOC: ED 14:38 → MEDSURG 14:58
PROVIDERS: Family Medicine; Admitting Provider Family Medicine; Emergency Provider Family Medicine; PCP Family Medicine; Visit Provider Family Medicine
DX: R55 Syncope and collapse (principal); I10 Essential (primary) hypertension; M81.0 Age-related osteoporosis without current pathological fracture; G35 Multiple sclerosis; Z13.29 Encounter for screening for other suspected endocrine disorder; E66.9 Obesity, unspecified; R73.9 Hyperglycemia, unspecified; Z87.891 Personal history of nicotine dependence; M48.061 Spinal stenosis, lumbar region without neurogenic claudication; Z87.19 Personal history of other diseases of the digestive system
CPT/HCPCS: 36415; 71045; 71100; 80053; 83036; 83605; 83735; 83880; 84484; 85025; 85379; 86140; 87637; 93005; 93246; 94761; 99284; 99285; A9270; G0378

== ENCOUNTER 2024-09-18 22:06 | Emergency (ER) | payer MEDICARE, OTHER, SELFPAY ==
--- OUTSIDE RECORDS SUMMARY | 2024-09-18 22:08 | XMS_ITS | Continuity of Care Document ---
Author Organization [place] [facility] Address [address] [place] [address] Assessment Encounter Date Assessment Date Assessment LastModified [...] Organization Details Last Modified Time Details Appointments DC Treatment 2024 02:35P M Chintan Kohler DC Not available Not available Not available Lab None recorded. Referral None recorded. Procedures None recorded. Surgeries None recorded. Imaging None recorded. Medication Orders None recorded. Patient TargetsNo targets recorded. Patient InstructionsNo instructions recorded. Reason for Referral None Reported. Problems Name Problem SNOMED Code Status Onset Date Resolution Date Notes Provider Name and Address Organization Details Recorded Time Neck pain 19343519 Active 2024 Arsalan Dc DC [address] [facility], [place], [address], [facility] 10:41:22 Cervical segmental dysfunction 496033182 Active 2024 Arsalan Dc DC [address] [facility] [address], [place], [address], [place] [facility] 10:41:27 Lesion of lumbar spine 466450012 Active 2024 Chintan KohlerSHEFFIELD, [place] [address] [facility], [place], [address], [facility] [place] [facility] 5 10:36:57 Thoracic segmental dysfunction 234449871 Active 2023 Arsalan Dc DC [address] [facility], [place], [address], [place] [facility] 17:53:01 Low back pain 067950548 Active 2023 Arsalan Dc DC [address] [facility], [place], [address], [facility] [place] [facility] 4 17:53:01 Lumbar segmental dysfunction 212637708 Active 2023 Arsalan Dc DC [address] [facility], [place], [address], [facility] 4 17:53:01 Somatic dysfunction of sacral spine 082691651 Active 2023 Arsalan Dc, [place] [address] [facility] [facility] [address], [place], [address], [facility] 4 17:53:01 Somatic dysfunction of pelvic region 214829092 Active 2023 Arsalan Dc, TANGELA [address] [facility], [place], [address], [facility] 4 16:00:35 Problem Notes None recorded. Procedures Surgical History Date Name Laterality Status Provider Name and Address Organization Details Recorded Time 5 24613: Spinal manipulation , 3 to 4 regions completed Chintan Kohler [place] [address] [facility] [address], [place], [address], [facility] 09/18/2024 20:39:50 5 79453: Spinal manipulation , 3 to 4 regions completed [facility] Sherif Kohler [place] [address] [facility] [address], [place], [address], [facility] 09/11/2024 16:19:20 5 84506: Spinal manipulation , 3 to 4 regions completed Chintan Kohler, [address], [place], [address], [facility] 09/04/2024 19:45:53 5 90948: Spinal manipulation , 3 to 4 regions completed Chintan Kohler, [place] [address] [facility], [place], [address], [facility] 08/28/2024 19:29:31 5 43606: Spinal manipulation , 3 to 4 regions completed Chintan Kohler, [place] [address] [facility] [facility] [address], [place], [address], [facility] 08/15/2024 10:50:31 5 20011: Spinal manipulation , 3 to 4 regions completed Chintan Bridgesjennifercatina, [address], [place], [address], [place] [facility] 08/08/2024 10:36:05 5 45751: Spinal manipulation , 3 to 4 regions completed Chintan Kohler DC [address] [facility], [place], [address], [place] [facility] 07/24/2024 17:24:59 5 51025: Spinal manipulation , 3 to 4 regions completed Chintan Kohler DC [address] [facility], [place], [address], [place] [facility] 07/22/2024 18:24:19 5 27718: Spinal manipulation , 3 to 4 regions completed Roni Anderson DC [address] [facility], [place], [address], [facility] [facility] 07/19/2024 13:59:35 5 79077: Spinal manipulation , 3 to 4 regions completed Chintan Kohler DC [address] [facility], [place], [address], [place] [facility] 07/12/2024 19:11:44 5 95788: Spinal manipulation , 3 to 4 regions completed Arsalan Dc DC [address] [facility] [address], [place], [address], [place] [facility] 07/16/2024 10:41:16 5 74472: Spinal manipulation , 3 to 4 regions completed Arsalan Dc DC [address] [facility] [address], [place], [address], [place] [facility] 06/13/2024 16:09:29 5 93423: Spinal manipulation , 3 to 4 regions completed Arsalan Dc DC [address] [facility], [place], [address], [facility] [facility] 05/30/2024 15:48:40 5 56319: Spinal manipulation , 3 to 4 regions completed Arsalan Dc DC [address] [facility] [address], [place], [address], [facility] [place] [facility] 05/16/2024 16:14:08 4 58679: Spinal manipulation , 3 to 4 regions completed Arsalan Dc, TANGELA [address] [facility] [facility], [place], [address], [facility] 05/14/2024 11:46:50 4 08131: Spinal manipulation , 3 to 4 regions completed Arsalan Dc, TANGELA [address] [facility], [place], [address], [facility] [place] [facility] 04/25/2024 16:00:07 4 57553: Spinal manipulation , 3 to 4 regions completed Arsalan Dc, TANGELA [address] [facility], [place], [address], [facility] 04/18/2024 17:53:33 Imaging Results None [...] Insert 1 gram into the vagina every Monday and Monday.* active Not Available Not [...] SNOMED-CT Code Diagnosis ICD10 Code Diagnosis Note [id number] R[facility] & [address] [place] [address] 07/19/2024 12:23:03 07/19/2024 15:12:15 Somatic dysfunction of sacral spine 806217901 M99.04 Thoracic s egmental dysfunction 066268128 M99.02 Somatic dy sfunction of pelvic region 254181502 M99.05 Low back pain 526617609 M54.50 [id number] [facility] & [address] [place] [address] 07/22/2024 11:54:25 07/23/2024 18:33:07 Somatic dysfunction of sacral spine 010190897 M99.04 Thoracic s egmental dysfunction 758467017 M99.02 Somatic dy sfunction of pelvic region 861900485 M99.05 Low back pain 725667060 M54.50 [id number] [facility] & [address] [place] [address] 07/24/2024 12:24:44 07/24/2024 17:36:13 Somatic dysfunction of sacral spine 728121979 M99.04 Thoracic s egmental dysfunction 779841130 M99.02 Somatic dy sfunction of pelvic region 799904313 M99.05 Low back pain 546299948 M54.50 [id number] [facility] & [address] [place] [address] 08/07/2024 12:42:42 08/08/2024 10:53:14 Thoracic segmental dysfunction 230898849 M99.02 Somatic dy sfunction of pelvic region 785204290 M99.05 Low back pain 604278641 M54.50 Lesion of lumbar spine 372567551 M99.01 Neck pain 07132107 M54.2 Lumbar seg mental dysfunction 454375392 M99.03 Cervical s egmental dysfunction 046215319 M99.01 Health Concerns Section Related Observation LastModified by Organization Detai ls LastModified Time None Recorded Concern Status LastModified by Organization Details LastModified Time None Recorded Payers Encounter Date Sequence Insurance Name Policy Number Policy Poe Covered Member ID Poe Member ID Guarantor Name 08/14/2024 1 [place]: [employer] [facility] Lelia Vizcarra [id number] 5 Lelia Vizcarra Notes Date Note Type Note Provider Name and Address Organization Details Recorded Time 08/14/2024 text/html HPI - Cervical SpineReported bypatient.Location: left Quality:aching Severity:moderate Duration:2 weeks Timing:gradual Alleviating Factors:ice Aggravating Factors:sitting Associated Symptoms:no numbness/tinglingHP I - Lumbar SpineReported bypatient.Location: left; With radiation to knee Quality:aching Severity:not changing Timing:morning Aggravating Factors:standing Alleviating Factors:ice Chintan Kohler DC [address] [facility] [facility] [address], [place], [address], [facility] 08/15/2024 10:50:58 OBGyn Episode No OBEpisode recorded.
--- OUTSIDE RECORDS SUMMARY | 2024-09-18 22:08 | XMS_ITS | Clinical Summary ---
Author Organization [facility] Address [address] [place] [address] Care Team Providers Care Supervisor Lathing Name Role Phone Mayuri Cote MD Unavailable [...] (100 mcg) by mouth once daily. Active estradioL (ESTRACE) 0.01 % (0.1 mg/gram) Vagl cream vaginal cream Insert 1 gram into the vagina every Monday and Monday.* 08/19/2024 Active VITAMIN K2 ORAL Take by mouth. Active Magnesium Chloride 64 mg oral delayed release tablet Take 1 tablet (64 mg) by mouth once daily. Active CALCIUM ORAL Take by mouth. Active ZINC ORAL Take by mouth. Active nortriptyline (PAMELOR) 10 mg oral capsule TAKE SEVEN CAPSULES BY MOUTH EVERY DAY AT BEDTIME 630 capsule 3 09/03/2024 Active Active Problems Problem Noted Date Diagnosed Date Vitamin D deficiency, unspecified 07/16/2014 History of colonic polyps 07/08/2010 Overview (08/30/2024): Colonoscopy 06/2010 polyp repeat in 5 years Colonoscopy 12/2013 int hemorrhoids repeat in 5 years Encounters Date Type Department Care Team Description 09/03/2024 3:00 PM CDT Office Visit [facility] [address] [address] Mayuri Cote MD Multiple sclerosis (HCC) (Primary Dx) from Last 3 Months Immunizations Name Administration Dates Next Due [employer] 12+ Yrs Monovalent [place] VID Vaccine (purple [...] Sign Reading Time Taken Comments Blood Pressure 145/86 09/03/2024 2:44 PM CDT Pulse 80 09/03/2024 2:44 PM CDT Temperature - - Respiratory Rate - [...] 08/20/2020, 07/30/2020 Influenza Vaccine (Season Ended) 2025 Medicare Wellness Visit 06/28/2025 06/28/19 25, 06/27/2023, 06/24/2022, Additional history exists Osteoporosis Screening 08/14/2026 , 08/11/2022, 11/22/2016 Adult Tetanus Booster 08/27/2031 08/26/2021 , 09/14/2011, 09/16/2002 Hepatitis C Screening Completed 05/31/2016 Insurance MEDICARE PART A & [place] [facility] [address] Care Teams Supervisor Lathing Relationship Specialty Start Date End Date Runzheimer, Jeannette Brenda, MD [address] [place] [address] PCP - General 06/24/21 Mayuri Cote MD Physician Neurology 06/23/21 Lilly Harris PA-C Physician [facility] 06/23/21
--- OUTSIDE RECORDS SUMMARY | 2024-09-18 22:09 | XMS_ITS | Continuity of Care Document ---
Author Organization [place] [facility] Address [address] [facility] [address] [place] [address] Assessment Encounter Date Assessment Date Assessment LastModified by Organization Details LastModified Time 09/18/2024 09/18/2024 ASSESSMENT: Patient is a good candidate for [...] to contact our office. [email or web address] Not available 09/18/2024 20:39:50 Plan of Treatment Reminders Order Date Submit Date Provider Last Modified By Organization Details Last Modified Time Details Appointments DC Treatment 05 2024 02:35P M [place], [place] Not available Not available Not available Lab None recorded. Referral None recorded. Procedures None recorded. Surgeries None recorded. Imaging None recorded. Medication Orders None recorded. Patient TargetsNo targets recorded. Patient InstructionsNo instructions recorded. Reason for Referral None Reported. Problems Name Problem SNOMED Code Status Onset Date Resolution Date Notes Provider Name and Address Organization Details Recorded Time Neck pain 13548160 Active 2024 Arsalan Dc, TANGELA [address] [facility], [place], [address], [place] [facility] 5 10:41:22 Cervical segmental dysfunction 241949514 Active 2024 Arsalan Dc DC [address] [facility], [place] art[place], [address], [place] [facility] 5 10:41:27 Lesion of lumbar spine 597430089 Active 2024 Chintan Kohler DC [address] [facility], [place], [address], [place] [facility] 5 10:36:57 Thoracic segmental dysfunction 942413224 Active 2023 Arsalan Dc DC [address] [facility], [place], [address], [place] [facility] 4 17:53:01 Low back pain 958803748 Active 2023 Arsalan Dc DC [address] [facility], [place], [address], [place] [facility] 4 17:53:01 Lumbar segmental dysfunction 100486585 Active 2023 Arsalan Dc DC [address] [facility], [place], [address], [place] [facility] 4 17:53:01 Somatic dysfunction of sacral spine 578377770 Active 2023 Arsalan Dc DC [address] [facility], [place], [address], [place] [facility] 4 17:53:01 Somatic dysfunction of pelvic region 417110739 Active 2023 Arsalan Dc DC [address] [facility], [place], [address], [place] [facility] 4 16:00:35 Problem Notes None recorded. Procedures Surgical History Date Name Laterality Status Provider Name and Address Organization Details Recorded Time 5 34143: Spinal manipulation , 3 to 4 regions completed Chintan Kohler AL [address] [facility], [place], [address], [place] [facility] 09/18/2024 20:39:50 5 47620: Spinal manipulation , 3 to 4 regions completed Chintan Kohler, [place] [address] [facility], [place], [address], [place] [facility] 09/11/2024 16:19:20 5 06488: Spinal manipulation , 3 to 4 regions completed Chintan Kohler AL [address] [facility], [place], [address], [place] [facility] 09/04/2024 19:45:53 5 62311: Spinal manipulation , 3 to 4 regions completed [facility] Sherif Bridgesjennifercatina [place] [address] [facility], [place], [address], [place] [facility] 08/28/2024 19:29:31 5 53972: Spinal manipulation , 3 to 4 regions completed Chintan Bridgesjennifercatina AL [address] [facility], [place], [address], [place] [facility] 08/15/2024 10:50:31 5 54546: Spinal manipulation , 3 to 4 regions completed [facility] Sherif Bridgesjennifercatina [place] [address] [facility], [place], [address], [place] [facility] 08/08/2024 10:36:05 5 10543: Spinal manipulation , 3 to 4 regions completed Chintan Kohler AL [address] [facility], [place], [address], [place] [facility] 07/24/2024 17:24:59 5 12339: Spinal manipulation , 3 to 4 regions completed Cihntan Kohler AL [address] [facility], [place], [address], [place] [facility] 07/22/2024 18:24:19 5 81643: Spinal manipulation , 3 to 4 regions completed Ronimireya Anderson DC [address] [facility], [place], [address], [place] [facility] 07/19/2024 13:59:35 5 20457: Spinal manipulation , 3 to 4 regions completed Chintan Kohler DC [address] [facility], [place], [address], [place] [facility] 07/12/2024 19:11:44 5 20339: Spinal manipulation , 3 to 4 regions completed Arsalan Dc DC [address] [facility], [place], [address], [place] [facility] 07/16/2024 10:41:16 5 19392: Spinal manipulation , 3 to 4 regions completed Arsalan Dc DC [address] [facility], [place], [address], [place] [facility] 06/13/2024 16:09:29 5 21762: Spinal manipulation , 3 to 4 regions completed Arsalan Dc DC [address] [facility], [place], [address], [place] [facility] 05/30/2024 15:48:40 5 91923: Spinal manipulation , 3 to 4 regions completed Arsalan Dc DC [address] [facility], [place], [address], [place] [facility] 05/16/2024 16:14:08 4 96852: Spinal manipulation , 3 to 4 regions completed Arsalan Dc DC [address] [facility], [place], [address], [place] [facility] 05/14/2024 11:46:50 4 67381: Spinal manipulation , 3 to 4 regions completed Arsalan Dc DC [address] [facility], [place], [address], [place] [facility] 04/25/2024 16:00:07 4 20901: Spinal manipulation , 3 to 4 regions completed Arsalan Dc DC [address] [facility], [place], [address], [facility] 04/18/2024 17:53:33 Imaging Results None recorded. [...] SNOMED-CT Code Diagnosis ICD10 Code Diagnosis Note [id number] Chintan Sherif TANGELA Kohler [facility] [address] [facility] [place] [address] 08/28/2024 16:23:40 08/30/2024 15:51:18 Thoracic segmental dysfunction 121425536 M99.02 Somatic dy sfunction of pelvic region 625619730 M99.05 Low back pain 479684696 M54.50 Lesion of lumbar spine 565818392 M99.01 Neck pain 77149841 M54.2 Lumbar seg mental dysfunction 776011207 M99.03 Cervical s egmental dysfunction 077877368 M99.01 [id number] Chintan Kohler DC [facility] [address] [place] [address] 09/04/2024 16:32:03 09/06/2024 18:17:46 Thoracic segmental dysfunction 540702539 M99.02 Somatic dy sfunction of pelvic region 660700543 M99.05 Low back pain 033326065 M54.50 Lesion of lumbar spine 023532678 M99.01 Neck pain 11276974 M54.2 Lumbar seg mental dysfunction 997496022 M99.03 Cervical s egmental dysfunction 222035811 M99.01 [id number] Chintan Kohler DC [facility] & [address] [place] [address] 09/11/2024 11:54:20 09/11/2024 16:29:18 Lumbar segmental dysfunction 889122310 M99.03 Low back pain 631302244 M54.50 Somatic dy sfunction of sacral spine 753163083 M99.04 Thoracic s egmental dysfunction 809089668 M99.02 [id number] Chintan Kohler DC [address] [place] [address] 09/18/2024 15:41:57 09/18/2024 20:40:09 Lumbar segmental dysfunction 162350895 M99.03 Low back pain 295009687 M54.50 Somatic dy sfunction of sacral spine 059401903 M99.04 Thoracic s egmental dysfunction 672890231 M99.02 Health Concerns Section Related Observation LastModified by Organization Detai ls LastModified Time None Recorded Concern Status LastModified by Organization Details LastModified Time None Recorded Payers Encounter Date Sequence Insurance Name Policy Number Policy Poe Covered Member ID Poe Member ID Guarantor Name 09/18/2024 1 [place] [employer] Lelia Vizcarra [id number] 5 Lelia Vizcarra Notes Date Note Type Note Provider Name and Address Organization Details Recorded Time 09/18/2024 text/html HPI - Lumbar SpineReported bypatient.Location: left Quality:aching Severity:moderate Timing:morning Aggravating Factors:walking; lifting; carrying; twisting Alleviating Factors:rest Chintan Kohler DC [address] [facility], [place], [address], [facility] 09/18/2024 20:40:06 OBGyn Episode No OBEpisode recorded.
--- OUTSIDE RECORDS SUMMARY | 2024-09-18 22:09 | XMS_ITS | Continuity of Care Document ---
Author Organization [place] [facility] Address [address] [facility] [address] [place] [address] Assessment Encounter Date Assessment Date Assessment LastModified by Organization Details LastModified Time 09/04/2024 09/04/2024 ASSESSMENT: Patient is a good candidate for [...] to contact our office. [email or web address] Not available 09/04/2024 19:46:02 Plan of Treatment Reminders Order Date Submit Date Provider Last Modified By Organization Details Last Modified Time Details Appointments DC Treatment 2024 02:35P M Chintan Kohler [place] Not available Not available Not available Lab None recorded. Referral None recorded. Procedures None recorded. Surgeries None recorded. Imaging None recorded. Medication Orders None recorded. Patient TargetsNo targets recorded. Patient InstructionsNo instructions recorded. Reason for Referral None Reported. Problems Name Problem SNOMED Code Status Onset Date Resolution Date Notes Provider Name and Address Organization Details Recorded Time Neck pain 81755745 Active 2024 Arsalan Dc, TANGELA [address] [facility], [place], [address], [place] [facility] 5 10:41:22 Cervical segmental dysfunction 069242294 Active 2024 Arsalan Dc DC [address] [facility], [place], [address], [place] [facility] 5 10:41:27 Lesion of lumbar spine 583507776 Active 2024 Chintan Kohler DC [address] [facility], [place], [address], [place] [facility] 5 10:36:57 Thoracic segmental dysfunction 057311138 Active 2023 Arsalan Dc DC [address] [facility], [place], [address], [place] [facility] 4 17:53:01 Low back pain 153571046 Active 2023 Arsalan Dc DC [address] [facility], [place], [address], [place] [facility] 4 17:53:01 Lumbar segmental dysfunction 880508638 Active 2023 Arsalan Dc DC [address] [facility], [place], [address], [place] [facility] 4 17:53:01 Somatic dysfunction of sacral spine 010826641 Active 2023 Arsalan Dc DC [address] [facility], [place], [address], [place] [facility] 4 17:53:01 Somatic dysfunction of pelvic region 764945279 Active 2023 Arsalan Dc DC [address] [facility], [place], [address], [place] [facility] 4 16:00:35 Problem Notes None recorded. Procedures Surgical History Date Name Laterality Status Provider Name and Address Organization Details Recorded Time 5 71682: Spinal manipulation , 3 to 4 regions completed Chintan Kohler [place] [address] [facility], [place], [address], [place] [facility] 09/18/2024 20:39:50 5 02793: Spinal manipulation , 3 to 4 regions completed Chintan Kohler, [place] [address] [facility], [place], [address], [place] [facility] 09/11/2024 16:19:20 5 23722: Spinal manipulation , 3 to 4 regions completed Chintan Kohler [place] [address] [facility], [place], [address], [place] [facility] 09/04/2024 19:45:53 5 08701: Spinal manipulation , 3 to 4 regions completed [facility] Sherif Bridgesjennifercatina [place] [address] [facility], [place], [address], [place] [facility] 08/28/2024 19:29:31 5 17827: Spinal manipulation , 3 to 4 regions completed Chintan Bridgesjennifercatina [place] [address] [facility], [place], [address], [place] [facility] 08/15/2024 10:50:31 5 23492: Spinal manipulation , 3 to 4 regions completed [facility] Sherif Bridgesjennifercatina [place] [address] [facility], [place], [address], [place] [facility] 08/08/2024 10:36:05 5 62121: Spinal manipulation , 3 to 4 regions completed Chintan Kohler [place] [address] [facility], [place], [address], [place] [facility] 07/24/2024 17:24:59 5 19856: Spinal manipulation , 3 to 4 regions completed Chintan Kohler [place] [address] [facility], [place], [address], [place] [facility] 07/22/2024 18:24:19 5 50206: Spinal manipulation , 3 to 4 regions completed Ronimireya Anderson DC [address] [facility], [place], [address], [place] [facility] 07/19/2024 13:59:35 5 23939: Spinal manipulation , 3 to 4 regions completed Chintan Kohler DC [address] [facility], [place], [address], [place] [facility] 07/12/2024 19:11:44 5 48558: Spinal manipulation , 3 to 4 regions completed Arsalan Dc DC [address] [facility], [place], [address], [place] [facility] 07/16/2024 10:41:16 5 69583: Spinal manipulation , 3 to 4 regions completed Arsalan Dc DC [address] [facility], [place], [address], [place] [facility] 06/13/2024 16:09:29 5 76125: Spinal manipulation , 3 to 4 regions completed Arsalan Dc DC [address] [facility], [place], [address], [place] [facility] 05/30/2024 15:48:40 5 95959: Spinal manipulation , 3 to 4 regions completed Arsalan Dc DC [address] [facility], [place], [address], [place] [facility] 05/16/2024 16:14:08 4 53710: Spinal manipulation , 3 to 4 regions completed Arsalan Dc DC [address] [facility], [place], [address], [place] [facility] 05/14/2024 11:46:50 4 36924: Spinal manipulation , 3 to 4 regions completed Arsalan Dc DC [address] [facility], [place], [address], [place] [facility] 04/25/2024 16:00:07 4 68776: Spinal manipulation , 3 to 4 regions completed Arsalan Dc DC [address] [facility], [place], [address], [facility] 04/18/2024 17:53:33 Imaging Results None recorded. [...] SNOMED-CT Code Diagnosis ICD10 Code Diagnosis Note [id number] Chintan Gorman TANGELA Kohler [facility] [address] [facility] [place] [address] 08/07/2024 12:42:42 08/08/2024 10:53:14 Thoracic segmental dysfunction 316684560 M99.02 Somatic dy sfunction of pelvic region 210837748 M99.05 Low back pain 697463855 M54.50 Lesion of lumbar spine 151258151 M99.01 Neck pain 31992595 M54.2 Lumbar seg mental dysfunction 322970854 M99.03 Cervical s egmental dysfunction 177665081 M99.01 [id number] Chintan Sherif Kohler DC [facility] [address] [place] [address] 08/15/2024 10:21:59 08/15/2024 11:55:34 Thoracic segmental dysfunction 611831667 M99.02 Somatic dy sfunction of pelvic region 394144364 M99.05 Low back pain 067935619 M54.50 Lesion of lumbar spine 136007915 M99.01 Neck pain 86104892 M54.2 Lumbar seg mental dysfunction 585446674 M99.03 Cervical s egmental dysfunction 112664127 M99.01 [id number] Chintan Kohler DC [facility] & [address] [place] [address] 08/28/2024 16:23:40 08/30/2024 15:51:18 Thoracic segmental dysfunction 721428033 M99.02 Somatic dy sfunction of pelvic region 356077711 M99.05 Low back pain 425038261 M54.50 Lesion of lumbar spine 783987541 M99.01 Neck pain 74854358 M54.2 Lumbar seg mental dysfunction 032540135 M99.03 Cervical s egmental dysfunction 823342115 M99.01 [id number] Chintan Kohler DC [facility] & [address] [place] [address] 09/04/2024 16:32:03 09/06/2024 18:17:46 Thoracic segmental dysfunction 628202862 M99.02 Somatic dy sfunction of pelvic region 069889005 M99.05 Low back pain 598482263 M54.50 Lesion of lumbar spine 876535415 M99.01 Neck pain 44488088 M54.2 Lumbar seg mental dysfunction 526394090 M99.03 Cervical s egmental dysfunction 746156958 M99.01 Health Concerns Section Related Observation LastModified by Organization Detai ls LastModified Time None Recorded Concern Status LastModified by Organization Details LastModified Time None Recorded Payers Encounter Date Sequence Insurance Name Policy Number Policy Poe Covered Member ID Poe Member ID Guarantor Name 09/04/2024 1 [place] [employer] Lelia Motley Zackery [id number] 5 Lelia Vizcarra Notes Date Note Type Note Provider Name and Address Organization Details Recorded Time 09/04/2024 text/html HPI - Cervical SpineReported bypatient.Location: left Quality:aching Severity:moderate Duration:2 weeks Timing:gradual Alleviating Factors:ice Aggravating Factors:sitting Associated Symptoms:no numbness/tinglingHP I - Lumbar SpineReported bypatient.Location: left; With radiation to knee Quality:aching Severity:not changing Timing:morning Aggravating Factors:standing Alleviating Factors:ice Chintan Kohler DC [address] [facility], [place], [address], [facility] - [facility] 09/04/2024 19:46:12 OBGyn Episode No OBEpisode recorded.
--- OUTSIDE RECORDS SUMMARY | 2024-09-18 22:09 | XMS_ITS | Continuity of Care Document ---
Author Organization [place] [facility] Address [address] [place] [address] Assessment Encounter Date Assessment Date Assessment LastModified by Organization Details LastModified Time 08/28/2024 08/28/2024 ASSESSMENT: Patient is a good candidate for [...] to contact our office. [email or web address] Not available 08/28/2024 19:29:31 Plan of Treatment Reminders Order Date Submit [...] Address Organization Details Recorded Time Neck pain 17588365 Active 2024 Arsalan Dc DC [address], [place], [address], [facility] [place] [facility] 10:41:22 Cervical segmental dysfunction 279285155 Active 2024 Arsalan Dc DC [address], [place], [address], [place] [facility] 10:41:27 Lesion of lumbar spine 381153449 Active 2024 [place] [address], [place], [address], [facility] [place] [facility] 5 10:36:57 Thoracic segmental dysfunction 856846698 Active 2023 Arsalan Dc DC [address], [place], [address], [place] [facility] 4 17:53:01 Low back pain 087453046 Active 2023 Arsalan Dc DC [address], [place], [address], [facility] [place] [facility] 4 17:53:01 Lumbar segmental dysfunction 898551591 Active 2023 Arsalan Dc DC [address], [place], [address], [facility] 4 17:53:01 Somatic dysfunction of sacral spine 806110343 Active 2023 Arsalan Dc, ID [address], [place], [address], [facility] 4 17:53:01 Somatic dysfunction of pelvic region 893155814 Active 2023 Arsalan Dc, TANGELA [address], [place], [address], [facility] 4 16:00:35 Problem Notes None recorded. Procedures Surgical History Date Name Laterality Status Provider Name and Address Organization Details Recorded Time 5 45425: Spinal manipulation , 3 to 4 regions completed Chintan Kohler ID [address], [place], [address], [facility] 09/18/2024 20:39:50 5 67460: Spinal manipulation , 3 to 4 regions completed [facility] Sherif Kohler ID [address], [place], [address], [facility] 09/11/2024 16:19:20 5 75144: Spinal manipulation , 3 to 4 regions completed Chintan Kohler, [address], [place], [address], [facility] 09/04/2024 19:45:53 5 33725: Spinal manipulation , 3 to 4 regions completed Chintan Kohler, [place] [address], [place], [address], [facility] 08/28/2024 19:29:31 5 22985: Spinal manipulation , 3 to 4 regions completed Chintan Kohler, [place] [address], [place], [address], [facility] 08/15/2024 10:50:31 5 14744: Spinal manipulation , 3 to 4 regions completed Chintan [place], [address], [place], [address], [place] [facility] 08/08/2024 10:36:05 5 74169: Spinal manipulation , 3 to 4 regions completed Chintan Kohler DC [address], [place], [address], [place] [facility] 07/24/2024 17:24:59 5 54982: Spinal manipulation , 3 to 4 regions completed Chintan Kohler DC [address], [place], [address], [place] [facility] 07/22/2024 18:24:19 5 22329: Spinal manipulation , 3 to 4 regions completed Roni Anderson DC [address], [place], [address], [facility] [place] [facility] 07/19/2024 13:59:35 5 43631: Spinal manipulation , 3 to 4 regions completed Chintan Kohler DC [address], [place], [address], [place] [facility] 07/12/2024 19:11:44 5 79298: Spinal manipulation , 3 to 4 regions completed Arsalan Dc DC [address], [place], [address], [place] [facility] 07/16/2024 10:41:16 5 88974: Spinal manipulation , 3 to 4 regions completed Arsalan Dc DC [address], [place], [address], [place] [facility] 06/13/2024 16:09:29 5 95081: Spinal manipulation , 3 to 4 regions completed Arsalan Dc DC [address], [place], [address], [facility] [place] [facility] 05/30/2024 15:48:40 5 88831: Spinal manipulation , 3 to 4 regions completed Arsalan Dc DC [address], [place], [address], [facility] [place] [facility] 05/16/2024 16:14:08 4 36700: Spinal manipulation , 3 to 4 regions completed Arsalan Dc, TANGELA [address], [place], [address], [facility] 05/14/2024 11:46:50 4 85575: Spinal manipulation , 3 to 4 regions completed Arsalan Dc, TANGELA [address], [place], [address], [facility] [place] [facility] 04/25/2024 16:00:07 4 81112: Spinal manipulation , 3 to 4 regions completed Arsalan Dc, TANGELA [address], [place], [address], [facility] 04/18/2024 17:53:33 Imaging Results None [...] SNOMED-CT Code Diagnosis ICD10 Code Diagnosis Note [id number] Chintan Kohler DC [address] [place] [address] 08/07/2024 12:42:42 08/08/2024 10:53:14 Thoracic segmental dysfunction 847369631 M99.02 Somatic dy sfunction of pelvic region 004772424 M99.05 Low back pain 684286386 M54.50 Lesion of lumbar spine 370230203 M99.01 Neck pain 87921731 M54.2 Lumbar seg mental dysfunction 245451070 M99.03 Cervical s egmental dysfunction 361725918 M99.01 [id number] Chintan Kohler DC [address] [place] [address] 08/15/2024 10:21:59 08/15/2024 11:55:34 Thoracic segmental dysfunction 756736582 M99.02 Somatic dy sfunction of pelvic region 168489964 M99.05 Low back pain 213888805 M54.50 Lesion of lumbar spine 617660572 M99.01 Neck pain 72696265 M54.2 Lumbar seg mental dysfunction 093264747 M99.03 Cervical s egmental dysfunction 263188723 M99.01 [id number] Chintan Kohler DC [address] [place] [address] 08/28/2024 16:23:40 08/30/2024 15:51:18 Thoracic segmental dysfunction 809131475 M99.02 Somatic dy sfunction of pelvic region 786324826 M99.05 Low back pain 794493603 M54.50 Lesion of lumbar spine 091540912 M99.01 Neck pain 20529640 M54.2 Lumbar seg mental dysfunction 496233560 M99.03 Cervical s egmental dysfunction 595281078 M99.01 Health Concerns Section Related Observation LastModified by Organization Detai ls LastModified Time None Recorded Concern Status LastModified by Organization Details LastModified Time None Recorded Payers Encounter Date Sequence Insurance Name Policy Number Policy Poe Covered Member ID Poe Member ID Guarantor Name 08/28/2024 1 [place] [employer] Lelia Vizcarra [id number] 5 Lelia Vizcarra Notes Date Note Type Note Provider Name and Address Organization Details Recorded Time 08/28/2024 text/html HPI - Cervical SpineReported bypatient.Location: left Quality:aching Severity:moderate Duration:2 weeks Timing:gradual Alleviating Factors:ice Aggravating Factors:sitting Associated Symptoms:no numbness/tinglingHP I - Lumbar SpineReported bypatient.Location: left; With radiation to knee Quality:aching Severity:not changing Timing:morning Aggravating Factors:standing Alleviating Factors:ice Chintan Kohler DC [address], [place], [address], [facility] [place] [facility] 08/28/2024 19:30:07 OBGyn Episode No OBEpisode recorded.
--- OUTSIDE RECORDS SUMMARY | 2024-09-18 22:09 | XMS_ITS | Data Portability ---
Author Organization [place] - [facility], autoContract - E Lion StreetINLAND [facility] Address [address] [facility] [address] [place] [address] Assessment Encounter Date Assessment Date Assessment LastModified [...] contact our office. Not available 08/15/2024 10:50:32 08/28/2024 08/28/2024 ASSESSMENT: Patient is a good [...] hesitate to contact our office. Not available 08/28/2024 19:29:31 09/04/2024 09/04/2024 ASSESSMENT: Patient is a good [...] hesitate to contact our office. Not available 09/04/2024 19:46:02 09/11/2024 09/11/2024 ASSESSMENT: Patient is a good candidate for [...] hesitate to contact our office. Not available 09/11/2024 16:18:21 09/18/2024 09/18/2024 ASSESSMENT: Patient is a good [...] hesitate to contact our office. Not available 09/18/2024 20:39:50 Plan of Treatment Reminders Order Date Submit Date Provider Last Modified By Organization Details Last Modified Time Details Appointments DC Treatment 2024 02:35P M Chintan Kohler [place] Not available Not available Not available Lab None recorded. Referral None recorded. Procedures None recorded. Surgeries None recorded. Imaging None recorded. Medication Orders None recorded. Patient TargetsNo targets recorded. Patient InstructionsNo instructions recorded. Reason for Referral None Reported. Problems Name Problem SNOMED Code Status Onset Date Resolution Date Notes Provider Name and Address Organization Details Recorded Time Neck pain 16991181 Active 2024 Arsalan Dc DC [address] [facility], [place], [address], [place] [facility] 5 10:41:22 Cervical segmental dysfunction 631659399 Active 2024 Arsalan Dc DC [address] [facility], [place], [address], [place] [facility] 5 10:41:27 Lesion of lumbar spine 327922465 Active 2024 Chintan KohlerKYLE, [place] [address] [facility], [place], [address], [place] [facility] 5 10:36:57 Thoracic segmental dysfunction 706499232 Active 2023 Arsalan Dc DC [address] [facility], [place], [address], [place] [facility] 4 17:53:01 Low back pain 230053834 Active 2023 Arsalan Dc DC [address] [facility], [place], [address], [place] [facility] 4 17:53:01 Lumbar segmental dysfunction 255921961 Active 2023 Arsalan Dc DC [address] [facility], [place], [address], [place] [facility] 4 17:53:01 Somatic dysfunction of sacral spine 999744703 Active 2023 Arsalan Dc, TANGELA [address] [facility], [place], [address], [place] [facility] 4 17:53:01 Somatic dysfunction of pelvic region 134101634 Active 2023 Arsalan Dc, TANGELA [address] [facility], [place], [address], [facility] - [facility] 4 16:00:35 Problem Notes None recorded. Procedures Surgical History Date Name Laterality Status Provider Name and Address Organization Details Recorded Time 5 39582: Spinal manipulation , 3 to 4 regions completed Chintan Bridgesjennifercatina [place] [address] [facility], [place], [address], [facility] 09/18/2024 20:39:50 5 77134: Spinal manipulation , 3 to 4 regions completed [facility] Sherif Bridgesjennifercatina, [place] [address] [facility], [place], [address], [facility] 09/11/2024 16:19:20 5 40835: Spinal manipulation , 3 to 4 regions completed Chintan Bridgesjennifercatina, [place] [address] [facility], [place], [address], [facility] 09/04/2024 19:45:53 5 56611: Spinal manipulation , 3 to 4 regions completed Chintan Bridgesjennifercatina, [place] [address] [facility], [place], [address], [facility] 08/28/2024 19:29:31 5 61596: Spinal manipulation , 3 to 4 regions completed Chintan Bridgesjennifercatina, [place] [address] [facility], [place], [address], [facility] 08/15/2024 10:50:31 5 48633: Spinal manipulation , 3 to 4 regions completed Chintan Bridgesjennifercatina, TANGELA [address] [facility], [place], [address], [place] [facility] 08/08/2024 10:36:05 5 46451: Spinal manipulation , 3 to 4 regions completed Chintan Bridgesmark, TANGELA [address] [facility], [place], [address], [place] [facility] 07/24/2024 17:24:59 5 54663: Spinal manipulation , 3 to 4 regions completed Chintan Sherif Kwamecatina, TANGELA [address] [facility], [place], [address], [facility] - [facility] 07/22/2024 18:24:19 5 57696: Spinal manipulation , 3 to 4 regions completed Roni Anderson DC [address] [facility], [place], [address], [facility] - [facility] 07/19/2024 13:59:35 5 04874: Spinal manipulation , 3 to 4 regions completed Chintan Sherif Jose F, TANGELA [address] [facility], [place], [address], [facility] - [facility] 07/12/2024 19:11:44 5 78894: Spinal manipulation , 3 to 4 regions completed Arsalan Dc DC [address] [facility], [place], [address], [facility] - [facility] 07/16/2024 10:41:16 5 66991: Spinal manipulation , 3 to 4 regions completed Arsalan Dc DC [address] [facility], [place], [address], [facility] - [facility] 06/13/2024 16:09:29 5 22150: Spinal manipulation , 3 to 4 regions completed Arsalan Dc DC [address] [facility], [place], [address], [facility] 05/30/2024 15:48:40 5 24313: Spinal manipulation , 3 to 4 regions completed Arsalan Dc, TANGELA [address] [facility], [place], [address], [facility] 05/16/2024 16:14:08 4 83362: Spinal manipulation , 3 to 4 regions completed Arsalan Matty Dc, TANGELA [address] [facility], [place], [address], [facility] 05/14/2024 11:46:50 4 12207: Spinal manipulation , 3 to 4 regions completed Arsalan Dc, TANGELA [address] [facility], [place], [address], [facility] 04/25/2024 16:00:07 4 08204: Spinal manipulation , 3 to 4 regions completed Arsalan Matty Dc, [place] [address] [facility], [place], [address], [facility] 04/18/2024 17:53:33 Imaging Results None recorded. [...] SNOMED-CT Code Diagnosis ICD10 Code Diagnosis Note [id number] Arsalan Dc DC [facility] & [address] [facility] [place] [address] 04/18/2024 15:15:57 04/18/2024 17:59:55 Lumbar segmental dysfunction 554976990 M99.03 Low back pain 410617874 M54.50 Somatic dy sfunction of sacral spine 824458382 M99.04 Thoracic s egmental dysfunction 153024697 M99.02 [id number] Arsalan Dc DC [address] [place] [address] 04/25/2024 15:00:43 04/25/2024 16:13:59 Low back pain 641272178 M54.50 Thoracic s egmental dysfunction 043506271 M99.02 Somatic dy sfunction of sacral spine 602681128 M99.04 Somatic dy sfunction of pelvic region 461070641 M99.05 [id number] Arsalan Dc DC [address] [place] [address] 05/09/2024 16:06:43 05/16/2024 18:12:30 Lumbar segmental dysfunction 609719974 M99.03 Low back pain 421717209 M54.50 Somatic dy sfunction of sacral spine 074952496 M99.04 Thoracic s egmental dysfunction 601538211 M99.02 [id number] Arsalan Dc DC [address] [facility] [place] [address] 05/16/2024 15:03:18 05/16/2024 18:16:16 Low back pain 377552096 M54.50 Somatic dy sfunction of sacral spine 847256513 M99.04 Somatic dy sfunction of pelvic region 486900588 M99.05 Thoracic s egmental dysfunction 740073738 M99.02 [id number] Arsalan Dc DC [facility] & [address] [facility] [place] [address] 05/30/2024 12:27:55 05/30/2024 15:51:48 Lumbar segmental dysfunction 620417385 M99.03 Thoracic s egmental dysfunction 177367591 M99.02 Low back pain 122268873 M54.50 Somatic dy sfunction of pelvic region 736539358 M99.05 [id number] Arsalan Dc DC [facility] [address] [facility] [place] [address] 06/12/2024 11:45:13 06/12/2024 16:06:22 Somatic dysfunction of sacral spine 587087675 M99.04 Thoracic s egmental dysfunction 217753876 M99.02 Somatic dy sfunction of pelvic region 640215964 M99.05 Low back pain 724298830 M54.50 [id number] Arsalan Dc DC [facility] & [address] [facility] [place] [address] 07/11/2024 11:19:31 07/17/2024 13:30:34 Thoracic segmental dysfunction 161435530 M99.02 Neck pain 90296044 M54.2 Cervical s egmental dysfunction 770120207 M99.01 Lumbar seg mental dysfunction 921160547 M99.03 [id number] Chintan Kohler DC [facility] [address] [facility] [place] [address] 07/12/2024 12:30:51 07/16/2024 09:51:49 Somatic dysfunction of sacral spine 659842225 M99.04 Thoracic s egmental dysfunction 285037309 M99.02 Somatic dy sfunction of pelvic region 367299457 M99.05 Low back pain 572591652 M54.50 [id number] Roni Anderson DC [facility] [address] [facility] [address] 07/19/2024 12:23:03 07/19/2024 15:12:15 Somatic dysfunction of sacral spine 819229120 M99.04 Thoracic s egmental dysfunction 740209538 M99.02 Somatic dy sfunction of pelvic region 589457305 M99.05 Low back pain 912746631 M54.50 [id number] Chintan Sherif Kohler DC [facility] & [address] [place] [address] 07/22/2024 11:54:25 07/23/2024 18:33:07 Somatic dysfunction of sacral spine 888288526 M99.04 Thoracic s egmental dysfunction 323385565 M99.02 Somatic dy sfunction of pelvic region 928403919 M99.05 Low back pain 528869689 M54.50 [id number] Chintan Kohler DC [address] [facility] [place] [address] 07/24/2024 12:24:44 07/24/2024 17:36:13 Somatic dysfunction of sacral spine 301520469 M99.04 Thoracic s egmental dysfunction 996328007 M99.02 Somatic dy sfunction of pelvic region 903414910 M99.05 Low back pain 094084071 M54.50 [id number] Chintan Kohler DC [facility] & [address] [facility] [address] 08/07/2024 12:42:42 08/08/2024 10:53:14 Thoracic segmental dysfunction 594029830 M99.02 Somatic dy sfunction of pelvic region 646928020 M99.05 Low back pain 829880032 M54.50 Lesion of lumbar spine 543668147 M99.01 Neck pain 53515915 M54.2 Lumbar seg mental dysfunction 379763937 M99.03 Cervical s egmental dysfunction 865170663 M99.01 [id number] Chintan Kohler DC [facility] & [address] [facility] [place] [address] 08/15/2024 10:21:59 08/15/2024 11:55:34 Thoracic segmental dysfunction 596865286 M99.02 Somatic dy sfunction of pelvic region 665120705 M99.05 Low back pain 503309456 M54.50 Lesion of lumbar spine 161223870 M99.01 Neck pain 93300627 M54.2 Lumbar seg mental dysfunction 084324174 M99.03 Cervical s egmental dysfunction 952686415 M99.01 [id number] Chintan Kohler DC [facility] & [address] [place] [address] 08/28/2024 16:23:40 08/30/2024 15:51:18 Thoracic segmental dysfunction 953659387 M99.02 Somatic dy sfunction of pelvic region 527989386 M99.05 Low back pain 323255944 M54.50 Lesion of lumbar spine 029833420 M99.01 Neck pain 52295787 M54.2 Lumbar seg mental dysfunction 157550257 M99.03 Cervical s egmental dysfunction 116500849 M99.01 [id number] Chintan Kohler DC [facility] & [address] [place] [address] 09/04/2024 16:32:03 09/06/2024 18:17:46 Thoracic segmental dysfunction 464530106 M99.02 Somatic dy sfunction of pelvic region 652255853 M99.05 Low back pain 682800562 M54.50 Lesion of lumbar spine 510103961 M99.01 Neck pain 27314149 M54.2 Lumbar seg mental dysfunction 780965901 M99.03 Cervical s egmental dysfunction 594503083 M99.01 [id number] Chintan Kohler DC [facility] & [address] [place] [address] 09/11/2024 11:54:20 09/11/2024 16:29:18 Lumbar segmental dysfunction 307560627 M99.03 Low back pain 108831714 M54.50 Somatic dy sfunction of sacral spine 125572214 M99.04 Thoracic s egmental dysfunction 703276464 M99.02 [id number] Chintan Kohler DC [facility] [address] [facility] [place] [address] 09/18/2024 15:41:57 09/18/2024 20:40:09 Lumbar segmental dysfunction 607001932 M99.03 Low back pain 191523325 M54.50 Somatic dy sfunction of sacral spine 034666482 M99.04 Thoracic s egmental dysfunction 690124443 M99.02 Health Concerns Section Related Observation LastModified by Organization Detai ls LastModified Time None Recorded Concern Status LastModified by Organization Details LastModified Time None Recorded Advance Directives Directive None Recorded Payers Encounter Date Sequence Insurance Name Policy Number Policy Poe Covered Member ID Poe Member ID Guarantor Name 08/14/2024 1 [place] [employer] Lelia M Zackery [id number] 5 Lelia Zackery 08/28/2024 1 [place] [employer] Lelia M Boneau [id number] 5 Lelia Zackery 09/04/2024 1 [place] [employer] Lelia M Boneau [id number] 5 Lelia Boneau 09/11/2024 1 [place] [employer] Lelia M Boneau [id number] 5 Lelia Zackery 09/18/2024 1 [place] [employer] Lelia M Boneau [id number] 5 Lelia Zackery Notes Date Note Type Note Provider Name and Address Organization Details Recorded Time 08/14/2024 text/html HPI - Cervical SpineReported bypatient.Location: left Quality:aching Severity:moderate Duration:2 weeks Timing:gradual Alleviating Factors:ice Aggravating Factors:sitting Associated Symptoms:no numbness/tinglingHP I - Lumbar SpineReported bypatient.Location: left; With radiation to knee Quality:aching Severity:not changing Timing:morning Aggravating Factors:standing Alleviating Factors:ice Chintan Kohler DC [address] [facility], [place], [address], [facility] 08/15/2024 10:50:58 08/28/2024 text/html HPI - Cervical SpineReported bypatient.Location: left Quality:aching Severity:moderate Duration:2 weeks Timing:gradual Alleviating Factors:ice Aggravating Factors:sitting Associated Symptoms:no numbness/tinglingHP I - Lumbar SpineReported bypatient.Location: left; With radiation to knee Quality:aching Severity:not changing Timing:morning Aggravating Factors:standing Alleviating Factors:ice Chintan Kohler DC [address] [facility], [place], [address], [facility] 08/28/2024 19:30:07 09/04/2024 text/html HPI - Cervical SpineReported bypatient.Location: left Quality:aching Severity:moderate Duration:2 weeks Timing:gradual Alleviating Factors:ice Aggravating Factors:sitting Associated Symptoms:no numbness/tinglingHP I - Lumbar SpineReported bypatient.Location: left; With radiation to knee Quality:aching Severity:not changing Timing:morning Aggravating Factors:standing Alleviating Factors:ice Chintan Kohler DC [address] [facility], [place], [address], [facility] 09/04/2024 19:46:12 09/11/2024 text/html HPI - Lumbar SpineReported bypatient.Location: left Quality:aching Severity:moderate Timing:morning Aggravating Factors:walking; lifting; carrying; twisting Alleviating Factors:divya Kohler DC [address] [facility], [place], [address], [facility] 09/11/2024 16:19:38 09/18/2024 text/html HPI - Lumbar SpineReported bypatient.Location: left Quality:aching Severity:moderate Timing:morning Aggravating Factors:walking; lifting; carrying; twisting Alleviating Factors:divya Kohler DC [address] [facility], [place], [address], [facility] 09/18/2024 20:40:06 OBGyn Episode No OBEpisode recorded.
--- OUTSIDE RECORDS SUMMARY | 2024-09-18 22:09 | XMS_ITS | Clinical Summary ---
Author Organization [employer] [facility] [facility] Address [facility] [place] [address] Care Team Providers Care Group Art Supervisor Name Role Phone Jeannette Bernabe MD Primary Care Provide r Allergies Active Allergy Reactions Criticality Noted Date Comments Amoxicillin Erythema Low 04/17/2019 Patient had a tooth extracted and was taking amoxicillin. One side of her face turned very red. She went to the ED. It was undetermined if it was caused by the amoxicillin. Azithromycin Nausea Only 09/18/2024 Gabapentin Sedation 05/11/2012 Sulfamethoxazole-Trimetho prim Hives High 01/06/2016 Sulfa (Sulfonamide Antibiotics) Hives High 05/26/2023 Trazodone Hives 03/05/2007 Trimethoprim Hives High 08/25/2024 Medications omega-3 fatty acids-vitamin E (FISH OIL) 1,000 mg cap Take by mouth. 0 03/27/20 13 Active multivitamin (MVI) tablet Take 1 tablet by mouth once daily. 0 03/27/20 13 Active Cranberry Extract 250 mg cap Take 500 mg by mouth two times daily. 0 05/31/19 17 Active Coenzyme Q10 (CO Q-10) 10 mg cap Take 1 capsule by mouth once daily. 0 05/31/19 17 Active Ca carb-Ca gluc-Mg ox-Mg gluco (CALCIUM MAGNESIUM) 500 mg calcium -250 mg tab Take by mouth once daily. 0 05/31/19 17 Active b complex vitamins (VITAMIN B COMPLEX) capsule Take 1 capsule by mouth once daily. 0 10/14/19 17 Active collagen, bovine, 100 % powd Apply topically to affected area(s). Put's in beverage -1 scoop daily 0 07/10/20 17 Active medication order composer Takes Probiotic 12 billion capsule 1 AM and 1 PM 0 11/22/19 17 Active polyethylene glycoL (MIRALAX) 17 gram/dose powder Take 17 g by mouth at bedtime. 0 11/25/19 18 Active miscellaneous medical supply miscIndications: Essential hypertension As directed 1 Each. Large blood pressure arm cuff, automatic. Diagnosis hypertension 1 Each 06/07/19 19 Active ascorbic acid, vitamin C, (VITAMIN C) 1,000 mg tablet Take 1 tablet by mouth once daily. 0 03/05/20 20 Active medication order composer Just Healthy Blood Pressure Support - Magnesium 170 mg, L-Arginine 400 mg, [place] leaf extract 150 mg, Garlic 50 mg, Grapeseed Extract 50 mg- Take 2 tabs daily 0 06/18/19 22 Active vitamin K2 100 mcg cap Take 1 Capsule by mouth once daily. 0 08/27/19 22 Active cholecalciferol (VITAMIN D3) 1,000 unit capsule Take 5 Capsules (5,000 units) by mouth once daily. 03/31/20 22 Active vitamin e 200 unit capsule Take 1 Capsule (200 units) by mouth once daily. 30 Capsule 08/24/19 23 Active tretinoin 0.05 % 0.05 % creamIndications :Facial rash Apply topically to affected area(s) at bedtime. 45 g 3 06/27/19 24 Active ketoconazole 2% topical (NIZORAL) creamIndications :Tinea versicolor Apply topically to affected area(s) two times daily. 60 g 1 08/03/19 24 Active nystatin powder (MYCOSTATIN) powderIndication s:Tinea pedis, unspecified laterality Apply 1 Strip topically to affected area(s) three times daily. 60 g 1 09/05/19 24 Active nortriptyline (PAMELOR) 10 mg capsuleIndicatio ns:MS (multiple sclerosis) (HC) Take 1 Capsule (10 mg) by mouth at bedtime. Takes 60 mg a day-- 6 tabs at bedtime 06/28/19 25 Active estradioL (Estrace) 0.01% (0.1 mg/g) vaginal creamIndications :Recurrent UTI Insert 1 g into the vagina every Monday and Monday. 42.5 g 5 06/28/19 25 Active cefuroxime axetil 500 mg tabletIndication s:Acute frontal sinusitis, recurrence not specified Take 1 Tablet (500 mg) by mouth two times daily for 7 days. 14 Tablet 09/19/19 25 025 Active losartan (COZAAR) 25 mg tabletIndication s:HTN (hypertension) Take 2 tablets in the AM and 1 tablet in the PM 270 Tablet 3 06/28/19 25 025 Discontinu ed(Reorder (E-cancel not sent)) losartan 25 mg tabletIndication s:HTN (hypertension) Take 1 Tablet (25 mg) by mouth once daily. 09/04/19 25 025 Discontinu ed(Reorder (E-cancel not sent)) losartan 25 mg tabletIndication s:HTN (hypertension) Take 1 Tablet (25 mg) by mouth two times daily for 1 dose. 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 Radha Johnson RN, [facility] Refill Nurse MS (multiple sclerosis) 02/02/2013 [...] Encounters Date Type Department Care Team Description 09/18/2024 Telephone [facility] [address] [place] [address] Jeannette Bernabe MD Medication Management (ZPAK) 09/17/2024 2:40 PM CDT Office Visit [facility] [address] [place] [address] Jeannette Bernabe MD Results (Discuss ZIO patch/B/P, brought in new cuff to compare.) 09/17/2024 Travel 09/16/2024 Telephone [facility] [phone] Jeannette Bernabe MD Lab (Canceled ua/uc) 09/13/2024 8:15 AM CDT Orders Only [facility] [address] [place] [address] Lab, [place] 09/13/2024 Orders Only [facility] [address] [place] [address] Viridiana Morocho 1 scan: (1-Ord) Zio 09/13/2024 Travel 09/12/2024 Telephone [facility] [address] [place] [address] Jeannette Bernabe MD Questions (Questions regarding health) 09/11/2024 Telephone [facility] [address] [place] [address] Jeannette Bernabe MD Results 09/10/2024 Telephone [facility] [address] [place] [address] Jeannette Bernabe MD Lab (Standing UA / Urine culture orders) 09/09/2024 9:45 AM CDT Orders Only [facility] [address] [place] [address] Lab, [facility] 09/09/2024 Telephone [facility] [address] [place] [address] Jeannette Bernabe MD Lab (UA - need order) 09/09/2024 Travel 09/05/2024 2:40 PM CDT Office Visit [facility] [place] [address] Jeannette Bernabe MD Blood Pressure (Took a second dose of Losartan last night. Since the ED visit she has only had 1 light headed incidence. Wearing Zio patch at this time.) 09/05/2024 Travel 09/02/2024 1:45 PM CDT Nurse/Clinic Staff [place] [address] [place] [address] Blood Pressure 09/02/2024 Telephone [facility] [address] [place] [address] Jeannette Bernabe MD Blood Pressure 09/02/2024 Travel 08/30/2024 Nurse Triage [facility] [place] [address] Jeannette Bernabe MD Follow Up (request callback ) 08/25/2024 Orders Only [facility] Scanner 1 scan: (1-Ord) [facility], XR RIBS RIGHT, 08/25/2024 08/25/2024 Orders Only [facility] Scanner 1 scan: (1-Ord) [facility], CHEST 1VIEW PORTABLE, 08/25/2024 08/22/2024 Telephone [facility] [address] [place] [address] Jeannette Bernabe MD Questions (result ) 08/15/2024 Telephone [facility] [address] [place] [address] Jeannette Bernabe MD Questions (Lab results, thyroid ultrasound, and bone scan) 08/14/2024 11:30 AM CDT Ancillary Procedure [facility] [address] 08/14/2024 10:30 AM CDT Ancillary Procedure [facility] [place] [address] 08/14/2024 10:15 AM CDT Orders Only [facility] [address] Lab, [place] [facility] 08/14/2024 Travel 08/13/2024 Telephone [facility] [address] Jeannette Bernabe MD Questions (Lab order for Vitamin D 3 and check cholesterol. ) 07/29/2024 Orders Only [facility] Scanner 1 scan: (1-Ord) [facility], XR RIBS RT MIN 3V W CXR1V, 07/29/2024 07/15/2024 12:15 PM GUEST RELATIONS AGENT Ancillary Procedure [facility] [address] 07/15/2024 11:10 AM GUEST RELATIONS AGENT Office Visit [facility] [place] [address] Josh Cisneros MD Back Pain (No injury /Lower back pain that comes and goes /Mainly right side) 07/15/2024 Travel 06/28/2024 9:40 AM GUEST RELATIONS AGENT Ancillary Procedure [facility] [place] [facility] [place] [address] 06/28/2024 8:25 AM GUEST RELATIONS AGENT Office Visit [address] [place] [address] Jeannette Bernabe MD Medicare ANNUAL (subsequent) Visit (74 yo Female/Labs/Bump on back of neck, getting smaller) 06/28/2024 Travel from Last 3 Months Immunizations Immunization Administration Dates Next Due COVID-19 vaccine (Tweetworks-Bio NTech 30mcg/0.3mL) CORAL JONES 03/31/2021,08/20/2020,07/30/2020 Influenza Virus, Unspecified 04/15/1996 Influenza, IIV3 [...] on file Legal Sex Female 5:23 AM GUEST RELATIONS AGENT Gender Identity Not on file Sexual Orientation Not on file Obstetrics History Para Term AB IAB SAB Ectopic Multiple Livin g Live Births 4 3 3 1 1 3 Date Outcome GA Total Labor Labor/2nd/3rd Weight Sex Type Anes PTL Carrie A1 A5 Name Clin IAB Term Term Term Last Filed Vital Signs Vital Sign Reading Time Taken Comments Blood Pressure 165/87 09/17/2024 3:36 PM CDT Pulse 77 09/17/2024 3:36 PM CDT Temperature 36.7 C (98.1 F) 10/05/2021 9:43 AM CDT Respiratory Rate 16 12/01/2023 4:08 PM CDT Oxygen Saturation 98% 09/17/2024 3:36 PM CDT Inhaled Oxygen Concentration - - Weight 78 kg (172 lb) 06/28/2024 7:58 AM GUEST RELATIONS AGENT Height 160 cm (5' 3) 06/28/2024 7:58 AM GUEST RELATIONS AGENT Body Mass Index 30.47 06/28/2024 7:58 AM GUEST RELATIONS AGENT Plan of Treatment Health Maintenance Due Date Last Done Comments Zoster (shingles) series for age 50+ (1 of 2) 1998 Pneumococcal series for age 50+ (2 of 2 - PCV) 05/14/2014 05/14/2013 RSV vaccine for adults or (1 - 1-dose 75+ series) 2023 COVID-19 vaccine series ( season) 2024 03/31/2021, 08/20/2020, 07/30/2020 Influenza Vaccine (Season Ended) 2025 04/16/20 04, 04/15/1996 BMI (ht and wt on same [...] Bradley LPN Medical Devices Implanted Type Area Yarn Man Device Identifier Shelf Expiration Date Model / Serial / Lot Stent Uret [id number] Silhouette Xtraflo - [id number] Implanted:Qty: 1 on 09/12/2010 at [facility] Right: [employer] 05/24/2013 [id number] / / [id number] Stent Uret [id number] Silhouette Xtraflo - [id number] Implanted:Qty: 1 on 09/20/2010 at [facility] Right: [employer] [id number] / / [id number] Procedures Procedure Name Priority Date/Time Associated Diagnosis Comments VITAMIN D 25 (DEFICIENCY) Routine 09/13/2024 8:06 AM CDT Vitamin D deficiency LIPID PANEL W REFLEX MEASURED LDL Routine 09/13/2024 8:06 AM CDT Elevated cholesterol URINE CULTURE Routine 09/09/2024 12:41 PM CDT Recurrent UTI URINALYSIS MICROSCOPIC Routine 09/09/2024 12:41 PM CDT Recurrent UTI EXTENDED HOLTER Routine 08/26/2024 Syncope and collapse SCAN-RADIOLOGY REPORT 08/25/2024 12:00 AM CDT SCAN-RADIOLOGY REPORT 08/25/2024 12:00 AM CDT XR DXA BONE DENSITY 2 SITES AXIAL Routine 08/14/2024 10:52 AM CDT Osteoporosis, unspecified osteoporosis type, unspecified pathological fracture presence US THYROID/PARATHYROID Routine 08/14/2024 10:35 AM CDT Thyroid nodule URINALYSIS MICROSCOPIC Add On 08/14/2024 10:24 AM CDT Recurrent UTI IODINE, UR RANDOM Routine 08/14/2024 10: 24 AM CDT Thyroid nodule SCAN-RADIOLOGY REPORT 07/29/2024 12:00 AM CDT XR SPINE LUMBAR 3 VIEWS Routine 07/15/2024 12:18 PM GUEST RELATIONS AGENT Acute midline low back pain without sciatica XR MAMMO ANIRUDH BILAT SCREEN Routine 06/28/2024 9:54 AM GUEST RELATIONS AGENT Visit for screening mammogram CBC WITH AUTO DIFFERENTIAL Routine 06/28/2024 8:56 AM GUEST RELATIONS AGENT HTN (hypertension) TSH WITH REFLEX Routine 06/28/2024 8:56 AM GUEST RELATIONS AGENT Thyroid nodule COMP METABOLIC PANEL Routine 06/28/2024 8:56 AM GUEST RELATIONS AGENT HTN (hypertension) URINE CULTURE Routine 06/28/2024 7:00 AM GUEST RELATIONS AGENT Recurrent UTI UA W/ SEDIMENT EXAM REFLEXED PER CRITERIA Routine 06/28/2024 7:00 AM GUEST RELATIONS AGENT Recurrent UTI ANTI HCV Routine 05/31/2016 10:01 AM GUEST RELATIONS AGENT Need for hepatitis C screening test from Last 3 Months or Most Recently Relevant to Health Maintenance Results * (ABNORMAL) LIPID PANEL W REFLEX MEASURED LDL (09/13/2024 8:06 AM CDT) CHOLESTEROL, TOTAL 206(H) <200 mg/dL [facility] HDL CHOLESTEROL 86 > OR = 50 mg/dL [facility] TRIGLYCERIDES 47 <150 mg/dL [facility] LDL-CHOLESTEROL 106(H) mg/dL (calc) [facility] Comment: Reference range: <100 Desirable range <100 mg/dL for primary prevention; <70 mg/dL for patients with CHD or diabetic patients with > or = 2 CHD risk factors. LDL-C is now calculated using the Jayson-Velez calculation, which is a validated novel method providing better accuracy than the Friedewald equation in the estimation of LDL-C. Jayson SS et al. DICK. 2013;310(19): 9247-1340 (http://GeoEye.Provesica/faq/QBH823) CHOL/HDLC RATIO 2.4 <5.0 (calc) [facility] NON HDL CHOLESTEROL 120 <130 mg/dL (calc) [employer] [facility] Comment: For patients with diabetes plus 1 major ASCVD risk factor, treating to a non-HDL-C goal of <100 mg/dL (LDL-C of <70 mg/dL) is considered a therapeutic option. Blood BLOOD SPECIMEN / Unknown 09/13/2024 8:06 AM CDT 09/13/2024 8:07 AM CDT Jeannette Bernabe MD CHEMISTRY Final Result [facility] [address] [address], [address] [address] * VITAMIN D 25 (DEFICIENCY) (09/13/2024 8:06 AM CDT) VITAMIN D,25-OH,TOTAL,IA 62 30 - 100 ng/mL [employer] [facility] Comment: Vitamin D Status 25-OH Vitamin D: Deficiency: <20 ng/mL Insufficiency: 20 - 29 ng/mL Optimal: > or = 30 ng/mL For 25-OH Vitamin D testing on patients on D2-supplementation and patients for whom quantitation of D2 and D3 fractions is required, the QuestAssureD(TM) 25-OH VIT D, (D2,D3), LC/MS/MS is recommended: order code 61840 (patients >2yrs). See Note 1 Note 1 For additional information, please refer to http://GeoEye.Provesica/faq/WWV244 (This link is being provided for informational/ educational purposes only.) Blood BLOOD SPECIMEN / Unknown 09/13/2024 8:06 AM CDT 09/13/2024 8:07 AM CDT Jeannette Bernabe MD SEND OUTS Final Result [employer] [address] [place] [address], [place] [phone] [facility] [address] [place] [address] * URINALYSIS MICROSCOPIC (09/09/2024 12:41 PM CDT) Only the most recent of2 resultswithin the time period is included. RBC 0-2 0-2, None Seen /HPF 09/09/2024 10:37 PM CDT [facility] WBC 0-2 0-2, 3-5, None Seen /HPF 09/09/2024 10:37 PM CDT [facility] BACTERIA None Seen None Seen, Rare, Few Bacteria/ HPF 09/09/2024 10:37 PM CDT [facility] EPITHELIAL CELLS None Seen None Seen, Few Epi/HPF 09/09/2024 10:37 PM CDT [facility] HYALINE CASTS 0-2 0-2, 3-5 /LPF 09/09/2024 10:37 PM CDT [facility] Urine URINE SPECIMEN / Unknown Non-Blood / Unknown 09/09/2024 12:41 PM CDT 09/09/2024 12:41 PM CDT Jeannette Bernabe MD URINE Final Result [facility] [address] [place] [address], * URINE CULTURE (09/09/2024 12:41 PM CDT) Only the most recent of2 resultswithin the time period is included. CULTURE No growth (<1,000 CFU/mL) 09/11/2024 2:35 PM CDT [facility] Urine URINE SPECIMEN / Unknown Non-Blood / Unknown 09/09/2024 12:41 PM CDT 09/09/2024 12:41 PM CDT us Jeannette Bernabe MD MICROBIOLOGY Final Result [facility] [address] [place] [address], [place] * EXTENDED HOLTER (08/26/2024) us Carlo Burris MD CARDIAC SERVICES ORD Final Result * SCAN-RADIOLOGY REPORT (08/25/2024 12:00 AM CDT) Only the most recent of3 resultswithin the time period is included. Anatomical Region Laterality Modality Other us Scanner OTHER Final Result * (ABNORMAL) XR DXA BONE DENSITY 2 [...] to assess therapeutic efficacy. Chitra Cruz PA-C [employer] [facility] 08/16/2024 Narrative 08/16/2024 4:23 PM CDT For Patients: Results are automatically released to your [employer] ([employer]) account once available, in compliance with federal regulations. This means that you may see your results before your provider has had a chance to review them. Please allow 2-3 business days for your provider to comment on the results. XR DXA Bone Mineral Density (BMD) EXAM LOCATION: [facility] [address] [facility] [address] PATIENT NAME: Lelia Vizcarra DATE OF : [...] two scanners are made by the same senior software development engineer. PROCEDURE: Dual-energy x-ray absorptiometry performed with routine [...] PM (Electronically Signed) us Jeannette Bernabe MD Final Result * IODINE, UR RANDOM (08/14/2024 10:24 AM CDT) Iodine, Urine 384.1 28.0 - 544.0 ug/L 08/21/2024 1:09 PM CDT [facility] ([facility] Comment:Limit of quantitatio n = 20 Urine URINE SPECIMEN / Unknown Non-Blood / Unknown 08/14/2024 10:24 AM CDT 08/14/2024 10:24 AM CDT Narrative [facility] ([facility]) - 08/21/2024 1:09 PM CDT Test(s) 583010-[id number], Urine was developed and its performance characteristics determined by [employer]. It has not been cleared or approved by the Food and Drug Administration. Performed at: 01 - [address] [id number] Senior Technical Manager: Hailey Perdomo MD, Phone: [phone] us Jeannette Bernabe MD URINE Final Result [facility] ([facility]) [address] [place] [address], [place] * XR SPINE LUMBAR 3 VIEWS (07/15/2024 12:18 PM GUEST RELATIONS AGENT) Anatomical Region Laterality Modality LUMBAR SPINE Computed Radiogr aphy 07/15/2024 2:35 PM GUEST RELATIONS AGENT Impressions 07/15/2024 2:35 PM GUEST RELATIONS AGENT Levo scoliotic deformity with severe degenerative disc [...] PM (Electronically Signed) Narrative 07/15/2024 2:35 PM GUEST RELATIONS AGENT For Patients: As a result of the [...] MAMMO ANIRUDH BILAT SCREEN (06/28/2024 9:54 AM GUEST RELATIONS AGENT) Anatomical Region Laterality Modality BREASTS, Breast Left, Breast Right Bilateral Mammography Impressions 06/28/2024 1:43 PM GUEST RELATIONS AGENT There is no radiographic evidence for malignancy. Recommend annual mammograms. MAMMOGRAM ASSESSMENT: ACR 1 Negative PATIENTS: You will also receive a letter with your examination results in an easy to read format. If you have questions about your results, please contact your referring provider. Narrative 06/28/2024 1:43 PM GUEST RELATIONS AGENT For Patients: As a result of the 21st Century Cures Act, medical imaging exams and procedure reports are released immediately into your electronic medical record. You may view this report before your referring provider. If you have questions, please contact your health care provider. XR MAMMO ANIRUDH BILAT SCREEN [[id number]] CLINICAL HISTORY: This is an asymptomatic 74 y.o. patient. INDICATION FOR EXAM: Mammogram Screening. TECHNIQUE: CC & MLO views were obtained. This study was evaluated with the assistance of Computer-Aided Detection. Breast Tomosynthesis was used in interpretation. COMPARISON FILM: Yes 06/27/23 [facility] 06/24/22 [facility] FINDINGS: There are scattered areas of fibroglandular density. There are no dominant masses, suspicious micro calcifications or areas of architectural distortion. us Jeannette Bernabe MD MAMMO Final Result * TSH WITH REFLEX (06/28/2024 8:56 AM GUEST RELATIONS AGENT) TSH W/REFLEX TO FT4 2.08 0.40 - 4.50 mIU/L [facility] Blood BLOOD SPECIMEN / Unknown 06/28/2024 8:56 AM GUEST RELATIONS AGENT 06/28/2024 8:57 AM GUEST RELATIONS AGENT Jeannette Bernabe MD CHEMISTRY Final Result [facility] [address] [place] [address], [facility] [address] [place] [address] * (ABNORMAL) CBC AND DIFFERENTIAL (06/28/2024 8:56 AM GUEST RELATIONS AGENT) Pathologist [facility] WHITE BLOOD CELL COUNT 6.3 3.8 - [...] BLOOD SPECIMEN / Unknown 06/28/2024 8:56 AM GUEST RELATIONS AGENT 06/28/2024 8:57 AM GUEST RELATIONS AGENT us Jeannette Bernabe MD HEMATOLOGY Final Result [facility] [address] [place] [address], [address] [address] * (ABNORMAL) COMP METABOLIC PANEL (06/28/2024 8:56 AM GUEST RELATIONS AGENT) [facility] GLUCOSE 99 65 - 99 mg/dL [facility] Comment: Fasting reference interval UREA NITROGEN (BUN) [...] BLOOD SPECIMEN / Unknown 06/28/2024 8:56 AM GUEST RELATIONS AGENT 06/28/2024 8:57 AM GUEST RELATIONS AGENT Jeannette Bernabe MD CHEMISTRY Final Result [employer] [address] [place] [address], [facility] [address] [place] [address] * UA W/ SEDIMENT EXAM REFLEXED PER CRITERIA (06/28/2024 7:00 AM GUEST RELATIONS AGENT) COLOR Yellow Yellow Color 06/28/2024 1:12 PM GUEST RELATIONS AGENT [facility] CLARITY Clear Clear Clarity 06/28/2024 1:12 PM GUEST RELATIONS AGENT [facility] SPECIFIC GRAVITY,URINE 1.010 1.010, 1.015, 1.020, 1.025 06/28/2024 1:12 PM GUEST RELATIONS AGENT [facility] PH,URINE 6.5 6.0, 7.0, 8.0, 5.5, 6.5, 7.5, 8.5 06/28/2024 1:12 PM GUEST RELATIONS AGENT [facility] UROBILINOGEN, QUALITATIVE Normal Normal EU/dl 06/28/2024 1:12 PM GUEST RELATIONS AGENT [facility] PROTEIN, URINE Negative Negative mg/dL 06/28/2024 1:12 PM GUEST RELATIONS AGENT [facility] GLUCOSE, URINE Negative Negative mg/dL 06/28/2024 1:12 PM GUEST RELATIONS AGENT [facility] KETONES,URINE Negative Negative mg/dL 06/28/2024 1:12 PM GUEST RELATIONS AGENT [facility] BILIRUBIN,URI NE Negative Negative 06/28/2024 1:12 PM GUEST RELATIONS AGENT [facility] OCCULT BLOOD,URINE Negative Negative 06/28/2024 1:12 PM GUEST RELATIONS AGENT [facility] NITRITE Negative Negative 06/28/2024 1:12 PM GUEST RELATIONS AGENT [facility] LEUKOCYTE ESTERASE Negative Negative 06/28/2024 1:[address] [facility] Urine URINE SPECIMEN / Unknown Non-Blood / Unknown 06/28/2024 7:00 AM GUEST RELATIONS AGENT 06/28/2024 7:50 AM GUEST RELATIONS AGENT us Jeannette Bernabe MD URINE Final Result [facility] [address] [place] [address], * ANTI HCV (05/31/2016 10:01 AM GUEST RELATIONS AGENT) HEPATITIS C ANTIBODY Non-Reacti ve Non-Reacti ve 05/31/2016 5:[address] [facility] Blood BLOOD SPECIMEN / Unknown Venipuncture / Unknown 05/31/2016 10:01 AM GUEST RELATIONS AGENT 05/31/2016 10:01 AM GUEST RELATIONS AGENT Narrative [facility] - 05/31/2016 5:32 PM GUEST RELATIONS AGENT Antibodies to HCV not detected; does not exclude the possibility of exposure to HCV. us Jeannette Bernabe MD SEND OUTS Final Result [facility] [address] [place] [address], [place] from Last 3 Months or Most Recently Relevant to Health Maintenance Insurance MEDICARE PB ONLY [facility] [place] [address] MEDICARE PART B HB ONLY Care Teams Group Art Supervisor Relationship Specialty Start Date End Date Jeannette Bernabe MD [address] [place] [address] PCP - General Family Practice 03/28/11
--- OUTSIDE RECORDS SUMMARY | 2024-09-18 22:09 | XMS_ITS | Referral Summary ---
Author Organization [facility] Address [address] [place] [address] Care Team Providers Care Operator Coating Furnace Name Role Phone Mayuri Cote MD Unavailable Lilly Harris PA-C Unavailable Jeannette Bernabe MD Primary Care Provide r Encounters Date Type Department Care Team Description 09/03/2024 3:00 PM CDT Office Visit [facility] [address] [phone] Mayuri Cote MD Multiple sclerosis (HCC) (Primary Dx) from Last 3 Months Allergies Active Allergy [...] 12/2013 int hemorrhoids repeat in 5 years Immunizations Name Administration Dates Next Due GID Group 12+ Yrs Monovalent CO VID Vaccine (purple [...] CDT Plan of Treatment Not on file Insurance [facility] [place] [id number] MEDICARE PART A & B [facility] [place] [address] Care Teams Operator Coating Furnace Relationship Specialty Start Date End Date Jeannette Bernabe MD [address] [place] [phone] PCP - General 06/24/21 Mayuri Cote MD Physician Neurology 06/23/21 Lilly Harris PA-C Physician Purchasing Manager/Sales Neurology 06/23/21
--- OUTSIDE RECORDS SUMMARY | 2024-09-18 22:10 | XMS_ITS | Data Portability ---
Author Organization [facility], [facility] Address [address] [place] [address] Care Team Providers Care Accounting Clerk Name Role Phone SHAAN ORTIZ Primary Care Provider Assessment No assessment recorded. Plan of Treatment Reminders Order Date Submit Date Provider Last Modified By Organization Details Last Modified Time Details Appointments None recorded. Lab culture, urine - needs UCx in 1-2 weeks (at [facility]) 2022 023 [facility], [address] [facility], [place], [address], 3 16:20:39 urinalysis , dipstick 2022 023 [email or web address] 0 [facility], [address], [place], [address], 3 17:45:15 culture, urine 2022 023 [facility], [address] [facility] [address], [place], [address], 3 11:26:42 urinalysis , dipstick 2022 023 [facility], [address], [place], [address], 3 14:29:47 Referral None recorded. Procedures None recorded. Surgeries None recorded. Imaging None recorded. Medication Orders fosfomycin tromethami ne 3 gram oral packet 2022 023 [id number], [address] [address], [place], [address], 15:02:40 Patient TargetsNo targets recorded. Patient InstructionsNo instructions recorded. Reason for Referral None Reported. Results Created Date Observation Date Name Description Value Unit Range Abnormal Flag Note LastModifiedBy Organization Detail LastModifiedTime 12/13/1912/12/2022 urina lysis , dipst ick Color-Status Yellow Not Available [facility] [address], [place], [address], 12/12/2022 14:28:29 12/13/1912/12/2022 urina lysis , dipst ick Clarity-Stat us Clear Not Available [facility] [address], [place], [address], 12/12/2022 14:28:29 12/13/19 23 12/12/2022 urina lysis , dipst ick pH-Status 7.0 Not Available [facility] [address], [place], [address], 12/12/2022 14:28:29 12/13/19 23 12/12/2022 urina lysis , dipst ick Nitrates-Sta tus negati ve Not Available [facility] [address], [place], [address], 12/12/2022 14:28:29 12/13/19 23 12/12/2022 urina lysis , dipst ick Blood-Status Negati ve Not Available [facility] [address], [place], [address], 12/12/2022 14:28:29 12/13/19 23 12/12/2022 urina lysis , dipst ick Leuko-Status Negati ve Not Available [facility] [address], [place], [address], 12/12/2022 14:28:29 01/05/2001/04/2023 URINE CULTU RE final [...] for provi viry revie w. Not Available [facility] [address], [place], [address], 01/07/2023 11:26:42 01/05/2001/04/2023 urina lysis , dipst ick Color-Status Yellow Not Available [facility] [address], [place], [address], 01/04/2023 17:44:34 01/05/2001/04/2023 urina lysis , dipst ick Clarity-Stat us Clear Not Available [facility] [address], [place], [address], 01/04/2023 17:44:34 01/05/2001/04/2023 urina lysis , dipst ick pH-Status 6.5 Not Available [facility] [address], [place], [address], 01/04/2023 17:44:34 01/05/2001/04/2023 urina lysis , dipst ick Nitrates-Sta tus negati ve Not Available [facility] [address], [place], [address], 01/04/2023 17:44:34 01/05/2001/04/2023 urina lysis , dipst ick Blood-Status Negati ve Not Available [facility] [address], [place], [address], 01/04/2023 17:44:34 01/05/2001/04/2023 urina lysis , dipst ick Leuko-Status Negati ve Not Available [facility] [address], [place], [address], 01/04/2023 17:44:34 Result Notes None recorded. Procedures Surgical History Date Name Laterality Status Provider Name and Address Organization Details Recorded Time 01/05/20 Bladder Scan completed Harshil Kilpatrick MD [address] [place] [address],[address] [place] [address], [address], [facility] 01/04/2023 16:59:08 12/13/19 Bladder Scan completed Harshil Kilpatrick MD [address] [place] [address],[address], [place], [address], [facility] 12/12/2022 14:26:00 Cholecystectomy completed Harshil Kilpatrick MD [address] [place] [address],[address], [address] [place] [address], [facility] 12/12/2022 14:28:36 Total Hysterectomy completed Harshil Kilpatrick MD [address] [place] [address],[address], [place], [address], [facility] 12/12/2022 14:28:47 Imaging Results None recorded. Procedure Notes None recorded. Medical Equipment None Reported. Allergies Allergen ID Allergen Name Allergen Category Reaction Reaction Severity Criticality Documentation Date Start Date Code Code System Note Provider Name and Address Organization Details Recorded Time 884387 trazodone medicatio n Not available Not available Not available 12/12/2022 98628 RxNorm Harshil Kilpatrick MD [address] [place] [address],[address] [place] [address], [phone] , [facility] 14:26:05 929656 gabapenti n medicatio n Not available Not available Not available 12/12/2022 33473 RxNorm Harshil Kilpatrick MD [address] [place] [address],[address], [place], [address], [facility] 3 14:26:09 925286 Substance with sulfonami de structure and antibacte rial mechanism of action (substanc e) medicatio n Not available Not available Not available 12/12/2022 15578 8003 SNOMED Harshil Kilpatrick MD [address] [facility],[address] [place] [address], [address], [facility] 3 14:26:16 427851 amoxicill in medicatio n Not available Not available Not available 12/12/2022 723 RxNorm Harshil Kilpatrick MD [address] [place] [address],[facility] [address] [place] [address], [phone], [facility] 3 14:26:21 Medications Name Sig Start [...] Updated DateTime 12/12/2022 160.02 cm 29.2 kg/m2 14632.74 g Harshil Kilpatrick MD [address] [place] [address], [address], [facility] 12/12/2022 14:25:41 Date Recorded Body height Body mass index (BMI) Body weight Provider Name and Address Organization Details Last Updated DateTime 01/04/2023 160.02 cm 29.2 kg/m2 00667.74 g Harshil Kilpatrick MD [address] [place] [address], [address], [facility] 01/04/2023 16:58:06 Social History Question Answer Notes LastModified by Organizat ion Details LastModified Time Tobacco Smoking Status Former Smoker Harshil Kilpatrick MD [address] [place] [address],[address], [address], [facility] 12/12/2022 14:28:22 What Is Your [...] available 12/12/2022 14:28:02 Medical History Condition Response High Blood Pressure Y Depression Y GERD/Acid Reflux Y Gynecological HistoryNo gynecological history recorded. Obstetrics History GPAL:G 0 P 0 0 0 0 Immunizations Vaccine Type Date Status Note Provider Nam e and Address Organization Details Recorded Time COVID-19, mRNA, LNP-S, PF, 30 mcg/0.3 mL dose 1 completed Harshil Kilpatrick MD [address] [place] [address],[address], [address], [facility] 12/12/2022 14:25:49 COVID-19, mRNA, LNP-S, PF, 30 mcg/0.3 mL dose completed Harshil Kilpatrick MD [address] [place] [address],[address], [address], [facility] 12/12/2022 14:25:49 COVID-19, mRNA, LNP-S, PF, 30 mcg/0.3 mL dose 1 completed Harshil Kilpatrick MD [address] [place] [address],[address], [place], [address], [facility] 12/12/2022 14:25:49 pneumococcal polysaccharide PPV23 3 completed Harshil Kilpatrick MD [address] [place] [address],[facility] [address], [place], [address], [facility] 12/12/2022 14:25:49 Tdap 2 completed Harshil Kilpatrick MD [address] [place] [address],[address], [address], [facility] 12/12/2022 14:25:49 Tdap 2 completed Harshil Kilpatrick MD [address] [place] [address],[address], [address], [facility] 12/12/2022 14:25:49 Td (adult), 2 Lf tetanus toxoid, preservative free, adsorbed 3 completed Harshil Kilpatrick MD [address] [place] [address],[address] [address], [place], [address], [facility] 12/12/2022 14:25:49 Past Encounters Encounter ID Performer Location Encounter Start Date Encounter Closed Date Diagnosis/Indication Diagnosis SNOMED-CT Code Diagnosis ICD10 Code Diagnosis Note [id number] Harshil Kilpatrick MD [facility] [address] [place] [address] 12/12/2022 14:08:07 12/16/2022 16:52:30 Recurrent urinary tract infection 664554186 N39.0 1. Recurrent UTIs- continue Vitamin C- continue Cranberry extract 500 mg daily- complete course of Macrobid- if symptoms return - treat with Fosfomycin 3 gm PO every other day (5 doses)(alt ernative - Cipro 500 mg BID x 7-10 days)- Follow-up in 1 month with UA and Bladder scan Incomplete emptying of urinary bladder 622339152 R39.14 2. Incomplete bladder emptying- due to MS (infection may also contribute )- recommend - double-voi ding- check Bladder scan at Follow-up [id number] Harshil Kilpatrick MD [facility] [address] [place] [address] 01/04/2023 16:09:04 01/13/2023 09:36:18 Recurrent urinary tract infection 946909669 N39.0 1. Recurrent UTIs- check UCx- continue Vitamin C- continue Cranberry extract 500 mg daily- Follow-up in 6 months with UA and Bladder scan Incomplete emptying of urinary bladder 033608891 R39.14 2. Incomplete bladder emptying- due to MS (infection may also contribute )- recommend - double-voi ding- check Bladder scan at Follow-up Health Concerns Section Related Observation LastModified by Organization Detai ls LastModified Time None Recorded Concern Status LastModified by Organization Details LastModified Time None Recorded Advance Directives Directive None Recorded Payers Insurance Date Sequence Insurance Name Policy Number Policy Poe Covered Member ID Poe Member ID Guarantor Name 01/01/2023 1 [place] [employer] Lelia Vizcarra [id number] Lelia Vizcarra 01/13/2023 2 WPS - FOR LIFE (MEDICARE SUPPLEMENT) Lelia Vizcarra [id number] Lelia Vizcarra Notes Date Note Type Note [...] PVR = 176 mL Harshil Kilpatrick MD [address] [place] [address],[address], [place], [address], [facility] 12/12/2022 18:29:34 01/04/2023 text/html 72 yo [...] mL Harshil Kilpatrick MD [address] [facility],[address], [place], [address], [facility] 01/08/2023 18:11:58 OBGyn Episode No OBEpisode recorded.
--- OUTSIDE RECORDS SUMMARY | 2024-09-18 22:10 | XMS_ITS | Encounter Summary ---
Author Organization [facility] Address [address] [place] [id number] Care Team Providers Care Sales Agent Name Role Phone Mayuri Cote MD Unavailable Lilly Harris PA-C Unavailable Jeannette Bernabe MD Primary Care Provide r Reason for Referral * Other (Routine) - Open Specialty Diagnoses / Procedures Referred By Partha yarbrough Referred To Contact Diagnoses Multiple sclerosis (HCC) Procedures N NEUROLOGY APPOINTMENT Mayuri Cote MD [address] [place] [id number] Phone: tel: fax: Referral ID Status Reason Start Date Expiration Date Visits Re quested Visits Authorized [id number] Open 09/03/2025 1 1 Reason for Visit * Reason Comments Follow up Encounter Details Date Type Department Care Team (Late st Contact Info) Description 09/03/2024 3:00 PM CDT Office Visit [facility] - [address] [phone] Mayuri Cote MD [address] [place] [address] [phone] Multiple sclerosis (HCC) (Primary Dx) Social History Tobacco Use Types Packs/Day Years [...] on file documented as of this encounter Last Filed Vital Signs Vital Sign Reading Time Taken Comments Blood Pressure 145/86 09/03/2024 2:44 PM CDT Pulse 80 09/03/2024 2:44 PM CDT Temperature - - Respiratory Rate - - Oxygen Saturation - - Inhaled Oxygen Concentration - - Weight - - Height - - Body Mass Index - - documented in this encounter Patient Instructions * Patient Instructions* Mayuri Cote MD - 09/03/2024 3:00 PM CDT Follow up: 1 y Call around oct for visit Labs Next Due: Labs are due anytime - plan Vit D with your family doctor New Medications/changes: None Referrals: None Other Recommendations: Regular exercise and healthy diet are important and recommended for MS patients. Please keep up on your routine preventative care with your primary care physician including cancer screenings and vaccinations. While vaccination is recommended it is not required. MS patients shouldnot received live vaccines. Cigarette smoking is known to worsen disease course/outcomes of MS and can increase your risk of relapse. If you do smoke, please consider quitting/reducing use. documented in this encounter Progress Notes * Mayuri Cote MD - 09/03/2024 3:00 PM CDT In the interval since her last visit, followed with [facility] 12/01/23 for BP check, reported light tingling feeling down L side of neck with no radiation to arm, came and went better with rest, continued to follow for rechecks. Followed with [facility] 05/28/24 for eval of illness, reported cough and urinary sxs, reported norovirus infection 04/2024, labs drawn. MRI B/C/T completed 06/17/24, MS Stable. [facility] for wellness visit, advised routine screenings, labs drawn. Followed with [facility] 07/15/24 for low back pain, advised lumbar xray and tylenol. Today, reports one fall with injury during visit interval, reports broke rib (reports turnedquickly and fell on furniture) 07/2024 and seen in ER no intervention done and reports now back to baseline. Reports a couple weeks ago fainted at [employer] and seen in ER and was observed overnight and now with heart monitor. Reports hx of 4-5 similar events of lightheadedness but no prior LOC. Deniesany tongue biting/incontinence/or confusion. PCP is changing Bp meds . BP high in clinic today, reports normal with activity and drs visits, reports BP normal at home. Walking about 20 min 2x a day - Reports right hip bent wrong wrong way with hip pain - and will f/u with [facility] Chronic Symptoms Memory - no active concerns Mood - no active concerns Vision - no active concerns Weakness/Mobility - (reports can walk inside house for up to 20 min several times a day) - Can get through grocery store - uses cane/cart for longer distances, RIght leg fatigues more quickly Pain/Abnormal Sensations - Nerve pain - low back pain. numbness in feet - Has been tried on medications in the past but not sure which ones. Trial of GPN with side effects. Nortriptyline helps - painworse if attempts to wean. Intermittent right thigh/zapping pain, left hip pain (back/buttock- radiate down lateral thigh into foot ) Fatigue/Energy - can fatigue Bladder - hx of UTis, Improved when started cranberry Other - Back pain - Osteopetrosis DIAZ EVENTS IN DISEASE HISTORY 1. She reports that in the she had chronic hives and was diagnosed as having a mixed connective disorder and was treated with low dose steroids and methotrexate. She reports eventually after treatment with homeopathy she weaned off medications and symptoms resolved and has not sought further treatment with rheumatology. 2. She reports in mid 1999' she had numbness of her left arm and chest which resolved after several months. Around this time she developed numbness and weakness of her leg with walking long distances 3. In 2007, due to ongoing weakness in her leg with walking that she sought treatment at [facility]. MRI imaging showed enhancing lesion of her brain and cervical and thoracic disc disease as below. 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 She was not started on treatment. 4. She reports that her symptoms were stable until 2012. She describes that her left arm and leg become numb and weak in 01/2013 and needed a wheelchair. MRI imaging showed new cervical enhancing lesion at this time. She was treated with steroids with significant improvement. She was evaluated by Dr. Lyn/Dr. Obregon and started on Copaxone 20mg daily in 02/2013. 5. MRI brain imaging stable other than only slightly more conspicuous lesion on the brain in 02/2014. Subsequent MRI imaging stable. 6. 11/2014 - Changed to Copaxone 40mg TIW 7. Fall 2017 - changed to Glatopa 40mg TIW - MRis stable 04/2019, 05/2020 LABS 08/14/24 - [facility] - Iodine Urine wnl. UA micro wnl. 06/28/24 - [facility] - Comp w/ Na 133 (L), Cl 96 (L). TSH wnl. CBC w/ diff w/ Platelets 401 (H). UA wnl. 05/28/24 - [facility] - UA wnl. UA Micro wnl. 06/27/23 - [facility] - Vit D 54.7. 05/26/23 - [facility] - CBC w/ diff wnl. BMP w/ Sodium 135 (L), Chloride 96 (L), Glucose 107 (H), eGFR 83 (L). 06/24/22 - [facility] - Vit D 74. CBC w/ diff wnl. Comp w/ Sodium 134 (L), Alk Phos 106 (H). UA w/ Roscoe <=1.005. 04/2022 - [facility] - UA w/ Roscoe <=1.005. 05/2021 - through [facility] - from PCP - Comp wnl, CBC with normal WBC/ALC 07/16/20 - TSH 1.93. Vit B12 474. 06/26/2020 Vit D 64.3, CBC with WBC of 3.7 but normal ALC/ IMAGING 06/17/24 - [facility] Brain w/wo Con - Comparison: 06/09/2020 - No interval change since 06/09/2020. Scattered signal abnormality within the supratentorial white matter consistent with chronic demyelinating plaques. No new T2 hyperintense lesion. Similar mild T1 hypointense lesion load and mild diffuse cerebral volumeloss. Stable small focus of encephalomalacia in the left frontal centrum semiovale. MRI Cervical w/wo Con - Comparison: 07/17/2023 - No interval change in few scattered foci of short-segment intramedullary signal abnormality consistent with chronic demyelinating plaques. No new intramedullary T2 hyperintense lesion. Similar moderate degenerative changes most pronounced for mild spinal canal stenosis and moderate bilateral neural foraminal narrowing at C5-C6. MRI Thoracic w/wo Con - Comparison: 07/17/23 - No interval change in multiple foci of short-segment intramedullary signal abnormality consistent with chronic demyelinating plaques. No new intramedullary T2 hyperintense lesion. Mild associated spinal cord atrophy at T1-2 is better appreciated on priorCT. Similar accentuation of the thoracic kyphosis with redemonstrated small central disc protrusionat T10-11. No significant spinal canal or neural foraminal stenosis. 07/18/23 [facility] MRI Brain w/wo jesusita - Comparison 07/15/22 - Stable supratentorial white matter lesions compatible withchronic demyelinating plaques. No new lesions identified. No significant changes compared to the prior exam. Mild T1 hypointense lesion burden, unchanged. Similar mild cerebral and cerebellar parenchymal volume loss. MRI Cervical w/wo jesusita - Comparison 07/15/22 - No acute osseous or ligamentous abnormality. Stable alignment. Stable scattered foci of T2 prolongation in the spinal cord suggestive of chronic demyelinating plaques. No new lesions identified. No cord expansion or atrophy. Stable cervical spondylosis, outlined above. MRI Thoracic w/wo jesusita - Comparison 07/15/22 - Subacute mild T11 superior endplate compression fracture. No retropulsed fragments. At T10-11, stable central disc herniation that minimally flattens the ventral cord surface and results in mild spinal canal stenosis. Stable subtle scattered T2 hyperintense lesions in the thoracic spinal cord, most prominent at the T1-2 level where there is minimal cordatrophy, as well as the T5-7 levels and T11-12 levels without cord atrophy. Findings are most consistent with chronic demyelinating plaques. 10/13/22 [facility] MRI Lumbar wo jesusita - Comparison 06/30/16 - Stable chronic superior endplate deformity of L1 and L3. Moderate levoconvex curvature. At L1-2, stable mild spinal canal, with moderate right and mild left neural foraminal narrowing. At L2-3, stable moderate right and mild left neural foraminal narrowing. At L3-4, progressed mild spinal canal with mild to moderate right and mild left neural foraminal narrowing. At L4-5, stable grade 1 anterolisthesis with mild spinal canal, mild to moderate left and mild right neural foraminal narrowing. 07/15/22 [facility] MRI Brain wo jesusita - Comparison 06/09/20 - Stable mild to moderate supratentorial and mild infratentorial white matter change. There are greateer than 20 lesions overal. Stable mild diffuse cerebral atorpjy and T1 hypointense lesion load. MRI Cervical wo jesusita - Comparison 06/09/20 - Essentially stable multi focal signal abnormality withinthe upper visualized cervical and thoracic spinal cord. Stable moderate to severe bilateral C5-6 foraminal narrowing. Milder degenerative changes within the remainder of the cervical cord. MRI Thoracic wo jesusita - Comparison 06/09/20 - Stable multi focal signal abnormality within the thoracic cord. Stable subtle cord atrophy at the T1-2 level. Essentially stable scattered multilevel degenerative changes of the thoracic spine. Irregularity within the right lobe of thyroid gland that is of indeterminant etiology. Further characterization with US may by beneficial in clinically warranted. 06/09/2020 - [facility] MRI Brain w/wo jesusita - Comparison 04/22/2019 - No appreciable change in multiple nonenhancing lesions in the hemispheric white matter compatible with patient's hx of MS. No new or enhancing lesions. MRI Cervical w/wo jesusita - Comparison 04/22/2019 - Chronic demyelination at T2, stable. No signal abnormality or enhancement in the cervical spinal cord. No new lesions or enhancement. Stable multilevel disc bugling, stable chronic foraminal stenoses most notable at C5-6. MRI Thoracic w/wo jesusita - Comparison 04/22/2019 - Chronic demyelination most notable at T1-2, stable. No new lesions or enhancement. New T5-6 mild active right facet inflammatory arthropathy. Stable small disc herniations at T7-8 and T10-11. MEDICATIONS Current Outpatient Medications: Medication Sig ascorbic acid, vitamin C, 250 mg oral tablet Take 1 tablet (250 mg) by mouth once daily. CALCIUM ORAL Take by mouth. cholecalciferol, vitamin D3, 25 mcg, 1000 unit, 25 mcg (1,000 unit) oral tablet Take 4 tablets (100mcg) by mouth once daily. cranberry fruit extract (CRANBERRY ORAL) Take by mouth. estradioL (ESTRACE) 0.01 % (0.1 mg/gram) Vagl cream vaginal cream Insert 1 gram into the vagina every Monday and Monday.* Fish Oil 340-1,000 mg oral capsule Take 1 capsule (1,000 mg) by mouth once daily. Lactobac no.41/Bifidobact no.7 (PROBIOTIC-10 ORAL) Take by mouth. losartan (COZAAR) 25 mg oral tablet Take 1 tablet (25 mg) by mouth once daily. Magnesium Chloride 64 mg oral delayed release tablet Take 1 tablet (64 mg) by mouth once daily. multivitamin (CERTAVITE) 18-400 mg-mcg oral tablet Take 1 tablet by mouth once daily. nortriptyline (PAMELOR) 10 mg oral capsule TAKE SEVEN CAPSULES BY MOUTH EVERY DAY AT BEDTIME ubidecarenone (COQ-10 ORAL) Take by mouth. VITAMIN K2 ORAL Take by mouth. ZINC ORAL Take by mouth. ALLERGIES Amoxicillin, Gabapentin, Sulfa (sulfonamide antibiotics), and Trazodone GENERAL EXAM General: Patient in no acute distress. Cardiovascular: Bilateral lower extremities with no edema. Distal pulses palpable. Respiratory: Breathing non labored. NEUROLOGICAL EXAM BP (!) 145/86 Pulse 80 Mental Status Examination : Alert and oriented. Able to provide detailed medical history. Language is fluent. Speech without dysarthria. Cranial Nerves : Extraocular movements are full without nystagmus. Pupils are equal round and reactive to light. Face is symmetric with full sensation bilaterally. Visual graves were full to confrontation. Tongue is midline and palate elevates Symmetrically) Shoulder shrug is 5/5 bilaterally. Neck flexion does not illicit abnormal sensation. Motor Examination : Muscle bulk and tone are normal. Strength to confrontational testing is 5/5 in bilaterally upper and lower extremities both proximally and distally but on right leg fatigues with HKS and difficulty with this due to hip flexion weakness Reflexes : Upper - Biceps 2/2, Brachioradialis 2/2 Lower - Patella 2/2 (no crossed adductor seen), Achilles 1/1, COORDINATION: No dysmetria on finger nose finger testing, Sensation : Intact to light touch. Intact to vibration at ankles but slightly reduced, decreased atknees. Intact pinprick. Neg straight leg raise. Gait and Station : Able to stand from seated position without assistance. Does not use walking aid.Has difficulty with tandem. Slightly bent posture at knees with routine walking R> L leg dragging intermittent (seenin past). 25 foot timed walk Deferred on 09/03/24 due to back injury 7.01 seconds without cane on 08/18/23 6.93 seconds without cane on 02/10/23 6.81 seconds without cane on 08/05/22 6.21 seconds without cane on 06/24/21 5.50 seconds on 06/29/20 (no shoes) 5.96 seconds prior ASSESSMENT AND PLAN Ms. Vizcarra is a 74-year-old woman with past medical history significant for hypertension with a priordiagnosis of multiple sclerosis, now stopped Copaxone since 07/2022. MRis B/C/T in 07/18/2023 and now 06/2024 stable Today, reports stable neurological symptoms without relapse or concern for progression. Did have one fall with rib fracture but denies specific change in walking. Exam stable. I discussed the following plan MS - Discussed goals of care. Now off of DMT since 07/2022. Her last new lesion was in 2012 and possible in 2013. Mris stable as above. Plan repeat in 2025 or sooner if needed Labs Vit D goal 60- hx of renal stones . 07/08 - level 56.7 - plans to trend with PCP Symptoms Right hip flexion weakness/myoclonus - trend - Decreased sensation in feet/Gait - continue to trend - had recent fall. Has had prior TSH and B12 testing. Reviewed PT and declined - reviewed fall risk given hx of bone thinning Other Back pain/left leg pain - she follows local pain clinic in past - now not for some time. 10/2022 MRIL spine with no significant nerve compression but does have multi-level facet arthropathy, Discussed pain meds and other options. Failed prior attempt to wean nortriptyline and can continue current dose. (Reports takes up to 70mg at night but likes to self adjust (50 - 70mg ). Discussed referral back to PT/pain/sports medicine clinic and will consider - MRi T spine in 07/2023 with new subacute compression fracture. In 08/2024 reports pain stable to improved. Using Lifeway patches and feels has helped with sleep Compression fracture - osteoperosis - Seen by PCP had updated bone density in 08/2024 - has been offered medication for bone density and has declined. Offered specialty eval and declined. Thyroid nodule - had thyroid US done locally 07/2023 and 08/2024 - defer to PCP Recent LOC event - PCP following has heart monitor - PCP changed BP F/u 1 y or sooner I spent 42 minutes on the date of the encounter with this patient consisting of activities before, during and after the encounter including time spent: Preparing to see the patient including review of the chart, tests, and/or outside records. Reviewing and verifying information regarding the chief complaint and history already recorded by ancillary staff and/or the patient. Obtaining history and performing medically appropriate evaluation. Counseling the patient regarding the diagnosis, additional diagnostic considerations, possible diagnostic testing, and any potential options for therapy, including conservative/lifestyle measures and pharmacotherapy including risks/benefits, side effects and adverse effects. I also counseled the patient on how to contact me with any questions or concerns, new or worsening symptoms. Ordering medications, tests, and/or procedures, and documenting the chart. I am the single focal point of care for a condition that requires longitudinal relationship and personalized care for condition ( Multiple sclerosis) as specific within this medical record documented in this encounter Plan of Treatment Not on file documented as of this encounter Visit Diagnoses Diagnosis Multiple sclerosis (HCC)- Primary Multiple sclerosis documented in this encounter Care Teams Sales Agent Relationship Specialty Start Date End Date Jeannette Bernabe MD [address] [place] [address] PCP - General 06/24/21 Mayuri Cote MD Physician Neurology 06/23/21 Lilly Harris PA-C Physician Package Sorter Neurology 06/23/21 documented as of this encounter
--- OUTSIDE RECORDS SUMMARY | 2024-09-18 22:10 | XMS_ITS | Continuity of Care Document ---
Author Organization [place] [facility] Address [address] [facility] [address] [place] [address] Assessment Encounter Date Assessment Date Assessment LastModified by Organization Details LastModified Time 09/11/2024 09/11/2024 ASSESSMENT: Patient is a good [...] to contact our office. [email or web address] Not available 09/11/2024 16:18:21 Plan of Treatment Reminders Order Date Submit Date Provider Last Modified By Organization Details Last Modified Time Details Appointments DC Treatment 2024 02:35P M Chintan Kohler OR Not available Not available Not available Lab None recorded. Referral None recorded. Procedures None recorded. Surgeries None recorded. Imaging None recorded. Medication Orders None recorded. Patient TargetsNo targets recorded. Patient InstructionsNo instructions recorded. Reason for Referral None Reported. Problems Name Problem SNOMED Code Status Onset Date Resolution Date Notes Provider Name and Address Organization Details Recorded Time Neck pain 99441237 Active 2024 Arsalan Dc, TANGELA [address] [facility], [place], [address], [place] [facility] 5 10:41:22 Cervical segmental dysfunction 016791340 Active 2024 Arsalan Dc DC [address] [facility], [place], [address], [place] [facility] 5 10:41:27 Lesion of lumbar spine 546236826 Active 2024 Chintan Kohler DC [address] [facility], [place], [address], [place] [facility] 5 10:36:57 Thoracic segmental dysfunction 160451875 Active 2023 Arsalan Dc DC [address] [facility], [place], [address], [place] [facility] 4 17:53:01 Low back pain 763609718 Active 2023 Arsalan Dc DC [address] [facility], [place], [address], [place] [facility] 4 17:53:01 Lumbar segmental dysfunction 344515738 Active 2023 Arsalan Dc DC [address] [facility], [place], [address], [place] [facility] 4 17:53:01 Somatic dysfunction of sacral spine 258949429 Active 2023 Arsalan Dc DC [address] [facility], [place], [address], [place] [facility] 4 17:53:01 Somatic dysfunction of pelvic region 337356105 Active 2023 Arsalan Dc DC [address] [facility], [place], [address], [place] [facility] 4 16:00:35 Problem Notes None recorded. Procedures Surgical History Date Name Laterality Status Provider Name and Address Organization Details Recorded Time 5 99290: Spinal manipulation , 3 to 4 regions completed Chintan Kohler OR [address] [facility], [place], [address], [place] [facility] 09/18/2024 20:39:50 5 58275: Spinal manipulation , 3 to 4 regions completed Chintan Kohler, [place] [address] [facility], [place], [address], [place] [facility] 09/11/2024 16:19:20 5 40562: Spinal manipulation , 3 to 4 regions completed Chintan Kohler OR [address] [facility], [place], [address], [place] [facility] 09/04/2024 19:45:53 5 67954: Spinal manipulation , 3 to 4 regions completed [facility] Sherif Bridgesjennifercatina [place] [address] [facility], [place], [address], [place] [facility] 08/28/2024 19:29:31 5 64684: Spinal manipulation , 3 to 4 regions completed Chintan Bridgesjennifercatina OR [address] [facility], [place], [address], [place] [facility] 08/15/2024 10:50:31 5 21088: Spinal manipulation , 3 to 4 regions completed [facility] Sherif Bridgesjennifercatina [place] [address] [facility], [place], [address], [place] [facility] 08/08/2024 10:36:05 5 97336: Spinal manipulation , 3 to 4 regions completed Chintan Kohler OR [address] [facility], [place], [address], [place] [facility] 07/24/2024 17:24:59 5 24971: Spinal manipulation , 3 to 4 regions completed Chintan Kohler OR [address] [facility], [place], [address], [place] [facility] 07/22/2024 18:24:19 5 84458: Spinal manipulation , 3 to 4 regions completed Ronimireya Anderson DC [address] [facility], [place], [address], [place] [facility] 07/19/2024 13:59:35 5 29686: Spinal manipulation , 3 to 4 regions completed Chintan Kohler DC [address] [facility], [place], [address], [place] [facility] 07/12/2024 19:11:44 5 93082: Spinal manipulation , 3 to 4 regions completed Arsalan Dc DC [address] [facility], [place], [address], [place] [facility] 07/16/2024 10:41:16 5 36021: Spinal manipulation , 3 to 4 regions completed Arsalan Dc DC [address] [facility], [place], [address], [place] [facility] 06/13/2024 16:09:29 5 35858: Spinal manipulation , 3 to 4 regions completed Arsalan Dc DC [address] [facility], [place], [address], [place] [facility] 05/30/2024 15:48:40 5 82199: Spinal manipulation , 3 to 4 regions completed Arsalan Dc DC [address] [facility], [place], [address], [place] [facility] 05/16/2024 16:14:08 4 45419: Spinal manipulation , 3 to 4 regions completed Arsalan Dc DC [address] [facility], [place], [address], [place] [facility] 05/14/2024 11:46:50 4 74447: Spinal manipulation , 3 to 4 regions completed Arsalan Dc DC [address] [facility], [place], [address], [place] [facility] 04/25/2024 16:00:07 4 29331: Spinal manipulation , 3 to 4 regions completed Arsalan Dc DC [address] [facility], [place], [address], [facility] 04/18/2024 17:53:33 Imaging Results None recorded. Procedure [...] SNOMED-CT Code Diagnosis ICD10 Code Diagnosis Note [id number] Chintan Sherif TANGELA Kohler [facility] [address] [facility] [place] [address] 08/15/2024 10:21:59 08/15/2024 11:55:34 Thoracic segmental dysfunction 046309982 M99.02 Somatic dy sfunction of pelvic region 938161044 M99.05 Low back pain 571575627 M54.50 Lesion of lumbar spine 351120178 M99.01 Neck pain 62095313 M54.2 Lumbar seg mental dysfunction 190133130 M99.03 Cervical s egmental dysfunction 570165854 M99.01 [id number] Chintan Kohler DC [facility] [address] [place] [address] 08/28/2024 16:23:40 08/30/2024 15:51:18 Thoracic segmental dysfunction 846678783 M99.02 Somatic dy sfunction of pelvic region 314271033 M99.05 Low back pain 169998683 M54.50 Lesion of lumbar spine 410632587 M99.01 Neck pain 60533112 M54.2 Lumbar seg mental dysfunction 085601341 M99.03 Cervical s egmental dysfunction 532218675 M99.01 [id number] Chintan Kohler DC [facility] [address] [place] [address] 09/04/2024 16:32:03 09/06/2024 18:17:46 Thoracic segmental dysfunction 181771088 M99.02 Somatic dy sfunction of pelvic region 865931425 M99.05 Low back pain 984823202 M54.50 Lesion of lumbar spine 157049734 M99.01 Neck pain 50783917 M54.2 Lumbar seg mental dysfunction 027866939 M99.03 Cervical s egmental dysfunction 556582888 M99.01 [id number]ler DC [facility] [place] [address] [place] [address] 09/11/2024 11:54:20 09/11/2024 16:29:18 Lumbar segmental dysfunction 460763372 M99.03 Low back pain 539743740 M54.50 Somatic dy sfunction of sacral spine 167647844 M99.04 Thoracic s egmental dysfunction 039135114 M99.02 Health Concerns Section Related Observation LastModified by Organization Detai ls LastModified Time None Recorded Concern Status LastModified by Organization Details LastModified Time None Recorded Payers Encounter Date Sequence Insurance Name Policy Number Policy Poe Covered Member ID Poe Member ID Guarantor Name 09/11/2024 1 MEDICARE [place]: [employer] [facility] Lelia Vizcarra [id number] 5 Lelia Vizcarra Notes Date Note Type Note Provider Name and Address Organization Details Recorded Time 09/11/2024 text/html HPI - Lumbar SpineReported bypatient.Location: left Quality:aching Severity:moderate Timing:morning Aggravating Factors:walking; lifting; carrying; twisting Alleviating Factors:rest Chintan Kohler DC [address] [facility], [place], [address], [facility] - [facility] 09/11/2024 16:19:38 OBGyn Episode No OBEpisode recorded.
--- OUTSIDE RECORDS SUMMARY | 2024-09-18 22:10 | XMS_ITS | Continuity of Care Document ---
Author Organization [place] [facility] Address [address] [facility] [address] [place] [address] Assessment Encounter Date Assessment Date Assessment LastModified [...] Address Organization Details Recorded Time Neck pain 72891648 Active 2024 Arsalan Dc DC [address] [facility], [place], [address], [facility] 10:41:22 Cervical segmental dysfunction 688142385 Active 2024 Arsalan Dc DC [address], [place], [address], [facility] 10:41:27 Lesion of lumbar spine 490020500 Active 2024 Chintan KohlerCHILHOWIE, DC [address], [facility] [place], [address], [facility] - [facility] 10:36:57 Thoracic segmental dysfunction 855019483 Active 2023 Arsalan Dc DC [address], [place], [address], [facility] 17:53:01 Low back pain 456183608 Active 2023 Arsalan Dc DC [address], [place], [address], [facility] [place] [place] [facility] 4 17:53:01 Lumbar segmental dysfunction 302447154 Active 2023 Arsalan Dc DC [address], [place], [address], [facility] 4 17:53:01 Somatic dysfunction of sacral spine 301960040 Active 2023 Arsalan Dc, [place] [address], [place], [address], [facility] 4 17:53:01 Somatic dysfunction of pelvic region 252085720 Active 2023 Arsalan Dc, TANGELA [address], [place], [address], [facility] 4 16:00:35 Problem Notes None recorded. Procedures Surgical History Date Name Laterality Status Provider Name and Address Organization Details Recorded Time 5 34103: Spinal manipulation , 3 to 4 regions completed Chintan Kohler [place] [address], [place], [address], [facility] 09/18/2024 20:39:50 5 26843: Spinal manipulation , 3 to 4 regions completed [facility] Sherif Kohler [place] [address], [place], [address], [facility] 09/11/2024 16:19:20 5 26155: Spinal manipulation , 3 to 4 regions completed Chintan Kohler, [address], [place], [address], [facility] 09/04/2024 19:45:53 5 93822: Spinal manipulation , 3 to 4 regions completed Chintan Kohler, [place] [address], [place], [address], [facility] 08/28/2024 19:29:31 5 39319: Spinal manipulation , 3 to 4 regions completed Chintan Kohler, [place] [address], [place], [address], [facility] 08/15/2024 10:50:31 5 44392: Spinal manipulation , 3 to 4 regions completed Chinatn Bridgesjennifercatina, [address], [place], [address], [place] [facility] 08/08/2024 10:36:05 5 22025: Spinal manipulation , 3 to 4 regions completed Chintan Kohler DC [address], [place], [address], [place] [facility] 07/24/2024 17:24:59 5 23354: Spinal manipulation , 3 to 4 regions completed Chintan Kohler DC [address], [place], [address], [place] [facility] 07/22/2024 18:24:19 5 56488: Spinal manipulation , 3 to 4 regions completed Roni Anderson DC [address], [place], [address], [facility] 07/19/2024 13:59:35 5 90918: Spinal manipulation , 3 to 4 regions completed Chintan Kohler DC [address], [place], [address], [place] [facility] 07/12/2024 19:11:44 5 12455: Spinal manipulation , 3 to 4 regions completed Arsalan Dc DC [address], [place], [address], [place] [facility] 07/16/2024 10:41:16 5 56853: Spinal manipulation , 3 to 4 regions completed Arsalan Dc DC [address], [place], [address], [place] [facility] 06/13/2024 16:09:29 5 38836: Spinal manipulation , 3 to 4 regions completed Arsalan Dc DC [address], [place], [address], [facility] 05/30/2024 15:48:40 5 64028: Spinal manipulation , 3 to 4 regions completed Arsalan Dc DC [address], [place], [address], [facility] 05/16/2024 16:14:08 4 42437: Spinal manipulation , 3 to 4 regions completed Arsalan Dc, TANGELA [address], [place], [address], [facility] 05/14/2024 11:46:50 4 28154: Spinal manipulation , 3 to 4 regions completed Arsalan Dc, TANGELA [address], [place], [address], [facility] 04/25/2024 16:00:07 4 42583: Spinal manipulation , 3 to 4 regions completed Arsalan Dc, TANGELA [address], [place], [address], [facility] 04/18/2024 17:53:33 Imaging Results None [...] SNOMED-CT Code Diagnosis ICD10 Code Diagnosis Note [id number] Arsalan Dc DC [facility] [address] [place] [address] 07/11/2024 11:19:31 07/17/2024 13:30:34 Thoracic segmental dysfunction 300833378 M99.02 Neck pain 44428149 M54.2 Cervical s egmental dysfunction 942274192 M99.01 Lumbar seg mental dysfunction 225521302 M99.03 [id number] Chintan Kohler DC [facility] [address] [place] [address] 07/12/2024 12:30:51 07/16/2024 09:51:49 Somatic dysfunction of sacral spine 504053006 M99.04 Thoracic s egmental dysfunction 368632192 M99.02 Somatic dy sfunction of pelvic region 078271577 M99.05 Low back pain 483266210 M54.50 [id number] Roni Anderson DC [facility] [address] [place] [address] 07/19/2024 12:23:03 07/19/2024 15:12:15 Somatic dysfunction of sacral spine 781913152 M99.04 Thoracic s egmental dysfunction 931970931 M99.02 Somatic dy sfunction of pelvic region 150883591 M99.05 Low back pain 894306381 M54.50 [id number] Chintan Kohler DC [facility] [address] [place] [address] 07/22/2024 11:54:25 07/23/2024 18:33:07 Somatic dysfunction of sacral spine 397344221 M99.04 Thoracic s egmental dysfunction 006157928 M99.02 Somatic dy sfunction of pelvic region 712078090 M99.05 Low back pain 194585426 M54.50 [id number] Chintan Kohler DC [facility] [address] [place] [address] 07/24/2024 12:24:44 07/24/2024 17:36:13 Somatic dysfunction of sacral spine 024872987 M99.04 Thoracic s egmental dysfunction 977448543 M99.02 Somatic dy sfunction of pelvic region 958545939 M99.05 Low back pain 771897630 M54.50 [id number] Chintan BridgesTANGELA flores [facility] [address] [place] [address] 08/07/2024 12:42:42 08/08/2024 10:53:14 Thoracic segmental dysfunction 292176614 M99.02 Somatic dy sfunction of pelvic region 914356700 M99.05 Low back pain 621667043 M54.50 Lesion of lumbar spine 829182485 M99.01 Neck pain 96205682 M54.2 Lumbar seg mental dysfunction 980498233 M99.03 Cervical s egmental dysfunction 963972408 M99.01 Health Concerns Section Related Observation LastModified by Organization Detai ls LastModified Time None Recorded Concern Status LastModified by Organization Details LastModified Time None Recorded Payers Encounter Date Sequence Insurance Name Policy Number Policy Poe Covered Member ID Poe Member ID Guarantor Name 08/07/2024 1 MEDICARE B-[place]: [employer] Lelia Vizcarra [id number] 5 Lelia Vizcarra Notes Date Note Type Note Provider Name and Address Organization Details Recorded Time 08/07/2024 text/html HPI - Cervical SpineReported bypatient.Location: left Quality:aching Severity:moderate Duration:2 weeks Timing:gradual Alleviating Factors:ice Aggravating Factors:sitting Associated Symptoms:no numbness/tinglingHP I - Lumbar SpineReported bypatient.Location: left; With radiation to knee Quality:aching Severity:not changing Timing:morning Aggravating Factors:standing Alleviating Factors:ice Chintan Kohler DC [address], [place], [address], [facility] 08/08/2024 10:37:37 OBGyn Episode No OBEpisode recorded.
[2024-09-18 22:13] VITALS: BP 208/117; PULSE 98; RESP 20; TEMP 36; O2SAT 98; BMI 31.0
[2024-09-18 22:16] VITALS: BP 201/119
--- NOTE | 2024-09-18 22:21 | ED_ITS ---
HPI - General Adult General Time Seen by Provider: 22:21 Date Seen: 09/18/24 Chief complaint: Hypertension Stated complaint: high blood pressure Time Seen by Provider: 09/18/24 22:19 Source: patient and RN notes reviewed Mode of arrival: ambulatory Limitations: no limitations History of Present Illness HPI narrative: This 74-year-old female is coming in with elevated blood pressure. She started checking it tonight, it was elevated, continue to check and it was going up. She started to worry about it. Could not sleep. Her losartan was 75 mg a day but she had a syncopal episode in [facility] and her blood pressure was held. She was hospitalized here overnight in August,August 25 to . Blood pressure is on day of discharge were 124/65, 138/83. Her blood pressure medication was cut down to 25 mg of losartan but she has went back to 25 mg twice a day due to her blood pressure elevating. She also completed the Zio patch, states she had 3 short runs of a fast rhythm, she states it was 3 words, does believe it might be paroxysmal supraventricular tachycardia. She states her primary offered her to see Cardiology but she initially said no, they also talked about going on a beta-savannah. She notes no visual changes, no headache, no numbness tingling weakness, no stroke symptoms, no chest pain, no palpitations, no shortness of breath with this. She does note she became anxious and blood pressure was continuing to elevate. She thought about taking an extra dose of the losartan tonight but worries if she has to get up in the middle of the night and her blood pressure might go too low. She would rather take the 50 mg in the morning. She wonders if she needs to go back up to 75 mg total daily dosing of the losartan. Related Data Home Medications ?Medication ?Instructions ?Recorded ?Confirmed losartan 25 mg tablet (Cozaar) See Rx Instructions .Route .COMPLEX 07/29/2412/06 nortriptyline 10 mg capsule 60 mg PO HS 07/29/24 09/18/24 Allergies Allergy/AdvReac Type Severity Reaction Status Date / Time sulfamethoxazole (From Allergy Intermediate Hives Verified 09/18/24 22:10 Sept) trimethoprim (From ) Allergy Intermediate Hives Verified 09/18/24 22:10 amoxicillin Allergy Mild Erythema Verified 09/18/24 22:10 Sulfa (Sulfonamide Allergy Mild Hives Verified 09/18/24 22:10 Antibiotics) trazodone Allergy Mild Hives Verified 09/18/24 22:10 Review of Systems Status of ROS: Reports: 6 or more systems reviewed and unremarkable except as noted in History and below [facility] Medical History Colon polyps ?K63.5 - Polyp of colon (ICD-10) Obesity ?E66.9 - Obesity, unspecified (ICD-10) Urticaria, unspecified ?L50.9 - Urticaria, unspecified (ICD-10) Vitamin D deficiency ?E55.9 - Vitamin D deficiency, unspecified (ICD-10) Menopause ?Z78.0 - Asymptomatic menopausal state (ICD-10) Anemia ?D64.9 - Anemia, unspecified (ICD-10) Multiple sclerosis ?G35 - Multiple sclerosis (ICD-10) Lumbar foraminal stenosis ?M48.061 - Spinal stenosis, lumbar region without neurogenic claudication (ICD-10) DDD (degenerative disc disease) Osteoporosis ?M81.0 - Age-related osteoporosis without current pathological fracture (ICD- 10) History of inguinal hernia ?Z87.19 - Personal history of other diseases of the digestive system (ICD-10) Nephrolithiasis ?N20.0 - Calculus of kidney (ICD-10) Low back pain ?M54.50 - Low back pain, unspecified (ICD-10) Dyshidrosis ?L30.1 - Dyshidrosis [pompholyx] (ICD-10) Depressive disorder ?F32.A - Depression, unspecified (ICD-10) Surgical History H/O right inguinal hernia repair (11/09/15) ?Z98.890 - Other specified postprocedural states (ICD-10) ?Z87.19 - Personal history of other diseases of the digestive system (ICD-10) H/O lymph node biopsy ?Z98.890 - Other specified postprocedural states (ICD-10) History of hysterectomy ?Z90.710 - Acquired absence of both cervix and uterus (ICD-10) History of cholecystectomy ?Z90.49 - Acquired absence of other specified parts of digestive tract (ICD- 10) History of colonoscopy ?Z98.890 - Other specified postprocedural states (ICD-10) Family History Father Osteoporosis Prostate cancer Mother Lung cancer Brother Alzheimers disease Brother Pancreatic cancer Social History Narrative: [facility], lives alone, , daughter lives in the area. Retired from [employer]. Quit smoking more than 30 years ago. EtOH glass of wine twice a month or less. No recreational drugs. FULL CODE. What is your current living situation?: I presently have a place to live Problems where you live: no known problems Problems where you live details: N/A In the past 12 months, utilities in danger of being shut off: no In past 12 months, lack of transportation kept you from medical appts, meetings, work, or getting things needed for daily living: no In the past 12 mos, have been you worried that your food would run out before you had money to buy more?: never true In the past 12 mos, the food you bought just didn't last and you didn't have money to buy more?: never true Highest level of school completed/degree received: GED or equivalent Smoking Status: Former smoker Do you use any of these nicotine containing products: None Second hand tobacco smoke exposure: No How often do you have a drink containing alcohol: 2-4 times a month Alcohol type: wine How many standard drinks containing alcohol do you have on a typical day: 1 or 2 How often do you have six or more drinks on one occasion: Less than monthly AUDIT-C Alcohol total score: 3 Non-prescribed substance use: denies use Caffeine: Yes How often does anyone, including family, friends and others, physically hurt you : never How often does anyone, including family, friends and others, insult or talk down to you: never How often does anyone, including family, friends and others, threaten you with harm: never How often does anyone, including family, friends and others, scream or curse at you: never service: No Exam Const: Vital Signs, click to edit/add: Vital Signs - 24 hr 09/18/24 22:13 09/18/24 22:16 Temperature 96.8 F L Pulse Rate [Pulse Oximeter] 98 Respiratory Rate 20 Blood Pressure [Ri ght Upper Arm] 208/117 H 201/119 H Pulse Oximetry 98 Oxygen Delivery Me thod Room Air This 74-year-old female is alert, interactive, no apparent distress. She is very well capped. Pupils equal round reactive, sclera clear, extraocular muscles intact. Symmetrical facial function, speech is normal. Neck is supple, no adenopathy, no jugular venous distension. Lungs are clear, good air entry, no wheezing or crackles, no tachypnea. CV regular rate and rhythm, no murmur, normal S1-S2, no S3-S4. Abdomen is soft, nontender, nondistended, no organomegaly or masses noted. She has no lower extremity edema. She has symmetrical facial function, normal speech. Strength is 5/5 and symmetric throughout her upper extremities and lower extremities. Normal light touch sensation. Normal function of arms and legs, was ambulatory into the ED of her own accord. Documenting provider has reviewed patient's vital signs: yes Course Course ED Course: Have spent some time discussing blood pressure and blood pressure management with Lelia. It can be difficult when patients experience spikes in blood pressure. It can be very hard to control labile blood pressures. We certainly can load her up with plenty of medications here but she can then swing too low. We discussed the difficulty in controlling labile hypertension. I do agree with her that there may be a component of anxiety with this. She is technically completely asymptomatic but will look at an EKG and troponin. She is not having any chest pain, no chest discomfort, no chest symptoms making something like dissection extremely unlikely, certainly same with ischemic cerebrovascular disease, she is asymptomatic. She does understand that you do not want to live with these chronically elevated numbers but can be difficult to address with an isolated spike. We did discuss that there is research out of blood pressure management and ED control of blood pressures, patients can have hypotensive issues later. Blood pressures can tend to be higher in the ER due to the anxiety and stressful nature of being here. Reevaluation(s) Time of Reevaluation #1: 23:39 Reevaluation #1: Have reviewed with her that her EKG and troponin are normal. She is comfor table. Will have nursing staff recheck her blood pressure. At this time, plan will be to initiate losartan 50 mg in the morning, 25 mg at night and follow up with primary care provider as soon as possible. Vital Signs Vital signs: Initial Vital Signs Temperature 96.8 F L 09/18/24 22:13 Temperature Source Temporal Artery Scan 09/18/24 22:13 Pulse Rate 98 09/18/24 22:13 Respiratory Rate 20 09/18/24 22:13 Blood Pressure 208/117 H 09/18/24 22:13 Blood Pressure Mean 147 H 09/18/24 22:13 Pulse Oximetry 98 09/18/24 22:13 Oxygen Delivery Method Room Air 09/18/24 22:13 Vital Signs Temperature 96.8 F L 09/18/24 22:13 Pulse Rate 98 09/18/24 22:13 Respiratory Rate 20 09/18/24 22:13 Blood Pressure 208/117 H 09/18/24 22:13 Pulse Oximetry 98 09/18/24 22:13 Oxygen Delivery Method Room Air 09/18/24 22:13 Temperature 96.8 F L 09/18/24 22:13 Pulse Rate 98 09/18/24 22:13 Respiratory Rate 20 09/18/24 22:13 Blood Pressure 201/119 H 09/18/24 22:16 Pulse Oximetry 98 09/18/24 22:13 Oxygen Delivery Method Room Air 09/18/24 22:13 Medical Decision Making Lab Data Lab results reviewed: Yes I reviewed the patient's lab results Labs: Lab Results 09/18/24 Range/Units 22:34 POC Troponin I 0.01 (0.01-0.04) ng/ml ECG Data Attestation: I personally reviewed and interpreted this ECG as follows: (Normal sinus rhythm, 82 beats per minute. No ischemic change, no infarct.) Prior ECG tracings: available for review Discharge Plan Discharge Clinical Impression: Elevated blood pressure reading with diagnosis of hypertension Patient Disposition: Home, Self-Care Condition: Stable Instructions: Hypertension (ED) Additional Instructions: Recommend resuming 50 mg of losartan in the morning, 25 mg at night. Schedule follow-up with your primary care provider within the next week for recheck. Can continue to monitor blood pressures but losartan does take a little longer to bring blood pressures down. If you have further concerns, have chest pain, neurologic symptoms such as numbness tingling weakness, headache, visual changes with elevated blood pressure, do need to be re-evaluated Activity Level: Activity as Tolerated Prescriptions: No Action nortriptyline 10 mg capsule 60 mg PO HS losartan [Cozaar] 25 mg tablet See Rx Instructions .ROUTE .COMPLEX Rx Instructions: Takes 50mg in AM and 25mg in PM Follow Up/Referrals: Jeannette Bernabe MD [Primary Care Provider] - Stand Alone Forms: Banter! Info Instructions
--- OUTSIDE RECORDS SUMMARY | 2024-09-18 22:41 | XMS_ITS | Clinical Summary ---
Author Organization [facility] Address [address] [place] [address] Care Team Providers Care Direct Chill Casting Operator Name Role Phone Mayuri Cote MD [...] Description 09/03/2024 3:00 PM CDT Office Visit [facility] [address] [phone] Mayuri Cote MD Multiple sclerosis (HCC) (Primary Dx) from Last 3 Months Immunizations Name Administration Dates Next Due Slyce 12+ Yrs Monovalent CO VID Vaccine (purple [...] 05/31/2016 Insurance MEDICARE PART A & B [facility] [place] [address] Care Teams Direct Chill Casting Operator Relationship Specialty Start Date End Date Runzheimer, Jeannette Brenda, MD [address] [place] [address] PCP - General 06/24/21 Mayuri Cote MD Physician Neurology 06/23/21 Lilly Harris PA-C Physician Mirror Polisher Neurology 06/23/21
--- OUTSIDE RECORDS SUMMARY | 2024-09-18 22:42 | XMS_ITS | Encounter Summary ---
Author Organization [facility] Address [address] [place] [id number] Care Team Providers Care Design Drafter Chief Name Role Phone Mayuri Cote MD Unavailable Lilly Harris PA-C Unavailable Jeannette Bernabe MD Primary Care Provide r Reason for Referral * Other (Routine) - Open Specialty Diagnoses / Procedures Referred By Partha yarbrough Referred To Contact Diagnoses Multiple sclerosis (HCC) Procedures N NEUROLOGY APPOINTMENT Mayuri Cote MD [address] [place] [id number] Phone: tel: fax: Referral ID Status Reason Start Date Expiration Date Visits Re quested Visits Authorized [id number] Open 09/03/2025 1 1 Reason for Visit * Reason Comments Follow up Encounter Details Date Type Department Care Team (Late st Contact Info) Description 09/03/2024 3:00 PM CDT Office Visit [facility] - [address] [phone] Mayuri Cote MD [address] [place] [phone] Multiple sclerosis (HCC) (Primary Dx) Social History [...] interval since her last visit, followed with [facility] 12/01/23 for BP check, reported light tingling feeling down L side of neck with no radiation to arm, came and went better with rest, continued to follow for rechecks. Followed with [facility] 05/28/24 for eval of illness, reported cough and urinary sxs, reported norovirus infection 04/2024, labs drawn. MRI B/C/T completed 06/17/24, MS Stable. [facility] 06/28/24 for wellness visit, advised routine screenings, labs drawn. Followed with [facility] 07/15/24 for low back pain, advised lumbar xray and tylenol. Today, reports one fall with injury during visit interval, reports broke rib (reports turnedquickly and fell on furniture) 07/2024 and seen in ER no intervention done and reports now back to baseline. Reports a couple weeks ago fainted at [facility] and seen in ER and was observed [...] with walking that she sought treatment at [facility]. MRI imaging showed enhancing lesion of her [...] (L), Alk Phos 106 (H). UA w/ [place] <=1.005. 04/2022 - [facility] - UA w/ [place] <=1.005. 05/2021 - through [facility] - from PCP - Comp wnl, CBC with normal WBC/ALC 07/16/20 - TSH 1.93. Vit B12 474. 06/26/2020 Vit D 64.3, CBC with WBC of 3.7 but normal ALC/ IMAGING 06/17/24 - [place] MRI Brain w/wo Con - Comparison: 06/09/2020 [...] spinal canal or neural foraminal stenosis. 07/18/23 [facility] MRI Brain w/wo jesusita - Comparison 07/15/22 [...] and mild right neural foraminal narrowing. 07/15/22 [facility] MRI Brain wo jesusita - Comparison [...] sclerosis documented in this encounter Care Teams Design Drafter Chief Relationship Specialty Start Date End Date Jeannette Bernabe MD [address] [place] [address] PCP - General 06/24/21 Mayuri Cote MD Physician Neurology 06/23/21 Lilly Harris PA-C Physician Ophthalmology Assistant Neurology 06/23/21 documented as of this encounter
--- OUTSIDE RECORDS SUMMARY | 2024-09-18 22:42 | XMS_ITS | Clinical Summary ---
Author Organization [facility] Address [facility] [place] [address] Care Team Providers Care Head Of Global Strategic Partnerships Name Role Phone Jeannette Bernabe MD Primary [...] - Magnesium 170 mg, L-Arginine 400 mg, Dougherty leaf extract 150 mg, Garlic 50 mg, [...] document scanned on 03/27/13. Radha Johnson RN, [facility] Refill Nurse MS (multiple sclerosis) 02/02/2013 [...] Type Department Care Team Description 09/18/2024 Telephone [facility] [address] [place] [address] Jeannette Bernabe MD Medication Management (ZPAK) 09/17/2024 2:40 PM CDT Office Visit [facility] [address] [place] [address] Jeannette Bernabe MD Results (Discuss ZIO patch/B/P, brought in new cuff to compare.) 09/17/2024 Travel 09/16/2024 Telephone [facility] [phone] Jeannette Bernabe MD Lab (Canceled ua/uc) 09/13/2024 8:15 AM CDT Orders Only [facility] [address] [place] [address] Lab, [place] [facility] 09/13/2024 Orders Only [facility] [address] [place] [address] Viridiana Morocho 1 scan: (1-Ord) Zio 09/13/2024 Travel 09/12/2024 Telephone [facility] [address] [place] [address] Jeannette Bernabe MD Questions (Questions regarding health) 09/11/2024 Telephone [facility] [address] [place] [address] Jeannette Bernabe MD Results 09/10/2024 Telephone [facility] [address] [place] [address] Jeannette Bernabe MD Lab (Standing UA / Urine culture orders) 09/09/2024 9:45 AM CDT Orders Only [facility] [address] [place] [address] Lab, [facility] 09/09/2024 Telephone [facility] [address] [place] [address] Jeannette Bernabe MD Lab (UA - need order) 09/09/2024 Travel 09/05/2024 2:40 PM CDT Office Visit [facility] [place] [address] Jeannette Bernabe MD Blood Pressure (Took a second dose of Losartan last night. Since the ED visit she has only had 1 light headed incidence. Wearing Zio patch at this time.) 09/05/2024 Travel 09/02/2024 1:45 PM CDT Nurse/Clinic Staff [place] [address] [place] [address] Blood Pressure 09/02/2024 Telephone [facility] [address] [place] [address] Jeannette Bernabe MD Blood Pressure 09/02/2024 Travel 08/30/2024 Nurse Triage [facility] [place] [address] Jeannette Bernabe MD Follow Up (request callback ) 08/25/2024 Orders Only [facility] Scanner 1 scan: (1-Ord) [facility], XR RIBS RIGHT, 08/25/2024 08/25/2024 Orders Only [facility] Scanner 1 scan: (1-Ord) [facility], CHEST 1VIEW PORTABLE, 08/25/2024 08/22/2024 Telephone [facility] [address] [place] [address] Jeannette Bernabe MD Questions (result ) 08/15/2024 Telephone [facility] [address] [place] [address] Jeannette Bernabe MD Questions (Lab results, thyroid ultrasound, and bone scan) 08/14/2024 11:30 AM CDT Ancillary Procedure [facility] [address] 08/14/2024 10:30 AM CDT Ancillary Procedure [facility] [place] [address] 08/14/2024 10:15 AM CDT Orders Only [facility] [address] Lab, [place] 08/14/2024 Travel 08/13/2024 Telephone [facility] [address] Jeannette Bernabe MD Questions (Lab order for Vitamin D 3 and check cholesterol. ) 07/29/2024 Orders Only [facility] Scanner 1 scan: (1-Ord) [facility], XR RIBS RT MIN 3V W CXR1V, 07/29/2024 07/15/2024 12:15 PM PAIN MANAGEMENT PHYSICIAN Ancillary Procedure [facility] [address] 07/15/2024 11:10 AM PAIN MANAGEMENT PHYSICIAN Office Visit [facility] [address] Josh Cisneros MD Back Pain (No injury /Lower back pain that comes and goes /Mainly right side) 07/15/2024 Travel 06/28/2024 9:40 AM PAIN MANAGEMENT PHYSICIAN Ancillary Procedure [facility] [place] [facility] [address] 06/28/2024 8:25 AM PAIN MANAGEMENT PHYSICIAN Office Visit [address] [place] [address] Jeannette Bernabe MD Medicare ANNUAL (subsequent) Visit (74 yo Female/Labs/Bump on back of neck, getting smaller) 06/28/2024 Travel from Last 3 Months Immunizations Immunization Administration Dates Next Due COVID-19 vaccine (Impact Radius-Bio NTech 30mcg/0.3mL) CORAL JONES 03/31/2021,08/20/2020,07/30/2020 Influenza Virus, [...] on file Legal Sex Female 5:23 AM PAIN MANAGEMENT PHYSICIAN Gender Identity Not on file Sexual Orientation [...] 78 kg (172 lb) 06/28/2024 7:58 AM PAIN MANAGEMENT PHYSICIAN Height 160 cm (5' 3) 06/28/2024 7:58 AM PAIN MANAGEMENT PHYSICIAN Body Mass Index 30.47 06/28/2024 7:58 AM PAIN MANAGEMENT PHYSICIAN Plan of Treatment Health Maintenance Due Date [...] less than 140/90 Blood Pressure No Bhavani Bradely LPN Medical Devices Implanted Type Area Cyber Security Architect Device Identifier Shelf Expiration Date Model / Serial / Lot Stent Uret [id number] Silhouette Xtraflo - [id number] Implanted:Qty: 1 on 09/12/2010 at [facility] Right: [employer] 05/24/2013 [id number] / / [id number] Stent Uret [id number] Silhouette Xtraflo - [id number] Implanted:Qty: 1 on 09/20/2010 at [facility] Right: [employer] [id number] / / [id number] Procedures Procedure Name Priority Date/Time Associated Diagnosis [...] LUMBAR 3 VIEWS Routine 07/15/2024 12:18 PM PAIN MANAGEMENT PHYSICIAN Acute midline low back pain without sciatica XR MAMMO ANIRUDH BILAT SCREEN Routine 06/28/2024 9:54 AM PAIN MANAGEMENT PHYSICIAN Visit for screening mammogram CBC WITH AUTO DIFFERENTIAL Routine 06/28/2024 8:56 AM PAIN MANAGEMENT PHYSICIAN HTN (hypertension) TSH WITH REFLEX Routine 06/28/2024 8:56 AM PAIN MANAGEMENT PHYSICIAN Thyroid nodule COMP METABOLIC PANEL Routine 06/28/2024 8:56 AM PAIN MANAGEMENT PHYSICIAN HTN (hypertension) URINE CULTURE Routine 06/28/2024 7:00 AM PAIN MANAGEMENT PHYSICIAN Recurrent UTI UA W/ SEDIMENT EXAM REFLEXED PER CRITERIA Routine 06/28/2024 7:00 AM PAIN MANAGEMENT PHYSICIAN Recurrent UTI ANTI HCV Routine 05/31/2016 10:01 AM PAIN MANAGEMENT PHYSICIAN Need for hepatitis C screening test from [...] LDL-C. Jayson SS et al. DICK. 2013;310(19): 9551-8550 ([email or web address]) CHOL/HDLC RATIO 2.4 <5.0 (calc) [facility] NON HDL CHOLESTEROL 120 <130 mg/dL (calc) [facility] Comment: For patients with diabetes plus 1 major ASCVD risk factor, treating to a non-HDL-C goal of <100 mg/dL (LDL-C of <70 mg/dL) is considered a therapeutic option. Blood BLOOD SPECIMEN / Unknown 09/13/2024 8:06 AM CDT 09/13/2024 8:07 AM CDT Jeannette Bernabe MD CHEMISTRY Final Result [employer] [address] [address], [employer] [phone] * VITAMIN D 25 (DEFICIENCY) (09/13/2024 8:06 AM CDT) VITAMIN D,25-OH,TOTAL,IA 62 30 - 100 ng/mL [facility] Comment: Vitamin D Status 25-OH Vitamin D: Deficiency: <20 ng/mL Insufficiency: 20 - 29 ng/mL Optimal: > or = 30 ng/mL For 25-OH Vitamin D testing on patients on D2-supplementation and patients for whom quantitation of D2 and D3 fractions is required, the QuestAssureD(TM) 25-OH VIT D, (D2,D3), LC/MS/MS is recommended: order code [id number] (patients >2yrs). See Note 1 Note 1 For additional information, please refer to [email or web address] (This link is being provided for informational/ educational purposes only.) Blood BLOOD SPECIMEN / Unknown 09/13/2024 8:06 AM CDT 09/13/2024 8:07 AM CDT Jeannette Bernabe MD SEND OUTS Final Result [employer] [facility] [address] [place] [address], [place] [phone] [employer] [facility] [address] [place] [address] * URINALYSIS MICROSCOPIC (09/09/2024 12:41 PM CDT) Only the most recent of2 resultswithin the time period is included. RBC 0-2 0-2, None Seen /HPF 09/09/2024 10:37 PM CDT [facility] WBC 0-2 0-2, 3-5, None Seen /HPF 09/09/2024 10:37 PM CDT [facility] BACTERIA None Seen None Seen, Rare, Few Bacteria/ HPF 09/09/2024 10:37 PM CDT [facility] EPITHELIAL CELLS None Seen None Seen, Few Epi/HPF 09/09/2024 10:37 PM CDT [facility] HYALINE CASTS 0-2 0-2, 3-5 /LPF 09/09/2024 10:37 PM CDT [facility] Urine URINE SPECIMEN / Unknown Non-Blood / Unknown 09/09/2024 12:41 PM CDT 09/09/2024 12:41 PM CDT Jeannette Bernabe MD URINE Final Result [facility] [address] [place] [address], * URINE CULTURE (09/09/2024 12:41 PM CDT) Only the most recent of2 resultswithin the time period is included. CULTURE No growth (<1,000 CFU/mL) 09/11/2024 2:35 PM CDT [facility] Urine URINE SPECIMEN / Unknown Non-Blood / Unknown 09/09/2024 12:41 PM CDT 09/09/2024 12:41 PM CDT us Jeannette Bernabe MD MICROBIOLOGY Final Result [facility] First [facility] Shot Therapy [facility] [address] [place] [address], [place] * EXTENDED HOLTER (08/26/2024) us Carlo [...] to assess therapeutic efficacy. Chitra Cruz PA-C [facility] 08/16/2024 Narrative 08/16/2024 4:23 PM CDT For Patients: Results are automatically released to your [employer] ([employer]) account once available, in compliance with federal regulations. This means that you may see your results before your provider has had a chance to review them. Please allow 2-3 business days for your provider to comment on the results. XR DXA Bone Mineral Density (BMD) EXAM LOCATION: [facility] [address] [address] PATIENT NAME: Lelia Vizcarra DATE OF : [...] two scanners are made by the same front end alignment specialist. PROCEDURE: Dual-energy x-ray absorptiometry performed with routine [...] - 544.0 ug/L 08/21/2024 1:09 PM CDT [facility] ([facility]) Comment:Limit of quantitatio n = 20 Urine URINE SPECIMEN / Unknown Non-Blood / Unknown 08/14/2024 10:24 AM CDT 08/14/2024 10:24 AM CDT Narrative [facility] ([facility]) - 08/21/2024 1:09 PM CDT Test(s) [id number], Urine was developed and its performance characteristics determined by [employer]. It has not been cleared or approved by the Food and Drug Administration. Performed at: [address] [id number] Sensitizer: Hailey Perdomo MD, Phone: [phone] us Jeannette Bernabe MD URINE Final Result [facility] ([facility]) [address] [place] [address], [place] * XR SPINE LUMBAR 3 VIEWS (07/15/2024 12:18 PM PAIN MANAGEMENT PHYSICIAN) Anatomical Region Laterality Modality LUMBAR SPINE Computed Radiogr aphy 07/15/2024 2:35 PM PAIN MANAGEMENT PHYSICIAN Impressions 07/15/2024 2:35 PM PAIN MANAGEMENT PHYSICIAN Levo scoliotic deformity with severe degenerative disc [...] PM (Electronically Signed) Narrative 07/15/2024 2:35 PM PAIN MANAGEMENT PHYSICIAN For Patients: As a result of the [...] MAMMO ANIRUDH BILAT SCREEN (06/28/2024 9:54 AM PAIN MANAGEMENT PHYSICIAN) Anatomical Region Laterality Modality BREASTS, Breast Left, Breast Right Bilateral Mammography Impressions 06/28/2024 1:43 PM PAIN MANAGEMENT PHYSICIAN There is no radiographic evidence for malignancy. Recommend annual mammograms. MAMMOGRAM ASSESSMENT: ACR 1 Negative PATIENTS: You will also receive a letter with your examination results in an easy to read format. If you have questions about your results, please contact your referring provider. Narrative 06/28/2024 1:43 PM PAIN MANAGEMENT PHYSICIAN For Patients: As a result of the 21st Century Cures Act, medical imaging exams and procedure reports are released immediately into your electronic medical record. You may view this report before your referring provider. If you have questions, please contact your health care provider. XR MAMMO ANIRUDH BILAT SCREEN [[id number]] CLINICAL HISTORY: This is an asymptomatic 74 [...] * TSH WITH REFLEX (06/28/2024 8:56 AM PAIN MANAGEMENT PHYSICIAN) TSH W/REFLEX TO FT4 2.08 0.40 - 4.50 mIU/L [facility] Blood BLOOD SPECIMEN / Unknown 06/28/2024 8:56 AM PAIN MANAGEMENT PHYSICIAN 06/28/2024 8:57 AM PAIN MANAGEMENT PHYSICIAN Jeannette Bernabe MD CHEMISTRY Final Result [facility] [address] [place] [address], [facility] [address] [place] [address] * (ABNORMAL) CBC AND DIFFERENTIAL (06/28/2024 8:56 AM PAIN MANAGEMENT PHYSICIAN) Pathologist [facility] WHITE BLOOD CELL COUNT 6.3 3.8 [...] BLOOD SPECIMEN / Unknown 06/28/2024 8:56 AM PAIN MANAGEMENT PHYSICIAN 06/28/2024 8:57 AM PAIN MANAGEMENT PHYSICIAN us Jeannette Bernabe MD HEMATOLOGY Final Result [employer] [facility] [address] [place] [address], [employer] [phone] * (ABNORMAL) COMP METABOLIC PANEL (06/28/2024 8:56 AM PAIN MANAGEMENT PHYSICIAN) [facility] GLUCOSE 99 65 - 99 mg/dL [facility] [employer] [facility] [employer] [employer] Comment: Fasting reference interval UREA NITROGEN (BUN) 15 7 - 25 mg/dL [facility] CREATININE 0.66 0.60 - 1.00 mg/dL [facility] EGFR 91 > OR = 60 mL/min/1. [...] BLOOD SPECIMEN / Unknown 06/28/2024 8:56 AM PAIN MANAGEMENT PHYSICIAN 06/28/2024 8:57 AM PAIN MANAGEMENT PHYSICIAN Jeannette Bernabe MD CHEMISTRY Final Result [employer] [facility] [address] [place] [address], [facility] [address] [place] [address] * UA W/ SEDIMENT EXAM REFLEXED PER CRITERIA (06/28/2024 7:00 AM PAIN MANAGEMENT PHYSICIAN) COLOR Yellow Yellow Color 06/28/2024 1:12 PM PAIN MANAGEMENT PHYSICIAN [facility] CLARITY Clear Clear Clarity 06/28/2024 1:12 PM PAIN MANAGEMENT PHYSICIAN [facility] SPECIFIC GRAVITY,URINE 1.010 1.010, 1.015, 1.020, 1.025 06/28/2024 1:12 PM PAIN MANAGEMENT PHYSICIAN [facility] PH,URINE 6.5 6.0, 7.0, 8.0, 5.5, 6.5, 7.5, 8.5 06/28/2024 1:12 PM PAIN MANAGEMENT PHYSICIAN [facility] UROBILINOGEN, QUALITATIVE Normal Normal EU/dl 06/28/2024 1:12 PM PAIN MANAGEMENT PHYSICIAN [facility] PROTEIN, URINE Negative Negative mg/dL 06/28/2024 1:12 PM PAIN MANAGEMENT PHYSICIAN [facility] GLUCOSE, URINE Negative Negative mg/dL 06/28/2024 1:12 PM PAIN MANAGEMENT PHYSICIAN [facility] KETONES,URINE Negative Negative mg/dL 06/28/2024 1:12 PM PAIN MANAGEMENT PHYSICIAN [facility] BILIRUBIN,URI NE Negative Negative 06/28/2024 1:12 PM PAIN MANAGEMENT PHYSICIAN [facility] OCCULT BLOOD,URINE Negative Negative 06/28/2024 1:12 PM PAIN MANAGEMENT PHYSICIAN [facility] NITRITE Negative Negative 06/28/2024 1:12 PM PAIN MANAGEMENT PHYSICIAN [facility] LEUKOCYTE ESTERASE Negative Negative 06/28/2024 1:12 PM PAIN MANAGEMENT PHYSICIAN [facility] Urine URINE SPECIMEN / Unknown Non-Blood / Unknown 06/28/2024 7:00 AM PAIN MANAGEMENT PHYSICIAN 06/28/2024 7:50 AM PAIN MANAGEMENT PHYSICIAN us Jeannette Bernabe MD URINE Final Result [facility] [address] [place] [address], * ANTI HCV (05/31/2016 10:01 AM PAIN MANAGEMENT PHYSICIAN) HEPATITIS C ANTIBODY Non-Reacti ve Non-Reacti ve 05/31/2016 5:32 PM PAIN MANAGEMENT PHYSICIAN [facility] Blood BLOOD SPECIMEN / Unknown Venipuncture / Unknown 05/31/2016 10:01 AM PAIN MANAGEMENT PHYSICIAN 05/31/2016 10:01 AM PAIN MANAGEMENT PHYSICIAN Narrative [facility] - 05/31/2016 5:32 PM PAIN MANAGEMENT PHYSICIAN Antibodies to HCV not detected; does not exclude the possibility of exposure to HCV. us Jeannette Bernabe MD SEND OUTS Final Result [facility] [address] [place] [address], [place] from Last 3 Months or Most Recently Relevant to Health Maintenance Insurance MEDICARE PB ONLY [facility] Member Subscriber Plan / Payer (Ef fective 2013-Present) Name:Lelia Vizcarra Relation to Subscriber:Self Name:Lelia Vizcarra Payer ID:Not on file Group ID:NONE Type:Not on file Address: [facility] OFFICE OF [facility] C[facility] ATTN: [facility] CLAIMS [address] [address] [place] [address] MEDICARE PART B HB ONLY Care Teams Head Of Global Strategic Partnerships Relationship Specialty Start Date End Date Jeannette Bernabe MD [address] [place] [address] PCP - General Family Practice 03/28/11
--- OUTSIDE RECORDS SUMMARY | 2024-09-18 22:42 | XMS_ITS | Referral Summary ---
Author Organization [facility] Address [address] [place] [address] Care Team Providers Care Therapeutic Assistant Name Role Phone Mayuri Cote MD Unavailable [phone] Lilly Harris PA-C Unavailable Jeannette Bernabe MD Primary Care Provide r Encounters Date Type Department Care Team Description 09/03/2024 3:00 PM CDT Office Visit [facility] [address] [phone] Mayuri Cote MD Multiple sclerosis (HCC) (Primary [...] years Immunizations Name Administration Dates Next Due Sophie & Juliet 12+ Yrs Monovalent [place] VID Vaccine (purple [...] Plan of Treatment Not on file Insurance [facility] [place] [id number] MEDICARE PART A & B [facility] [place] [address] Care Teams Therapeutic Assistant Relationship Specialty Start Date End Date Jeannette Bernabe MD [address] [place] [address] PCP - General 06/24/21 Mayuri Cote MD Physician Neurology 06/23/21 Lilly Harris PA-C Physician Enrichment Specialist Neurology 06/23/21
[2024-09-18 23:28] LABS: Troponin, Point-of-Care* 0.01 ng/ml (0.01-0.04)
== END 2024-09-19 00:05 | disposition home or self-care (01) ==
PROVIDERS: Emergency Provider Family Medicine; PCP Family Medicine
DX: I10 Essential (primary) hypertension (principal)
CPT/HCPCS: 84484; 93005; 99284

== ENCOUNTER 2024-10-28 12:53 | Emergency (ER) | payer MEDICARE, OTHER, SELFPAY ==
[2024-10-28] VITALS (17 sets, daily range): BP systolic 149–173; BP diastolic 75–98; PULSE 78–93; RESP 13–17; TEMP 36.5; O2SAT 94–96; BMI 29.8
--- OUTSIDE RECORDS SUMMARY | 2024-10-28 12:56 | XMS_ITS | Continuity of Care Document ---
Author Organization [facility] Center[facility] valencia [facility] Address [address] [place] [address] Assessment Encounter Date Assessment Date Assessment LastModified by Organization Details LastModified Time 09/25/2024 09/25/2024 ASSESSMENT: Patient is a good candidate for [...] to contact our office. [email or web address] Not available 09/25/2024 18:08:20 Plan of Treatment Reminders Order Date Submit [...] Address Organization Details Recorded Time Neck pain 66706997 Active 2024 Arsalan Dc, TANGELA [address], [place], [address] , [facility] 5 10:41:22 Cervical segmental dysfunction 442940142 Active 2024 Arsalan Dc DC [address], [place], [address], [facility] 5 10:41:27 Lesion of lumbar spine 529195815 Active 2024 Chintan Gorman TANGELA Kohler [address], [place], [address], [facility] 5 10:36:57 Thoracic segmental dysfunction 768845793 Active 2023 Arsalan Dc DC [address], [place], [address], [facility] 4 17:53:01 Low back pain 744099833 Active 2023 Arsalan Dc DC [address] [place] [address], [place], [address], [facility] 4 17:53:01 Lumbar segmental dysfunction 532240445 Active 2023 Arsalan Dc DC [address], [place], [address], [facility] 4 17:53:01 Somatic dysfunction of sacral spine 173736581 Active 2023 Arsalan Dc DC [address] [place] [address], [place], [address], [facility] 4 17:53:01 Somatic dysfunction of pelvic region 932074776 Active 2023 Arsalan Dc DC [address], [place], [address], formerly [facility] 4 16:00:35 Problem Notes None recorded. Procedures Surgical History Date Name Laterality Status Provider Name and Address Organization Details Recorded Time 5 64841: Spinal manipulation , 3 to 4 regions completed Chintan BridgesTANGELA flores [address], [place], [address], [facility] 10/23/2024 10:17:56 5 61106: Spinal manipulation , 3 to 4 regions completed Roni Anderson DC [address], [place], [address], formerly [facility] 10/18/2024 11:38:18 5 41879: Spinal manipulation , 3 to 4 regions completed Chintan Kohler DC [address], [place], [address], formerly [facility] 10/15/2024 19:15:32 5 74241: Spinal manipulation , 3 to 4 regions completed Chintan Kohler DC [address], [place], [address], formerly [facility] 10/02/2024 16:12:11 5 02605: Spinal manipulation , 3 to 4 regions completed Chintan Kohler DC [address], [place], [address], formerly [facility] 09/25/2024 18:08:20 5 02019: Spinal manipulation , 3 to 4 regions completed Chintan Kohler DC [address], [place], [address], [facility] 09/18/2024 20:39:50 5 02078: Spinal manipulation , 3 to 4 regions completed Chintan Kohler DC [address], [place], [address], [facility] 09/11/2024 16:19:20 5 06914: Spinal manipulation , 3 to 4 regions completed Chintan Kohler DC [address], [place], [address], [facility] 09/04/2024 19:45:53 5 25243: Spinal manipulation , 3 to 4 regions completed Chintan Kohler DC [address], [place], [address], [facility] 08/28/2024 19:29:31 5 44184: Spinal manipulation , 3 to 4 regions completed Chintan Sherif TANGELA Kohler [address], [place], [address], [facility] 08/15/2024 10:50:31 5 14629: Spinal manipulation , 3 to 4 regions completed Chintan Kohler DC [address], [place], [address], [facility] 08/08/2024 10:36:05 5 63531: Spinal manipulation , 3 to 4 regions completed Chintan Sherifkai Kohler DC [address], [place], [address], [facility] 07/24/2024 17:24:59 5 74671: Spinal manipulation , 3 to 4 regions completed Chintan Kohler DC [address], [place], [address], [facility] 07/22/2024 18:24:19 5 86106: Spinal manipulation , 3 to 4 regions completed Roni Anderson DC [address], [place], [address], [facility] 07/19/2024 13:59:35 5 05102: Spinal manipulation , 3 to 4 regions completed Chintan Kohler DC [address], [place], [address], [facility] 07/12/2024 19:11:44 5 02226: Spinal manipulation , 3 to 4 regions completed Arsalan Dc DC [address], [place], [address], [facility] 07/16/2024 10:41:16 5 46179: Spinal manipulation , 3 to 4 regions completed Arsalan Dc DC [address], [place], [address], [facility] 06/13/2024 16:09:29 5 60400: Spinal manipulation , 3 to 4 regions completed Arsalan Dc DC [address], [place], [address], [facility] 05/30/2024 15:48:40 5 22979: Spinal manipulation , 3 to 4 regions completed Arsalan Dc DC [address], [place], [address], [facility] 05/16/2024 16:14:08 4 14015: Spinal manipulation , 3 to 4 regions completed Arsalan Dc DC [address], [place], [address], [facility] 05/14/2024 11:46:50 4 77319: Spinal manipulation , 3 to 4 regions completed Arsalan Dc DC [address], [place], [address], [facility] 04/25/2024 16:00:07 4 69323: Spinal manipulation , 3 to 4 regions completed Arsalna Dc DC [address], [place], [address], [facility] 04/18/2024 17:53:33 Imaging Results None [...] Not Available No t Available cefuroxime axetil 500 mg tablet TAKE ONE TABLET BY MOUTH TWICE DAILY* active Not Available Not Available No [...] SNOMED-CT Code Diagnosis ICD10 Code Diagnosis Note [id number] Chintan Kohler DC [address] [place] [address] 08/28/2024 16:23:40 08/30/2024 15:51:18 Thoracic segmental dysfunction 424590845 M99.02 Somatic dy sfunction of pelvic region 149639839 M99.05 Low back pain 930818807 M54.50 Lesion of lumbar spine 084668119 M99.01 Neck pain 41041039 M54.2 Lumbar seg mental dysfunction 939871598 M99.03 Cervical s egmental dysfunction 173622503 M99.01 [id number] Chintan Kohler DC [address] [place] [address] 09/04/2024 16:32:03 09/06/2024 18:17:46 Thoracic segmental dysfunction 447593136 M99.02 Somatic dy sfunction of pelvic region 836409748 M99.05 Low back pain 110497108 M54.50 Lesion of lumbar spine 182571503 M99.01 Neck pain 32055180 M54.2 Lumbar seg mental dysfunction 586107818 M99.03 Cervical s egmental dysfunction 833031664 M99.01 [id number] Chintan Kohler DC [address] [place] [address] 09/11/2024 11:54:20 09/11/2024 16:29:18 Lumbar segmental dysfunction 100990826 M99.03 Low back pain 212706610 M54.50 Somatic dy sfunction of sacral spine 771239744 M99.04 Thoracic s egmental dysfunction 069117936 M99.02 [id number] Chintan Kohler DC [facility] & [address] [place] [address] 09/18/2024 15:41:57 09/19/2024 14:46:57 Lumbar segmental dysfunction 811271811 M99.03 Low back pain 148294617 M54.50 Somatic dy sfunction of sacral spine 119853835 M99.04 Thoracic s egmental dysfunction 221650999 M99.02 [id number] Chintan Kohler DC [facility] & [address] [place] [address] 09/25/2024 16:39:20 09/25/2024 18:11:19 Lumbar segmental dysfunction 282137968 M99.03 Low back pain 163478126 M54.50 Somatic dy sfunction of sacral spine 312487390 M99.04 Thoracic s egmental dysfunction 866594913 M99.02 Health Concerns Section Related Observation LastModified by Organization Detai ls LastModified Time None Recorded Concern Status LastModified by Organization Details LastModified Time None Recorded Payers Encounter Date Sequence Insurance Name Policy Number Policy Poe Covered Member ID Poe Member ID Guarantor Name 09/25/2024 1 [place] [employer] Lelia Vizcarra [id number] 5 Lelia Vizcarra Notes Date Note Type Note Provider Name and Address Organization Details Recorded Time 09/25/2024 text/html HPI - Lumbar SpineReported bypatient.Location: left Quality:aching Severity:moderate Timing:morning Aggravating Factors:walking; lifting; carrying; twisting Alleviating Factors:rest Chintan Kohler DC [address] [place] [address], [place], [address], [facility] 09/25/2024 18:08:44 OBGyn Episode No OBEpisode recorded.
--- OUTSIDE RECORDS SUMMARY | 2024-10-28 12:56 | XMS_ITS | Data Portability ---
Author Organization [place] [facility], autoContract - [facility] Address [address] [place] [address] Assessment Encounter Date Assessment Date Assessment LastModified [...] hesitate to contact our office. Not available 09/25/2024 18:08:20 10/02/2024 10/02/2024 ASSESSMENT: Patient is a good candidate for [...] hesitate to contact our office. Not available 10/02/2024 16:12:11 10/15/2024 10/15/2024 ASSESSMENT: Patient is a good candidate for [...] hesitate to contact our office. Not available 10/15/2024 19:15:32 10/18/2024 10/18/2024 ASSESSMENT: Patient is a good candidate for [...] to contact our office. ecram Not available 10/18/2024 11:38:18 10/23/2024 10/23/2024 ASSESSMENT: Patient is a good candidate for [...] hesitate to contact our office. Not available 10/23/2024 10:17:34 Plan of Treatment Reminders Order Date Submit [...] Address Organization Details Recorded Time Neck pain 66178660 Active 2024 Arsalan Dc DC [address], [place], [address], [place] [facility] 10:41:22 Cervical segmental dysfunction 908245250 Active 2024 Arsalan Dc DC [address], [place], [address], [place] [facility] 10:41:27 Lesion of lumbar spine 528065460 Active 2024 Chintan Sherif [place] [address], [place], [address], [facility] 10:36:57 Thoracic segmental dysfunction 723534508 Active 2023 Arsalan Dc DC [address], [facility] [place], [address], [place] [facility] 4 17:53:01 Low back pain 867697701 Active 2023 Arsalan Dc DC [address], [place], [address], [place] [facility] 4 17:53:01 Lumbar segmental dysfunction 574278267 Active 2023 Arsalan Dc DC [address], [place], [address], [place] [facility] 4 17:53:01 Somatic dysfunction of sacral spine 452100169 Active 2023 Arsalan Dc DC [address], [place], [address], [place] [facility] 4 17:53:01 Somatic dysfunction of pelvic region 820360036 Active 2023 Arsalan Dc DC [address], [facility] [place], [address], [place] [facility] 4 16:00:35 Problem Notes None recorded. Procedures Surgical History Date Name Laterality Status Provider Name and Address Organization Details Recorded Time 5 04444: Spinal manipulation , 3 to 4 regions completed Chintan Kohler DC [address], [place], [address], [place] [facility] 10/23/[facility]24 10:17:56 5 01533: Spinal manipulation , 3 to 4 regions completed Roni Anderson DC [address], [place], [address], [place] [facility] 10/18/2024 11:38:18 5 77444: Spinal manipulation , 3 to 4 regions completed Chintan Kohler DC [address], [place], [address], [place] [facility] 10/15/2024 19:15:32 5 51826: Spinal manipulation , 3 to 4 regions completed Chintan Sherif [place], DC [address], [place], [address], [place] [facility] 10/02/2024 16:12:11 5 92728: Spinal manipulation , 3 to 4 regions completed Scot Sherif [place], DC [address], [place], [address], [place] [facility] 09/25/2024 18:08:20 5 44081: Spinal manipulation , 3 to 4 regions completed Scot Sherif [place], DC [address], [place], [address], [place] [facility] 09/18/2024 20:39:50 5 97280: Spinal manipulation , 3 to 4 regions completed Chintan Smithbert [place], DC [address], [place], [address], [place] [facility] 09/11/2024 16:19:20 5 33776: Spinal manipulation , 3 to 4 regions completed Chintan Smithbert [place], DC [address], [place], [address], [place] [facility] 09/04/2024 19:45:53 5 68975: Spinal manipulation , 3 to 4 regions completed Chintan Smithbert [place], DC [address], [place], [address], [place] [facility] 08/28/2024 19:29:31 5 36916: Spinal manipulation , 3 to 4 regions completed Scot Sherif [place], DC [address], [place], [address], [place] [facility] 08/15/2024 10:50:31 5 29974: Spinal manipulation , 3 to 4 regions completed Scot Sherif [place], DC [address], [place], [address], [place] [facility] 08/08/2024 10:36:05 5 72459: Spinal manipulation , 3 to 4 regions completed Scot Sherif [place], DC [address], [place], [address], [place] [facility] 07/24/2024 17:24:59 5 74358: Spinal manipulation , 3 to 4 regions completed Chintan Sherifkai Kohler DC [address], [place], [address], [place] [facility] 07/22/2024 18:24:19 5 94981: Spinal manipulation , 3 to 4 regions completed Roni Anderson DC [address], [place], [address], [place] [facility] 07/19/2024 13:59:35 5 67356: Spinal manipulation , 3 to 4 regions completed Chintan Kohler DC [address], [place], [address], [place] [facility] 07/12/2024 19:11:44 5 27379: Spinal manipulation , 3 to 4 regions completed Arsalan Dc DC [address], [place], [address], [place] [facility] 07/16/2024 10:41:16 5 48472: Spinal manipulation , 3 to 4 regions completed Arsalan Dc DC [address], [place], [address], [place] [facility] 06/13/2024 16:09:29 5 48795: Spinal manipulation , 3 to 4 regions completed Arsalan Dc DC [address], [place], [address], [place] [facility] 05/30/2024 15:48:40 5 19962: Spinal manipulation , 3 to 4 regions completed Arsalan Dc DC [address], [place], [address], [place] [facility] 05/16/2024 16:14:08 4 12069: Spinal manipulation , 3 to 4 regions completed Arsalan Dc, TANGELA [address], [place], [address], [place] [facility] 05/14/2024 11:46:50 4 82930: Spinal manipulation , 3 to 4 regions completed Arsalan Dc, TANGELA [address], [place], [address], [facility] 04/25/2024 16:00:07 4 89705: Spinal manipulation , 3 to 4 regions completed Arsalan Dc, TANGELA [address], [place], [address], [facility] 04/18/2024 17:53:33 Imaging Results None recorded. [...] SNOMED-CT Code Diagnosis ICD10 Code Diagnosis Note [id number] Arsalan Dc [facility] [address] [place] [address] 04/18/2024 15:15:57 04/18/2024 17:59:55 Lumbar segmental dysfunction 638838428 M99.03 Low back pain 869578492 M54.50 Somatic dy sfunction of sacral spine 428075781 M99.04 Thoracic s egmental dysfunction 068338526 M99.02 [id number] Arsalan Dc DC [facility] [address] [place] [address] 04/25/2024 15:00:43 04/25/2024 16:13:59 Low back pain 629760889 M54.50 Thoracic s egmental dysfunction 868815848 M99.02 Somatic dy sfunction of sacral spine 280456806 M99.04 Somatic dy sfunction of pelvic region 660525563 M99.05 [id number] Arsalan Dc DC [facility] [address] [place] [address] 05/09/2024 16:06:43 05/16/2024 18:12:30 Lumbar segmental dysfunction 631505855 M99.03 Low back pain 889917476 M54.50 Somatic dy sfunction of sacral spine 618409094 M99.04 Thoracic s egmental dysfunction 643996058 M99.02 [id number] Arsalan Dc DC [facility] [address] [facility] [address] 05/16/2024 15:03:18 05/16/2024 18:16:16 Low back pain 397274927 M54.50 Somatic dy sfunction of sacral spine 510952711 M99.04 Somatic dy sfunction of pelvic region 735547260 M99.05 Thoracic s egmental dysfunction 241625861 M99.02 [id number] Arsalan Dc DC [facility] [address] [place] [address] 05/30/2024 12:27:55 05/30/2024 15:51:48 Lumbar segmental dysfunction 076115061 M99.03 Thoracic s egmental dysfunction 422322606 M99.02 Low back pain 056778236 M54.50 Somatic dy sfunction of pelvic region 416583701 M99.05 [id number] Arsalan Dc DC [facility] [address] [place] [address] 06/12/2024 11:45:13 06/12/2024 16:06:22 Somatic dysfunction of sacral spine 272262212 M99.04 Thoracic s egmental dysfunction 262426959 M99.02 Somatic dy sfunction of pelvic region 282452838 M99.05 Low back pain 575453155 M54.50 [id number] Arsalan Dc DC [address] [place] [address] 07/11/2024 11:19:31 07/17/2024 13:30:34 Thoracic segmental dysfunction 304198227 M99.02 Neck pain 39147295 M54.2 Cervical s egmental dysfunction 603318543 M99.01 Lumbar seg mental dysfunction 189086564 M99.03 [id number] Chintan Kohler DC [address] [facility] [address] 07/12/2024 12:30:51 07/16/2024 09:51:49 Somatic dysfunction of sacral spine 876653294 M99.04 Thoracic s egmental dysfunction 304189413 M99.02 Somatic dy sfunction of pelvic region 775785023 M99.05 Low back pain 066257149 M54.50 [id number] Roni Anderson DC [facility] [address] [place] [address] 07/19/2024 12:23:03 07/19/2024 15:12:15 Somatic dysfunction of sacral spine 490884392 M99.04 Thoracic s egmental dysfunction 600651433 M99.02 Somatic dy sfunction of pelvic region 013832639 M99.05 Low back pain 225559263 M54.50 [id number] Chintan Sherif Kohler DC [facility] [address] [place] [address] 07/22/2024 11:54:25 07/23/2024 18:33:07 Somatic dysfunction of sacral spine 159009199 M99.04 Thoracic s egmental dysfunction 458132065 M99.02 Somatic dy sfunction of pelvic region 697873876 M99.05 Low back pain 639870599 M54.50 [id number] Chintan Kohler DC [facility] [address] [place] [address] 07/24/2024 12:24:44 07/24/2024 17:36:13 Somatic dysfunction of sacral spine 674097100 M99.04 Thoracic s egmental dysfunction 817747969 M99.02 Somatic dy sfunction of pelvic region 572074603 M99.05 Low back pain 445204730 M54.50 [id number] Chintan Kohler DC [address] [place] [address] 08/07/2024 12:42:42 08/08/2024 10:53:14 Thoracic segmental dysfunction 373488972 M99.02 Somatic dy sfunction of pelvic region 016971941 M99.05 Low back pain 365016043 M54.50 Lesion of lumbar spine 488476255 M99.01 Neck pain 90309381 M54.2 Lumbar seg mental dysfunction 488276318 M99.03 Cervical s egmental dysfunction 341123709 M99.01 [id number] Chintan Kohler DC [facility] [address] [place] [address] 08/15/2024 10:21:59 08/15/2024 11:55:34 Thoracic segmental dysfunction 709849480 M99.02 Somatic dy sfunction of pelvic region 815424260 M99.05 Low back pain 733261306 M54.50 Lesion of lumbar spine 133089076 M99.01 Neck pain 17442557 M54.2 Lumbar seg mental dysfunction 471889188 M99.03 Cervical s egmental dysfunction 001101958 M99.01 [id number] Chintan Kohler DC [facility] [address] [place] [address] 08/28/2024 16:23:40 08/30/2024 15:51:18 Thoracic segmental dysfunction 707865953 M99.02 Somatic dy sfunction of pelvic region 202940317 M99.05 Low back pain 114901520 M54.50 Lesion of lumbar spine 157078561 M99.01 Neck pain 87707987 M54.2 Lumbar seg mental dysfunction 198123424 M99.03 Cervical s egmental dysfunction 983050844 M99.01 [id number] Chintan Kohler DC [address] [place] [address] 09/04/2024 16:32:03 09/06/2024 18:17:46 Thoracic segmental dysfunction 730565243 M99.02 Somatic dy sfunction of pelvic region 041202974 M99.05 Low back pain 213204338 M54.50 Lesion of lumbar spine 843952351 M99.01 Neck pain 96911606 M54.2 Lumbar seg mental dysfunction 664500185 M99.03 Cervical s egmental dysfunction 603661389 M99.01 [id number] Chintan Kohler DC [facility] [address] [facility] [place] [address] 09/11/2024 11:54:20 09/11/2024 16:29:18 Lumbar segmental dysfunction 976638555 M99.03 Low back pain 608980376 M54.50 Somatic dy sfunction of sacral spine 697908863 M99.04 Thoracic s egmental dysfunction 635189474 M99.02 [id number] Chintan Kohler DC [facility] [address] [facility] [place] [address] 09/18/2024 15:41:57 09/19/2024 14:46:57 Lumbar segmental dysfunction 034525208 M99.03 Low back pain 624554740 M54.50 Somatic dy sfunction of sacral spine 270596814 M99.04 Thoracic s egmental dysfunction 126415838 M99.02 [id number] Chintan Kohler DC [facility] [address] [place] [address] 09/25/2024 16:39:20 09/25/2024 18:11:19 Lumbar segmental dysfunction 247265113 M99.03 Low back pain 029553731 M54.50 Somatic dy sfunction of sacral spine 979314189 M99.04 Thoracic s egmental dysfunction 385495836 M99.02 [id number] Chintan Kohler DC [facility] [address] [place] [address] 10/02/2024 12:19:12 10/02/2024 16:43:06 Lumbar segmental dysfunction 721617088 M99.03 Low back pain 799709356 M54.50 Somatic dy sfunction of sacral spine 124482770 M99.04 Thoracic s egmental dysfunction 571525228 M99.02 [id number] Chintan Kohler DC [facility] [address] [place] [address] 10/15/2024 15:06:15 10/17/2024 10:51:14 Lumbar segmental dysfunction 478382833 M99.03 Low back pain 158130710 M54.50 Somatic dy sfunction of sacral spine 000101309 M99.04 Thoracic s egmental dysfunction 533941065 M99.02 [id number] Roni Anderson [facility] [address] [place] [address] 10/18/2024 10:27:27 10/18/2024 12:16:44 Lumbar segmental dysfunction 811427588 M99.03 Low back pain 632023621 M54.50 Somatic dy sfunction of sacral spine 605835072 M99.04 Thoracic s egmental dysfunction 007657844 M99.02 [id number] Chintan Kohler DC [facility] [address] [place] [address] 10/23/2024 09:39:32 10/23/2024 11:05:56 Lesion of lumbar spine 536589807 M99.01 Neck pain 05918611 M54.2 Thoracic s egmental dysfunction 124015204 M99.02 Lumbar seg mental dysfunction 820961390 M99.03 Cervical s egmental dysfunction 987387952 M99.01 Health Concerns Section Related Observation LastModified by Organization Detai ls LastModified Time None Recorded Concern Status LastModified by Organization Details LastModified Time None Recorded Advance Directives Directive None Recorded Payers Insurance Date Sequence Insurance Name Policy Number Policy Poe Covered Member ID Poe Member ID Guarantor Name 07/08/2024 2 ( - INDEMNITY) Lelia Vizcarra 22 Lelia Vizcarra 10/15/2024 1 [place]ICARE [place]: [employer] [facility] Lelia Vizcarra [id number] Lelia Vizcarra 10/22/2024 2 () Lelia Vizcarra [id number] Lelia Viczarra Notes Date Note Type Note Provider Name and Address Organization Details Recorded Time 09/25/2024 text/html HPI - Lumbar SpineReported bypatient.Location: left Quality:aching Severity:moderate Timing:morning Aggravating Factors:walking; lifting; carrying; twisting Alleviating Factors:rest Chintan Kohler DC [address], [place], [address], [facility] 09/25/2024 18:08:44 10/02/2024 text/html HPI - Lumbar SpineReported bypatient.Location: left Quality:aching Severity:moderate Timing:morning Aggravating Factors:walking; lifting; carrying; twisting Alleviating Factors:rest Chintan Kohler DC [address], [place], [address], [facility] 10/02/2024 16:12:42 10/15/2024 text/html HPI - Lumbar SpineReported bypatient.Location: left Quality:aching Severity:moderate Timing:morning Aggravating Factors:walking; lifting; carrying; twisting Alleviating Factors:rest Chintan Kohler TANGELA [address], [place], [address], [facility] 10/15/2024 19:16:29 10/18/2024 text/html HPI - Lumbar SpineReported bypatient.Location: left Quality:aching Severity:moderate Timing:morning Aggravating Factors:walking; lifting; carrying; twisting Alleviating Factors:rest Roni Anderson DC [address], [place], [address], [facility] 10/18/2024 11:39:00 10/23/2024 text/html HPI - Cervical SpineReported bypatient.Location: left Quality:aching Severity:moderate Duration:2 weeks Timing:gradual Alleviating Factors:ice Aggravating Factors:sitting Associated Symptoms:no numbness/tingling Chintan Kohler DC [address], [place], [address], [facility] 10/23/2024 10:18:09 OBGyn Episode No OBEpisode recorded.
--- OUTSIDE RECORDS SUMMARY | 2024-10-28 12:56 | XMS_ITS | Clinical Summary ---
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 0 0 Active vitamin K2 100 mcg cap Take 1 Capsule by mouth once daily. 0 2 Active cholecalciferol (VITAMIN D3) 1,000 unit capsule Take 5 Capsules (5,000 units) by mouth once daily. 2 Active nystatin powder (MYCOSTATIN) powderIndication s:Tinea pedis, unspecified laterality Apply 1 Strip topically to affected area(s) three times daily. 60 g 1 4 Active Additional Information Patient taking differently:1 Strip TopicalTID PRN, fungal issues on feet, Reported on 10/08/2024 nortriptyline (PAMELOR) 10 mg capsuleIndicatio ns:MS (multiple sclerosis) (HC) Take 1 Capsule (10 mg) by mouth at bedtime. Takes 60 mg a day-- 6 tabs at bedtime 5 Active Additional Information Patient taking differently: 60 mgOral BEDTIME, Takes 60 mg a day-- 6 tabs at bedtime, Reported on 10/08/2024 estradioL (Estrace) 0.01% (0.1 mg/g) vaginal creamIndications :Recurrent UTI Insert 1 g into the vagina every Monday and Monday. 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 Radha Johnson RN, [facility] Refill Nurse MS (multiple sclerosis) 02/02/2013 History [...] Encounters Date Type Department Care Team Description 10/28/2024 Telephone [facility] [address] [place] [address] Jeannette Bernabe MD Appointment (Appt Request for 10/29) 10/28/2024 Nurse Triage [facility] [address] [facility] [place] [address] Jeannette Bernabe MD Fast Heartbeat 10/08/2024 11:20 AM CDT Office Visit [facility] [address] [place] [address] Jeannette Bernabe MD Follow Up (Blood pressure/Feeling pretty good.) 10/08/2024 Travel 09/24/2024 3:35 PM CDT Office Visit [facility] [address] [place] [address] Carlo Burris MD ER Follow up ([facility] - high blood pressure) 09/24/2024 Travel 09/23/2024 Nurse Triage [facility] [address] [place] [address] Jeannette Bernabe MD Rash 09/19/2024 Telephone [facility] [address] [place] [address] Jeannette Bernabe MD Questions (Blood pressure concerning. ) 09/18/2024 Telephone [facility] [address] [place] [address] Jeannette Bernabe MD Medication Management (ZPAK) 09/17/2024 2:40 PM CDT Office Visit [facility] [place] [address] Jeannette Bernabe MD Results (Discuss ZIO patch/B/P, brought in new cuff to compare.) 09/17/2024 Travel 09/16/2024 Telephone [facility] [phone] Jeannette Bernabe MD Lab (Canceled ua/uc) 09/13/2024 8:15 AM CDT Orders Only [place] [address] [address] [place] [address] [place], [place] [facility] 09/13/2024 Orders Only [facility] [address] [place] [address] Viridiana Morocho 1 scan: (1-Ord) Zio 09/13/2024 Travel 09/12/2024 Telephone [facility] [address] [place] [address] Jeannette Bernabe MD Questions (Questions regarding health) 09/11/2024 Telephone [facility] [address] [place] [address] Jeannette Bernabe MD Results 09/10/2024 Telephone [facility] [address] [place] [address] Jeannette Bernabe MD Lab (Standing UA / Urine culture orders) 09/09/2024 9:45 AM CDT Orders Only [address] [place] [address] Lab, [place] [facility] 09/09/[address] [place] [address] Jeannette Bernabe MD Lab (UA - need order) 09/09/2024 Travel 09/05/2024 2:40 PM CDT Office Visit [address] [place] [address] Jeannette Bernabe MD Blood Pressure (Took a second dose of Losartan last night. Since the ED visit she has only had 1 light headed incidence. Wearing Zio patch at this time.) 09/05/2024 Travel 09/02/2024 1:45 PM CDT Nurse/Clinic Staff Only [address] [address] Blood Pressure 09/02/[address] [address] Jeannette Bernabe MD Blood Pressure 09/02/2024 Travel 08/30/2024 Nurse Triage [address] [address] Jeannette Bernabe MD Follow Up (request callback ) 08/25/2024 Orders Only [facility] Scanner 1 scan: (1-Ord) [facility], XR RIBS RIGHT, 08/25/2024 08/25/2024 Orders Only [facility] Scanner 1 scan: (1-Ord) [facility], CHEST 1VIEW PORTABLE, 08/25/2024 08/22/[address] [address] Jeannette Bernabe MD Questions (result ) 08/15/[address] [address] Jeannette Bernabe MD Questions (Lab results, thyroid ultrasound, and bone scan) 08/14/2024 11:30 AM CDT Ancillary Procedure [address] [place] [address] 08/14/2024 10:30 AM CDT Ancillary Procedure [facility] [address] [place] [address] 08/14/2024 10:15 AM CDT Orders Only [facility] [address] [place] [address] Lab, [place] [facility] 08/14/2024 Travel 08/13/2024 Telephone [facility] [address] [place] [address] Jeannette Bernabe MD Questions (Lab order for Vitamin D 3 and check cholesterol. ) 07/29/2024 Orders Only [facility] Scanner 1 scan: (1-Ord) [place], XR RIBS RT MIN 3V W CXR1V, 07/29/2024 from Last 3 Months Immunizations Immunization Administration Dates Next Due COVID-19 vaccine ([employer] 30mcg/0.3mL) PFMDV 03/31/2021,08/20/2020,07/30/2020 Influenza Virus, Unspecified 04/15/1996 [...] isolated from those around you? 0 01/30/2024 Alcohol Use Answer Date Recorded How often do you have a drink containing alcohol ? 1 09/24/2024 How many drinks containing a lcohol do you have on a typical day when you are drinking? 0 09/24/2024 How often do you have five or more drinks on one occasion? 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 Gender Identity Not on file Sexual Orientation Not on file Obstetrics History Para Term AB IAB SAB Ectopic Multiple Livin g Live Births 4 3 3 1 1 3 Date Outcome GA Total Labor Labor/2nd/3rd Weight Sex Type Anes PTL Carrie A1 A5 Name Clin IAB Term Term Term Last Filed Vital Signs Vital Sign Reading Time Taken Comments Blood Pressure 126/74 10/08/2024 12:15 PM CDT Pulse 70 10/08/2024 12:15 PM CDT Temperature 36.3 C (97.3 F) 09/24/2024 3:52 PM CDT Respiratory Rate 16 12/01/2023 4:08 PM CDT Oxygen Saturation 99% 10/08/2024 12:13 PM CDT Inhaled Oxygen Concentration - - Weight 78.6 kg (173 lb 3.2 oz) 09/24/2024 3:52 P M CDT Height 160 cm (5' 3) 06/28/2024 7:58 AM LIGHTER Body Mass Index 30.68 06/28/2024 7:58 AM LIGHTER Plan of Treatment Upcoming Encounters Date Type Department Care Team (Late st Contact Info) Description 11/05/2024 8:30 AM CDT Office Visit [facility] [address] [facility] [address] [place] [address] Darlin Leong MD [address] [facility] [address] [place] [address] Health Maintenance Due Date Last Done Comments Zoster (shingles) series for age 50+ (1 of 2) 1998 Pneumococcal series for age 50+ (2 of 2 - PCV) 05/14/2014 05/14/2013 RSV vaccine for adults or (1 - 1-dose 75+ series) 2023 COVID-19 vaccine series ( season) 2024 03/31/2021, 08/20/2020, 07/30/2020 Influenza Vaccine (Season Ended) 2025 04/16/2004, 04/15/1996 BMI (ht and wt on same day) for age 18+ 06/28/2025 06/28/2024, 06/27/2023, 06/24/2022, Additional history exists Depression screening for age 12+ 06/28/2025 06/28/2024, 06/29/2023, 06/27/2023, Additional history exists Medicare Wellness for age 65+ 06/29/2025 06/28/2024, 06/27/2023, 06/24/2022, Additional history exists Tetanus booster 08/27/2031 08/26/2021, 0506/2011, 09/16/2002 Hepatitis C screening for age 18-79 Completed 05/31/2016 Tdap Completed 08/26/2021, 09/14/2011 DEXA/DXA scan for age 65+ Completed 2024, 08/11/2022, 11/22/2016 Hepatitis B series for 19+ Aged Out N o longer eligible based on patient's age to complete this topic Goals Goal Patient Goal Type Associated Problems Recent Progress Patient-Stated? Author BLOOD PRESSURE - Maintains BP less than 140/90 Blood Pressure No Bhavani Bradley, ROSIE Medical Devices Implanted Type Area Biomechanical Engineer Device Identifier Shelf Expiration Date Model / Serial / Lot Stent Uret [id number] Yasminehouette Xtraflo - [id number] Implanted:Qty: 1 on 09/12/2010 at [facility] Right: [employer] 05/24/2013 [id number] / / [id number] Stent Uret [id number] Silhouette Xtraflo - [id number] Implanted:Qty: 1 on 09/20/2010 at [facility] Right: [employer] [id number]# / / [id number] Procedures Procedure Name Priority Date/Time Associated Diagnosis Comments BASIC METABOLIC PANEL Routine 09/24/2024 4:45 PM CDT Essential hypertension MAGNESIUM Routine 09/24/2024 4:45 PM CDT Essential hypertension VITAMIN D 25 (DEFICIENCY) Routine 09/13/2024 8:06 [...] nodule SCAN-RADIOLOGY REPORT 07/29/2024 12:00 AM CDT ANTI HCV Routine 05/31/2016 10:01 AM LIGHTER Need for hepatitis C screening test from Last 3 Months or Most Recently Relevant to Health Maintenance Results * MAGNESIUM (09/24/2024 4:45 PM CDT) MAGNESIUM 2.1 1.5 - 2.5 mg/dL [employer] Blood BLOOD SPECIMEN / Unknown 09/24/2024 4:45 PM CDT 09/24/2024 4:45 PM CDT Carlo Burris MD CHEMISTRY Final Resu lt [facility] [address] [place] [address], [facility] [address] [place] [address] * (ABNORMAL) BASIC METABOLIC PANEL (09/24/2024 4:45 PM CDT) GLUCOSE 122(H) 65 - 99 mg/dL [employer] Comment: Fasting reference interval For someone without known diabetes, a glucose value between 100 and 125 mg/dL is consistent with prediabetes and should be confirmed with a follow-up test. UREA NITROGEN (BUN) 17 7 - 25 mg/dL [employer] CREATININE 0.65 0.60 - 1.00 mg/dL [employer] EGFR 91 > OR = 60 mL/min/1. 73m2 [employer] S[employer] oananya Sparks BUN/CREATININE RATIO SEE NOTE: 6 - 22 (calc) [facility] Comment: Not Reported: BUN and Creatinine are within reference range. SODIUM 133(L) 135 - 146 mmol/L [facility] POTASSIUM 4.5 3.5 - 5.3 mmol/L [facility] CHLORIDE 96(L) 98 - 110 mmol/L [facility] CARBON DIOXIDE 30 20 - 32 mmol/L [facility] ELECTROLYTE BALANCE 7 7 - 17 mmol/L (calc) [facility] CALCIUM 10.2 8.6 - 10.4 mg/dL [facility] Blood BLOOD SPECIMEN / Unknown 09/24/2024 4:45 PM CDT 09/24/2024 4:45 PM CDT us Carlo Burris MD CHEMISTRY Final Resu lt [facility] [address] [place] [address], [facility] [address] [place] [address] * (ABNORMAL) LIPID PANEL W REFLEX MEASURED LDL (09/13/2024 8:06 AM CDT) [facility] Signature CHOLESTEROL, TOTAL 206(H) <200 mg/dL [facility] HDL CHOLESTEROL 86 > OR = 50 mg/dL [facility] TRIGLYCERIDES 47 <150 mg/dL [facility] LDL-CHOLESTEROL 106(H) mg/dL (calc) [facility] Comment: Reference range: <100 Desirable range <100 mg/dL for primary prevention; <70 mg/dL for patients with CHD or diabetic patients with > or = 2 CHD risk factors. LDL-C is now calculated using the Robi calculation, which is a validated novel method providing better accuracy than the Friedewald equation in the estimation of LDL-C. Jayson CUELLO et al. DICK. 2013;310(19): 9376-9004 (http://education.Vision Sciences/faq/WCU945) CHOL/HDLC RATIO 2.4 <5.0 (calc) [facility] NON HDL CHOLESTEROL 120 <130 mg/dL (calc) [facility] Comment: For patients with diabetes plus 1 major ASCVD risk factor, treating to a non-HDL-C goal of <100 mg/dL (LDL-C of <70 mg/dL) is considered a therapeutic option. Blood BLOOD SPECIMEN / Unknown 09/13/2024 8:06 AM CDT 09/13/2024 8:07 AM CDT Jeannette Bernabe MD CHEMISTRY Final Result Performing Organization Address [facility]/ZIP Co de Phone Number [facility] [address] [address], [employer] [address] * VITAMIN D 25 (DEFICIENCY) (09/13/2024 8:06 AM CDT) VITAMIN D,25-OH,TOTAL,IA 62 30 - 100 ng/mL [employer] [facility] [facility] Comment: Vitamin D Status 25-OH Vitamin D: Deficiency: <20 ng/mL Insufficiency: 20 - 29 ng/mL Optimal: > or = 30 ng/mL For 25-OH Vitamin D testing on patients on D2-supplementation and patients for whom quantitation of D2 and D3 fractions is required, the QuestAssureD(TM) 25-OH VIT D, (D2,D3), LC/MS/MS is recommended: order code 77663 (patients >2yrs). See Note 1 Note 1 For additional information, please refer to http://education.[employer] Sciences/faq/ROD507 (This link is being provided for informational/ educational purposes only.) Blood BLOOD SPECIMEN / Unknown 09/13/2024 8:06 AM CDT 09/13/2024 8:07 AM CDT Jeannette Bernabe MD SEND OUTS Final Result Performing Organization Address [facility]/ZIP Co de Phone Number [facility] [address] [address], [employer] [facility] [address] [place] [address] * URINALYSIS MICROSCOPIC (09/09/2024 12:41 PM CDT) Only the most recent of2 resultswithin the time period is included. RBC 0-2 0-2, None Seen /HPF 09/09/2024 10:37 PM CDT [facility] WBC 0-2 0-2, 3-5, None Seen /HPF 09/09/2024 10:37 PM CDT [facility] BACTERIA None Seen None Seen, Rare, Few Bacteria/ HPF 09/09/2024 10:37 PM CDT [facility] EPITHELIAL CELLS None Seen None Seen, Few Epi/HPF 09/09/2024 10:37 PM CDT [facility] HYALINE CASTS 0-2 0-2, 3-5 /LPF 09/09/2024 10:37 PM CDT [facility] Urine URINE SPECIMEN / Unknown Non-Blood / Unknown 09/09/2024 12:41 PM CDT 09/09/2024 12:41 PM CDT Jeannette Bernabe MD URINE Final Result Performing Organization Address City/[facility]/ZIP Co de Phone Number [facility] [address] * URINE CULTURE (09/09/2024 12:41 PM CDT) CULTURE No growth (<1,000 CFU/mL) 09/11/2024 2:35 PM CDT [facility] Urine URINE SPECIMEN / Unknown Non-Blood / Unknown 09/09/2024 12:41 PM CDT 09/09/2024 12:41 PM CDT Jeannette Bernabe MD MICROBIOLOGY Final Result [facility] [address] [place] [address], [place] * EXTENDED HOLTER (08/26/2024) Carlo Burris MD CARDIAC SERVICES ORD Final Result * SCAN-RADIOLOGY REPORT (08/25/2024 12:00 AM CDT) Only the most recent of3 resultswithin the time period is included. Anatomical Region Laterality Modality Other Scanner OTHER Final Result * (ABNORMAL) XR [...] Patients: Results are automatically released to your [facility] ([employer]) account once available, in compliance with federal regulations. This means that you may see your results before your provider has had a chance to review them. Please allow 2-3 business days for your provider to comment on the results. XR DXA Bone Mineral Density (BMD) EXAM LOCATION: [address] [address] PATIENT NAME: Lelia Vizcarra DATE OF : [...] two scanners are made by the same pilot manager. PROCEDURE: Dual-energy x-ray absorptiometry performed with routine [...] MD @ 08/14/2024 3:22:04 PM (Electronically Signed) Jeannette Bernabe MD US Final Result * IODINE, UR RANDOM (08/14/2024 10:24 AM CDT) [facility] Iodine, Urine 384.1 28.0 - 544.0 ug/L 08/21/2024 1:09 PM CDT [facility] Comment:Limit of quantitatio n = 20 Urine URINE SPECIMEN / Unknown Non-Blood / Unknown 08/14/2024 10:24 AM CDT 08/14/2024 10:24 AM CDT Narrative [facility] ([facility]) - 08/21/2024 1:09 PM CDT Test(s) [id number], Urine was developed and its performance characteristics determined by [facility]. It has not been cleared or approved by the Food and Drug Administration. Performed at: [address] - [address] [id number] Manufacturing Engineering Technologist: Hailey Perdomo MD, Phone: [phone] Jeannette Bernabe MD URINE Final Result [facility] ([facility]) [address] [place] [address], * ANTI HCV (05/31/2016 10:01 AM LIGHTER) [facility] HEPATITIS C ANTIBODY Non-Reacti ve Non-Reacti ve 05/31/2016 5:32 PM LIGHTER [facility] Blood BLOOD SPECIMEN / Unknown Venipuncture / Unknown 05/31/2016 10:01 AM LIGHTER 05/31/2016 10:01 AM LIGHTER Narrative [facility] - 05/31/2016 5:32 PM LIGHTER Antibodies to HCV not detected; does not exclude the possibility of exposure to HCV. us Jeannette Bernabe MD SEND OUTS Final Result [facility] [address] [place] [address], from Last 3 Months or Most Recently Relevant to Health Maintenance Insurance MEDICARE PB ONLY [facility] [place] [address] MEDICARE PART B HB ONLY Care Teams Records Administrator Relationship Specialty Start Date End Date Jeannette Bernabe MD [address] [place] [address] PCP - General Family Practice 03/28/11
--- OUTSIDE RECORDS SUMMARY | 2024-10-28 12:57 | XMS_ITS | Data Portability ---
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 Plan of Treatment Reminders Order Date Submit Date Provider Last Modified By Organization Details Last Modified Time Details Appointments None recorded. Lab culture, urine - needs UCx in 1-2 weeks (at [facility]) [facility]22 [facility] [address], [place], [address], 3 16:20:39 urinalysis , dipstick 2022 023 [id number] [facility], [address], [place], [address], 3 17:45:15 culture, urine 2022 023 [facility], [address], [place], [address], 3 11:26:42 urinalysis , dipstick 2022 023 [facility], [address], [place], [address], 3 14:29:47 Referral None recorded. Procedures None recorded. Surgeries None recorded. Imaging None recorded. Medication Orders fosfomycin tromethami ne 3 gram oral packet 2022 023 [id number], [address] [address], [place], [address], 15:02:40 Patient TargetsNo targets recorded. Patient InstructionsNo instructions recorded. Reason for Referral None Reported. Results Created Date Observation Date Name Description Value Unit Range Abnormal Flag Note LastModifiedBy Organization Detail LastModifiedTime 12/13/1912/12/2022 urina lysis , dipst ick Color-Status Yellow Not Available [facility] [address], [place], [address], 12/12/2022 14:28:29 12/13/1912/12/2022 urina lysis , dipst ick Clarity-Stat us Clear Not Available [facility] [address], [place], [address], 12/12/2022 14:28:29 12/13/19 23 12/12/2022 urina lysis , dipst ick pH-Status 7.0 Not Available [facility] [address], [place], [address], 12/12/2022 14:28:29 12/13/19 23 12/12/2022 urina lysis , dipst ick Nitrates-Sta tus negati ve Not Available [facility] [address], [place], [address], 12/12/2022 14:28:29 12/13/19 23 12/12/2022 urina lysis , dipst ick Blood-Status Negati ve Not Available [facility] [address], [place], [address], 12/12/2022 14:28:29 12/13/19 23 12/12/2022 urina lysis , dipst ick Leuko-Status Negati ve Not Available [facility] [address], [place], [address], 12/12/2022 14:28:29 01/05/2001/04/2023 URINE CULTU RE final [...] for provi viry revie w. Not Available [facility] [address], [place], [address], 01/07/2023 11:26:42 01/05/2001/04/2023 urina lysis , dipst ick Color-Status Yellow Not Available [facility] [address], [place], [address], 01/04/2023 17:44:34 01/05/2001/04/2023 urina lysis , dipst ick Clarity-Stat us Clear Not Available [facility] [address], [place], [address], 01/04/2023 17:44:34 01/05/2001/04/2023 urina lysis , dipst ick pH-Status 6.5 Not Available [facility] [address], [place], [address], 01/04/2023 17:44:34 01/05/2001/04/2023 urina lysis , dipst ick Nitrates-Sta tus negati ve Not Available [facility] [address], [place], [address], 01/04/2023 17:44:34 01/05/2001/04/2023 urina lysis , dipst ick Blood-Status Negati ve Not Available [facility] [address], [place], [address], 01/04/2023 17:44:34 01/05/2001/04/2023 urina lysis , dipst ick Leuko-Status Negati ve Not Available [facility] [address], [place], [address], 01/04/2023 17:44:34 Result Notes None recorded. Procedures Surgical History Date Name Laterality Status Provider Name and Address Organization Details Recorded Time 01/05/20 Bladder Scan completed Harshil Kilpatrick MD [address] [place] [address],[address] [place] [address], [address], [facility] 01/04/2023 16:59:08 12/13/19 Bladder Scan completed Harshil Kilpatrick MD [address] [place] [address],[address], [place], [address], [facility] 12/12/2022 14:26:00 Cholecystectomy completed Harshil Kilpatrick MD [address] [place] [address],[address], [address] [place] [address], [facility] 12/12/2022 14:28:36 Total Hysterectomy completed Harshil Kilpatrick MD [address] [place] [address],[address], [place], [address], [facility] 12/12/2022 14:28:47 Imaging Results None recorded. Procedure Notes None recorded. Medical Equipment None Reported. Allergies Allergen ID Allergen Name Allergen Category Reaction Reaction Severity Criticality Documentation Date Start Date Code Code System Note Provider Name and Address Organization Details Recorded Time 025185 trazodone medicatio n Not available Not available Not available 12/12/2022 87995 RxNorm Harshil Kilpatrick MD [address] [place] [address],[address] [place] [address], [address] , [facility] 14:26:05 765150 gabapenti n medicatio n Not available Not available Not available 12/12/2022 66565 RxNorm Harshil Kilpatrick MD [address] [place] [address],[address], [place], [address], [facility] 3 14:26:09 804920 Substance with sulfonami de structure and antibacte rial mechanism of action (substanc e) medicatio n Not available Not available Not available 12/12/2022 18369 8003 SNOMED Harshil Kilpatrick MD [address] [facility],[address] [place] [address], [address], [facility] 3 14:26:16 819224 amoxicill in medicatio n Not available Not available Not available 12/12/2022 723 RxNorm Harshil Kilpatrick MD [address] [place] [address],[facility] [address] [place] [address], [address], [facility] 3 14:26:21 Medications Name Sig Start [...] Updated DateTime 12/12/2022 160.02 cm 29.2 kg/m2 54830.74 g Harshil Kilpatrick MD [address] [place] [address], [address], [facility] 12/12/2022 14:25:41 Date Recorded Body height Body mass index (BMI) Body weight Provider Name and Address Organization Details Last Updated DateTime 01/04/2023 160.02 cm 29.2 kg/m2 63296.74 g Harshil Kilpatrick MD [address] [place] [address], [address], [facility] 01/04/2023 16:58:06 Social History Question Answer Notes LastModified by Organizat ion Details LastModified Time Tobacco Smoking Status Former Smoker Harshil Kilpatrick MD [address] [place] [address],[address], [address], [facility] 12/12/2022 14:28:22 What Is Your Level Of Caffeine Consumption? Moderate Information not available 12/12/2022 When Did You Quit Smoking? 16+yearssincel astcigarette Information not available 12/12/2022 What Was The Date Of Your Most Recent Tobacco Screening? 01/04/2023 Information not available 01/04/2023 Sex: Unknown Functional Status Question Answer Note LastModified by Organizat ion Details LastModified Time How many times per week do you consume alcohol? Less than 1 time per week Information not available 12/12/2022 What is your level of alcohol consumption? Occasional Information not available 12/12/2022 Mental Status None recorded. Family History Relationship [...] History Condition Response High Blood Pressure Y GERD/Acid Reflux Y Depression Y Gynecological HistoryNo gynecological history recorded. Obstetrics History GPAL:G 0 P 0 0 0 0 Immunizations Vaccine Type Date Status Note Provider Nam e and Address Organization Details Recorded Time COVID-19, mRNA, LNP-S, PF, 30 mcg/0.3 mL dose 1 completed Harshil Kilpatrick MD [address] [place] [address],[address], [address], [facility] 12/12/2022 14:25:49 COVID-19, mRNA, LNP-S, PF, 30 mcg/0.3 mL dose 1 completed Harshil Kilpatrick MD [address] [place], [place] [address], [address], [facility] 12/12/2022 14:25:49 COVID-19, mRNA, LNP-S, PF, 30 mcg/0.3 mL dose 1 completed Harshil Kilpatrick MD [address] [place] [address],[address] [address], [place], [address], [facility] 12/12/2022 14:25:49 pneumococcal polysaccharide PPV23 3 completed Harshil Kilpatrick MD [address] [place] [address],[address], [address], [facility] 12/12/2022 14:25:49 Tdap 2 completed Harshil Kilpatrick MD [address] [place] [address],[address], [address], [facility] 12/12/2022 14:25:49 Tdap 2 completed Harshil Kilpatrick MD [address] [place] [address],[address], [address], [facility] 12/12/2022 14:25:49 Td (adult), 2 Lf tetanus toxoid, preservative free, adsorbed 3 completed Harshil Kilpatrick MD [address] [place] [address],[address], [address], [facility] 12/12/2022 14:25:49 Past Encounters Encounter ID Performer Location Encounter Start Date Encounter Closed Date Diagnosis/Indication Diagnosis SNOMED-CT Code Diagnosis ICD10 Code Diagnosis Note [id number] Harshil Kilpatrick MD [facility] [address] [address] 12/12/2022 14:08:07 12/16/2022 16:52:30 Recurrent urinary tract infection 986498484 N39.0 1. Recurrent UTIs- continue Vitamin C- continue Cranberry extract 500 mg daily- complete course of Macrobid- if symptoms return - treat with Fosfomycin 3 gm PO every other day (5 doses)(alt ernative - Cipro 500 mg BID x 7-10 days)- Follow-up in 1 month with UA and Bladder scan Incomplete emptying of urinary bladder 549547682 R39.14 2. Incomplete bladder emptying- due to MS (infection may also contribute )- recommend - double-voi ding- check Bladder scan at Follow-up [id number] Harshil Kilpatrick MD [facility] [address] [place] [address] 01/04/2023 16:09:04 01/13/2023 09:36:18 Recurrent urinary tract infection 893306129 N39.0 1. Recurrent UTIs- check UCx- continue Vitamin C- continue Cranberry extract 500 mg daily- Follow-up in 6 months with UA and Bladder scan Incomplete emptying of urinary bladder 032832410 R39.14 2. Incomplete bladder emptying- due to [...] ID Guarantor Name 01/01/2023 1 [place]: [employer] Lelia Vizcarra [id number] Lelia Vizcarra 01/13/2023 2 FOR LIFE ( - MEDICARE SUPPLEMENT) Lelia Vizcarra [id number] Lelia Vizcarra Notes Date Note Type Note [...] Vitamin C and Cranberry extract 500 mg BID.04/06/20 - She presents for follow-up on urination. [...] PVR = 176 mL Harshil Kilpatrick MD [address] [place] [address],[facility] [address], [place], [address], [facility] 12/12/2022 18:29:34 01/04/2023 text/html 72 yo [...] Vitamin C and Cranberry extract 500 mg BID.04/06/20 - She presents for follow-up on urination. [...] PVR = 176 mL Harshil Kilpatrick MD [address], [place], [address], [facility] 01/08/2023 18:11:58 OBGyn Episode No OBEpisode recorded.
--- OUTSIDE RECORDS SUMMARY | 2024-10-28 12:57 | XMS_ITS | Clinical Summary ---
Author Organization [facility] Address [address] [place] [address] Care Team Providers Care Concrete Pipe Maker Name Role Phone Mayuri Cote MD Unavailable [...] Description 09/03/2024 3:00 PM CDT Office Visit [facility] Neurology [address] [address] Mayuri Cote MD Multiple sclerosis (HCC) (Primary Dx) from Last 3 Months Immunizations Immunization Administration Dates Next Due ERPLY 12+ Yrs Monovalent CO VID Vaccine (purple [...] 75+ series) 2023 COVID-19 Vaccine ( - season) 2024 03/31/2021, 08/20/2020, 07/30/2020 Influenza Vaccine (Season Ended) 2025 Medicare Wellness Visit 06/28/2025 06/28/19, 06/27/2023, 06/24/2022, Additional history exists Osteoporosis Screening 08/14/2026 , 08/11/2022, 11/22/2016 Adult Tetanus Booster 08/27/2031 08/26/2021 , 09/14/2011, 09/16/2002 Hepatitis C Screening Completed 05/31/2016 Meningococcal B Vaccine Aged Out No l onger eligible based on patient's age to complete this topic Insurance MEDICARE PART A [place] [address] Care Teams Concrete Pipe Maker Relationship Specialty Start Date End Date Jeannette Bernabe MD [address] [place] [address] PCP - General 06/24/21 Mayuri Cote MD Physician Neurology 06/23/21 Lilly Harris PA-C Physician Candy Bar Attendant Neurology 06/23/21
--- OUTSIDE RECORDS SUMMARY | 2024-10-28 12:57 | XMS_ITS | Referral Summary ---
Author Organization [facility] Address [address] [place] [address] Care Team Providers Care Hard Candy Spinner Name Role Phone Mayuri Cote MD Unavailable Lilly Harris PA-C Unavailable Jeannette Bernabe MD Primary Care Provide r Encounters Date Type Department Care Team Description 09/03/2024 3:00 PM CDT Office Visit [facility] Neurology [address] [phone] Mayuri Cote MD Multiple sclerosis (HCC) (Primary [...] int hemorrhoids repeat in 5 years Immunizations Immunization Administration Dates Next Due Intucell 12+ Yrs Monovalent CO VID Vaccine (purple [...] Plan of Treatment Not on file Insurance [facility] [place] [id number] MEDICARE PART A & [place] [address] Care Teams Hard Candy Spinner Relationship Specialty Start Date End Date Jeannette Bernabe MD [address] [place] [address] PCP - General 06/24/21 Mayuri Cote MD Physician Neurology 06/23/21 Lilly Harris PA-C Physician Respiratory Care Instructor Neurology 06/23/21
--- OUTSIDE RECORDS SUMMARY | 2024-10-28 12:57 | XMS_ITS | Continuity of Care Document ---
Author Organization [facility] [employer] [facility] Address [address] [place] [address] Assessment Encounter Date Assessment Date Assessment LastModified by Organization Details LastModified Time 10/02/2024 10/02/2024 ASSESSMENT: Patient is a good [...] to contact our office. [email or web address] Not available 10/02/2024 16:12:11 Plan of Treatment Reminders Order Date Submit [...] Address Organization Details Recorded Time Neck pain 02050430 Active 2024 Arsalan Dc, TANGELA [address], [place], [address] , [facility] 5 10:41:22 Cervical segmental dysfunction 137056179 Active 2024 Arsalan Dc DC [address], [place], [address], [facility] 5 10:41:27 Lesion of lumbar spine 928663839 Active 2024 Chintan Gorman TANGELA Kohler [address], [facility] [place], [address], [facility] 5 10:36:57 Thoracic segmental dysfunction 107261849 Active 2023 Arsalan Dc DC [address], [place], [address], [facility] 4 17:53:01 Low back pain 778878872 Active 2023 Arsalan Dc DC [address] [place] [address], [place], [address], [facility] 4 17:53:01 Lumbar segmental dysfunction 459968090 Active 2023 Arsalan Dc DC [address], [facility] [place], [address], [facility] 4 17:53:01 Somatic dysfunction of sacral spine 475931776 Active 2023 Arsalan Dc DC [address] [place] [address], [place], [address], [facility] 4 17:53:01 Somatic dysfunction of pelvic region 215186455 Active 2023 Arsalan Dc DC [address], [place], [address], [facility] 4 16:00:35 Problem Notes None recorded. Procedures Surgical History Date Name Laterality Status Provider Name and Address Organization Details Recorded Time 5 90489: Spinal manipulation , 3 to 4 regions completed Chintan BridgesTANGELA flores [address], [place], [address], [facility] 10/23/2024 10:17:56 5 99762: Spinal manipulation , 3 to 4 regions completed Roni Anderson DC [address], [place], [address], [facility] 10/18/2024 11:38:18 5 43242: Spinal manipulation , 3 to 4 regions completed Chintan Kohler DC [address], [place], [address], [facility] 10/15/2024 19:15:32 5 62270: Spinal manipulation , 3 to 4 regions completed Chintan Kohler DC [address], [place], [address], [facility] 10/02/2024 16:12:11 5 98516: Spinal manipulation , 3 to 4 regions completed Chintan Kohler DC [address], [place], [address], [facility] 09/25/2024 18:08:20 5 28603: Spinal manipulation , 3 to 4 regions completed Chintan Kohler DC [address], [place], [address], [facility] 09/18/2024 20:39:50 5 47136: Spinal manipulation , 3 to 4 regions completed Chintan Kohler DC [address], [place], [address], [facility] 09/11/2024 16:19:20 5 83655: Spinal manipulation , 3 to 4 regions completed Chintan Kohler DC [address], [place], [address], [facility] 09/04/2024 19:45:53 5 93595: Spinal manipulation , 3 to 4 regions completed Chintan Kohler DC [address], [place], [address], [facility] 08/28/2024 19:29:31 5 07923: Spinal manipulation , 3 to 4 regions completed Chintan Sherif TANGELA Kohler [address], [place], [address], [facility] 08/15/2024 10:50:31 5 94277: Spinal manipulation , 3 to 4 regions completed Chintan Kohler DC [address], [place], [address], [facility] 08/08/2024 10:36:05 5 30804: Spinal manipulation , 3 to 4 regions completed Chintan Sherifkai Kohler DC [address], [place], [address], [facility] 07/24/2024 17:24:59 5 91547: Spinal manipulation , 3 to 4 regions completed Chintan Kohler DC [address], [place], [address], [facility] 07/22/2024 18:24:19 5 54533: Spinal manipulation , 3 to 4 regions completed Roni Anderson DC [address], [place], [address], [facility] 07/19/2024 13:59:35 5 24425: Spinal manipulation , 3 to 4 regions completed Chintan Kohler DC [address], [place], [address], [facility] 07/12/2024 19:11:44 5 74119: Spinal manipulation , 3 to 4 regions completed Arsalan Dc DC [address], [place], [address], [facility] 07/16/2024 10:41:16 5 22225: Spinal manipulation , 3 to 4 regions completed Arsalan Dc DC [address], [place], [address], [facility] 06/13/2024 16:09:29 5 28826: Spinal manipulation , 3 to 4 regions completed Arsalan Dc DC [address], [place], [address], [facility] 05/30/2024 15:48:40 5 38942: Spinal manipulation , 3 to 4 regions completed Arsalan Dc DC [address], [place], [address], [facility] 05/16/2024 16:14:08 4 20685: Spinal manipulation , 3 to 4 regions completed Arsalan Dc DC [address], [place], [address], [facility] 05/14/2024 11:46:50 4 20698: Spinal manipulation , 3 to 4 regions completed Arsalan Dc DC [address], [place], [address], [facility] 04/25/2024 16:00:07 4 55094: Spinal manipulation , 3 to 4 regions completed Arsalan Dc DC [address], [place], [address], [facility] 04/18/2024 17:53:33 Imaging Results None recorded. Procedure [...] SNOMED-CT Code Diagnosis ICD10 Code Diagnosis Note [id number] Chintan Kohler DC [address] [place] [address] 09/04/2024 16:32:03 09/06/2024 18:17:46 Thoracic segmental dysfunction 787646570 M99.02 Somatic dy sfunction of pelvic region 288861701 M99.05 Low back pain 642283375 M54.50 Lesion of lumbar spine 747614227 M99.01 Neck pain 37412965 M54.2 Lumbar seg mental dysfunction 664969896 M99.03 Cervical s egmental dysfunction 233513156 M99.01 [id number] Chintan Kohler DC [address] [place] [address] 09/11/2024 11:54:20 09/11/2024 16:29:18 Lumbar segmental dysfunction 115062343 M99.03 Low back pain 737177843 M54.50 Somatic dy sfunction of sacral spine 092599645 M99.04 Thoracic s egmental dysfunction 361591067 M99.02 [id number] Chintan Kohler DC [address] [facility] [address] 09/18/2024 15:41:57 09/19/2024 14:46:57 Lumbar segmental dysfunction 202872122 M99.03 Low back pain 663006267 M54.50 Somatic dy sfunction of sacral spine 848229844 M99.04 Thoracic s egmental dysfunction 849371428 M99.02 [id number] Chintan Kohler DC [facility] & [address] [place] [address] 09/25/2024 16:39:20 09/25/2024 18:11:19 Lumbar segmental dysfunction 815125506 M99.03 Low back pain 984049323 M54.50 Somatic dy sfunction of sacral spine 026272433 M99.04 Thoracic s egmental dysfunction 543035318 M99.02 [id number] Chintan Kohler DC [facility] [address] [place] [address] 10/02/2024 12:19:12 10/02/2024 16:43:06 Lumbar segmental dysfunction 851033607 M99.03 Low back pain 815597529 M54.50 Somatic dy sfunction of sacral spine 858731483 M99.04 Thoracic s egmental dysfunction 256241627 M99.02 Health Concerns Section Related Observation LastModified by Organization Detai ls LastModified Time None Recorded Concern Status LastModified by Organization Details LastModified Time None Recorded Payers Encounter Date Sequence Insurance Name Policy Number Policy Poe Covered Member ID Poe Member ID Guarantor Name 10/02/2024 1 [place] [employer] Lelia Vizcarra [id number] Lelia Vizcarra Notes Date Note Type Note Provider Name and Address Organization Details Recorded Time 10/02/2024 text/html HPI - Lumbar SpineReported bypatient.Location: left Quality:aching Severity:moderate Timing:morning Aggravating Factors:walking; lifting; carrying; twisting Alleviating Factors:rest Chintan Kohler DC [address], [place], [address], [facility] 10/02/2024 16:12:42 OBGyn Episode No OBEpisode recorded.
--- OUTSIDE RECORDS SUMMARY | 2024-10-28 12:57 | XMS_ITS | Continuity of Care Document ---
Author Organization [facility] val[facility] Address [address] [facility] [address] [place] [address] Assessment Encounter Date Assessment Date Assessment LastModified by Organization Details LastModified Time 10/23/2024 10/23/2024 ASSESSMENT: Patient is a good [...] to contact our office. [email or web address] Not available 10/23/2024 10:17:34 Plan of Treatment [...] Address Organization Details Recorded Time Neck pain 00079509 Active 2024 Arsalan Dc, TANGELA [address], [place], [address] , [facility] 5 10:41:22 Cervical segmental dysfunction 062290964 Active 2024 Arsalan Dc DC [address], [place], [address], [facility] 5 10:41:27 Lesion of lumbar spine 978602507 Active 2024 Chintan Gorman TANGELA Kohler [address], [facility] [place], [address], [facility] 5 10:36:57 Thoracic segmental dysfunction 951686537 Active 2023 Arsalan Dc DC [address], [place], [address], [facility] 4 17:53:01 Low back pain 942285472 Active 2023 Arsalan Dc DC [address] [place] [address], [place], [address], [facility] 4 17:53:01 Lumbar segmental dysfunction 936200650 Active 2023 Arsalan Dc DC [address], [facility] [place], [address], [facility] 4 17:53:01 Somatic dysfunction of sacral spine 797352260 Active 2023 Arsalan Dc DC [address] [place] [address], [place], [address], [facility] 4 17:53:01 Somatic dysfunction of pelvic region 298610010 Active 2023 Arsalan Dc DC [address], [place], [address], [facility] 4 16:00:35 Problem Notes None recorded. Procedures Surgical History Date Name Laterality Status Provider Name and Address Organization Details Recorded Time 5 89823: Spinal manipulation , 3 to 4 regions completed Chintan BridgesTANGELA flores [address], [place], [address], [facility] 10/23/2024 10:17:56 5 95768: Spinal manipulation , 3 to 4 regions completed Roni Anderson DC [address], [place], [address], [facility] 10/18/2024 11:38:18 5 80887: Spinal manipulation , 3 to 4 regions completed Chintan Kohler DC [address], [place], [address], [facility] 10/15/2024 19:15:32 5 81383: Spinal manipulation , 3 to 4 regions completed Chintan Kohler DC [address], [place], [address], [facility] 10/02/2024 16:12:11 5 38873: Spinal manipulation , 3 to 4 regions completed Chintan Kohler DC [address], [place], [address], [facility] 09/25/2024 18:08:20 5 38047: Spinal manipulation , 3 to 4 regions completed Chintan Kohler DC [address], [place], [address], [facility] 09/18/2024 20:39:50 5 93379: Spinal manipulation , 3 to 4 regions completed Chintan Kohler DC [address], [place], [address], [facility] 09/11/2024 16:19:20 5 12424: Spinal manipulation , 3 to 4 regions completed Chintan Kohler DC [address], [place], [address], [facility] 09/04/2024 19:45:53 5 66923: Spinal manipulation , 3 to 4 regions completed Chintan Kohler DC [address], [place], [address], [facility] 08/28/2024 19:29:31 5 86166: Spinal manipulation , 3 to 4 regions completed Chintan Sherif TANGELA Kohler [address], [place], [address], [facility] 08/15/2024 10:50:31 5 05739: Spinal manipulation , 3 to 4 regions completed Chintan Kohler DC [address], [place], [address], [facility] 08/08/2024 10:36:05 5 64836: Spinal manipulation , 3 to 4 regions completed Chintan Sherifkai Kohler DC [address], [place], [address], [facility] 07/24/2024 17:24:59 5 78983: Spinal manipulation , 3 to 4 regions completed Chintan Kohler DC [address], [place], [address], [facility] 07/22/2024 18:24:19 5 56670: Spinal manipulation , 3 to 4 regions completed Roni Anderson DC [address], [place], [address], [facility] 07/19/2024 13:59:35 5 11465: Spinal manipulation , 3 to 4 regions completed Chintan Kohler DC [address], [place], [address], [facility] 07/12/2024 19:11:44 5 08138: Spinal manipulation , 3 to 4 regions completed Arsalan Dc DC [address], [place], [address], [facility] 07/16/2024 10:41:16 5 70029: Spinal manipulation , 3 to 4 regions completed Arsalan Dc DC [address], [place], [address], [facility] 06/13/2024 16:09:29 5 17624: Spinal manipulation , 3 to 4 regions completed Arsalan Dc DC [address], [place], [address], [facility] 05/30/2024 15:48:40 5 43172: Spinal manipulation , 3 to 4 regions completed Arsalan Dc DC [address], [place], [address], [facility] 05/16/2024 16:14:08 4 31231: Spinal manipulation , 3 to 4 regions completed Arsalan Dc DC [address], [place], [address], [facility] 05/14/2024 11:46:50 4 04608: Spinal manipulation , 3 to 4 regions completed Arsalan Dc DC [address], [place], [address], [facility] 04/25/2024 16:00:07 4 63333: Spinal manipulation , 3 to 4 regions completed Arsalan Dc DC [address], [place], [address], [facility] 04/18/2024 17:53:33 Imaging Results None [...] SNOMED-CT Code Diagnosis ICD10 Code Diagnosis Note [id number] Chintan Kohler DC [address] [place] [address] 09/25/2024 16:39:20 09/25/2024 18:11:19 Lumbar segmental dysfunction [id number] M99.03 Low back pain 746804141 M54.50 Somatic dy sfunction of sacral spine 598759851 M99.04 Thoracic s egmental dysfunction 336773676 M99.02 [id number] Chintan Kohler [address] [place] [address] 10/02/2024 12:19:12 10/02/2024 16:43:06 Lumbar segmental dysfunction 358382385 M99.03 Low back pain 018463582 M54.50 Somatic dy sfunction of sacral spine 009289086 M99.04 Thoracic s egmental dysfunction 177038545 M99.02 [id number] Chintan Kohler DC [address] [place] [address] 10/15/2024 15:06:15 10/17/2024 10:51:14 Lumbar segmental dysfunction 764271135 M99.03 Low back pain 823601530 M54.50 Somatic dy sfunction of sacral spine 847601725 M99.04 Thoracic s egmental dysfunction 231860836 M99.02 [id number] Roni Anderson DC [facility] [address] [facility] [place] [address] 10/18/2024 10:27:27 10/18/2024 12:16:44 Lumbar segmental dysfunction 655792769 M99.03 Low back pain 927861605 M54.50 Somatic dy sfunction of sacral spine 248870416 M99.04 Thoracic s egmental dysfunction 346281882 M99.02 [id number] Chintan Kohler DC [facility] [address] [facility] [place] [address] 10/23/2024 09:39:32 10/23/2024 11:05:56 Lesion of lumbar spine 162348174 M99.01 Neck pain 44714639 M54.2 Thoracic s egmental dysfunction 838655801 M99.02 Lumbar seg mental dysfunction 328603449 M99.03 Cervical s egmental dysfunction 831514878 M99.01 Health Concerns Section Related Observation LastModified by Organization Detai ls LastModified Time None Recorded Concern Status LastModified by Organization Details LastModified Time None Recorded Payers Encounter Date Sequence Insurance Name Policy Number Policy Poe Covered Member ID Poe Member ID Guarantor Name 10/23/2024 1 MEDICARE [place]: [employer] Lelia Vizcarra [id number] Lelia Vizcarra Notes Date Note Type Note Provider Name and Address Organization Details Recorded Time 10/23/2024 text/html HPI - Cervical SpineReported bypatient.Location: left Quality:aching Severity:moderate Duration:2 weeks Timing:gradual Alleviating Factors:ice Aggravating Factors:sitting Associated Symptoms:no numbness/tingling Chintan Kohler DC [address], [place], [address], [facility] 10/23/2024 10:18:09 OBGyn Episode No OBEpisode recorded.
--- OUTSIDE RECORDS SUMMARY | 2024-10-28 12:57 | XMS_ITS | Data Portability ---
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 Plan of Treatment Reminders Order Date Submit Date Provider Last Modified By Organization Details Last Modified Time Details Appointments None recorded. Lab culture, urine - needs UCx in 1-2 weeks (at [facility]) [facility]22 [facility] [address], [place], [address], 3 16:20:39 urinalysis , dipstick 2022 023 [id number] [facility], [address], [place], [address], 3 17:45:15 culture, urine 2022 023 [facility], [address], [place], [address], 3 11:26:42 urinalysis , dipstick 2022 023 [facility], [address], [place], [address], 3 14:29:47 Referral None recorded. Procedures None recorded. Surgeries None recorded. Imaging None recorded. Medication Orders fosfomycin tromethami ne 3 gram oral packet 2022 023 [id number], [address] [address], [place], [address], 15:02:40 Patient TargetsNo targets recorded. Patient InstructionsNo instructions recorded. Reason for Referral None Reported. Results Created Date Observation Date Name Description Value Unit Range Abnormal Flag Note LastModifiedBy Organization Detail LastModifiedTime 12/13/1912/12/2022 urina lysis , dipst ick Color-Status Yellow Not Available [facility] [address], [place], [address], 12/12/2022 14:28:29 12/13/1912/12/2022 urina lysis , dipst ick Clarity-Stat us Clear Not Available [facility] [address], [place], [address], 12/12/2022 14:28:29 12/13/19 23 12/12/2022 urina lysis , dipst ick pH-Status 7.0 Not Available [facility] [address], [place], [address], 12/12/2022 14:28:29 12/13/19 23 12/12/2022 urina lysis , dipst ick Nitrates-Sta tus negati ve Not Available [facility] [address], [place], [address], 12/12/2022 14:28:29 12/13/19 23 12/12/2022 urina lysis , dipst ick Blood-Status Negati ve Not Available [facility] [address], [place], [address], 12/12/2022 14:28:29 12/13/19 23 12/12/2022 urina lysis , dipst ick Leuko-Status Negati ve Not Available [facility] [address], [place], [address], 12/12/2022 14:28:29 01/05/2001/04/2023 URINE CULTU RE final [...] for provi viry revie w. Not Available [facility] [address], [place], [address], 01/07/2023 11:26:42 01/05/2001/04/2023 urina lysis , dipst ick Color-Status Yellow Not Available [facility] [address], [place], [address], 01/04/2023 17:44:34 01/05/2001/04/2023 urina lysis , dipst ick Clarity-Stat us Clear Not Available [facility] [address], [place], [address], 01/04/2023 17:44:34 01/05/2001/04/2023 urina lysis , dipst ick pH-Status 6.5 Not Available [facility] [address], [place], [address], 01/04/2023 17:44:34 01/05/2001/04/2023 urina lysis , dipst ick Nitrates-Sta tus negati ve Not Available [facility] [address], [place], [address], 01/04/2023 17:44:34 01/05/2001/04/2023 urina lysis , dipst ick Blood-Status Negati ve Not Available [facility] [address], [place], [address], 01/04/2023 17:44:34 01/05/2001/04/2023 urina lysis , dipst ick Leuko-Status Negati ve Not Available [facility] [address], [place], [address], 01/04/2023 17:44:34 Result Notes None recorded. Procedures Surgical History Date Name Laterality Status Provider Name and Address Organization Details Recorded Time 01/05/20 Bladder Scan completed Harshil Kilpatrick MD [address] [place] [address],[address] [place] [address], [address], [facility] 01/04/2023 16:59:08 12/13/19 Bladder Scan completed Harshil Kilpatrick MD [address] [place] [address],[address], [place], [address], [facility] 12/12/2022 14:26:00 Cholecystectomy completed Harshil Kilpatrick MD [address] [place] [address],[address], [address] [place] [address], [facility] 12/12/2022 14:28:36 Total Hysterectomy completed Harshil Kilpatrick MD [address] [place] [address],[address], [place], [address], [facility] 12/12/2022 14:28:47 Imaging Results None recorded. Procedure Notes None recorded. Medical Equipment None Reported. Allergies Allergen ID Allergen Name Allergen Category Reaction Reaction Severity Criticality Documentation Date Start Date Code Code System Note Provider Name and Address Organization Details Recorded Time 773471 trazodone medicatio n Not available Not available Not available 12/12/2022 13503 RxNorm Harshil Kilpatrick MD [address] [place] [address],[address] [place] [address], [address] , [facility] 14:26:05 457595 gabapenti n medicatio n Not available Not available Not available 12/12/2022 05119 RxNorm Harshil Kilpatrick MD [address] [place] [address],[address], [place], [address], [facility] 3 14:26:09 103118 Substance with sulfonami de structure and antibacte rial mechanism of action (substanc e) medicatio n Not available Not available Not available 12/12/2022 47177 8003 SNOMED Harshil Kilpatrick MD [address] [facility],[address] [place] [address], [address], [facility] 3 14:26:16 934062 amoxicill in medicatio n Not available Not available Not available 12/12/2022 723 RxNorm Harshil Kilpatrick MD [address] [place] [address],[facility] [address] [place] [address], [address], [facility] 3 14:26:21 Medications Name [...] Updated DateTime 12/12/2022 160.02 cm 29.2 kg/m2 34301.74 g Harshil Kilpatrick MD [address] [place] [address], [address], [facility] 12/12/2022 14:25:41 Date Recorded Body height Body mass index (BMI) Body weight Provider Name and Address Organization Details Last Updated DateTime 01/04/2023 160.02 cm 29.2 kg/m2 32131.74 g Harshil Kilpatrick MD [address] [place] [address], [address], [facility] 01/04/2023 16:58:06 Social History Question Answer Notes LastModified by Organizat ion Details LastModified Time Tobacco Smoking Status Former Smoker Harshil Kilpatrick MD [address] [place] [address],[address], [address], [facility] 12/12/2022 14:28:22 What Is [...] mL dose 1 completed Harshil Kilpatrick MD [address] [place] [address],[address], [address], [facility] 12/12/2022 14:25:49 COVID-19, mRNA, LNP-S, PF, 30 mcg/0.3 mL dose 1 completed Harshil Kilpatrick MD [address] [place], [place] [address], [address], [facility] 12/12/2022 14:25:49 COVID-19, mRNA, LNP-S, PF, 30 mcg/0.3 mL dose 1 completed Harshil Kilpatrick MD [address] [place] [address],[address] [address], [place], [address], [facility] 12/12/2022 14:25:49 pneumococcal polysaccharide PPV23 3 completed Harshil Kilpatrick MD [address] [place] [address],[address], [address], [facility] 12/12/2022 14:25:49 Tdap 2 completed Harshil Kilpatrick MD [address] [place] [address],[address], [address], [facility] 12/12/2022 14:25:49 Tdap 2 completed Harshil Kilpatrick MD [address] [place] [address],[address], [address], [facility] 12/12/2022 14:25:49 Td (adult), 2 Lf tetanus toxoid, preservative free, adsorbed 3 completed Harshil Kilpatrick MD [address] [place] [address],[address], [address], [facility] 12/12/2022 14:25:49 Past Encounters Encounter ID Performer Location Encounter Start Date Encounter Closed Date Diagnosis/Indication Diagnosis SNOMED-CT Code Diagnosis ICD10 Code Diagnosis Note [id number] Harshil Kilpatrick MD [facility] [address] [address] 12/12/2022 14:08:07 12/16/2022 16:52:30 Recurrent urinary tract infection 780544921 N39.0 1. Recurrent UTIs- continue Vitamin C- continue Cranberry extract 500 mg daily- complete course of Macrobid- if symptoms return - treat with Fosfomycin 3 gm PO every other day (5 doses)(alt ernative - Cipro 500 mg BID x 7-10 days)- Follow-up in 1 month with UA and Bladder scan Incomplete emptying of urinary bladder 199198669 R39.14 2. Incomplete bladder emptying- due to MS (infection may also contribute )- recommend - double-voi ding- check Bladder scan at Follow-up [id number] Harshil Kilpatrick MD [facility] [address] [place] [address] 01/04/2023 16:09:04 01/13/2023 09:36:18 Recurrent urinary tract infection 199812599 N39.0 1. Recurrent UTIs- check UCx- continue Vitamin C- continue Cranberry extract 500 mg daily- Follow-up in 6 months with UA and Bladder scan Incomplete emptying of urinary bladder 542209501 R39.14 2. Incomplete bladder emptying- due to [...] ID Guarantor Name 01/01/2023 1 [place]: [employer] Lelia Vizcarra [id number] Lelia Vizcarra 01/13/2023 2 FOR LIFE ( - MEDICARE SUPPLEMENT) Lelia Vizcarra [id number] Lelia Vizcarra Notes Date Note Type Note [...] PVR = 176 mL Harshil Kilpatrick MD [address] [place] [address],[facility] [address], [place], [address], [facility] 12/12/2022 18:29:34 01/04/2023 text/html 72 yo [...] PVR = 176 mL Harshil Kilpatrick MD [address] [facility],[address], [place], [address], [facility] 01/08/2023 18:11:58 OBGyn Episode No OBEpisode recorded.
--- NOTE | 2024-10-28 13:25 | ED.ARRPALP ---
HPI - Arrhythmia/Palpitations General Date Seen: 10/28/24 Chief Complaint: Arrhythmia/Palpitations Stated Complaint: high blood pressure/Elevated heart rate Time Seen by Provider: 10/28/24 13:24 Source: patient, family, RN notes reviewed and old records reviewed Mode of arrival: ambulatory Limitations: no limitations History of Present Illness HPI narrative: Lelia is a very pleasant 74-year-old female with history of hypertension, suspected SVT who comes to the emergency room after spell of rapid heart rate and elevated blood pressure earlier today. Lelia notes that she has an appointment to see Cardiology MondayNovember 05 at an [facility] in [place]. She had worn a ZIO patch and according to previous notes there were some episodes of tachycardia. Today, Lelia had a 45 minute episode of rapid heart rate around 118 with her blood pressure around 160/100. She initially tried to call her Clinic in [place] but could not get an appointment until November. She was directed to go to [facility] but did not want to do that and thus came to the emergency room with her daughter. Lelia notes that she was standing at the kitchen counter this morning and felt a weird feeling, over her which is similar to previous episodes. She notes that she then began to feel nauseated and thus sat down and then her heart rate jumped up. This has happened recently. Three weeks ago she states that she had a laid down and felt like maybe that it was the end. After laying down it went away. 36 hours ago MondayOctober 26 this similar thing happened but only lasted a few minutes. After the heart rate is back to normal she is very fatigued. Lelia's daughter notes that she has had episodes which have caused a fall from being so lightheaded. Additional complaint is right ankle swelling. This has been worse lately. No recent trauma. Does have varicose veins on that side. Does improve after laying down over night or with elevation of the ankle no history of DVT, not currently on blood thinners. Related Data Home Medications ?Medication ?Instructions ?Recorded ?Confirmed losartan 25 mg tablet (Cozaar) See Rx Instructions .Route .COMPLEX 07/29/24 10/28/24 nortriptyline 10 mg capsule 60 mg PO HS 07/29/24 10/28/24 Allergies Allergy/AdvReac Type Severity Reaction Status Date / Time sulfamethoxazole (From Allergy Intermediate Hives Verified 09/18/24 22:10 Septra) trimethoprim (From Septra) Allergy Intermediate Hives Verified 09/18/24 22:10 amoxicillin Allergy Mild Erythema Verified 09/18/24 22:10 Sulfa (Sulfonamide Allergy Mild Hives Verified 09/18/24 22:10 Antibiotics) trazodone Allergy Mild Hives Verified 09/18/24 22:10 Review of Systems Status of ROS: Reports: 10 or more systems reviewed and unremarkable except as noted in History and below Const: Reports: fatigue; Denies: fever or chills Eyes: Denies: change in vision ENMT: Denies: throat pain, neck pain or nasal congestion Cardio: Reports: palpitations, swelling of feet/ankles and lightheadedness; Denies: chest pain or shortness of breath with exertion Resp: Denies: shortness of breath or cough GI: Reports: nausea; Denies: abdominal pain, vomiting or diarrhea : Denies: painful urination Musculo: Denies: back pain, neck pain or extremity pain Integ/Breast: Denies: rash Neuro: Denies: headache or numbness in extremities Endo: Reports: fatigue PFSH [facility] Medical History Colon polyps ?K63.5 - Polyp of colon (ICD-10) Obesity ?E66.9 - Obesity, unspecified (ICD-10) Urticaria, unspecified ?L50.9 - Urticaria, unspecified (ICD-10) Vitamin D deficiency ?E55.9 - Vitamin D deficiency, unspecified (ICD-10) Menopause ?Z78.0 - Asymptomatic menopausal state (ICD-10) Anemia ?D64.9 - Anemia, unspecified (ICD-10) Multiple sclerosis ?G35 - Multiple sclerosis (ICD-10) Lumbar foraminal stenosis ?M48.061 - Spinal stenosis, lumbar region without neurogenic claudication (ICD-10) DDD (degenerative disc disease) Osteoporosis ?M81.0 - Age-related osteoporosis without current pathological fracture (ICD-10) History of inguinal hernia ?Z87.19 - Personal history of other diseases of the digestive system (ICD-10) Nephrolithiasis ?N20.0 - Calculus of kidney (ICD-10) Low back pain ?M54.50 - Low back pain, unspecified (ICD-10) Dyshidrosis ?L30.1 - Dyshidrosis [pompholyx] (ICD-10) Depressive disorder ?F32.A - Depression, unspecified (ICD-10) Surgical History H/O right inguinal hernia repair (11/09/15) ?Z98.890 - Other specified postprocedural states (ICD-10) ?Z87.19 - Personal history of other diseases of the digestive system (ICD-10) H/O lymph node biopsy ?Z98.890 - Other specified postprocedural states (ICD-10) History of hysterectomy ?Z90.710 - Acquired absence of both cervix and uterus (ICD-10) History of cholecystectomy ?Z90.49 - Acquired absence of other specified parts of digestive tract (ICD-10) History of colonoscopy ?Z98.890 - Other specified postprocedural states (ICD-10) Family History Father Osteoporosis Prostate cancer Mother Lung cancer Brother Alzheimers disease Brother Pancreatic cancer Social History Narrative: [facility], lives alone, , daughter lives in the area. Retired from [employer]. Quit smoking more than 30 years ago. EtOH glass of wine twice a month or less. No recreational drugs. FULL CODE. What is your current living situation?: I presently have a place to live Problems where you live: no known problems Problems where you live details: N/A In the past 12 months, utilities in danger of being shut off: no In past 12 months, lack of transportation kept you from medical appts, meetings, work, or getting things needed for daily living: no In the past 12 mos, have been you worried that your food would run out before you had money to buy more?: never true In the past 12 mos, the food you bought just didn't last and you didn't have money to buy more?: never true Highest level of school completed/degree received: GED or equivalent Smoking Status: Former smoker Do you use any of these nicotine containing products: None Second hand tobacco smoke exposure: No How often do you have a drink containing alcohol: 2-4 times a month Alcohol type: wine How many standard drinks containing alcohol do you have on a typical day: 1 or 2 How often do you have six or more drinks on one occasion: Less than monthly AUDIT-C Alcohol total score: 3 Non-prescribed substance use: denies use Caffeine: Yes How often does anyone, including family, friends and others, physically hurt you: never How often does anyone, including family, friends and others, insult or talk down to you: never How often does anyone, including family, friends and others, threaten you with harm: never How often does anyone, including family, friends and others, scream or curse at you: never service: No Exam Narrative: Exam Narrative: Alert and oriented. Very well-spoken woman in no acute distress. External ears eyes nose clear. Face symmetrical. Mentation and speech normal. Neck is supple without lymphadenopathy. Heart with regular rate and rhythm and lungs are clear bilaterally. Abdomen is soft nontender. Right lower extremity does show increased size verses left. Ankle is with 1 to 2+ edema. No tenderness is noted. No calf tenderness is noted. No unusual coloring is noted. Moving all extremities. Const: Vital Signs, click to edit/add: Vital Signs - 24 hr 10/28/24 13:07 10/28/24 14:39 10/28/24 14:40 Temperature 97.7 F Pulse Rate 93 93 Pulse Rate [Pulse Oximeter] 90 Respiratory Rate 16 Blood Pressure 173/95 H Blood Pressure [Ri ght Upper Arm] 171/87 H Pulse Oximetry 95 96 96 Oxygen Delivery Me thod Room Air 10/28/24 14:45 10/28/24 14:47 10/28/24 15:00 Temperature Pulse Rate 86 87 88 Pulse Rate [Pulse Oximeter] Respiratory Rate 16 Blood Pressure 159/81 H Blood Pressure [Ri ght Upper Arm] Pulse Oximetry 94 95 94 Oxygen Delivery Me thod 10/28/24 15:02 10/28/24 15:15 10/28/24 15:17 Temperature Pulse Rate 85 81 86 Pulse Rate [Pulse Oximeter] Respiratory Rate 14 14 Blood Pressure 161/77 H 153/76 H Blood Pressure [Ri ght Upper Arm] Pulse Oximetry 95 94 94 Oxygen Delivery Me thod 10/28/24 15:30 10/28/24 15:31 10/28/24 15:32 Temperature Pulse Rate 78 86 85 Pulse Rate [Pulse Oximeter] Respiratory Rate 17 Blood Pressure 155/75 H Blood Pressure [Ri ght Upper Arm] Pulse Oximetry 94 94 94 Oxygen Delivery Me thod 10/28/24 15:45 10/28/24 15:47 10/28/24 16:00 Temperature Pulse Rate 88 86 Pulse Rate [Pulse Oximeter] Respiratory Rate 13 13 Blood Pressure 149/92 H Blood Pressure [Ri ght Upper Arm] Pulse Oximetry 94 95 Oxygen Delivery Me thod 10/28/24 16:03 10/28/24 16:17 Temperature Pulse Rate Pulse Rate [Pulse Oximeter] Respiratory Rate Blood Pressure 159/98 H 154/96 H Blood Pressure [Ri ght Upper Arm] Pulse Oximetry Oxygen Delivery Me thod Documenting provider has reviewed patient's vital signs: yes Course Course ED Course: Differential diagnosis includes but is not limited to SVT, other cardiac arrhythmia, anxiety, electrolyte imbalance, DVT. At this time will place IV and draw labs to include CBC, basic, troponin, magnesium. Will add EKG and chest x-ray as well as lower extremity Doppler on the right and ankle x-ray. Patient placed on cardiac cath lab manager. Reevaluation(s) Reevaluation #1: Patient seems to be improved. Gives me further history and it does sound like there is a significant anxiety component to these events. Reassured patient that ultrasound is negative for DVT and x-ray does not show any abnormality of the ankle bone. Suggested use of compression stocking or frequent elevation of legs. Repeat troponin is at 1610 hours. If that is normal P patient will be discharged home. air sampling and monitoring continues to show sinus rhythm. Reevaluation #2: Second troponin is negative. Patient continues to be in sinus rhythm. She did eat a sandwich and is feeling ready to go home. Vital Signs Vital signs: Initial Vital Signs Temperature 97.7 F 10/28/24 13:07 Temperature Source Temporal Artery Scan 10/28/24 13:07 Pulse Rate 90 10/28/24 13:07 Respiratory Rate 16 10/28/24 13:07 Blood Pressure 171/87 H 10/28/24 13:07 Blood Pressure Mean 115 H 10/28/24 13:07 Blood Pressure Position Sitting 10/28/24 13:07 Pulse Oximetry 95 10/28/24 13:07 Oxygen Delivery Method Room Air 10/28/24 13:07 Vital Signs Temperature 97.7 F 10/28/24 13:07 Pulse Rate 90 10/28/24 13:07 Respiratory Rate 16 10/28/24 13:07 Blood Pressure 171/87 H 10/28/24 13:07 Pulse Oximetry 95 10/28/24 13:07 Oxygen Delivery Method Room Air 10/28/24 13:07 Temperature 97.7 F 10/28/24 13:07 Pulse Rate 86 10/28/24 15:47 Respiratory Rate 13 10/28/24 16:00 Blood Pressure 154/96 H 10/28/24 16:17 Pulse Oximetry 95 10/28/24 15:47 Oxygen Delivery Method Room Air 10/28/24 13:07 MDM - Arrhythmia/Palpitations MDM Narrative Medical decision making narrative: 1. Tachycardia-sinus rhythm in the ED and throughout her stay. Cardiac enzymes negative x2. EKG reassuring. I do wonder if patient is experiencing palpitations and then has a anxiety tack on top of it. She has a cardiology appointment 1 week from tomorrow. I encouraged her to keep that appointment. In the meantime recommend lying down and deep breathing should these occur. Of course if she is passing out, has chest pain associated she will need to come to the emergency room. 2. Right ankle swelling-patient does have varicose veins on the right which may be contributing to this. She does not appear to be in a fluid overload state today. Recommend compression stocking of frequent elevation of her legs during the day. 3. Abnormal chest x-ray-there is a area in the left upper lobe pneumonia versus atelectasis. At this time patient has clear lung sounds, normal temperature, normal O2 sats and has not been coughing. I would favor atelectasis. I did speak to Lelia and her daughter about this finding. It is recommendation that she follow-up in 8 weeks for a repeat chest x-ray to ensure resolution. If, however, she starts experiencing fever or cough I would ask that she be seen in started on antibiotic. We talked about antibiotics not always being benign in nature and I would hold off on any antibiotic treatment in this particular scenario. 3. Disposition-home at this time. Return for worsening symptoms and as needed. Medical Records Attestation: I reviewed the patient's medical records. Lab Data Attestation: I reviewed the patient's lab results. Labs: Lab Results 10/28/24 10/28/24 Range/Units 14:42 16:10 WBC 5.69 (4.50-11.00) K/uL RBC 4.17 (4.00-5.20) m/uL Hgb 13.3 (12.0-16.0) gm/dL Hct 39.5 (33.0-51.0) % MCV 95 (80-100) fL MCH 32 (26-34) pg MCHC 34 (32-36) gm/dL RDW Coeff of Jennifer 12.2 (11.5-15.5) % Plt Count 493 H (140-440) K/uL Neut % (Auto) 66.7 (42.0-72.0) % Lymph % (Auto) 21.8 (20-44) % [place] % (Auto) 9.3 (0.0-11.0) % Eos % (Auto) 0.7 (0.0-7.0) % Baso % (Auto) 1.1 (0.0-3.0) % Neut # (Auto) 3.80 (1.7-7.0) K/uL Lymph # (Auto) 1.24 (0.90-2.90) K/uL [place] # (Auto) 0.50 (0.00-0.90) K/UL Eos # (Auto) 0.04 (0.00-0.50) K/uL Baso # (Auto) 0.06 (0.00-0.30) K/uL Abs Immat Gran (auto) 0.02 (0.00-0.30) K/uL Imm/Tot Granulo (auto) 0.4 % Sodium 135 (135-149) mmol/L Potassium 4.4 (3.6-5.1) mmol/L Chloride 98 (96-114) mmol/L Carbon Dioxide 28 (20-32) mmol/L Anion Gap 9 (7-15) mEq/L BUN 12 (7-30) mg/dL Creatinine 0.6 (0.5-1.5) mg/dL Estimated Creat Clear 39.59 Estimated GFR 93 ml/min Glucose 123 H (60-115) mg/dL Calcium 9.7 (8.4-10.6) mg/dL Magnesium 2.1 (1.5-2.6) mg/dL Troponin I < 0.01 (0.01-0.04) ng/mL POC Troponin I 0.00 L (0.01-0.04) ng/ml Imaging Data Chest x-ray: Attestation: I have reviewed the pertinent imaging results. My impression: I do not note any acute infiltrates. Radiologist's impression: Cardiovascular and mediastinum: Heart size and vasculature are normal in caliber and appearance. Lungs and pleural space: No pleural effusion or pneumothorax. New vague reticulonodular opacity within the left upper lobe consistent with patchy atelectasis or pneumonia. Suggest follow-up chest x-ray in 8 weeks to document resolution. Bones and soft tissues: Leftward curvature thoracolumbar junction. Right ankle x-ray: Attestation: I have reviewed the pertinent imaging results. My impression: I do not note any obvious fractures. Radiologist's impression: Bones: No evidence of fracture. Small well-formed plantar heel spur. Joint spaces: Unremarkable. Soft tissues: Soft tissue swelling. Phleboliths within the anterior subcutaneous tissues. Venous US: Attestation: I have reviewed the pertinent imaging results. Radiologist's impression: Sonographic imaging demonstrates the right common femoral, deep femoral, superficial femoral, popliteal, posterior tibial and greater saphenous and the contralateral left common femoral veins to be fully compressible with normal color Doppler blood flow. Subcutaneous edema at the level of the right ankle without focal fluid collection. IMPRESSION: Normal right lower extremity venous ultrasound, no sign of deep venous thrombosis. ECG Data Attestation: I personally reviewed and interpreted this ECG as follows: ECG interpretation date: 10/28/24 Interpretation: Sinus rhythm at a rate of 94. I do not note any acute ST or T-wave changes. QT and DE intervals within normal limits. Discharge Plan Discharge Clinical Impression: Palpitations, Right ankle swelling Patient Disposition: Home w/ Parent or Adult Condition: Unchanged Additional Instructions: 1. Try and stay well hydrated. Limit stress as much as possible. If this would occur suggest the deep breathing that you were talking about. Today's tests show no evidence of a heart attack. 2. I recommend compression stockings or frequent elevation of your legs to prevent the swelling of your right ankle. No evidence of a blood clot today. 3. Abnormal chest x-ray is most likely something we call atelectasis but Radiology is suggesting that you have a repeat x-ray in 6-8 weeks to make sure that it has gone away. If, use started experiencing fever or a cough then I would suggest an antibiotic and he will need to be seen for that. Return to the emergency room for worsening symptoms, chest pain, fainting and as needed. Prescriptions: No Action nortriptyline 10 mg capsule 60 mg PO HS losartan [Cozaar] 25 mg tablet See Rx Instructions .ROUTE .COMPLEX Rx Instructions: Takes 50mg in AM and 25mg in PM Follow Up/Referrals: Jeannette Bernabe MD [Primary Care Provider, Family Practice] Stand Alone Forms: [employer] Info Instructions
--- NOTE | 2024-10-28 13:44 | CRLHL7_ITS ---
For Patients: As a result of the Century Cures Act, medical imaging exams and procedure reports are released immediately into your electronic medical record. You may view this report before your referring provider. If you have questions, please contact your health care provider. Indication: Rapid heart rate Technique: Chest 1 view Comparison: Chest x-ray 08/25/2024 Findings/Impression: Cardiovascular and mediastinum: Heart size and vasculature are normal in caliber and appearance. Lungs and pleural space: No pleural effusion or pneumothorax. New vague reticulonodular opacity within the left upper lobe consistent with patchy atelectasis or pneumonia. Suggest follow-up chest x-ray in 8 weeks to document resolution. Bones and soft tissues: Leftward curvature thoracolumbar junction. Dictated by Portillo Orozco MD @ 10/28/2024 2:48:46 PM (Electronically Signed)
--- NOTE | 2024-10-28 13:44 | CRLHL7_ITS ---
For Patients: As a result of the Century Cures Act, medical imaging exams and procedure reports are released immediately into your electronic medical record. You may view this report before your referring provider. If you have questions, please contact your health care provider. Indication: Swelling Technique: Two views right ankle Comparison: None Findings/Impression: Bones: No evidence of fracture. Small well-formed plantar heel spur. Joint spaces: Unremarkable. Soft tissues: Soft tissue swelling. Phleboliths within the anterior subcutaneous tissues. Dictated by Portillo Orozco MD @ 10/28/2024 2:51:46 PM (Electronically Signed)
--- NOTE | 2024-10-28 13:44 | CRLHL7_ITS ---
For Patients: As a result of the Century Cures Act, medical imaging exams and procedure reports are released immediately into your electronic medical record. You may view this report before your referring provider. If you have questions, please contact your health care provider. INDICATION: Right leg swelling TECHNIQUE: Ultrasound venous duplex lower right extremity. Compression venous exam was performed using roman-scale, color Doppler, and spectral Doppler imaging. COMPARISON: None. FINDINGS: Sonographic imaging demonstrates the right common femoral, deep femoral, superficial femoral, popliteal, posterior tibial and greater saphenous and the contralateral left common femoral veins to be fully compressible with normal color Doppler blood flow. Subcutaneous edema at the level of the right ankle without focal fluid collection. IMPRESSION: Normal right lower extremity venous ultrasound, no sign of deep venous thrombosis. Dictated by Portillo Orozco MD @ 10/28/2024 3:17:48 PM (Electronically Signed)
--- OUTSIDE RECORDS SUMMARY | 2024-10-28 14:00 | XMS_ITS | Data Portability ---
Author Organization [place] [facility], [facility] - [facility] Address [address] [address] [place] [address] Assessment Encounter Date Assessment Date Assessment LastModified [...] Address Organization Details Recorded Time Neck pain 66596190 Active 2024 Arsalan Dc DC [address] [facility], [place], [address], [place] [facility] 10:41:22 Cervical segmental dysfunction 043765572 Active 2024 Arsalan Dc DC [address] [facility], [place], [address], [place] [facility] 10:41:27 Lesion of lumbar spine 815643690 Active 2024 Chintan Sherif [place] [address] [facility] [address], [place], [address], [facility] - [facility] 10:36:57 Thoracic segmental dysfunction 046010433 Active 2023 Arsalan Dc DC [address] [facility], [facility] [place], [address], [place] [facility] 4 17:53:01 Low back pain 768850859 Active 2023 Arsalan Dc DC [address] [facility], [facility] [place] [place], [address], [place] [facility] 4 17:53:01 Lumbar segmental dysfunction 322107375 Active 2023 Arsalan Dc DC [address] [facility], [facility] [place] [place], [address], [place] [facility] 4 17:53:01 Somatic dysfunction of sacral spine 456413828 Active 2023 Arsalan Dc DC [address] [facility], [facility] [place] [place], [address], [place] [facility] 4 17:53:01 Somatic dysfunction of pelvic region 300464494 Active 2023 Arsalan Dc DC [address] [facility] [facility], [facility] [place], [address], [place] [facility] 4 16:00:35 Problem Notes None recorded. Procedures Surgical History Date Name Laterality Status Provider Name and Address Organization Details Recorded Time 5 00783: Spinal manipulation , 3 to 4 regions completed Chintan Kohler DC [address] [facility], [place], [address], [place] [facility] 10/23/2024 10:17:56 5 06288: Spinal manipulation , 3 to 4 regions completed Roni Anderson DC [address] [facility] [facility], [place], [address], [place] [facility] 10/18/2024 11:38:18 5 55033: Spinal manipulation , 3 to 4 regions completed Chintan Kohler DC [address] [facility] [facility], [place], [address], [place] [facility] 10/15/2024 19:15:32 5 09049: Spinal manipulation , 3 to 4 regions completed Chintan Sherif [place]ub[place], DC [address] [facility] [facility], [place], [address], [place] [facility] 10/02/2024 16:12:11 5 61863: Spinal manipulation , 3 to 4 regions completed Scot Sherif [place], DC [address] [facility], [place], [address], [place] [facility] 09/25/2024 18:08:20 5 84460: Spinal manipulation , 3 to 4 regions completed Scot Sherif [place], DC [address] [facility] [facility], [place], [address], [place] [facility] 09/18/2024 20:39:50 5 27209: Spinal manipulation , 3 to 4 regions completed Chintan Smithbert [place], DC [address] [facility] [facility], [place], [address], [place] [facility] 09/11/2024 16:19:20 5 89608: Spinal manipulation , 3 to 4 regions completed Chintan Smithbert [place], DC [address] [facility] [address] [facility], [place], [address], [place] [facility] 09/04/2024 19:45:53 5 87901: Spinal manipulation , 3 to 4 regions completed Chintan Smithbert [place], DC [address] [facility], [place], [address], [place] [facility] 08/28/2024 19:29:31 5 44009: Spinal manipulation , 3 to 4 regions completed Scot Sherif [place], DC [address] [facility], [place], [address], [place] [facility] 08/15/2024 10:50:31 5 73039: Spinal manipulation , 3 to 4 regions completed Scot Sherif [place], DC [address] [facility], [place], [address], [place] [facility] 08/08/2024 10:36:05 5 43445: Spinal manipulation , 3 to 4 regions completed Scot Sherif Gubbels, DC [address] [facility], [place], [address], [place] [facility] 07/24/2024 17:24:59 5 33731: Spinal manipulation , 3 to 4 regions completed Chintan Sherifkai Kohler DC [address] [facility], [place], [address], [place] [facility] 07/22/2024 18:24:19 5 30027: Spinal manipulation , 3 to 4 regions completed Roni Anderson DC [address] [facility] [facility], [place], [address], [place] [facility] 07/19/2024 13:59:35 5 26695: Spinal manipulation , 3 to 4 regions completed Chintan Kohler DC [address] [facility], [place], [address], [place] [facility] 07/12/2024 19:11:44 5 82778: Spinal manipulation , 3 to 4 regions completed Arsalan Dc DC [address] [facility], [place], [address], [place] [facility] 07/16/2024 10:41:16 5 09016: Spinal manipulation , 3 to 4 regions completed Arsalan Dc DC [address] [facility], [place], [address], [place] [facility] 06/13/2024 16:09:29 5 12270: Spinal manipulation , 3 to 4 regions completed Arsalan Dc DC [address] [facility], [place], [address], [place] [facility] 05/30/2024 15:48:40 5 42777: Spinal manipulation , 3 to 4 regions completed Arsalan Dc DC [address] [facility], [place], [address], [place] [facility] 05/16/2024 16:14:08 4 85477: Spinal manipulation , 3 to 4 regions completed Arsalan Dc, TANGELA [address] [facility] [facility], [place], [address], [place] [facility] 05/14/2024 11:46:50 4 78201: Spinal manipulation , 3 to 4 regions completed Arsalan Dc, TANGELA [address] [facility] [facility], [place], [address], [facility] - [facility] 04/25/2024 16:00:07 4 43045: Spinal manipulation , 3 to 4 regions completed Arsalan Dc, TANGELA [address] [facility], [place], [address], [facility] - [facility] 04/18/2024 17:53:33 Imaging Results None [...] SNOMED-CT Code Diagnosis ICD10 Code Diagnosis Note [id number] Arsalan Dc DC [facility] & [address] [place] [address] 04/18/2024 15:15:57 04/18/2024 17:59:55 Lumbar segmental dysfunction 635721063 M99.03 Low back pain 044238617 M54.50 Somatic dy sfunction of sacral spine 910330521 M99.04 Thoracic s egmental dysfunction 377268823 M99.[id number] [facility] & [address] [place] [address] 04/25/2024 15:00:43 04/25/2024 16:13:59 Low back pain 461047502 M54.50 Thoracic s egmental dysfunction 229638180 M99.02 Somatic dy sfunction of sacral spine 557360932 M99.04 Somatic dy sfunction of pelvic region 851958150 M99.05 [id number] Arsalan Dc DC [facility] & [address] [place] [address] 05/09/2024 16:06:43 05/16/2024 18:12:30 Lumbar segmental dysfunction 088522134 M99.03 Low back pain 500952794 M54.50 Somatic dy sfunction of sacral spine 485604136 M99.04 Thoracic s egmental dysfunction 433798337 M99.[id number] [facility] [address] [facility] [place] [address] 05/16/2024 15:03:18 05/16/2024 18:16:16 Low back pain 621587212 M54.50 Somatic dy sfunction of sacral spine 435464095 M99.04 Somatic dy sfunction of pelvic region 084269639 M99.05 Thoracic s egmental dysfunction 795892282 M99.[id number] [facility] [address] [place] [address] 05/30/2024 12:27:55 05/30/2024 15:51:48 Lumbar segmental dysfunction 969601365 M99.03 Thoracic s egmental dysfunction 182188699 M99.02 Low back pain 874074583 M54.50 Somatic dy sfunction of pelvic region 484267352 M99.05 [id number] Arsalan Dc DC [facility] & [address] [place] [address] 06/12/2024 11:45:13 06/12/2024 16:06:22 Somatic dysfunction of sacral spine 072605641 M99.04 Thoracic s egmental dysfunction 012391487 M99.02 Somatic dy sfunction of pelvic region 895942852 M99.05 Low back pain 451928614 M54.50 [id number] Arsalan Dc DC [address] [place] [address] 07/11/2024 11:19:31 07/17/2024 13:30:34 Thoracic segmental dysfunction 928346927 M99.02 Neck pain 18358377 M54.2 Cervical s egmental dysfunction 455664813 M99.01 Lumbar seg mental dysfunction 553343628 M99.03 [id number] Chintan Kohler DC [address] [facility] [place] [address] 07/12/2024 12:30:51 07/16/2024 09:51:49 Somatic dysfunction of sacral spine 849784637 M99.04 Thoracic s egmental dysfunction 324268269 M99.02 Somatic dy sfunction of pelvic region 979109364 M99.05 Low back pain 677360612 M54.50 [id number] Roni Anderson DC [facility] & [address] [place] [address] 07/19/2024 12:23:03 07/19/2024 15:12:15 Somatic dysfunction of sacral spine 298705460 M99.04 Thoracic s egmental dysfunction 669758634 M99.02 Somatic dy sfunction of pelvic region 542629599 M99.05 Low back pain 907564937 M54.50 [id number] Chintan Sherif Kohler DC [facility] & [address] [place] [address] 07/22/2024 11:54:25 07/23/2024 18:33:07 Somatic dysfunction of sacral spine 789594400 M99.04 Thoracic s egmental dysfunction 399393280 M99.02 Somatic dy sfunction of pelvic region 186380773 M99.05 Low back pain 543513394 M54.50 [id number] Chintan Kohler DC [facility] & [address] [place] [address] 07/24/2024 12:24:44 07/24/2024 17:36:13 Somatic dysfunction of sacral spine 664182980 M99.04 Thoracic s egmental dysfunction 197719802 M99.02 Somatic dy sfunction of pelvic region 821313422 M99.05 Low back pain 105425106 M54.50 [id number] Chintan Kohler DC [address] [place] [address] 08/07/2024 12:42:42 08/08/2024 10:53:14 Thoracic segmental dysfunction 163001855 M99.02 Somatic dy sfunction of pelvic region 738183747 M99.05 Low back pain 234758397 M54.50 Lesion of lumbar spine 209737353 M99.01 Neck pain 86578224 M54.2 Lumbar seg mental dysfunction 156085380 M99.03 Cervical s egmental dysfunction 803054547 M99.01 [id number] Chintan Kohler DC [facility] & [address] [facility] [address] 08/15/2024 10:21:59 08/15/2024 11:55:34 Thoracic segmental dysfunction 830405790 M99.02 Somatic dy sfunction of pelvic region 632896955 M99.05 Low back pain 679528132 M54.50 Lesion of lumbar spine 425782230 M99.01 Neck pain 44018444 M54.2 Lumbar seg mental dysfunction 957645565 M99.03 Cervical s egmental dysfunction 183692245 M99.01 [id number] Chintan Kohler DC [facility] & [address] [place] [address] 08/28/2024 16:23:40 08/30/2024 15:51:18 Thoracic segmental dysfunction 249705977 M99.02 Somatic dy sfunction of pelvic region 480015121 M99.05 Low back pain 586501264 M54.50 Lesion of lumbar spine 022208596 M99.01 Neck pain 64134418 M54.2 Lumbar seg mental dysfunction 612114375 M99.03 Cervical s egmental dysfunction 334157409 M99.01 [id number] Chintan Kohler DC [address] [place] [address] 09/04/2024 16:32:03 09/06/2024 18:17:46 Thoracic segmental dysfunction 061284134 M99.02 Somatic dy sfunction of pelvic region 054366458 M99.05 Low back pain 236887590 M54.50 Lesion of lumbar spine 616320878 M99.01 Neck pain 33355670 M54.2 Lumbar seg mental dysfunction 976233228 M99.03 Cervical s egmental dysfunction 175043774 M99.01 [id number] Chintan Kohler DC [facility] & [address] [facility] [place] [address] 09/11/2024 11:54:20 09/11/2024 16:29:18 Lumbar segmental dysfunction 618220222 M99.03 Low back pain 151718751 M54.50 Somatic dy sfunction of sacral spine 578677882 M99.04 Thoracic s egmental dysfunction 736293359 M99.02 [id number] Chintan Kohler DC [facility] & [address] [facility] [place] [address] 09/18/2024 15:41:57 09/19/2024 14:46:57 Lumbar segmental dysfunction 572878538 M99.03 Low back pain 508919126 M54.50 Somatic dy sfunction of sacral spine 864109039 M99.04 Thoracic s egmental dysfunction 144854517 M99.[id number] [facility] [address] [place] [address] 09/25/2024 16:39:20 09/25/2024 18:11:19 Lumbar segmental dysfunction 458915526 M99.03 Low back pain 919725787 M54.50 Somatic dy sfunction of sacral spine 679073782 M99.04 Thoracic s egmental dysfunction 053224272 M99.02 [id number] [facility] [address] [place] [address] 10/02/2024 12:19:12 10/02/2024 16:43:06 Lumbar segmental dysfunction 659729525 M99.03 Low back pain 375929299 M54.50 Somatic dy sfunction of sacral spine 016388778 M99.04 Thoracic s egmental dysfunction 078560123 M99.[id number] [facility] & [address] [place] [address] 10/15/2024 15:06:15 10/17/2024 10:51:14 Lumbar segmental dysfunction 585167501 M99.03 Low back pain 103436358 M54.50 Somatic dy sfunction of sacral spine 389785449 M99.04 Thoracic s egmental dysfunction 257798976 M99.02 [id number] Roni Anderson [facility] [address] [place] [address] 10/18/2024 10:27:27 10/18/2024 12:16:44 Lumbar segmental dysfunction 936840514 M99.03 Low back pain 078995084 M54.50 Somatic dy sfunction of sacral spine 347555163 M99.04 Thoracic s egmental dysfunction 233971241 M99.02 [id number] Chintan Kohler DC [facility] [address] [facility] [facility] [address] 10/23/2024 09:39:32 10/23/2024 11:05:56 Lesion of lumbar spine 609529341 M99.01 Neck pain 03936312 M54.2 Thoracic s egmental dysfunction 959592348 M99.02 Lumbar seg mental dysfunction 519357426 M99.03 Cervical s egmental dysfunction 995442356 M99.01 Health Concerns Section Related Observation LastModified by Organization Detai ls LastModified Time None Recorded Concern Status LastModified by Organization Details LastModified Time None Recorded Advance Directives Directive None Recorded Payers Insurance Date Sequence Insurance Name Policy Number Policy Poe Covered Member ID Poe Member ID Guarantor Name 07/08/2024 2 ( - INDEMNITY) Lelia Vizcarra 20 Lelia Vizcarra 10/15/2024 1 [place] [employer] [facility] Lelia Vizcarra [id number] Lelia Vizcarra 10/22/2024 2 () Lelia Vizcarra [id number] Lelia Vizcarra Notes Date Note Type Note Provider Name and Address Organization Details Recorded Time 09/25/2024 text/html HPI - Lumbar SpineReported bypatient.Location: left Quality:aching Severity:moderate Timing:morning Aggravating Factors:walking; lifting; carrying; twisting Alleviating Factors:rest Chintan Kohler DC [address] [facility] [address], [place], [address], formerly [facility] 09/25/2024 18:08:44 10/02/2024 text/html HPI - Lumbar SpineReported bypatient.Location: left Quality:aching Severity:moderate Timing:morning Aggravating Factors:walking; lifting; carrying; twisting Alleviating Factors:rest Chintan Kohler DC [address] [facility], [place], [address], formerly [facility] 10/02/2024 16:12:42 10/15/2024 text/html HPI - Lumbar SpineReported bypatient.Location: left Quality:aching Severity:moderate Timing:morning Aggravating Factors:walking; lifting; carrying; twisting Alleviating Factors:rest Chintan Kohler TANGELA [address] [facility] [address], [place], [address], formerly [facility] 10/15/2024 19:16:29 10/18/2024 text/html HPI - Lumbar SpineReported bypatient.Location: left Quality:aching Severity:moderate Timing:morning Aggravating Factors:walking; lifting; carrying; twisting Alleviating Factors:rest Roni Anderson DC [address] [facility] [address], [place], [address], formerly [facility] 10/18/2024 11:39:00 10/23/2024 text/html HPI - Cervical SpineReported bypatient.Location: left Quality:aching Severity:moderate Duration:2 weeks Timing:gradual Alleviating Factors:ice Aggravating Factors:sitting Associated Symptoms:no numbness/tingling Chintan Kohler DC [address] [facility], [place], [address], formerly [facility] 10/23/2024 10:18:09 OBGyn Episode No OBEpisode recorded.
--- OUTSIDE RECORDS SUMMARY | 2024-10-28 14:01 | XMS_ITS | Continuity of Care Document ---
Author Organization [facility] IntelligenceSouthwest Medical CenterANDRE valencia [facility] Address [address] [place] [address] Assessment Encounter Date Assessment Date Assessment LastModified [...] Address Organization Details Recorded Time Neck pain 68882766 Active 2024 Arsalan Dc, TANGELA [address] [facility], [place], [address] , [place] [facility] [place] 5 10:41:22 Cervical segmental dysfunction 036099932 Active 2024 Arsalan Dc DC [address] [facility], [place], [address], [facility] 5 10:41:27 Lesion of lumbar spine 009196155 Active 2024 Chintan Gorman TANGELA Kohler [address] [facility], [place], [address], [facility] 5 10:36:57 Thoracic segmental dysfunction 463057132 Active 2023 Arsalan Dc DC [address] [facility], [place], [address], [facility] 4 17:53:01 Low back pain 344046894 Active 2023 Arsalan Dc DC [address] [place] [address], [place], [address], [facility] 4 17:53:01 Lumbar segmental dysfunction 708911381 Active 2023 Arsalan Dc DC [address] [facility], [place], [address], [facility] 4 17:53:01 Somatic dysfunction of sacral spine 496871667 Active 2023 Arsalan Dc DC [address] [place] [address], [place], [address], [facility] 4 17:53:01 Somatic dysfunction of pelvic region 104400424 Active 2023 Arsalan Dc DC [address] [facility], [place], [address], [facility] 4 16:00:35 Problem Notes None recorded. Procedures Surgical History Date Name Laterality Status Provider Name and Address Organization Details Recorded Time 5 28491: Spinal manipulation , 3 to 4 regions completed Chintan BridgesTANGELA flores [address] [facility], [place], [address], [facility] 10/23/2024 10:17:56 5 03715: Spinal manipulation , 3 to 4 regions completed Roni Anderson DC [address] [facility], [place], [address], [facility] 10/18/2024 11:38:18 5 36787: Spinal manipulation , 3 to 4 regions completed Chintan Kohler DC [address] [facility], [place], [address], [facility] 10/15/2024 19:15:32 5 97392: Spinal manipulation , 3 to 4 regions completed Chintan Kohler DC [address] [facility], [place], [address], [facility] 10/02/2024 16:12:11 5 82145: Spinal manipulation , 3 to 4 regions completed Chintan Kohler DC [address] [facility], [place], [address], [facility] 09/25/2024 18:08:20 5 16835: Spinal manipulation , 3 to 4 regions completed Chintan Kohler DC [address] [facility], [place], [address], [facility] 09/18/2024 20:39:50 5 58890: Spinal manipulation , 3 to 4 regions completed Chintan Kohler DC [address] [facility], [place], [address], [facility] 09/11/2024 16:19:20 5 05197: Spinal manipulation , 3 to 4 regions completed Chintan Kohler DC [address] [facility], [place], [address], [facility] 09/04/2024 19:45:53 5 80920: Spinal manipulation , 3 to 4 regions completed Chintan Kohler DC [address] [facility], [place], [address], [facility] 08/28/2024 19:29:31 5 96290: Spinal manipulation , 3 to 4 regions completed Chintan Sherif TANGELA Kohler [address] [facility], [place], [address], [facility] 08/15/2024 10:50:31 5 40719: Spinal manipulation , 3 to 4 regions completed Chintan Kohler DC [address] [facility], [place], [address], [facility] 08/08/2024 10:36:05 5 69591: Spinal manipulation , 3 to 4 regions completed Chintan Sherifkai Kohler DC [address] [facility], [place], [address], [facility] 07/24/2024 17:24:59 5 34182: Spinal manipulation , 3 to 4 regions completed Chintan Kohler DC [address] [facility], [place], [address], [facility] 07/22/2024 18:24:19 5 73008: Spinal manipulation , 3 to 4 regions completed Roni Anderson DC [address] [facility], [place], [address], [facility] 07/19/2024 13:59:35 5 18291: Spinal manipulation , 3 to 4 regions completed Chintan Kohler DC [address] [facility], [place], [address], [facility] 07/12/2024 19:11:44 5 97872: Spinal manipulation , 3 to 4 regions completed Arsalan Dc DC [address] [facility], [place], [address], [facility] 07/16/2024 10:41:16 5 91748: Spinal manipulation , 3 to 4 regions completed Arsalan Dc DC [address] [facility], [place], [address], [facility] 06/13/2024 16:09:29 5 94785: Spinal manipulation , 3 to 4 regions completed Arsalan Dc DC [address] [facility], [place], [address], [facility] 05/30/2024 15:48:40 5 21580: Spinal manipulation , 3 to 4 regions completed Arsalan Dc DC [address] [facility], [place], [address], [facility] 05/16/2024 16:14:08 4 50161: Spinal manipulation , 3 to 4 regions completed Arsalan Dc DC [address] [facility], [place], [address], [facility] 05/14/2024 11:46:50 4 58303: Spinal manipulation , 3 to 4 regions completed Arsalan Dc DC [address] [facility], [place], [address], [facility] 04/25/2024 16:00:07 4 08365: Spinal manipulation , 3 to 4 regions completed Arsalan Dc DC [address] [facility], [place], [address], [facility] 04/18/2024 17:53:33 Imaging Results [...] SNOMED-CT Code Diagnosis ICD10 Code Diagnosis Note [id number] Chintan Kohler DC [address] [place] [address] 08/28/2024 16:23:40 08/30/2024 15:51:18 Thoracic segmental dysfunction 406740435 M99.02 Somatic dy sfunction of pelvic region 720602500 M99.05 Low back pain 780670452 M54.50 Lesion of lumbar spine 551602967 M99.01 Neck pain 19425099 M54.2 Lumbar seg mental dysfunction 453099936 M99.03 Cervical s egmental dysfunction 161088494 M99.01 [id number] Chintan Kohler DC [address] [place] [address] 09/04/2024 16:32:03 09/06/2024 18:17:46 Thoracic segmental dysfunction 870845611 M99.02 Somatic dy sfunction of pelvic region 334637516 M99.05 Low back pain 530840424 M54.50 Lesion of lumbar spine 149862442 M99.01 Neck pain 88462594 M54.2 Lumbar seg mental dysfunction 743868826 M99.03 Cervical s egmental dysfunction 312709535 M99.01 [id number] Chintan Kohler DC [address] [place] [address] 09/11/2024 11:54:20 09/11/2024 16:29:18 Lumbar segmental dysfunction 827638281 M99.03 Low back pain 270105042 M54.50 Somatic dy sfunction of sacral spine 069076881 M99.04 Thoracic s egmental dysfunction 175207399 M99.[id number] [facility] [address] [facility] [place] [address] 09/18/2024 15:41:57 09/19/2024 14:46:57 Lumbar segmental dysfunction 572878231 M99.03 Low back pain 668261042 M54.50 Somatic dy sfunction of sacral spine 201361855 M99.04 Thoracic s egmental dysfunction 893210715 M99.02 Health Concerns Section Related Observation LastModified by Organization Detai ls LastModified Time None Recorded Concern Status LastModified by Organization Details LastModified Time None Recorded Payers Encounter Date Sequence Insurance Name Policy Number Policy Poe Covered Member ID Poe Member ID Guarantor Name 09/18/2024 1 [place] [employer] Lelia Vizcarra [id number] 5 Lelia Vizcarra Notes Date Note Type Note Provider Name and Address Organization Details Recorded Time 09/18/2024 text/html HPI - Lumbar SpineReported bypatient.Location: left Quality:aching Severity:moderate Timing:morning Aggravating Factors:walking; lifting; carrying; twisting Alleviating Factors:rest Chintan Kohler DC [address] [facility], [place], [address], [facility] 09/18/2024 20:40:06 OBGyn Episode No OBEpisode recorded.
--- OUTSIDE RECORDS SUMMARY | 2024-10-28 14:01 | XMS_ITS | Continuity of Care Document ---
Author Organization [facility] [employer] Control SystemsPrem[facility] ANDRE melendrez [facility] Address [address] [facility] [address] [place] [address] Assessment Encounter Date Assessment Date Assessment LastModified by Organization Details LastModified Time 10/18/2024 10/18/2024 ASSESSMENT: Patient is a good [...] our office. ecram Not available 10/18/2024 11:38:18 Plan of Treatment Reminders Order Date Submit [...] Address Organization Details Recorded Time Neck pain 75942846 Active 2024 Arsalan Dc, TANGELA [address] [facility], [place], [address] , [place] [facility] 5 10:41:22 Cervical segmental dysfunction 210211236 Active 2024 Arsalan Dc, TANGELA [address] [facility], [place], [address], [place] [facility] 5 10:41:27 Lesion of lumbar spine 344535075 Active 2024 Chintan Gorman TANGELA Kohler [address] [facility], [place], [address], [place] [facility] 5 10:36:57 Thoracic segmental dysfunction 138872032 Active 2023 Arsalan Dc DC [address] [facility], [place], [address], [facility] 4 17:53:01 Low back pain 939131552 Active 2023 Arsalan Dc DC [address] [facility], [place], [address], [facility] 4 17:53:01 Lumbar segmental dysfunction 237627711 Active 2023 Arsalan Dc DC [address] [facility], [place], [address], [place] [facility] 4 17:53:01 Somatic dysfunction of sacral spine 283126865 Active 2023 Arsalan Dc DC [address] [facility], [place], [address], [facility] 4 17:53:01 Somatic dysfunction of pelvic region 036950878 Active 2023 Arsalan Dc DC [address] [facility], [place], [address], [facility] 4 16:00:35 Problem Notes None recorded. Procedures Surgical History Date Name Laterality Status Provider Name and Address Organization Details Recorded Time 5 44089: Spinal manipulation , 3 to 4 regions completed Chintan Gorman Jose F, TANGELA [address] [facility], [place], [address], [facility] 10/23/2024 10:17:56 5 40475: Spinal manipulation , 3 to 4 regions completed Roni nAderson DC [address] [facility], [place], [address], [facility] 10/18/2024 11:38:18 5 51983: Spinal manipulation , 3 to 4 regions completed Chintan Kohler DC [address] [facility], [place], [address], [facility] 10/15/2024 19:15:32 5 28546: Spinal manipulation , 3 to 4 regions completed Chintan Kohler DC [address] [facility], [place], [address], [facility] 10/02/2024 16:12:11 5 71411: Spinal manipulation , 3 to 4 regions completed Chintan Kohler DC [address] [facility], [place], [address], [facility] 09/25/2024 18:08:20 5 18642: Spinal manipulation , 3 to 4 regions completed Chintan Kohler DC [address] [facility], [place], [address], [facility] 09/18/2024 20:39:50 5 31551: Spinal manipulation , 3 to 4 regions completed Chintan Kohler DC [address] [facility], [place], [address], [facility] 09/11/2024 16:19:20 5 16768: Spinal manipulation , 3 to 4 regions completed Chintan Kohler DC [address] [facility], [place], [address], [facility] 09/04/2024 19:45:53 5 90673: Spinal manipulation , 3 to 4 regions completed Chintan Kohler DC [address] [facility], [place], [address], [facility] 08/28/2024 19:29:31 5 92426: Spinal manipulation , 3 to 4 regions completed Chintan Sherif TANGELA Kohler [address] [facility], [place], [address], [facility] 08/15/2024 10:50:31 5 35329: Spinal manipulation , 3 to 4 regions completed Chintan Sherifkai Kohler DC [address] [facility], [place], [address], [facility] 08/08/2024 10:36:05 5 07567: Spinal manipulation , 3 to 4 regions completed Chintan Sherif TANGELA Kohler [address] [facility], [place], [address], [facility] 07/24/2024 17:24:59 5 52828: Spinal manipulation , 3 to 4 regions completed Chintan Sherifkai Kohler DC [address] [facility], [place], [address], [facility] 07/22/2024 18:24:19 5 79170: Spinal manipulation , 3 to 4 regions completed Roni Anderson DC [address] [facility], [place], [address], [facility] 07/19/2024 13:59:35 5 35983: Spinal manipulation , 3 to 4 regions completed Chintan Sherifkai Kohler DC [address] [facility], [place], [address], [facility] 07/12/2024 19:11:44 5 39041: Spinal manipulation , 3 to 4 regions completed Arsalan Dc DC [address] [facility], [place], [address], [facility] 07/16/2024 10:41:16 5 51253: Spinal manipulation , 3 to 4 regions completed Arsalan Dc DC [address] [facility], [place], [address], [facility] 06/13/2024 16:09:29 5 65616: Spinal manipulation , 3 to 4 regions completed Arsalan Dc DC [address] [facility], [place], [address], [facility] 05/30/2024 15:48:40 5 02267: Spinal manipulation , 3 to 4 regions completed Arsalan Dc DC [address] [facility], [place], [address], [facility] 05/16/2024 16:14:08 4 81020: Spinal manipulation , 3 to 4 regions completed Arsalan Dc DC [address] [facility], [place], [address], [facility] 05/14/2024 11:46:50 4 72097: Spinal manipulation , 3 to 4 regions completed Arsalan Dc DC [address] [facility], [place], [address], [facility] 04/25/2024 16:00:07 4 25056: Spinal manipulation , 3 to 4 regions completed Arsalan Dc DC [address] [facility], [place], [address], [facility] 04/18/2024 17:53:33 Imaging Results None recorded. Procedure [...] SNOMED-CT Code Diagnosis ICD10 Code Diagnosis Note [id number] Chintan Kohler DC [address] [place] [address] 09/18/2024 15:41:57 09/19/2024 14:46:57 Lumbar segmental dysfunction 018462583 M99.03 Low back pain 361316759 M54.50 Somatic dy sfunction of sacral spine 943491802 M99.04 Thoracic s egmental dysfunction 406368514 M99.02 [id number] Chintan Kohler DC [address] [place] [address] 09/25/2024 16:39:20 09/25/2024 18:11:19 Lumbar segmental dysfunction 021410518 M99.03 Low back pain 141352413 M54.50 Somatic dy sfunction of sacral spine 293632203 M99.04 Thoracic s egmental dysfunction 428761732 M99.02 [id number] Chintan Kohler DC [address] [place] [address] 10/02/2024 12:19:12 10/02/2024 16:43:06 Lumbar segmental dysfunction 019321357 M99.03 Low back pain 802362694 M54.50 Somatic dy sfunction of sacral spine 355258208 M99.04 Thoracic s egmental dysfunction 312192675 M99.02 [id number] Chintan Sherif Kohler DC [facility] [address] [facility] [place] [address] 10/15/2024 15:06:15 10/17/2024 10:51:14 Lumbar segmental dysfunction 106058642 M99.03 Low back pain 881283596 M54.50 Somatic dy sfunction of sacral spine 525568632 M99.04 Thoracic s egmental dysfunction 721742041 M99.02 [id number] Roni Anderson DC [facility] [place] [address] [facility] [facility] [place] [address] 10/18/2024 10:27:27 10/18/2024 12:16:44 Lumbar segmental dysfunction 552958896 M99.03 Low back pain 527814745 M54.50 Somatic dy sfunction of sacral spine 205349184 M99.04 Thoracic s egmental dysfunction 781474102 M99.02 Health Concerns Section Related Observation LastModified by Organization Detai ls LastModified Time None Recorded Concern Status LastModified by Organization Details LastModified Time None Recorded Payers Encounter Date Sequence Insurance Name Policy Number Policy Poe Covered Member ID Poe Member ID Guarantor Name 10/18/2024 1 [place] [employer] Lelia Vizcarra [id number] 5 Lelia Vizcarra Notes Date Note Type Note Provider Name and Address Organization Details Recorded Time 10/18/2024 text/html HPI - Lumbar SpineReported bypatient.Location: left Quality:aching Severity:moderate Timing:morning Aggravating Factors:walking; lifting; carrying; twisting Alleviating Factors:rest Roni Anderson DC [address] [facility], [place], [address], [facility] 10/18/2024 11:39:00 OBGyn Episode No OBEpisode recorded.
--- OUTSIDE RECORDS SUMMARY | 2024-10-28 14:01 | XMS_ITS | Continuity of Care Document ---
Author Organization [facility] ANDRE melendrez [facility] Address [address] [facility] [address] [place] [address] Assessment Encounter Date Assessment Date Assessment LastModified by Organization Details LastModified Time 10/15/2024 10/15/2024 ASSESSMENT: Patient is a good [...] to contact our office. [email or web address] Not available 10/15/2024 19:15:32 Plan of Treatment Reminders Order Date Submit [...] Address Organization Details Recorded Time Neck pain 69130988 Active 2024 Arsalan Dc, TANGELA [address] [facility], [place], [address] , [facility] 5 10:41:22 Cervical segmental dysfunction 816489903 Active 2024 Arsalan Dc DC [address] [facility], [place], [address], [facility] 5 10:41:27 Lesion of lumbar spine 153666961 Active 2024 Chintan Gorman TANGELA Kohler [address] [facility], [facility] [place] [place], [address], [facility] 5 10:36:57 Thoracic segmental dysfunction 744038352 Active 2023 Arsalan Dc DC [address] [facility], [place], [address], [facility] 4 17:53:01 Low back pain 059876390 Active 2023 Arsalan Dc DC [address] [place] [address], [place], [address], [facility] 4 17:53:01 Lumbar segmental dysfunction 242488045 Active 2023 Arsalan Dc DC [address] [facility], [facility] [place] [place], [address], [facility] 4 17:53:01 Somatic dysfunction of sacral spine 795530628 Active 2023 Arsalan Dc DC [address] [place] [address], [place], [address], [facility] 4 17:53:01 Somatic dysfunction of pelvic region 501855276 Active 2023 Arsalan Dc DC [address] [facility], [place], [address], [facility] 4 16:00:35 Problem Notes None recorded. Procedures Surgical History Date Name Laterality Status Provider Name and Address Organization Details Recorded Time 5 34076: Spinal manipulation , 3 to 4 regions completed Chintan BridgesTANGELA flores [address] [facility], [place], [address], [facility] 10/23/2024 10:17:56 5 [address]6748: Spinal manipulation , 3 to 4 regions completed Roni Anderson DC [address] [facility], [place], [address], [facility] 10/18/2024 11:38:18 5 66100: Spinal manipulation , 3 to 4 regions completed Chintan Kohler DC [address] [facility], [place], [address], [facility] 10/15/2024 19:15:32 5 17631: Spinal manipulation , 3 to 4 regions completed Chintan Kohler DC [address] [facility], [place], [address], [facility] 10/02/2024 16:12:11 5 26550: Spinal manipulation , 3 to 4 regions completed Chintan Kohler DC [address] [facility], [place], [address], [facility] 09/25/2024 18:08:20 5 68040: Spinal manipulation , 3 to 4 regions completed Chintan Kohler DC [address] [facility], [place], [address], [facility] 09/18/2024 20:39:50 5 20044: Spinal manipulation , 3 to 4 regions completed Chintan Kohler DC [address] [facility], [place], [address], [facility] 09/11/2024 16:19:20 5 72112: Spinal manipulation , 3 to 4 regions completed Chintan Kohler DC [address] [facility], [place], [address], [facility] 09/04/2024 19:45:53 5 79706: Spinal manipulation , 3 to 4 regions completed Chintan Kohler DC [address] [facility], [place], [address], [facility] 08/28/2024 19:29:31 5 10482: Spinal manipulation , 3 to 4 regions completed Chintan Sherif TANGELA Kohler [address] [facility], [place], [address], [facility] 08/15/2024 10:50:31 5 91072: Spinal manipulation , 3 to 4 regions completed Chintan Kohler DC [address] [facility], [place], [address], [facility] 08/08/2024 10:36:05 5 99862: Spinal manipulation , 3 to 4 regions completed Chintan Sherifkai Kohler DC [address] [facility], [place], [address], [facility] 07/24/2024 17:24:59 5 07922: Spinal manipulation , 3 to 4 regions completed Chintan Kohler DC [address] [facility], [place], [address], [facility] 07/22/2024 18:24:19 5 81310: Spinal manipulation , 3 to 4 regions completed Roni Anderson DC [address] [facility], [place], [address], [facility] 07/19/2024 13:59:35 5 28038: Spinal manipulation , 3 to 4 regions completed Chintan Kohler DC [address] [facility], [place], [address], [facility] 07/12/2024 19:11:44 5 51403: Spinal manipulation , 3 to 4 regions completed Arsalan Dc DC [address] [facility], [place], [address], [facility] 07/16/2024 10:41:16 5 72139: Spinal manipulation , 3 to 4 regions completed Arsalan Dc DC [address] [facility], [place], [address], [facility] 06/13/2024 16:09:29 5 75442: Spinal manipulation , 3 to 4 regions completed Arsalan Dc DC [address] [facility], [place], [address], [facility] 05/30/2024 15:48:40 5 70694: Spinal manipulation , 3 to 4 regions completed Arsalan Dc DC [address] [facility], [place], [address], [facility] 05/16/2024 16:14:08 4 69364: Spinal manipulation , 3 to 4 regions completed Arsalan Dc DC [address] [facility], [place], [address], [facility] 05/14/2024 11:46:50 4 23173: Spinal manipulation , 3 to 4 regions completed Arsalan Dc DC [address] [facility], [place], [address], [facility] 04/25/2024 16:00:07 4 24358: Spinal manipulation , 3 to 4 regions completed Arsalan Dc DC [address] [facility], [place], [address], [facility] 04/18/2024 17:53:33 [...] SNOMED-CT Code Diagnosis ICD10 Code Diagnosis Note [id number] Chintan Kohler DC [address] [place] [address] 09/18/2024 15:41:57 09/19/2024 14:46:57 Lumbar segmental dysfunction 152003319 M99.03 Low back pain 642339944 M54.50 Somatic dy sfunction of sacral spine 820203950 M99.04 Thoracic s egmental dysfunction 434990119 M99.02 [id number] Chintan Kohler [address] [place] [address] 09/25/2024 16:39:20 09/25/2024 18:11:19 Lumbar segmental dysfunction 351280662 M99.03 Low back pain 267729409 M54.50 Somatic dy sfunction of sacral spine 654557852 M99.04 Thoracic s egmental dysfunction 498643908 M99.02 [id number] Chintan Kohler DC [address] [place] [address] 10/02/2024 12:19:12 10/02/2024 16:43:06 Lumbar segmental dysfunction 770203606 M99.03 Low back pain 436135631 M54.50 Somatic dy sfunction of sacral spine 013302679 M99.04 Thoracic s egmental dysfunction 697506388 M99.02 [id number] Chintan Kohler DC [facility] [address] [facility] [facility] [place] [address] 10/15/2024 15:06:15 10/17/2024 10:51:14 Lumbar segmental dysfunction 267389369 M99.03 Low back pain 732175420 M54.50 Somatic dy sfunction of sacral spine 313411914 M99.04 Thoracic s egmental dysfunction 950023549 M99.02 Health Concerns Section Related Observation LastModified by Organization Detai ls LastModified Time None Recorded Concern Status LastModified by Organization Details LastModified Time None Recorded Payers Encounter Date Sequence Insurance Name Policy Number Policy Poe Covered Member ID Poe Member ID Guarantor Name 10/15/2024 1 [place] [employer] Lelia Vizcarra [id number] 5 Lelia Vizcarra Notes Date Note Type Note Provider Name and Address Organization Details Recorded Time 10/15/2024 text/html HPI - Lumbar SpineReported bypatient.Location: left Quality:aching Severity:moderate Timing:morning Aggravating Factors:walking; lifting; carrying; twisting Alleviating Factors:rest Chintan Kohler DC [address] [facility], [place], [address], [facility] 10/15/2024 19:16:29 OBGyn Episode No OBEpisode recorded.
[2024-10-28 14:49] LABS: Basophils Absolute Auto 0.06 K/uL (0.00-0.30); Basophils Percent Auto 1.1 % (0.0-3.0); Eosinophils Absolute Auto 0.04 K/uL (0.00-0.50); Eosinophils Percent Auto 0.7 % (0.0-7.0); Hematocrit 39.5 % (33.0-51.0); Hemoglobin* 13.3 gm/dL (12.0-16.0); Immature Granulocytes Abs Auto 0.02 K/uL (0.00-0.30); Immature Granulocytes Pct Auto 0.4 %; Lymphocytes Absolute Auto 1.24 K/uL (0.90-2.90); Lymphocytes Percent Auto 21.8 % (20-44); Mean Corpuscular HGB Conc 34 gm/dL (32-36); Mean Corpuscular Hemoglobin 32 pg (26-34); Mean Corpuscular Volume 95 fL (80-100); Monocytes Percent Auto 9.3 % (0.0-11.0); Neutrophils Percent Auto 66.7 % (42.0-72.0); Platelet Count* 493 K/uL (140-440); RDW Coefficient of Variation % 12.2 % (11.5-15.5); Red Blood Count 4.17 m/uL (4.00-5.20); White Blood Count* 5.69 K/uL (4.50-11.00)
[2024-10-28 14:52] LABS: Slide Review Reflex No
[2024-10-28 15:03] LABS: Chloride* 98 mmol/L (96-114); Potassium* 4.4 mmol/L (3.6-5.1); Sodium* 135 mmol/L (135-149)
[2024-10-28 15:06] LABS: Anion Gap 9 mEq/L (7-15); Blood Urea Nitrogen* 12 mg/dL (7-30); Calcium* 9.7 mg/dL (8.4-10.6); Carbon Dioxide* 28 mmol/L (20-32); Creatinine* 0.6 mg/dL (0.5-1.5); Est. Creatinine Clearance* 39.59; Estimated Glomerular Filt Rate 93 ml/min; Glucose* 123 mg/dL (60-115)
[2024-10-28 15:07] LABS: Magnesium* 2.1 mg/dL (1.5-2.6)
[2024-10-28 15:34] LABS: Troponin I* < 0.01 ng/mL (0.01-0.04)
== END 2024-10-28 16:40 | disposition home or self-care (01) ==
PROVIDERS: Emergency Provider Family Medicine; PCP Family Medicine
DX: R00.2 Palpitations (principal); R22.41 Localized swelling, mass and lump, right lower limb
CPT/HCPCS: 36415; 71045; 73600; 80048; 83735; 84484; 85025; 93971; 99284